=== PATIENT | male | born 1955 | race Caucasian/White ===

== ENCOUNTER → 2017-05-28 | Outpatient (CLI) | payer BC ==
--- NOTE | 2017-05-28 09:49 | US ---
EXAMINATION TYPE: US abdomen complete DATE OF EXAM: 05/28/2017 COMPARISON: NONE CLINICAL HISTORY: 62-year-old male Splenomegaly R16.1. TECHNIQUE: Multiple sonographic images of the abdomen are obtained. FINDINGS: [employer] NOTES: Large body habitus with extensive midline bowel gas. Liver Length: 14.2 cm Gallbladder Wall: 0.1 cm CBD: 0.3 cm Spleen: 14.8 cm Right Kidney: 10.7 x 4.8 x 4.8 cm Left Kidney: 11.7 x 6.0 x 5.4 cm Pancreas: Obscured by bowel gas Liver: Markedly echogenic and attenuating. This secondarily limits assessment for focal lesion. Gallbladder: wnl Evidence for sonographic Sandoval's sign: no CBD: wnl Spleen: Mildly enlarged Right Kidney: Inferior pole obscured by bowel gas . No hydronephrosis. Left Kidney: No hydronephrosis. Upper IVC: not well visualized Abd Aorta: proximal portion and bifurcation obscured by bowel gas IMPRESSION: 1. Mild splenomegaly (14.8 cm). 2. Marked hepatic steatosis. Correlate with LFTs, lipid profile, and patient risk factors. 3. Pancreas obscured and not assessed.
== END ==
LOC: RADUSWWP 07:33
PROVIDERS: ATTEND Family Medicine
DX: R16.1 Splenomegaly, not elsewhere classified (principal); K76.0 Fatty (change of) liver, not elsewhere classified
CPT/HCPCS: 76700

== ENCOUNTER 2018-07-29 09:26 | Observation (INO) | payer BC ==
[2018-07-29] MEDS ORDERED: NITROGLYCERIN SL TABS 0.4 MG TAB SUBLINGUAL STA (09:54)
[2018-07-29] MEDS ORDERED: ASPIRIN 81 MG PO STA (09:54)
--- NOTE | 2018-07-29 10:02 | ED ---
General Adult HPI - General Chief complaint: Chest Pain Stated complaint: Chest pain Time Seen by Provider: 07/29/18 09:48 Source: patient, RN notes reviewed Mode of arrival: ambulatory Limitations: no limitations - History of Present Illness Initial comments: Patient's a 63-year-old male significant past medical history for CAD, presented to the emergency room today with chief complaint of chest pain that started last night. Patient does admit that he's had a achy type pain that started in the abdomen and radiating up into the chest. Patient states does feel similar to symptoms that he's had in the past weeks had a heart attack. He states it's just a 3/10 pain. Did follow-up the family physician today and was advised come here by EMS which she did refuse but he did drive here to the hospital to be seen. Patient does admit to still experiencing some epigastric discomfort as well. He does admit that he's had some cough congestion over the last week. Does admit to sputum production as been yellow in color. Denies any other complaints or symptoms. Patient denies any recent fever, chills, shortness of breath, back pain, nausea or vomiting, numbness or tingling, headaches or visual changes, or any other complaints. - Related Data Home Medications Medication Instructions Recorded Confirmed Aspirin 81 mg PO DAILY 05/06/14 07/29/18 Clopidogrel Bisulfate [Plavix] 75 mg PO DAILY 05/06/14 07/29/18 Metoprolol Succinate [Toprol XL] 50 mg PO DAILY 05/06/14 07/29/18 Nitroglycerin Sl Tabs [Nitrostat] 0.4 mg SUBLINGUAL Q5M PRN 05/06/14 07/29/18 [place]-3 Acid Ethyl Esters [Lovaza] 2 gm PO BID 05/06/14 07/29/18 Rosuvastatin Calcium [Crestor] 20 mg PO DAILY 05/06/14 07/29/18 Dextromethorphan Polistirex 60 mg PO Q12H PRN 07/29/18 07/29/18 [Delsym] Dulaglutide [Trulicity] 1.5 mg SQ MO 07/29/18 07/29/18 Lisinopril [Zestril] 20 mg PO DAILY 07/29/18 07/29/18 Loratadine 10 mg PO DAILY 07/29/18 07/29/18 Omeprazole 20 mg PO BID 07/29/18 07/29/18 glipiZIDE [Glucotrol] 2.5 mg PO BID 07/29/18 07/29/18 metFORMIN HCL 1,000 mg PO BID 07/29/18 07/29/18 rOPINIRole HCL 0.5 mg PO HS 07/29/18 07/29/18 Allergies Allergy/AdvReac Type Severity Reaction Status Date / Time No Known Allergies Allergy Verified 07/29/18 10:38 Review of Systems ROS Statement: Those systems with pertinent positive or pertinent negative responses have been documented in the HPI. ROS Other: All systems not noted in ROS Statement are negative. Past Medical History Past Medical History: Coronary Artery Disease (CAD), Diabetes Mellitus, Hypertension, Myocardial Infarction (HI) Additional Past Medical History / Comment(s): Vasular disease Last Myocardial Infarction Date:: unknown History of Any Multi-Drug Resistant Organisms: None Reported Past Surgical History: Heart Catheterization With Stent Additional Past Surgical History / Comment(s): Femoral Bypass Date of Last Stent Placement:: unknown Past Psychological History: No Psychological Hx Reported Smoking Status: Former smoker Past Alcohol Use History: None Reported Past Drug Use History: None Reported General Exam - General Exam Comments Initial Comments: General: The patient is awake and alert, in no distress, and does not appear acutely ill. Eye: . There is normal conjunctiva bilaterally. No signs of icterus. Ears, nose, mouth and throat: There are moist mucous membranes and no oral lesions. Neck: The neck is supple, there is no tenderness or JVD. Cardiovascular: There is a regular rate and rhythm. No murmur, rub or gallop is appreciated. Respiratory: Lungs are clear to auscultation, respirations are non-labored, breath sounds are equal. No wheezes, stridor, rales, or rhonchi. Gastrointestinal: Mild tenderness epigastric. No rebound, guarding or CVA tenderness. Musculoskeletal: Normal ROM, no tenderness. Strength 5/5. Sensation intact. Radial pulses equal bilaterally 2+. Neurological: A&O x 3. CN II-XII intact, There are no obvious motor or sensory deficits. Coordination appears grossly intact. Speech is normal. Skin: Skin is warm and dry and no rashes or lesions are noted. Psychiatric: Cooperative, appropriate mood & affect, normal judgment. Limitations: no limitations Course Vital Signs 07/29/18 07/29/18 07/29/18 09:28 10:31 11:20 Temperature 98.8 F 98.5 F Pulse Rate 77 67 Respiratory 18 18 Rate Blood Pressure 197/81 155/82 155/79 O2 Sat by Pulse 97 96 Oximetry EKG Findings - EKG Comments: EKG Findings:: EKG performed at 0944: Shows normal sinus rhythm at 73 bpm. MD interval 148. QRS 92. QT/QTc 416/458. No acute ST changes. Medical Decision Making - Medical Decision Making Patient's reexamined at this time shows no signs of distress. He has had cough congestion last week. Says x-rays negative for any sign of pneumonia. Patient' s troponin negative. EKG showing no changes from previous. Patient's lipase is mildly elevated greater than 400. Patient does admit that he's had some similar symptoms in the past with HI. Patient will be admitted for serial cardiac enzymes patient currently resting comfortable at this time. - Lab Data Result diagrams: 07/29/18 10:04 07/29/18 10:04 Lab Results 07/29/18 07/29/18 07/29/18 Range/Units 10:04 10:04 10:04 WBC 6.1 (3.8-10.6) k/uL RBC 4.82 (4.30-5.90) m/uL Hgb 14.0 (13.0-17.5) gm/dL Hct 39.0 (39.0-53.0) % MCV 80.8 (80.0-100.0) fL MCH 29.1 (25.0-35.0) pg MCHC 36.0 (31.0-37.0) g/dL RDW 13.4 (11.5-15.5) % Plt Count 168 (150-450) k/uL Neutrophils % 69 % Lymphocytes % 19 % Monocytes % 5 % Eosinophils % 4 % Basophils % 1 % Neutrophils # 4.2 (1.3-7.7) k/uL Lymphocytes # 1.2 (1.0-4.8) k/uL Monocytes # 0.3 (0-1.0) k/uL Eosinophils # 0.3 (0-0.7) k/uL Basophils # 0.0 (0-0.2) k/uL PT (9.0-12.0) sec INR (<1.2) APTT (22.0-30.0) sec Sodium 141 (137-145) mmol/L Potassium 4.2 (3.5-5.1) mmol/L Chloride 107 (98-107) mmol/L Carbon Dioxide 26 (22-30) mmol/L Anion Gap 8 mmol/L BUN 13 (9-20) mg/dL Creatinine 0.64 L (0.66-1.25) mg/dL Est GFR (CKD-EPI)AfAm >90 (>60 ml/min/1.73 sqM) Est GFR (CKD-EPI)NonAf >90 (>60 ml/min/1.73 sqM) Glucose 220 H (74-99) mg/dL Calcium 9.4 (8.4-10.2) mg/dL Magnesium 1.5 L (1.6-2.3) mg/dL Total Bilirubin 0.6 (0.2-1.3) mg/dL AST 37 (17-59) U/L ALT 63 (21-72) U/L Alkaline Phosphatase 74 (38-126) U/L Total Creatine Kinase 87 (55-170) U/L CK-MB (CK-2) 1.1 (0.0-2.4) ng/mL CK-MB (CK-2) Rel Index 1.3 Troponin I <0.012 (0.000-0.034) ng/mL Total Protein 7.0 (6.3-8.2) g/dL Albumin 4.1 (3.5-5.0) g/dL Amylase 68 (30-110) U/L Lipase 479 H (23-300) U/L //18 Range/Units 10:04 WBC (3.8-10.6) k/uL RBC (4.30-5.90) m/uL Hgb (13.0-17.5) gm/dL Hct (39.0-53.0) % MCV (80.0-100.0) fL MCH (25.0-35.0) pg MCHC (31.0-37.0) g/dL RDW (11.5-15.5) % Plt Count (150-450) k/uL Neutrophils % % Lymphocytes % % Monocytes % % Eosinophils % % Basophils % % Neutrophils # (1.3-7.7) k/uL Lymphocytes # (1.0-4.8) k/uL Monocytes # (0-1.0) k/uL Eosinophils # (0-0.7) k/uL Basophils # (0-0.2) k/uL PT 9.8 (9.0-12.0) sec INR 0.9 (<1.2) APTT 26.0 (22.0-30.0) sec Sodium (137-145) mmol/L Potassium (3.5-5.1) mmol/L Chloride (98-107) mmol/L Carbon Dioxide (22-30) mmol/L Anion Gap mmol/L BUN (9-20) mg/dL Creatinine (0.66-1.25) mg/dL Est GFR (CKD-EPI)AfAm (>60 ml/min/1.73 sqM) Est GFR (CKD-EPI)NonAf (>60 ml/min/1.73 sqM) Glucose (74-99) mg/dL Calcium (8.4-10.2) mg/dL Magnesium (1.6-2.3) mg/dL Total Bilirubin (0.2-1.3) mg/dL AST (17-59) U/L ALT (21-72) U/L Alkaline Phosphatase (38-126) U/L Total Creatine Kinase (55-170) U/L CK-MB (CK-2) (0.0-2.4) ng/mL CK-MB (CK-2) Rel Index Troponin I (0.000-0.034) ng/mL Total Protein (6.3-8.2) g/dL Albumin (3.5-5.0) g/dL Amylase (30-110) U/L Lipase (23-300) U/L Disposition Clinical Impression: Chest pain, Abdominal pain, Elevated lipase Disposition: ADMITTED IP TO THIS [facility] Condition: Stable Is patient prescribed a controlled substance at d/c from ED?: No Referrals: Oliverio Clay DO [Primary Care Provider] - 1-2 days Time of Disposition: 12:03
--- NOTE | 2018-07-29 10:26 | XR ---
EXAMINATION TYPE: XR chest 2V DATE OF EXAM: 07/29/2018 COMPARISON: 05/06/2014 TECHNIQUE: PA and lateral views submitted. HISTORY: Chest pain FINDINGS: The lungs are clear and there is no pneumothorax, pleural effusion, or focal pneumonia. Hypertrophi c and degenerative change spine. Wedge deformity involving the thoracolumbar junction appears chronic . IMPRESSION: 1. No acute process.
[2018-07-29 10:52] LABS: Basophils % (A) 1 %; Eosinophils # (A) 0.3 k/uL (0-0.7); Eosinophils % (A) 4 %; Lymphocytes # (A) 1.2 k/uL (1.0-4.8); Lymphocytes % (A) 19 %; MCH 29.1 pg (25.0-35.0); MCV 80.8 fL (80.0-100.0); Mean Platelet Volume 8.1; Monocytes # (A) 0.3 k/uL (0-1.0); Monocytes % (A) 5 %; Neutrophils # (A) 4.2 k/uL (1.3-7.7); Neutrophils % (A) 69 %; Platelet Count 168 k/uL (150-450); RBC 4.82 m/uL (4.30-5.90); RDW 13.4 % (11.5-15.5); WBC 6.1 k/uL (3.8-10.6)
[2018-07-29 11:00] LABS: INR 0.9 (<1.2); Prothrombin Time 9.8 sec (9.0-12.0)
[2018-07-29 11:01] LABS: ALT 63 U/L (21-72); AST 37 U/L (17-59); Albumin 4.1 g/dL (3.5-5.0); Alkaline Phosphatase 74 U/L (38-126); Amylase 68 U/L (30-110); Anion Gap 8 mmol/L; Blood Urea Nitrogen 13 mg/dL (9-20); Calcium 9.4 mg/dL (8.4-10.2); Carbon Dioxide 26 mmol/L (22-30); Chloride 107 mmol/L (98-107); Glucose 220 mg/dL (74-99); Lipase 479 U/L (23-300); Magnesium 1.5 mg/dL (1.6-2.3); Potassium 4.2 mmol/L (3.5-5.1); Sodium 141 mmol/L (137-145); Total Bilirubin 0.6 mg/dL (0.2-1.3)
[2018-07-29 11:22] LABS: Creatine Kinase 87 U/L (55-170)
[2018-07-29 11:32] LABS: Creatine Kinase MB 1.1 ng/mL (0.0-2.4); Troponin I <0.012 ng/mL (0.000-0.034)
[2018-07-29] MEDS ORDERED: NITROGLYCERIN SL TABS 0.4 MG TAB SUBLINGUAL PRN ×2 (12:04→13:22)
[2018-07-29] MEDS ORDERED: SODIUM CHLORIDE 0.9% 1,000 ML IV ONE (12:04)
[2018-07-29] MEDS ORDERED: DEXTROMETHORPHAN POLISTIREX PO PRN (13:22)
[2018-07-29] MEDS ORDERED: NON-FORMULARY DRUG (Dulaglutide [Trulicity] 1.5 MG) SQ SCH (14:00)
[2018-07-29 14:32] VITALS: BMI 34.7
[2018-07-29] MEDS ORDERED: INFLUENZA VACCINE (6 MOS+) 60 MCG/0.5 ML SYRINGE IM ONE (14:39)
[2018-07-29] MEDS ORDERED: PNEUMOCOCCAL VACC-PNEUMOVAX 23 25 MCG/0.5 ML VIAL IM ONE (14:39)
[2018-07-29] MEDS: ATORVASTATIN 40 MG TAB PO SCH (14:59)
[2018-07-29] MEDS: CLOPIDOGREL 75 MG TAB PO SCH (14:59)
[2018-07-29] MEDS: PANTOPRAZOLE 40 MG TABLET PO SCH (14:59)
[2018-07-29] MEDS: LISINOPRIL 20 MG TAB PO SCH (14:59)
[2018-07-29] MEDS: METOPROLOL SUCCINATE (ER) 50 MG TAB.ER.24H PO SCH (14:59)
[2018-07-29 16:45] LABS: Glucose,Whole Blood 233 mg/dL (75-99)
[2018-07-29] MEDS ORDERED: NALOXONE 0.4 MG/ML 1 ML VIAL IV PRN (17:00)
[2018-07-29] MEDS ORDERED: CALCIUM CARBONATE 500 MG CHEWABLE PO PRN (17:00)
[2018-07-29] MEDS ORDERED: MELATONIN 3 MG TABLET PO PRN (17:00)
[2018-07-29] MEDS ORDERED: ACETAMINOPHEN TAB 325 MG TAB PO PRN (17:00)
[2018-07-29] MEDS ORDERED: ONDANSETRON 4 MG/2 ML VIAL IVP PRN (17:00)
[2018-07-29] MEDS ORDERED: MAGNESIUM HYDROXIDE 2,400 MG/10 ML CUP PO PRN (17:00)
[2018-07-29] MEDS ORDERED: LACTULOSE 20 GM/30 ML CUP PO PRN (17:00)
[2018-07-29] MEDS ORDERED: ALPRAZolam 0.25 MG TAB PO PRN (17:00)
[2018-07-29] MEDS: metFORMIN 500 MG TAB PO SCH (17:08)
[2018-07-29] MEDS: IPRATROPIUM-ALBUTEROL 3 ML NEB INHALATION SCH ×2 (17:25→19:51)
[2018-07-29] MEDS ORDERED: INSULIN ASPART 100 UNIT/ML 1 ML 10 ML VIAL SQ SCH ×2 (17:30)
[2018-07-29] MEDS: methylPREDNISolone SOD SUCCI 40 MG/ML 1 ML VIAL IV SCH ×2 (17:32→22:29)
[2018-07-29] MEDS: ENOXAPARIN 40 MG/0.4 ML SYRINGE SQ SCH (17:33)
[2018-07-29] MEDS: LORATADINE 10 MG TAB PO SCH (17:33)
[2018-07-29 17:39] LABS: Creatine Kinase 74 U/L (55-170)
[2018-07-29 17:46] LABS: Creatine Kinase MB 0.8 ng/mL (0.0-2.4); Troponin I <0.012 ng/mL (0.000-0.034)
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
[2018-07-29 20:42] LABS: Glucose,Whole Blood 221 mg/dL (75-99)
[2018-07-29] MEDS: INSULIN ASPART 100 UNIT/ML 1 ML 10 ML VIAL SQ SCH (21:29)
[2018-07-29 23:16] LABS: Creatine Kinase 69 U/L (55-170)
[2018-07-29 23:30] LABS: Creatine Kinase MB 0.7 ng/mL (0.0-2.4); Troponin I <0.012 ng/mL (0.000-0.034)
[2018-07-30 02:45] LABS: Cholesterol 83 mg/dL (<200); HDL Cholesterol 23 mg/dL (40-60); LDL Cholesterol,Calculated 23 mg/dL (0-99); Triglycerides 183 mg/dL (<150)
[2018-07-30 04:08] LABS: Hemoglobin A1C 7.3 % (4.0-6.0)
[2018-07-30 07:03] LABS: Glucose,Whole Blood 277 mg/dL (75-99)
[2018-07-30] MEDS: IPRATROPIUM-ALBUTEROL 3 ML NEB INHALATION SCH ×3 (07:07→15:11)
[2018-07-30] MEDS ORDERED: ASPIRIN 325 MG TAB PO SCH (09:00)
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
--- NOTE | 2018-07-30 10:38 | US ---
EXAMINATION TYPE: US abdomen complete DATE OF EXAM: 07/30/2018 COMPARISON: US CLINICAL HISTORY: elevated lipase. EXAM MEASUREMENTS: Liver Length: 16.9 cm Gallbladder Wall: 0.3 cm CBD: 0.4 cm Spleen: 15.3 cm Right Kidney: 10.6 x 6.6 x 6.4 cm Left Kidney: 14.2 x 6.1 x 6.8 cm Technically difficult study due to overlying bowel gas. Pancreas: not visualized due to midline bowel gas. Liver: difficult to penetrate, loss of vascular landmarks. Marked coarsened hyperechoic and heteroge nous echotexture of the hepatic parenchyma, which most commonly corresponds to hepatic steatosis and limits evaluation for underlying hepatic masses. Gallbladder: No stones seen Evidence for sonographic Sandoval's sign: No CBD: wnl Spleen: enlarged at 15 cm Right Kidney: No hydronephrosis or masses seen Left Kidney: No hydronephrosis or masses seen Upper IVC: not visualized due to midline bowel gas Abd Aorta: visualized portions wnl The intrahepatic portion of the IVC and proximal abdominal aorta are within normal limits. There is no evidence of cholelithiasis. Common bile duct is unremarkable. The spleen is enlarged. Kidneys are symmetric and free of hydronephrosis. No renal lesions are seen. IMPRESSION: 1. Redemonstration of hepatocellular disease with sonographic findings most commonly related to hepat ic steatosis and splenomegaly both seen on the prior exam of 05/28/2017. 2. No sonographic evidence of cholelithiasis or acute cholecystitis. 3. Limited visualization of the inferior vena cava, aorta, and obscuration of the pancreas due to ove rlying bowel gas.
[2018-07-30 11:02] LABS: Glucose,Whole Blood 332 mg/dL (75-99)
[2018-07-30] MEDS: ATORVASTATIN 40 MG TAB PO SCH (11:30)
[2018-07-30] MEDS: LORATADINE 10 MG TAB PO SCH (11:31)
[2018-07-30] MEDS: LISINOPRIL 20 MG TAB PO SCH (11:31)
[2018-07-30] MEDS: CLOPIDOGREL 75 MG TAB PO SCH (11:31)
[2018-07-30] MEDS: PANTOPRAZOLE 40 MG TABLET PO SCH (11:32)
[2018-07-30] MEDS: METOPROLOL SUCCINATE (ER) 50 MG TAB.ER.24H PO SCH (11:32)
[2018-07-30] MEDS: ENOXAPARIN 40 MG/0.4 ML SYRINGE SQ SCH (11:32)
[2018-07-30] MEDS: methylPREDNISolone SOD SUCCI 40 MG/ML 1 ML VIAL IV SCH ×2 (11:32→16:41)
--- NOTE | 2018-07-30 11:52 | ECHOF ---
Referral Reason: MEASUREMENTS -------- HEIGHT: 167.6 cm WEIGHT: 97.5 kg BP: 143/74 RVIDd: 3.0 cm (< 3.3) IVSd: 1.3 cm (0.6 - 1.1) LVIDd: 4.7 cm (3.9 - 5.3) LVPWd: 1.3 cm (0.6 - 1.1) IVSs: 2.0 cm LVIDs: 2.7 cm LVPWs: 1.7 cm LA Diam: 3.7 cm (2.7 - 3.8) LAESV Index (A-L): 31.77 ml/m Ao Diam: 3.4 cm (2.0 - 3.7) AV Cusp: 2.4 cm (1.5 - 2.6) MV EXCURSION: 14.577 mm (> 18.000) MV EF SLOPE: 123 mm/s (70 - 150) EPSS: 0.4 cm MV E Tevin: 0.95 m/s MV DecT: 163 ms MV A Tevin: 1.28 m/s MV E/A Ratio: 0.75 RAP: 5.00 mmHg RVSP: 28.81 mmHg FINDINGS -------- Resting tachycardia (HR>100bpm). This was a technically adequate study. The left ventricular size is normal. There is mild concentric left ventricular hypertrophy. Left ventricular systolic function is hyperdynamic with an estimated EF of >70%. Moderate asymmetric sep milton hypertrophy with septal thickness 1.6 - 1.9 cm. The right ventricle is normal in size. LA is midly dilated 29-33ml/m2. The right atrium is normal in size. The aortic valve is trileaflet and appears structurally normal. The mitral valve is normal. Mild tricuspid regurgitation present. Right ventricular systolic pressure is normal at < 35 mmHg. Trace/mild (physiologic) pulmonic regurgitation. The aortic root size is normal. IVC Not well visulized. There is no pericardial effusion. CONCLUSIONS -------- 1. Resting tachycardia (HR>100bpm). 2. This was a technically adequate study. 3. The left ventricular size is normal. 4. There is mild concentric left ventricular hypertrophy. 5. Left ventricular systolic function is hyperdynamic with an estimated EF of >70%. 6. Moderate asymmetric septal hypertrophy with septal thickness 1.6 - 1.9 cm. 7. The right ventricle is normal in size. 8. LA is midly dilated 29-33ml/m2. 9. The right atrium is normal in size. 10. The aortic valve is trileaflet and appears structurally normal. 11. The mitral valve is normal. 12. Mild tricuspid regurgitation present. 13. Right ventricular systolic pressure is normal at < 35 mmHg. 14. Trace/mild (physiologic) pulmonic regurgitation. 15. The aortic root size is normal. 16. IVC Not well visulized. 17. There is no pericardial effusion. ELEMENTARY EDUCATION TEACHER: Karma Joiner RDCS
[2018-07-30] MEDS: INSULIN ASPART 100 UNIT/ML 1 ML 10 ML VIAL SQ SCH ×3 (12:09→16:46)
[2018-07-30] MEDS: metFORMIN 500 MG TAB PO SCH ×2 (12:09→16:46)
[2018-07-30 16:09] VITALS: BP 182/77; PULSE 105; RESP 18; TEMP 97.3
[2018-07-30 16:44] LABS: Glucose,Whole Blood 318 mg/dL (75-99)
[2018-07-31] MEDS ORDERED: ASPIRIN 81 MG PO SCH (09:00)
--- NOTE | 2018-07-31 22:36 | DS ---
DISCHARGE SUMMARY DATE OF ADMISSION: July 29, 2018. DATE OF DISCHARGE: July 30, 2018. FINAL DIAGNOSES: 1. Acute chronic obstructive pulmonary disease exacerbation in an ex-smoker. 2. Acute tracheobronchitis. 3. Possible angina. 4. Coronary artery disease prior history of stents, last one being in 2013. 5. Diabetes mellitus type 2 on oral hypoglycemic. 6. Essential hypertension. 7. Peripheral artery disease. HOSPITAL COURSE: This is an ex-smoker presented with being congested, short of breath, some wheezing, did respond well to bronchodilators and steroids. I would like him to stay one more day with COPD exacerbation, but the patient is very keen to go home. Also had some chest pain. Seen by Cardiology. No further workup to be done. 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 2D echocardiogram 2D echocardiogram showed EF of more than 70% and moderate asymmetric septal hypertrophy. The patient otherwise was doing well, up and about. PHYSICAL EXAMINATION: Temperature 97.3, pulse 95, respiration 18, blood pressure 116/67. LUNGS improved air entry. CARDIOVASCULAR: First and second sounds normal. DISCHARGE MEDICATIONS: 1. Aspirin 81 mg a day. 2. Plavix 75 mg a day. 3. Toprol-XL 50 mg a day. 4. Nitrostat 0.4 sublingual q.5 p.r.n. 5. Lovaza 2 grams p.o. b.i.d. 6. Crestor 20 mg p.o. daily. 7. 60 mg p.o. q.12 p.r.n. 8. Trulicity 1.5 subcu on Mondays. 9. Zestril 20 mg p.o. daily. 10.Omeprazole 20 mg b.i.d. 11.Glucotrol 2.5 mg p.o. b.i.d. 12.Metformin 1000 mg p.o. b.i.d. 13.Ropinirole 0.5 mg p.o. q.h.s. 14.Ventolin HFA 1 or 2 puffs q.6h p.r.n. 15.Atrovent HFA 2 puffs q.i.d. 16.Claritin 5 mg p.o. b.i.d. 17.Prednisone taper. 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 Follow up with Dr. Clay in 3 days. The patient did get influenza and pneumococcal vaccination. Copy to Dr. Clay. [id number] / IJN: [id number] /
== END 2018-07-30 15:40 | disposition home or self-care (01) ==
LOC: EC 09:26 → 1SOBS 12:03
PROVIDERS: ADMIT Hospitalist; ATTEND Hospitalist
DX: J44.1 Chronic obstructive pulmonary disease with (acute) exacerbation (principal); Z87.891 Personal history of nicotine dependence; J20.9 Acute bronchitis, unspecified; J44.0 Chronic obstructive pulmonary disease with (acute) lower respiratory infection; I25.10 Atherosclerotic heart disease of native coronary artery without angina pectoris; Z95.5 Presence of coronary angioplasty implant and graft; I10 Essential (primary) hypertension; E11.51 Type 2 diabetes mellitus with diabetic peripheral angiopathy without gangrene; E78.5 Hyperlipidemia, unspecified; E83.42 Hypomagnesemia; G47.30 Sleep apnea, unspecified; K21.9 Gastro-esophageal reflux disease without esophagitis; R74.8 Abnormal levels of other serum enzymes; I25.2 Old myocardial infarction; Z95.828 Presence of other vascular implants and grafts; Z86.718 Personal history of other venous thrombosis and embolism; Z86.14 Personal history of Methicillin resistant Staphylococcus aureus infection; Z79.02 Long term (current) use of antithrombotics/antiplatelets; Z79.84 Long term (current) use of oral hypoglycemic drugs; Z79.82 Long term (current) use of aspirin; Z79.899 Other long term (current) drug therapy; Z81.1 Family history of alcohol abuse and dependence; Z80.0 Family history of malignant neoplasm of digestive organs; Z23 Encounter for immunization
CPT/HCPCS: 36415; 71046; 76700; 80053; 80061; 82150; 82550; 82553; 83036; 83690; 83735; 84484; 85025; 85610; 85730; 90686; 90732; 93005; 93306; 94640; 96372; 96374; 96375; 96376; 99285

== ENCOUNTER 2018-08-06 12:10 | Emergency (ER) | payer BC ==
[2018-08-06 12:23] LABS: Glucose,Whole Blood 387 mg/dL (75-99)
[2018-08-06 12:25] VITALS: RESP 18
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
--- NOTE | 2018-08-06 13:18 | XR ---
EXAMINATION TYPE: XR chest 2V DATE OF EXAM: 08/06/2018 COMPARISON: Chest x-ray July 29, 2018. HISTORY: History of hypertension with cough. TECHNIQUE: Frontal and lateral views of the chest are obtained. FINDINGS: There is no focal air space opacity, pleural effusion, or pneumothorax seen. The cardiac silhouette size remains within normal limits. The osseous structures are intact. IMPRESSION: No suspicious acute pulmonary process. No significant change from prior.
[2018-08-06 13:20] LABS: Appearance,Urine Clear (Clear); Bilirubin,Urine Negative (Negative); Blood,Urine Negative (Negative); Color,Urine Light Yellow; Glucose,Urine (UA) 4+ (Negative); Ketones,Urine Negative (Negative); Leukocyte Esterase,Urine Negative (Negative); Nitrite,Urine Negative (Negative); Protein,Urine Trace (Negative); Urobilinogen,Urine <2.0 mg/dL (<2.0)
[2018-08-06 13:23] LABS: Basophils % (A) 0 %; Eosinophils # (A) 0.1 k/uL (0-0.7); Eosinophils % (A) 1 %; HCT 40.8 % (39.0-53.0); Lymphocytes % (A) 13 %; MCH 28.1 pg (25.0-35.0); MCHC 34.5 g/dL (31.0-37.0); MCV 81.6 fL (80.0-100.0); Mean Platelet Volume 7.8; Monocytes # (A) 0.3 k/uL (0-1.0); Monocytes % (A) 4 %; Neutrophils # (A) 6.6 k/uL (1.3-7.7); Neutrophils % (A) 81 %; Platelet Count 184 k/uL (150-450); RDW 13.7 % (11.5-15.5); WBC 8.2 k/uL (3.8-10.6)
[2018-08-06 13:35] LABS: ALT 89 U/L (21-72); AST 32 U/L (17-59); Albumin 4.2 g/dL (3.5-5.0); Alkaline Phosphatase 77 U/L (38-126); Anion Gap 12 mmol/L; Blood Urea Nitrogen 20 mg/dL (9-20); Calcium 9.7 mg/dL (8.4-10.2); Carbon Dioxide 21 mmol/L (22-30); Chloride 104 mmol/L (98-107); Glucose 351 mg/dL (74-99); Magnesium 1.6 mg/dL (1.6-2.3); Potassium 4.6 mmol/L (3.5-5.1); Sodium 137 mmol/L (137-145); Total Bilirubin 0.4 mg/dL (0.2-1.3)
[2018-08-06] MEDS ORDERED: INSULIN REGULAR 100 UNIT/ML VIAL IV ONE (13:35)
[2018-08-06] MEDS ORDERED: SODIUM CHLORIDE 0.9% 500 ML 500 ML IV STA ×2 (13:35→14:09)
[2018-08-06] MEDS ORDERED: SODIUM CHLORIDE 0.9% 1,000 ML IV STA (13:35)
[2018-08-06 13:44] LABS: Creatine Kinase 52 U/L (55-170)
[2018-08-06 13:57] LABS: Creatine Kinase MB 1.2 ng/mL (0.0-2.4); Troponin I <0.012 ng/mL (0.000-0.034)
[2018-08-06 14:23] LABS: Glucose,Whole Blood 235 mg/dL (75-99)
[2018-08-06 14:57] LABS: Glucose,Whole Blood 185 mg/dL (75-99)
[2018-08-06 15:25] VITALS: BP 164/99; PULSE 66; TEMP 98.2
== END 2018-08-06 15:25 | disposition home or self-care (01) ==
LOC: EC 12:10
DX: I10 Essential (primary) hypertension (principal); E11.65 Type 2 diabetes mellitus with hyperglycemia; E86.0 Dehydration; I25.10 Atherosclerotic heart disease of native coronary artery without angina pectoris; E78.5 Hyperlipidemia, unspecified; I25.2 Old myocardial infarction; G47.30 Sleep apnea, unspecified; E11.51 Type 2 diabetes mellitus with diabetic peripheral angiopathy without gangrene; Z79.02 Long term (current) use of antithrombotics/antiplatelets; Z79.82 Long term (current) use of aspirin; Z79.84 Long term (current) use of oral hypoglycemic drugs; Z79.899 Other long term (current) drug therapy; Z95.5 Presence of coronary angioplasty implant and graft; Z95.1 Presence of aortocoronary bypass graft; Z87.891 Personal history of nicotine dependence; Z86.718 Personal history of other venous thrombosis and embolism
CPT/HCPCS: 36415; 71046; 80053; 81003; 82550; 82553; 83735; 84484; 85025; 93005; 96360; 99284

== ENCOUNTER → 2019-04-21 | Outpatient (CLI) | payer BC ==
--- NOTE | 2019-04-24 11:56 | P.ARTDOP ---
Arterial Doppler LOWER EXTREMITY ARTERIAL DOPPLER: DATE OF SERVICE: 04/21/2019 Reason for study: Previous revascularization. Foot tingling. Doppler waveforms: Multiphasic bilaterally throughout. Pulse volume recording: []. Pressure gradients: None. Ankle-brachial indices: Greater than 1 bilaterally. Toe pressures: 98 on the right, 97 on the left Impression: Normal study.
== END | disposition home or self-care (01) ==
LOC: RADUSWWP 11:53
PROVIDERS: ATTEND Family Medicine
DX: I73.9 Peripheral vascular disease, unspecified (principal)
CPT/HCPCS: 93922; 93923

== ENCOUNTER 2019-10-11 20:32 | Observation (INO) | payer BC ==
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
[2019-10-11] MEDS ORDERED: ASPIRIN 81 MG PO STA (20:54)
[2019-10-11] MEDS ORDERED: NITROGLYCERIN SL TABS 0.4 MG TAB SUBLINGUAL STA (20:55)
--- NOTE | 2019-10-11 21:06 | XR ---
EXAMINATION TYPE: XR chest 2V DATE OF EXAM: 10/11/2019 COMPARISON: 08/06/2018 INDICATION: Chest pain TECHNIQUE: Frontal and lateral views of the chest are obtained. FINDINGS: The heart size is normal. The pulmonary vasculature is normal. The lungs are clear. IMPRESSION: 1. No acute pulmonary process.
[2019-10-11 21:08] LABS: ALT 32 U/L (4-49); AST 33 U/L (17-59); African American GFR (CKD) >90 (>60 ml/min/1.73 sqM); Albumin 4.5 g/dL (3.5-5.0); Alkaline Phosphatase 70 U/L (38-126); Anion Gap 9 mmol/L; Blood Urea Nitrogen 15 mg/dL (9-20); Calcium 9.5 mg/dL (8.4-10.2); Carbon Dioxide 26 mmol/L (22-30); Chloride 104 mmol/L (98-107); Glucose 247 mg/dL (74-99); Magnesium 1.9 mg/dL (1.6-2.3); Non-African American GFR(CKD) >90 (>60 ml/min/1.73 sqM); Potassium 4.2 mmol/L (3.5-5.1); Sodium 139 mmol/L (137-145); Total Bilirubin 0.3 mg/dL (0.2-1.3); Total Protein 7.6 g/dL (6.3-8.2)
[2019-10-11 21:09] LABS: Basophils # (A) 0.1 k/uL (0-0.2); Basophils % (A) 1 %; Eosinophils # (A) 0.5 k/uL (0-0.7); Eosinophils % (A) 5 %; HCT 44.2 % (39.0-53.0); HGB 15.3 gm/dL (13.0-17.5); Lymphocytes # (A) 1.8 k/uL (1.0-4.8); Lymphocytes % (A) 18 %; MCH 27.6 pg (25.0-35.0); MCHC 34.6 g/dL (31.0-37.0); MCV 79.7 fL (80.0-100.0); Mean Platelet Volume 8.3; Monocytes # (A) 0.4 k/uL (0-1.0); Monocytes % (A) 4 %; Neutrophils # (A) 7.2 k/uL (1.3-7.7); Neutrophils % (A) 71 %; Platelet Count 216 k/uL (150-450); RBC 5.54 m/uL (4.30-5.90); RDW 14.1 % (11.5-15.5); WBC 10.1 k/uL (3.8-10.6)
[2019-10-11 21:13] LABS: INR 0.9 (<1.2); Partial Thromboplastin Time 26.3 sec (22.0-30.0); Prothrombin Time 9.6 sec (9.0-12.0)
[2019-10-11 21:21] LABS: D-Dimer 0.92 mg/L FEU (<0.60)
[2019-10-11] MEDS ORDERED: SODIUM CHLORIDE 0.9% 500 ML 500 ML IV ONE (21:23)
--- NOTE | 2019-10-11 21:59 | CT ---
CT CHEST FOR PULMONARY EMBOLISM. EXAMINATION TYPE: CT angio chest DATE OF EXAM: 10/11/2019 INDICATION: Right sided chest pain and elevated d-dimer. CT DLP: 580.3 mGycm, Automated exposure control for dose reduction was used. CONTRAST: Patient injected with 100 mL of Isovue 370. COMPARISON: 05/07/2014 TECHNIQUE: CT of the chest is performed on a spiral scan at 2 mm thick sections. Study is performed with intravenous contrast timed for evaluation for pulmonary embolism. This will limit additional po rtions of the evaluation. 3-D MIP images reconstructed by the technologist are reviewed on the compu ter in the coronal and sagittal planes. FINDINGS: No persistent filling defects are evident to suggest an acute pulmonary embolism. No mediastinal or hilar adenopathy enlarged by CT criteria is evident. The ascending aorta diameter at the level of the main pulmonary artery is 3.6 cm. The main pulmonary artery diameter at the bifur cation is 3.1 cm. Lung windows are clear. Limited CT section through the upper abdomen are unremarkable. Note is made of an old stable compress ion deformity of L1 IMPRESSIONS: 1. No acute pulmonary embolism
[2019-10-12 06:04] LABS: Glucose,Whole Blood 198 mg/dL (75-99)
[2019-10-12] MEDS: ATORVASTATIN 40 MG TAB PO SCH (08:35)
[2019-10-12] MEDS: CLOPIDOGREL 75 MG TAB PO SCH (08:35)
[2019-10-12] MEDS: METOPROLOL SUCCINATE (ER) 50 MG TAB.ER.24H PO SCH (08:35)
[2019-10-12] MEDS: LISINOPRIL 20 MG TAB PO SCH (08:35)
[2019-10-12 08:40] LABS: Basophils % (A) 1 %; Eosinophils # (A) 0.4 k/uL (0-0.7); Eosinophils % (A) 7 %; HCT 42.4 % (39.0-53.0); HGB 14.4 gm/dL (13.0-17.5); Lymphocytes # (A) 1.3 k/uL (1.0-4.8); Lymphocytes % (A) 20 %; MCH 27.5 pg (25.0-35.0); MCHC 34.1 g/dL (31.0-37.0); MCV 80.5 fL (80.0-100.0); Mean Platelet Volume 8.2; Monocytes # (A) 0.3 k/uL (0-1.0); Monocytes % (A) 5 %; Neutrophils # (A) 4.5 k/uL (1.3-7.7); Neutrophils % (A) 66 %; Platelet Count 182 k/uL (150-450); RBC 5.26 m/uL (4.30-5.90); RDW 14.1 % (11.5-15.5); WBC 6.7 k/uL (3.8-10.6)
[2019-10-12 08:49] LABS: ALT 29 U/L (4-49); AST 30 U/L (17-59); African American GFR (CKD) >90 (>60 ml/min/1.73 sqM); Albumin 3.9 g/dL (3.5-5.0); Alkaline Phosphatase 61 U/L (38-126); Anion Gap 7 mmol/L; Blood Urea Nitrogen 16 mg/dL (9-20); Carbon Dioxide 26 mmol/L (22-30); Chloride 105 mmol/L (98-107); Glucose 164 mg/dL (74-99); Non-African American GFR(CKD) >90 (>60 ml/min/1.73 sqM); Potassium 4.6 mmol/L (3.5-5.1); Sodium 138 mmol/L (137-145); Total Bilirubin 0.3 mg/dL (0.2-1.3); Total Protein 6.7 g/dL (6.3-8.2)
[2019-10-12 11:18] LABS: Glucose,Whole Blood 149 mg/dL (75-99)
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
[2019-10-12 12:15] LABS: Cholesterol 103 mg/dL (<200); HDL Cholesterol 27 mg/dL (40-60); LDL Cholesterol,Calculated 35 mg/dL (0-99); Triglycerides 205 mg/dL (<150)
[2019-10-12 17:13] LABS: Glucose,Whole Blood 225 mg/dL (75-99)
[2019-10-12 20:37] LABS: Glucose,Whole Blood 240 mg/dL (75-99)
[2019-10-13] MEDS ORDERED: CAFFEINE CITRATE 60 MG/3 ML VIAL IV PRN (06:00)
[2019-10-13] MEDS ORDERED: AMINOPHYLLINE 500 MG/20 ML VIAL IV PRN (06:00)
[2019-10-13 06:24] LABS: Glucose,Whole Blood 185 mg/dL (75-99)
[2019-10-13] MEDS ORDERED: REGADENOSON 0.4 MG/5 ML SYRINGE IV ONE (08:00)
[2019-10-13] MEDS ORDERED: ASPIRIN 325 MG TAB PO STA ×2 (09:18→14:11)
--- NOTE | 2019-10-13 10:51 | P.DS ---
Providers Date of admission: 10/11/19 22:22 Attending physician: Cornelius Olson MD Consults: 10/11/19 22:22 Consult Physician Urgent Consulting Provider: Julio Aguilar Consult Reason/Comments: Chest pain Do you want consulting provider notified?: Yes Primary care physician: [facility] Course: patient with history of coronary artery disease and peripheral vascular disease came in with complaints of chest pain is undergoing stress test if that's negative patient will be discharged. Constitutional: Denied any fatigue denied any fever. Cardio vascular: denied any chest pain, palpitations Gastrointestinal denied any nausea vomiting Pulmonary: Denied any shortness of breath cough Neurologic denied any new focal deficits All inpatient medications were reviewed and appropriate changes in these medications as dictated in the interval history and assessment and plan. PHYSICAL EXAMINATION: GENERAL: The patient is alert and oriented x3, not in any acute distress. Well developed, well nourished. HEENT: Pupils are round and equally reacting to light. EOMI. No scleral icterus. No conjunctival pallor. Normocephalic, atraumatic. No pharyngeal erythema. No thyromegaly. CARDIOVASCULAR: S1 and S2 present. No murmurs, rubs, or gallops. PULMONARY: Chest is clear to auscultation, no wheezing or crackles. ABDOMEN: Soft, nontender, nondistended, normoactive bowel sounds. No palpable organomegaly. MUSCULOSKELETAL: No joint swelling or deformity. EXTREMITIES: No cyanosis, clubbing, or pedal edema. NEUROLOGICAL: Gross neurological examination did not reveal any focal deficits. SKIN: No rashes. Assessment and Plan Plan: chest pain: Ruled out pulmonary embolism ruled out pneumonia ruled out acute coronary syndromes , patient is undergoing stress test today that's negative patient will be discharged -coronary artery disease -Peripheral vascular disease gastroesophageal reflux disease -Type 2 diabetes mellitus -Sleep apnea -Hypertension Patient Condition at Discharge: Stable Plan - Discharge Summary Discharge Rx Participant: No New Discharge Prescriptions: Continue Nitroglycerin Sl Tabs [Nitrostat] 0.4 mg SUBLINGUAL Q5M PRN PRN Reason: Chest Pain Metoprolol Succinate [Toprol XL] 50 mg PO DAILY Aspirin 81 mg PO DAILY Rosuvastatin Calcium [Crestor] 20 mg PO DAILY [place]-3 Acid Ethyl Esters [Lovaza] 2 gm PO BID Clopidogrel Bisulfate [Plavix] 75 mg PO DAILY metFORMIN HCL 1,000 mg PO BID Omeprazole 20 mg PO BID rOPINIRole HCL [Requip] 0.5 mg PO HS Lisinopril [Zestril] 20 mg PO DAILY Empagliflozin [Jardiance] 25 mg PO DAILY Insulin Glargine,Hum.rec.anlog [Lantus Solostar] 30 unit SQ HS Dulaglutide [Trulicity] 1.5 mg SQ MO Discontinued Famotidine 40 mg PO BID Discharge Medication List Aspirin 81 mg PO DAILY 05/06/14 [History] Clopidogrel Bisulfate [Plavix] 75 mg PO DAILY 05/06/14 [History] Metoprolol Succinate [Toprol XL] 50 mg PO DAILY 05/06/14 [History] Nitroglycerin Sl Tabs [Nitrostat] 0.4 mg SUBLINGUAL Q5M PRN 05/06/14 [History] [place]-3 Acid Ethyl Esters [Lovaza] 2 gm PO BID 05/06/14 [History] Rosuvastatin Calcium [Crestor] 20 mg PO DAILY 05/06/14 [History] Lisinopril [Zestril] 20 mg PO DAILY 07/29/18 [History] Omeprazole 20 mg PO BID 07/29/18 [History] metFORMIN HCL 1,000 mg PO BID 07/29/18 [History] rOPINIRole HCL [Requip] 0.5 mg PO HS 07/29/18 [History] Dulaglutide [Trulicity] 1.5 mg SQ MO 10/12/19 [History] Empagliflozin [Jardiance] 25 mg PO DAILY 10/12/19 [History] Insulin Glargine,Hum.rec.anlog [Lantus Solostar] 30 unit SQ HS 10/12/19 [History] Follow up Appointment(s)/Referral(s): Oliverio Clay DO [Primary Care Provider] - 3 Days Discharge Disposition: HOME SELF-CARE
[2019-10-13 11:46] LABS: Glucose,Whole Blood 160 mg/dL (75-99)
--- NOTE | 2019-10-13 11:52 | NM ---
EXAMINATION TYPE: NM stress lexiscan cardiolite DATE OF EXAM: 10/13/2019 COMPARISON: 02/28/2013 HISTORY: Chest pain TECHNIQUE: After the intravenous administration of 9.9 mCi Tc 99m Sestamibi - Cardiolite resting SPE CT images acquired 45 minutes post injection. The patient received 0.4mg Lexiscan, 25 mCi Tc 99m Sestamibi - Stress images obtained 30 minutes post injection FINDINGS: Review of stress and rest SPECT images demonstrates small apical lateral stress-induced area of rever sibility. Gated analysis shows normal wall motion with an estimated left ventricular ejection fracti on of 70 %. IMPRESSION: 1. Findings suspicious for a small area of stress-induced reversibility involving the apical lateral myocardium.
[2019-10-13] MEDS: ATORVASTATIN 40 MG TAB PO SCH (12:29)
[2019-10-13] MEDS: METOPROLOL SUCCINATE (ER) 50 MG TAB.ER.24H PO SCH (12:29)
[2019-10-13] MEDS: LISINOPRIL 20 MG TAB PO SCH (12:29)
[2019-10-13] MEDS: CLOPIDOGREL 75 MG TAB PO SCH (12:29)
--- NOTE | 2019-10-13 13:28 | EST ---
EXERCISE STRESS DATE OF SERVICE: 10/13/2019 AGE: 64 SEX: Male HT: 66" WT: 204 pounds PROTOCOL: Lexiscan Cardiolite STAGE: DURATION OF EXERCISE: HEART RATE REST: 60 BLOOD PRESSURE REST: 130/71 MAXIMUM HEART RATE ACHIEVED: 80 MAXIMUM BLOOD PRESSURE: 155/65 85% MPHR: 133 100% MPHR: 157 METS: INDICATIONS: Chest pain. CLINICAL INFORMATION: The Lexiscan nuclear study was performed. Peak heart rate of 80 was achieved. Maximum blood pressure 155/65 mmHg was noted. The resting EKG shows normal sinus rhythm with normal MN interval and QRS duration and normal ST-T waves. No ST-segment depression suggestive of ischemia is noted. The results of the nuclear study will follow. KEILA / IJN: [id number] /
[2019-10-13] MEDS ORDERED: ALPRAZolam 0.5 MG TAB PO PRN (14:11)
[2019-10-13] MEDS ORDERED: NITROGLYCERIN SL TABS 0.4 MG TAB SUBLINGUAL PRN (14:11)
[2019-10-13] MEDS ORDERED: SODIUM CHLORIDE 0.9% 1,000 ML in EMPTY BAG 1 BAG IV ONE (14:11)
[2019-10-13] MEDS ORDERED: ATORVASTATIN 40 MG TAB PO STA (14:11)
[2019-10-13] MEDS ORDERED: ALPRAZolam 0.25 MG TAB PO PRN (14:11)
--- NOTE | 2019-10-13 14:32 | P.PN ---
Subjective Progress Note Date: 10/13/19 This is a 64-year-old gentleman with past medical history of coronary artery disease and multiple stent placements in the past, diabetes, hypertension, hyperlipidemia, former smoker, who follows with theology professor in the [place] area. Presented to the hospital with symptoms of chest discomfort, underwent a Lexiscan stress test today which showed findings suspicious for small area of stress-induced reversibility along the apical lateral region, regarding the findings of this test, recommend patient undergo cardiac catheterization which she agrees 2. This will be performed tomorrow by Dr. Meneses. His blood pressure 142/60 with a heart rate in the 60s, 96% on room air. Objective - Vital Signs Vital signs: Vital Signs Temp 98.1 F 10/12/19 20:00 Pulse 68 10/13/19 12:00 Resp 18 10/13/19 12:00 BP 150/71 10/13/19 12:00 Pulse Ox 95 10/13/19 12:00 Intake & Output 10/12/19 10/13/19 10/13/19 18:59 06:59 18:59 Intake Total 540 180 120 Balance 540 180 120 Weight 92.5 kg 92.5 kg Intake: Oral 540 180 120 Other: Voiding Method Toilet Toilet # Voids 2 0 1 - Exam Patient is afebrile, pulse in the 60s, respirations 16, blood pressure 165/73, o xygen saturation 95% on room air Patient seen and examined resting in bed, does not appear to be in any acute distress Lungs are clear to auscultation bilaterally, no wheezing rhonchi or crackles appreciated Anterior chest is non-tender to palpation Heart is regular, no audible murmurs No elevated JVD No lower extremity edema - Labs CBC & Chem 7: 10/12/19 08:23 10/12/19 08:23 Labs: Abnormal Lab Results - Last 24 Hours (Table) 10/12/19 10/12/19 10/13/19 Range/Units 17:11 20:36 06:22 POC Glucose (mg/dL) 225 H 240 H 185 H (75-99) mg/dL 10/13/19 Range/Units 11:45 POC Glucose (mg/dL) 160 H (75-99) mg/dL Assessment and Plan Plan: IMPRESSION / ASSESSMENT: #1chest discomfort which reminds him of the discomfort he had prior to his previous MIs, Bri scan stress test positive for reversible ischemia #2 CAD status post multiple stents #3Diabetes #4Hypertension #5Former smoker #6 hyperlipidemia Plan Patient has been advised to undergo cardiac catheterization, the risks and benefits were explained to the patient in detail. He is willing to have this performed, this will be performed tomorrow by Dr. Meneses. Further recommendations will be based on the findings of the cardiac catheterization DNP note has been reviewed, I agree with a documented findings and plan of care. Patient was seen and examined.
[2019-10-13 16:29] LABS: Glucose,Whole Blood 227 mg/dL (75-99)
[2019-10-13 20:33] VITALS: TEMP 98.2
[2019-10-13 20:47] LABS: Glucose,Whole Blood 245 mg/dL (75-99)
[2019-10-14 06:03] LABS: Glucose,Whole Blood 187 mg/dL (75-99)
[2019-10-14] MEDS: LISINOPRIL 20 MG TAB PO SCH (06:14)
[2019-10-14] MEDS: CLOPIDOGREL 75 MG TAB PO SCH (06:14)
[2019-10-14] MEDS: METOPROLOL SUCCINATE (ER) 50 MG TAB.ER.24H PO SCH (06:15)
[2019-10-14 06:27] VITALS: RESP 18
[2019-10-14] MEDS: ATORVASTATIN 40 MG TAB PO SCH (06:27)
[2019-10-14] MEDS ORDERED: IV FLUID CONTINUATION 1,000 ML IV ONE (12:31)
[2019-10-14] MEDS ORDERED: fentaNYL (PF) 50 MCG/ML 2 ML AMP IV ONE (13:10)
[2019-10-14] MEDS ORDERED: LIDOCAINE 1% INJ 10MG/ML (20 ML MDV) SQ ONE (13:14)
[2019-10-14] MEDS ORDERED: VERAPAMIL SYRINGE (5 MG/10 ML) INTRAARTER ONE (13:15)
[2019-10-14] MEDS ORDERED: HEPARIN SODIUM 1,000 UN/ML (10ML VL) IV ONE (13:22)
[2019-10-14] MEDS ORDERED: NITROGLYCERIN 1000MCG/10ML SYRINGE INTRACORON ONE (13:32)
[2019-10-14] MEDS ORDERED: IOPAMIDOL-370 125ML BTL INJ ONE (13:38)
[2019-10-14] MEDS ORDERED: ADENOSINE 90 MG in SODIUM CHLORIDE 0.9% 60 ML IVP ONE (13:38)
[2019-10-14] MEDS ORDERED: RX INFO: IV CONTRAST WAS GIVEN 1 EACH MISC MISCELLANE PRN (13:58)
[2019-10-14] MEDS ORDERED: SODIUM CHLORIDE 0.9% 1,000 ML IV SCH (14:00)
[2019-10-14 17:00] LABS: Glucose,Whole Blood 300 mg/dL (75-99)
--- NOTE | 2019-10-14 18:12 | ECHOF ---
Referral Reason:chest pain MEASUREMENTS -------- HEIGHT: 167.6 cm WEIGHT: 92.1 kg BP: 143/68 RVIDd: 3.7 cm (< 3.3) IVSd: 1.7 cm (0.6 - 1.1) LVIDd: 3.4 cm (3.9 - 5.3) LVPWd: 1.6 cm (0.6 - 1.1) IVSs: 3.0 cm LVIDs: 1.2 cm LVPWs: 2.6 cm LAESV Index (A-L): 30.09 ml/m Ao Diam: 3.3 cm (2.0 - 3.7) AV Cusp: 2.2 cm (1.5 - 2.6) LA Diam: 4.0 cm (2.7 - 3.8) MV EXCURSION: 14.090 mm (> 18.000) MV EF SLOPE: 47 mm/s (70 - 150) EPSS: 0.3 cm MV E Tevin: 0.89 m/s MV DecT: 251 ms MV A Tevin: 0.66 m/s MV E/A Ratio: 1.34 RAP: 5.00 mmHg RVSP: 25.43 mmHg FINDINGS -------- Sinus rhythm. This was a technically adequate study. The left ventricular size is normal. There is moderate concentric left ventricular hypertrophy. O verall left ventricular systolic function is normal with, an EF between 55 - 60 %. The diastolic fi lling pattern is normal for the age of the patient 17.20. The right ventricle is mildly enlarged. LA is midly dilated 29-33ml/m2. The right atrial size is normal. Interatrial and interventricular septum intact. The aortic valve is trileaflet and appears structurally normal. There is no evidence of aortic regu rgitation. There is no evidence of aortic stenosis. Mild mitral annular calcification present. Mild mitral regurgitation is present. Mild tricuspid regurgitation present. There is no evidence of pulmonary hypertension. The right v entricular systolic pressure, as measured by Doppler, is 25.43mmHg. There is no pulmonic regurgitation present. The aortic root size is normal. Normal inferior vena cava with normal inspiratory collapse consistent with estimated right atrial pre ssure of 5 mmHg. There is no pericardial effusion. CONCLUSIONS -------- 1. Sinus rhythm. 2. This was a technically adequate study. 3. The left ventricular size is normal. 4. There is moderate concentric left ventricular hypertrophy. 5. Overall left ventricular systolic function is normal with, an EF between 55 - 60 %. 6. The diastolic filling pattern is normal for the age of the patient 17.20 7. The right ventricle is mildly enlarged. 8. LA is midly dilated 29-33ml/m2. 9. The right atrial size is normal. 10. Interatrial and interventricular septum intact. 11. The aortic valve is trileaflet and appears structurally normal. 12. There is no evidence of aortic regurgitation. 13. There is no evidence of aortic stenosis. 14. Mild mitral annular calcification present. 15. Mild mitral regurgitation is present. 16. Mild tricuspid regurgitation present. 17. There is no evidence of pulmonary hypertension. 18. The right ventricular systolic pressure, as measured by Doppler, is 25.43mmHg. 19. There is no pulmonic regurgitation present. 20. The aortic root size is normal. 21. Normal inferior vena cava with normal inspiratory collapse consistent with estimated right atrial pressure of 5 mmHg. 22. There is no pericardial effusion. GEOPHYSICAL PARTY CHIEF: Trang Roach RDCS
[2019-10-14 18:34] VITALS: BP 141/74; PULSE 74
[2019-10-14] MEDS ORDERED: LISINOPRIL 20 MG TAB PO SCH (21:00)
--- NOTE | 2019-10-14 22:33 | CC ---
CARDIAC CATHETERIZATION REPORT Mr. Witt is a 64-year-old male with a known history of coronary artery disease, status post multiple percutaneous revascularizations done in the past, most recently in 2009. He presented with symptoms of chest discomfort. His troponins were normal. He subsequently underwent myocardial perfusion imaging that showed evidence of a small area of inducible ischemia. In view of that, recommendation was made regarding cardiac catheterization. The procedure, its risks and complications were discussed with the patient, who was in full understanding and agreement. PROCEDURE DESCRIPTION: Patient was brought to phlebotomist lab assistant in a fasting, semi-sedated state after receiving fentanyl and Benadryl and achieving moderate conscious sedated state. Using Xylocaine anesthesia and Seldinger technique, a 6-Chinese sheath was introduced in the right radial artery. Selective right and left coronary angiography was performed using 5- Chinese 3-1/2 bend right and left Audelia catheters. Multiple views were taken of the arteries, including hemiaxial views. Following that, a 5-Chinese tight pigtail catheter was introduced into the left ventricle and pressures were calculated. Following that, catheters were removed. Following that, a 6-Chinese FR3.5 guiding catheter was introduced into the system. After cannulating the right coronary ostium, a Primo Round Doppler flow wire was introduced, positioned distally, and after that IFR was calculated. Subsequently FFR was calculated after infusion of adenosine per protocol. Following that, catheter and sheath were removed. Hemostasis was obtained with deployment of a TR band. There was no immediate complication. Patient was returned to his room in stable condition. Of note, the patient received 5000 units of intravenous heparin as well as intra-arterial verapamil. FINDINGS: LEFT MAIN: This is a short-sized vessel bifurcating into left circumflex and left anterior descending artery. Left main coronary artery has no evidence of high-grade stenosis. LEFT ANTERIOR DESCENDING ARTERY: This is a large-sized vessel reaching toward the apex with a wrap around the apex segment giving rise to a moderately sized diagonal branch in the proximal segment. The proximal mid LAD has a stent. There is 30% to 40% stenosis in the stent distal to the diagonal branch. There is a 50% to 60% ostial diagonal branch lesion. The rest of the vessel has no high-grade stenosis. LEFT CIRCUMFLEX: This is a nondominant vessel giving rise to two obtuse marginal branches. The second obtuse marginal branch is a stented branch. There is mild intimal disease throughout the vessel without any evidence of high-grade stenosis. RIGHT CORONARY ARTERY: This is a dominant vessel, moderate in caliber, bifurcating distally into PDA and posterolateral segment and branches. The right coronary artery has mild intimal disease in the mid segment of 20% to 30%. In the mid to distal segment there is a plaque with an area of stenosis up to 50%. The rest of the vessel has no high-grade stenosis. LEFT VENTRICULOGRAM: Left ventriculogram was not performed. Left ventricular end-diastolic pressure was 8 to 10 mmHg. There was no gradient across the aortic valve. The fraction flow reserve was measured after adenosine infusion per protocol and was 84%. IMPRESSION: 1. Mild to moderate disease in the LAD and left circumflex with no significant restenosis of the stent. 2. Moderate disease in the mid right coronary artery with some haziness. That lesion was non-hemodynamically significant with a fractional flow reserve measurement. RECOMMENDATIONS: In view of findings and anatomy, I will continue present medical regimen with the aggressive coronary risk modifications that have been initiated. Those findings and recommendations were discussed with the patient and his family, and they are in full understanding and agreement. The patient will follow with his primary union steward. Duration of procedure was 28 minutes. KEILA / HUANGN: [id number] /
--- NOTE | 2019-10-14 22:38 | LTR ---
October 14, 2019 To: Dr. Clay Re: Marshall Witt (57) Dear Dr. Clay, I had the pleasure of performing cardiac catheterization on Mr. Witt at [facility] on October 13, and a full copy of the procedure note will be forwarded to you. In brief, he was found to have mild to moderate disease involving the LAD and left circumflex with moderate plaque in the right coronary artery. He underwent fractional flow reserve measurement of that lesion that was non-hemodynamically significant. In view of that, I have recommended continued medical therapy with the aggressive coronary risk modifications you have initiated. Thank you again for allowing me to participate in this patient's care. Please feel free to call with any questions. Sincerely yours, Maggie Meneses M.D. KEILA / MEÑO: [id number] /
--- NOTE | 2019-10-15 08:45 | DS ---
DISCHARGE SUMMARY DATE OF ADMISSION: 10/11/2019 DATE OF DISCHARGE: 10/14/2019 FINAL DIAGNOSES: 1. Right-sided chest pain, probably musculoskeletal. 2. Coronary artery disease, prior history of stent. 3. Diabetes mellitus type 2. 4. GERD. 5. Hyperlipidemia. 6. Essential hypertension. 7. Peripheral arterial disease with femoral bypass. 8. ADHD. HOSPITAL COURSE: This patient with a known prior history of coronary artery disease presented with chest pain. Troponins were negative. The patient had undergone a nuclear stress test. There was a suspicious finding for a small area of stress-induced reversibility. A 2D echocardiogram showed an ejection fraction of 55-60%. Moderate concentric left ventricular hypertrophy. Chest CTA negative for PE. The patient underwent a cardiac catheterization today. Nurse called me that the stress test was unremarkable and patient could be discharged. PHYSICAL EXAMINATION: Afebrile. Pulse 74, respirations 18, blood pressure 141/74, pulse ox 94% on room air. LUNGS: Fair entry. CARDIOVASCULAR: First and second sounds normal. INVESTIGATIONS: White count 6.5, hemoglobin 14.4, creatinine 0.65, LDL 35, TSH normal. CONSULTATION: Dr. Meneses from Cardiology. DISCHARGE MEDICATIONS: 1. Aspirin 81 mg a day. 2. Plavix 75 mg a day. 3. Toprol XL 50 mg a day. 4. Nitrostat 0.4 sublingual q.5 p.r.n. 5. Lovaza 2 gm p.o. b.i.d. 6. Crestor 20 mg p.o. daily. 7. Zestril 20 mg p.o. daily. 8. Omeprazole 20 mg b.i.d. 9. Metformin 1,000 mg b.i.d. 10.Requip 0.5 mg p.o. at bedtime. 11.Trulicity 1.5 mg every Sunday. 12.Jardiance 25 mg p.o. daily. 13.Lantus 30 units subcu at bedtime. Follow up with Dr. Guillaume Glez on 10/23/2019. Follow up with Dr. Clay on 10/21/2019. The patient's metformin to be resumed on Sunday. MMODL / IJN: [id number] /
[2019-10-15] MEDS ORDERED: ASPIRIN 81 MG PO SCH (09:00)
== END 2019-10-14 19:09 | disposition home or self-care (01) ==
LOC: EC 20:32 → 3SCARD 22:22 → UNDOADMOB 22:22 → INTOOBSV 10-13 14:10 → OBSVTOIN 10-13 14:10 → UNDODISIN 10-14 19:09
PROVIDERS: ADMIT Hospitalist; ATTEND Hospitalist
DX: R07.89 Other chest pain (principal); I25.10 Atherosclerotic heart disease of native coronary artery without angina pectoris; E11.51 Type 2 diabetes mellitus with diabetic peripheral angiopathy without gangrene; K21.9 Gastro-esophageal reflux disease without esophagitis; E78.5 Hyperlipidemia, unspecified; I11.9 Hypertensive heart disease without heart failure; F90.9 Attention-deficit hyperactivity disorder, unspecified type; I25.2 Old myocardial infarction; G47.30 Sleep apnea, unspecified; R53.83 Other fatigue; M21.379 Foot drop, unspecified foot; I08.1 Rheumatic disorders of both mitral and tricuspid valves; Z95.5 Presence of coronary angioplasty implant and graft; Z87.891 Personal history of nicotine dependence; Z99.89 Dependence on other enabling machines and devices; Z79.82 Long term (current) use of aspirin; Z79.899 Other long term (current) drug therapy; Z79.891 Long term (current) use of opiate analgesic; Z79.4 Long term (current) use of insulin; Z86.14 Personal history of Methicillin resistant Staphylococcus aureus infection; Z98.52 Vasectomy status; Z86.010 Personal history of colon polyps; Z87.81 Personal history of (healed) traumatic fracture; Z81.1 Family history of alcohol abuse and dependence; Z80.0 Family history of malignant neoplasm of digestive organs
CPT/HCPCS: 93005 ×2; 96360; 99285; 36415; 93017; 93306; 93571; 93458; 85379; 83880; 80061; 80053 ×2; 83735; 84443; 84484 ×2; 85025 ×2; 85610; 85730; 71046; 71275; 78452; G0378 ×4; C1887; C1769; C1894; A9500; J2001; J3010; J1644; J0153; J2785; Q9967 ×2

== ENCOUNTER → 2020-06-21 | Outpatient (CLI) | payer BC ==
--- NOTE | 2020-06-21 12:57 | US ---
EXAMINATION TYPE: US thyroid st tissue head/neck DATE OF EXAM: 06/21/2020 COMPARISON: NONE CLINICAL HISTORY: R22.1 Localized swelling, mass and lump neck...... Pt states palpable lump left pos terior neck x 6 years Left posterior neck there appears to be a hypoechoic area= 3.6 x 1.1 x 3.5 cm, no blood flow visual ized within IMPRESSION: Nonspecific left mass. Contrast enhanced CT of the neck is recommended for further evaluation.
--- NOTE | 2020-06-21 13:03 | US ---
EXAMINATION TYPE: US extremity nonvasc mass RT DATE OF EXAM: 06/21/2020 COMPARISON: NONE CLINICAL HISTORY: R22.1 localized swelling. Pt states palpable lump right anterior thigh x 3-4 months In area of pt's palpable at right anterior thigh there appears to be an echogenic mass= 6.6 x 1.5 x 5.1 cm, no blood flow visualized within IMPRESSION: Echogenic mass which may reflect a lipoma. Correlate clinically and consider MRI correlation.
--- NOTE | 2020-06-23 13:11 | P.ARTDOP ---
Arterial Doppler LOWER EXTREMITY ARTERIAL DOPPLER: DATE OF SERVICE: 06/21/2020 Reason for study: Lower extremity pain. Doppler waveforms: Multiphasic bilaterally throughout. Pulse volume recording: []. Pressure gradients: None on the left. Mild below the knee on the right.. Ankle-brachial indices: 0.84 on the right and greater than 1 on the left. Toe brachial indices: 0.6 on the right, 0.74 on the left Impression: The left side is normal. The right side may have some mild residual disease. Both bypasses appear to be patent. Vascular follow-up recommended..
== END | disposition home or self-care (01) ==
LOC: RADUSWWP 12:24
PROVIDERS: ATTEND Family Medicine
DX: R22.1 Localized swelling, mass and lump, neck (principal); R22.41 Localized swelling, mass and lump, right lower limb; I73.9 Peripheral vascular disease, unspecified
CPT/HCPCS: 76536; 93922

== ENCOUNTER → 2020-07-06 | Outpatient (CLI) | payer BC ==
--- NOTE | 2020-07-06 15:33 | CONS ---
CONSULTATION CONSULTATION NOTE: Sleep apnea. This is a 65-year-old male patient with a diagnosis of obstructive sleep apnea and the diagnosis was established a few years back through a sleep center at [facility] under the care of Dr. Altman. The patient has been treated with CPAP and he is quite symptomatic, still tired, and fatigued and sleepy during the day and for that reason he initiated this consult. The patient currently has an Unalakleet score of 8. He failed to bring his CPAP machine with him today. He tells me that he has a CPAP machine at home and he has been using it faithfully and the pressure seems to be 10 cm of water. Over the past few years, the patient has lost a significant amount of weight in the order of 32 pounds. He feels the pressure is quite high at this point in time. He is going to bed between 7-9 p.m.,. waking up between 3 to 4 am in the morning. Averaging around 6 to 7 hours of sleep. He gets tired and sleepy during the day. His tells me occasional he snores while on CPAP. He has a full-face mask. He wakes up tired in the morning. He has no restlessness in the lower extremity. No anxiety or depression. He is diabetic and has extensive history of atherosclerotic heart disease and peripheral vascular disease. No head trauma. No meningitis. No substance abuse. PAST MEDICAL HISTORY: Diabetes mellitus type 2 with HbA1c of 6.5, acid reflux, coronary artery disease, hyperlipidemia, vascular disease, obstructive sleep apnea. PAST SURGICAL HISTORY: Includes vascular bypass surgery in lower extremities x2. 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 DRUG ALLERGIES: NOT KNOWN. OUTPATIENT MEDICATION LIST: Includes omeprazole 20 mg p.o. daily, Plavix 75 mg p.o. daily, lisinopril 30 mg p.o. daily, aspirin 81 mg p.o. daily, vitamin D3 four hundred units daily, metoprolol 50 mg twice a day, Jardiance 25 mg p.o. daily, lovastatin 20 mg p.o. daily. Metformin 5 mg twice a day. [place]-3, Nitroglycerin on a p.r.n. basis. FAMILY HISTORY: Quite extensive. The patient has mother who had coronary disease and angina. Mother had also history of coronary artery disease and cancer. Brothers and sisters have acid reflux and diabetes runs in both grandparents. SOCIAL HISTORY: Ex-smoker, no history of alcoholism. No history of IV drugs. REVIEW OF SYSTEMS: A 14-point review of system was done. Above significant findings are weight loss, probably following a strict diet over the past 5 years. The patient also drinks around 6 cups of coffee during the day. He naps during day around 1 or 2 naps as needed, usually around noon time. He wakes up and on several occasions in the middle of the night. He prefers to sleep on his back while on CPAP. He thinks that the CPAP is still helping him with his symptoms, although he is still somnolent and sleepy. He feels that he needs at least 8 hours of sleep. He feels refreshed. No grinding of the teeth. No sleepwalking. No restless lower extremities. No palpitation. No heartburn. No chest pain. No shortness of breath. He does have claudication while awake and while walking. PHYSICAL EXAMINATION: BP is 170/80, pulse 62, respirations 16, temperature 97.8, saturation 94% on room air. Height is 5, 7, weight is 202. BMI 31.6. Neck size 19 inches. Unalakleet score is 8. GENERAL APPEARANCE: Calm, comfortable. HEAD: Atraumatic, normocephalic. NECK: Supple, Mallampati class 4, no goiter or neck masses. LUNGS: Clear to auscultation. HEART: Sounds are regular rate and rhythm, normal S1, S2. No murmurs. ABDOMEN: Soft, nontender, no organomegaly. EXTREMITIES: No edema, no cyanosis or clubbing. IMPRESSION: 1. Obstructive sleep apnea. Despite being on CPAP therapy, the patient is still having somnolence and fatigue and sleepiness. His current Unalakleet score is at 8. He is looking for further advice. I do not have any official documentation on his original sleep study. I do not have his CPAP machine to check his compliancy. 2. Coronary artery disease. 3. Peripheral vascular disease. 4. Hyperlipidemia. 5. Acid reflux. 6. Diabetes mellitus type 2. PLAN: 1. Would like all to obtain copies of his polysomnogram and CPAP titration that was done at [facility] a few years back. 2. I asked the patient to go home and bring his CPAP machine for me to check and document his pressures and compliancy. 3. There are several possibilities that were looking into including the patient's compliance and efficacy of the treatment and the functionality of the machine. Other comorbidities also need to be considered while looking at the patient's symptoms in general. I am unable to make final decisions today based on lack of his lack of further information including his CPAP machine and compliancy data and lack of his original polysomnogram. All this information will be obtained and further recommendations are to follow. MMODL / IJN: [id number] /
--- NOTE | 2020-07-06 16:01 | CONS ---
CONSULTATION ADDENDUM TO CONSULTATION NOTE: The patient went home and he was able to bring me his CPAP machine. He has a ResMed Elite CPAP unit which is currently set at a pressure of 8 cm of water. I checked the one-year compliancy. The patient's compliancy data showed that he has used his machine 254/365 days. The patient has achieved more than 4 hours only 193/254 days. He has been averaging around 6.2 hours of CPAP use per night. His AHI has been at 8.1 while being at a pressure of 8 cm of water. He has an older-generation nose mask. He has regular tubing. I recommended increasing the pressure up to 10 cm of water. I would like to control his obstructive respiratory events more effectively and bring his apnea-hypopnea index to less than 5. I also offered him a ClimateLine. I offered him an AirFit N20 large- sized nose mask. Will add heated humidity in an automatic mode on his CPAP unit. The patient will see me back in 4 weeks' time for a compliancy check. Meanwhile, we will obtain his original polysomnogram that was done at [facility]. Will continue to follow. MMODL / IJN: [id number] /
== END | disposition home or self-care (01) ==
LOC: SLEEP 13:18
PROVIDERS: ATTEND Internal Medicine Critical Care Medicine
DX: G47.33 Obstructive sleep apnea (adult) (pediatric) (principal); I25.10 Atherosclerotic heart disease of native coronary artery without angina pectoris; I73.9 Peripheral vascular disease, unspecified; E78.5 Hyperlipidemia, unspecified; K21.9 Gastro-esophageal reflux disease without esophagitis; E11.9 Type 2 diabetes mellitus without complications; Z99.89 Dependence on other enabling machines and devices; Z79.82 Long term (current) use of aspirin; Z79.899 Other long term (current) drug therapy; Z79.84 Long term (current) use of oral hypoglycemic drugs
CPT/HCPCS: 99211

== ENCOUNTER → 2020-07-12 | Outpatient (CLI) | payer BC ==
--- NOTE | 2020-07-12 18:01 | CT ---
EXAMINATION TYPE: CT soft tissue neck w con DATE OF EXAM: 07/12/2020 COMPARISON: None HISTORY: swelling to left posterior aspect of neck CT DLP: 555.6 mGycm CONTRAST: Patient injected with 100 mL of Isovue 300. TECHNIQUE: Axial images at 3 mm thick sections. Reconstructed images in the coronal plane and sagitt al plane are reviewed. FINDINGS: Limited CT sections are obtained the lung apices. The lung apices appear clear. CT neck: The torus tubarius and fossa of Rosenmuller are normal. Seismic Survey Assistant spaces are normal. Para nasal sinuses and mastoid air cells are clear. Parotid glands appear normal and symmetrical. Submandibular glands, are normal. Parapharyngeal spac es are normal. No suspicious adenopathy is evident. The hypopharynx appears within normal limits. Vocal cord level appear symmetrical. Thyroid as visualized is normal. Osseous structures are normal. Some degenerative disc changes with loss of disc height through the ce rvical spine IMPRESSIONS: 1. No suspicious acute changes to account for soft tissue swelling posterior left neck
== END | disposition home or self-care (01) ==
LOC: RADCTMAIN 14:47
PROVIDERS: ATTEND Family Medicine
DX: R22.1 Localized swelling, mass and lump, neck (principal)
CPT/HCPCS: 82565; 84520; 70491; 36415; Q9967

== ENCOUNTER → 2020-08-03 | Outpatient (CLI) | payer BC ==
--- NOTE | 2020-08-03 17:31 | PN ---
PROGRESS NOTE Marshall is coming to see me for a followup. During his last evaluation I made some adjustments on his CPAP unit to increase the pressure up to 10 cm of water. I also offered him an AirFit N20 large-sized nose mask. Over the past month or so, the patient's compliance has been adequate. He has been averaging around 6.3 hours of CPAP use per night. His AHI is down to 7.5. At times he is still having leaks around the mask; the patient's leak is on the order of 46 L/minute. He is still feeling tired and sleepy and he is having excessive nasal congestion. His humidity level is at 4. No weight gain. No angina. No palpitations. He is known to have CAD and peripheral vascular disease. PHYSICAL EXAMINATION: HIS CURRENT VITALS: BP is 151/78, pulse 76, respirations 16, temperature 97.3, saturation 95% on room air. Menan score is 12. BMI 31.9. Weight is 195, height is 5 feet 6 inches. GENERAL APPEARANCE: Calm, comfortable. HEAD: Atraumatic, normocephalic. NECK: Supple. No JVD. No goiter or neck masses. LUNGS: Clear to auscultation. HEART: Heart sounds are regular rate and rhythm. Normal S1, S2. No S3, S4. No murmurs. ABDOMEN: Soft, nontender. No organomegaly. EXTREMITIES: No edema. No cyanosis or clubbing. IMPRESSION: 1. Symptomatic obstructive sleep apnea. The patient will still get me the copy of the original sleep study that was done at [facility]. Currently he is on CPAP pressure of 10 with a C-flex of 3. Starting pressure is 4 with a 10-minute RAMP time. Humidity level is 4. AHI is down to 7.5 while on treatment, averaging around 6.3 hours of CPAP use per night. 2. Hypersomnia, improving. 3. Excessive nasal congestion, a chronic problem. 4. Peripheral vascular disease. 5. Acid reflux. 6. Hyperlipidemia. PLAN: 1. Utilize Flonase for nasal congestion. 2. Drop the humidity level to 2. 3. Offer the patient a ClimateLine. 4. Offer the patient a DreamWear nose mask, medium size, to be alternated with the AirFit N20 large-sized nose mask. This switch was done to improve the amount of leaks. 5. See me back in 3 months' time in followup. MMODL / IJN: [id number] /
--- NOTE | 2020-08-03 18:01 | PN ---
PROGRESS NOTE ADDENDUM: I was able to receive the patient's sleep study that was done originally at [facility] back in 2008, and at that time the patient had severe sleep apnea with an AHI of 53.9; a combination also of obstructive and central, predominantly obstructive. Records will be scanned into the medical record/[facility]. The patient had a successful titration. KEILA / HUANGN: [id number] /
== END | disposition home or self-care (01) ==
LOC: SLEEP 15:34
PROVIDERS: ATTEND Internal Medicine Critical Care Medicine
DX: G47.33 Obstructive sleep apnea (adult) (pediatric) (principal); G47.10 Hypersomnia, unspecified; K21.9 Gastro-esophageal reflux disease without esophagitis; E78.5 Hyperlipidemia, unspecified; I73.9 Peripheral vascular disease, unspecified; R09.81 Nasal congestion; Z99.89 Dependence on other enabling machines and devices

== ENCOUNTER → 2020-08-09 | Outpatient (CLI) | payer BC ==
--- NOTE | 2020-08-09 12:24 | MR ---
MR femur and thigh with and without contrast HISTORY: Local edema change is suspected, T2 bright signal within the musculature swelling, mass righ t thigh Multiplanar multisequence and postcontrast images obtained along the right thigh, patient received 9 cc Gadavist IV No comparisons There is a marker overlying the rectus femoris muscle. At the distal extent there is discontinuity of the tendon, irregular appearance. There is some edema within the musculature peripherally, T2 bright signal, there may be some associated calcification, T1 bright signal on sagittal image 20, low signa l is present on T2-weighted images. Muscle signal is normal. Incidental note made of prosthesis within the penis. 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
== END | disposition home or self-care (01) ==
LOC: RADMRIMAIN 07:24
PROVIDERS: ATTEND Family Medicine
DX: S76.111A Strain of right quadriceps muscle, fascia and tendon, initial encounter (principal)
CPT/HCPCS: 73720; A9585

== ENCOUNTER → 2020-11-16 | Outpatient (CLI) | payer BC ==
--- NOTE | 2020-11-16 11:12 | PN ---
PROGRESS NOTE This 65-year-old male patient who is coming to see me in followup regarding obstructive sleep apnea. Note that this one of Dr. Altman's patients who switched his care to our sleep center. He has a baseline apnea-hypopnea index of 59 and this is according to a polysomnogram that was done in 2016. The patient was titrated to a CPAP pressure of 12 cm of water. During his last evaluation, he was having difficulty tolerating the treatment and made some adjustments. I put the patient on CPAP pressure of 10 cm of water and I also offered him AirFit N20 nose mask. His compliancy improved slightly, but he has not been able to achieve full compliancy. Based on the compliance data over the past 3 months, the patient has used his machine only 32 days and he has achieved more than 4 hours, 21 out of these 90 days. He has been averaging around 4.3 hours on the days that he has used a machine with a leak of 49 L/minutes and AHI of 9.6 while on treatment. He is still quite restless at nighttime. He is having excessive nasal congestion, drainage and stuffiness, probably related to the humidity which is set at a level of 4. No recent weight gain or weight loss. He has tired and fatigued and sleepy and his Quitman score is at 8. REVIEW OF SYSTEMS: Fourteen-point review of system was done. Positive findings are increased tiredness, increased sleepiness and fatigue and nasal congestion and stuffiness. No chest pain. No shortness of breath while being on treatment. PHYSICAL EXAMINATION: VITAL SIGNS: BP is 154/81, pulse 77, respirations 16, temperature 97.3, saturation 96% on room air. Quitman score is at 8. BMI 30.0. GENERAL APPEARANCE: Calm, comfortable. HEAD: Atraumatic, normocephalic. NECK: Supple. There is no JVD. There is no goiter or neck masses. LUNGS: Diminished otherwise clear. HEART: Heart sounds are regular rate and rhythm. Normal S1, S2. No S3, S4. No murmurs. ABDOMEN: Soft, nontender. No organomegaly. EXTREMITIES: No edema. No cyanosis or clubbing. NEUROLOGIC: The patient is awake, alert. There is no focal neurological deficit. IMPRESSION: 1. Severe obstructive sleep apnea, AHI of 59, currently on CPAP pressure of 10. Utilization of the CPAP is still suboptimal despite the underlying changes. 2. Hypersomnia secondary suboptimal treatment of obstructive sleep apnea. 3. Nasal congestion and difficulties in tolerating the nose mask. PLAN: On today's evaluation, I dropped the humidity level down to 2. I offered him a DreamWear under the nose mask which he liked and he was able to tolerate. I offered him again a ClimateLine which he has not used. He will be kept at a pressure of 10. He will see me back in short-term followup in 2 months' time. We have to achieve at least 5-6 hours of CPAP use every night with an AHI of less than 5. The patient is still quite symptomatic at this point in time. MMODL / IJN: [id number] /
== END ==
LOC: SLEEP 09:56
PROVIDERS: ATTEND Internal Medicine Critical Care Medicine
DX: G47.33 Obstructive sleep apnea (adult) (pediatric) (principal); Z99.89 Dependence on other enabling machines and devices; R09.81 Nasal congestion

== ENCOUNTER 2021-05-03 08:04 | Day surgery (SDC) | payer BC, MEDICARE ==
[2021-05-02 09:43] VITALS: BMI 28.1
[~2021-05-03 08:04] MED LIST: LACTATED RINGERS 1,000 ML IV SCH
[2021-05-03] MEDS ORDERED: LIDOCAINE 1% (10MG/ML) FOR IV START INTRADERMA ONE (09:00)
[2021-05-03 09:07] LABS: Glucose,Whole Blood 186 mg/dL (75-99)
[2021-05-03] MEDS ORDERED: ePHEDrine SULFATE/0.9% NACL/PF 50 MG/5 ML SYRINGE IV ONE (09:10)
[2021-05-03] MEDS ORDERED: PROPOFOL 10 MG/ML 20 ML VIAL IV ONE (09:10)
[2021-05-03 09:11] VITALS: RESP 16; TEMP 97
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
--- NOTE | 2021-05-03 09:38 | P.PCN ---
Date of Procedure: 05/03/21 Procedure(s) Performed: PREOPERATIVE DIAGNOSIS: GERD, nausea, rectal bleeding, history of polyps POSTOPERATIVE DIAGNOSIS: Gastritis, duodenitis, diverticulosis, sigmoid colon polyp PROCEDURE: 1. EGD with biopsy 2. Colonoscopy with snare polypectomy ANESTHESIA: [facility] SURGEON: eFi Pastor M.D. SPECIMENS: Duodenum, antrum, sigmoid polyp ENDOSCOPIC PROCEDURE: The patient was on the endoscopy table in the left decubitus position. The Olympus gastroscope was inserted into the oropharynx and passed under direct visualization to the region of the third portion of the duodenum. From that point the scope was slowly withdrawn inspecting all surfaces carefully. There was mild duodenitis present. No ulcers were seen. A biopsy of the duodenum took place. The pylorus was widely patent. The stomach was carefully inspected. There was mild gastritis present. A biopsy of the antrum took place to rule out H. pylori. Retroflexion revealed a normal hiatus. The esophagus was then carefully examined. There were no neoplastic inflammatory or polypoid lesions throughout the visualized esophagus. The patient was kept on the endoscopy table in the left decubitus position. The Olympus colonoscope was inserted into the anus and passed under direct visualization to the base of the cecum. The appendiceal orifice was visualized. From that point the scope was slowly withdrawn inspecting all surfaces carefully. There were no neoplastic inflammatory or polypoid lesions throughout the cecum, ascending, transverse, and descending colon. In the sigmoid a small polyp was seen and removed using the snare with cautery technique. The remainder of the sigmoid and rectum is normal. The patient had moderate left- sided diverticulosis present. Digital rectal examination was normal. The patient was taken to the recovery room in stable condition per anesthesia guidelines. RECOMMENDATIONS: Await biopsy results.
[2021-05-03 10:04] VITALS: BP 120/70; PULSE 62
== END 2021-05-03 10:23 | disposition home or self-care (01) ==
LOC: ORWHC2ENDO 08:04
PROVIDERS: ATTEND Surgery
DX: K21.9 Gastro-esophageal reflux disease without esophagitis (principal); Z86.010 Personal history of colon polyps; K57.90 Diverticulosis of intestine, part unspecified, without perforation or abscess without bleeding; D12.5 Benign neoplasm of sigmoid colon; K29.50 Unspecified chronic gastritis without bleeding; K29.80 Duodenitis without bleeding; I10 Essential (primary) hypertension; I25.10 Atherosclerotic heart disease of native coronary artery without angina pectoris; E78.5 Hyperlipidemia, unspecified; I73.9 Peripheral vascular disease, unspecified; I25.2 Old myocardial infarction; Z79.84 Long term (current) use of oral hypoglycemic drugs; Z79.02 Long term (current) use of antithrombotics/antiplatelets
CPT/HCPCS: 88305; 45385; 43239; J2704

== ENCOUNTER → 2021-10-03 | Outpatient (CLI) | payer MEDICARE ==
--- NOTE | 2021-10-03 15:54 | US ---
EXAMINATION TYPE: US groin RT DATE OF EXAM: 10/03/2021 COMPARISON: NONE CLINICAL HISTORY: T81.49XD Infection following a procedure. Patient had infection in May. No current problems. A few normal appearing lymph nodes. Vascular structures appear normal as visualized IMPRESSION: 1. Left inguinal region appears without abscess formation. There is a prominent lymph node measuring 1.5 x 0.5 x 1.3 cm in the region.
== END | disposition home or self-care (01) ==
LOC: RADUSWWP 08:27
PROVIDERS: ATTEND Family Medicine
DX: T81.49XD Infection following a procedure, other surgical site, subsequent encounter (principal); Y79.2 Prosthetic and other implants, materials and accessory orthopedic devices associated with adverse incidents

== ENCOUNTER → 2022-06-26 | Outpatient (CLI) | payer MEDICARE ==
[2022-06-26 10:21] LABS: HCT 44.5 % (39.6-50.0); HGB 14.7 g/dL (13.0-17.0); MCH 27.2 pg (27.0-32.0); MCV 82.4 fL (80.0-97.0); Mean Platelet Volume 11.6 fL (9.5-12.2); NRBC Per 100 WBC 0 /100 WBCS (0.0-0.0); Platelet Count 168 X 10*3/uL (140-440); RDW 14.1 % (11.5-14.5); WBC 8.24 X 10*3/uL (4.50-10.00)
[2022-06-26 10:54] LABS: ALT 31 U/L (10-49); AST 21 U/L (14-35); Albumin 4.3 g/dL (3.8-4.9); Albumin/Globulin Ratio 1.59 (1.60-3.17); Alkaline Phosphatase 77 U/L (41-126); BUN/Creat Ratio 27.86 Ratio (12.00-20.00); Blood Urea Nitrogen 19.5 mg/dL (9.0-27.0); Calcium 9.8 mg/dL (8.7-10.3); Carbon Dioxide 22.9 mmol/L (20.0-27.5); Chloride 107 mmol/L (96-109); Globulin 2.7 g/dL (1.6-3.3); Glucose 199 mg/dL (70-110); Non-African American GFR(CKD) 98.3 (60.0-200.0); Potassium 4.6 mmol/L (3.5-5.5); Sodium 141 mmol/L (135-145)
[2022-06-26 10:55] LABS: Chol/HDL Ratio 3.01 Ratio; LDL Cholesterol,Calculated 41.3 mg/dL (0.0-131.0)
[2022-06-26 10:59] LABS: Urine Creatinine 49.1 mg/dL (39.0-259.0)
== END | disposition home or self-care (01) ==
LOC: LABWHC1 07:26
PROVIDERS: ATTEND Family Medicine
DX: Z00.01 Encounter for general adult medical examination with abnormal findings (principal); Z78.9 Other specified health status; E11.9 Type 2 diabetes mellitus without complications
CPT/HCPCS: 80061; 80053; 85027; 86787; 82043; 82570; 83036; 36415; G0103

== ENCOUNTER 2023-03-07 13:31 | Day surgery (SDC) | payer MEDICARE ==
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
[~2023-03-07 13:31] MED LIST changes: +DEXAMETHASONE SOD PHOSPHATE 4 MG/ML 1 ML VIAL IV ONE; +HYDROmorphone 0.5 MG/0.5 ML SYRINGE IVP PRN; +LIDOCAINE 1% (10MG/ML) FOR IV START INTRADERMA PRN; +ONDANSETRON 4 MG/2 ML VIAL IVP ONE; +Pre Op ABX Message 1 EACH MISC MISCELLANE ONE; +droPERidol 5 MG/2 ML VIAL IVP ONE
[2023-03-07 14:01] VITALS: TEMP 97.3
[2023-03-07 14:14] LABS: Glucose,Whole Blood 167 mg/dL (70-110)
[2023-03-07] MEDS ORDERED: fentaNYL (PF) 50 MCG/ML 2 ML AMP ONE (15:17)
[2023-03-07] MEDS ORDERED: MIDAZOLAM 2 MG/2 ML VIAL ONE (15:17)
[2023-03-07] MEDS ORDERED: KETAMINE 10 MG/ML 20 ML VIAL ONE (15:17)
[2023-03-07] MEDS ORDERED: PROPOFOL 10 MG/ML 20 ML VIAL IV ONE (15:17)
[2023-03-07] MEDS ORDERED: BUPIVACAINE (PF) 0.5% 30 ML VIAL SQ ONE (15:40)
[2023-03-07] MEDS ORDERED: LIDOCAINE 2% INJ 20 MG/ML SQ ONE (15:41)
[2023-03-07 16:01] LABS: Glucose,Whole Blood 154 mg/dL (70-110)
--- NOTE | 2023-03-07 16:07 | P.OP ---
Date of Procedure: 03/07/23 Preoperative Diagnosis: 1.) Right carpal tunnel syndrome 2.) Right middle finger trigger finger Postoperative Diagnosis: 1.) Right carpal tunnel syndrome 2.) Right middle finger trigger finger Procedure(s) Performed: 1.) Right endoscopic carpal tunnel release 2.) Right middle finger A1 rolly release Anesthesia: MAC Surgeon: Pee Early Accountant #1: Pepe Lebron Estimated Blood Loss (ml): 0 Pathology: none sent Condition: stable Disposition: PACU Description of Procedure: This is a 67 year old male who presents today for a right endoscopic carpal tunnel release after having failed conservative treatment in the past. Risks and benefits of surgery were discussed with the patient including bleeding, damage to surrounding tissue, infection, need to convert to open procedure, need for further surgery as well as risks of anesthesia including pulmonary embolism and even and the patient wished to proceed with surgical intervention. The patients was seen in the pre-operative area by myself. Consent and H&P were completed and updated. The correct extremity was marked in the pre-operative area by myself and all other questions were answered. Operative Narrative: The patient was brought to the operating room by the department of anesthesia. They remained on the portable stretcher and a rolling hand table was brought to the side of the operative extremity. Pre-operative time out was performed indicating the correct patient, procedure and laterality. All in the room agreed. The patient was then drifted off to sleep by the department of anesthesia. MAC anesthesia was utilized and a 50:50 mixture of 1% Lidocaine and 0.5% bupivacaine was injected into the subcutaneous tissues of the palmar skin, 8ccs total. A nonsterile tourniquet was then applied to the operative extremity and the right upper extremity was then prepped and draped in normal sterile fashion. The operative extremity was the exsanguinated with an esmarch bandage and the tourniquet was inflated to 250mmHg. 15 blade scalpel was utilized to make a transverse incision on the palmar skin just ulnar to the palmaris longus tendon at the level of the distal wrist crease. Ragnell retractor was then placed radially and blunt dissection was performed to reveal the distal forearm fascia. This was lifted with fine [place] pick ups and Littler tenotomy scissors were then used to open the forearm fascia transversely and a double skin hook was then placed. Hamate finder was placed into the carpal tunnel and then sequential sized dilators were inserted followed by the synovial elevator to separate the flexor tenosynovium from the undersurface of the transverse carpal ligament and a washboard texture was felt. The MicroAire endoscopic carpal tunnel release system gun was the then inserted into the carpal tunnel hugging the deep portion of the transverse carpal ligament in line with the base of the ring finger. Transverse fibers of the ligament were directly visualized. Pressure was applied on the palm to reveal the distal extent of the transverse carpal ligament. The blade was then deployed and the distal half of the transverse carpal ligament was released. The scope was then brought distal again and remaining transverse fibers were incised with the blade. The proximal half of the transverse carpal ligament was then divided and again the scope was advanced distal and remaining transverse fibers were incised with the blade. The radial and ulnar leaflets were directly visualized and mobile consistent with complete release. Tenotomy scissors were then utilized to release the remaining distal forearm fascia under direct vis ualization taking care to preserve the palmar cutaneous branch of the median nerve. Attention was then drawn to the right middle finger. Oblique incision was made at the base of the finger. Blunt dissection was taken down to the level of the A1 rolly. Ragnell retractors were placed both radially and ulnarly to protect neurovascular bundles. Littler tenotomy scissors were then used to release the A1 rolly from proximal to distal under direct visualization. Proximal fascial attachments were released. The tendon was then taken through range of motion and no locking or catching was appreciated. The wound was then closed with interrupted 4-0 nylon sutures in a horizontal mattress fashion. Skin closure at the wrist incision was performed with interrupted 4-0 Monocryl suture followed by Mastisol and steri strips. Sterile dressing was applied consisting of adaptic, 4x4s, Webril, and an tracie bandage. Tourniquet was let down and the hand immediately was well perfused. The patient was then woken by the department of anesthesia and transferred to PACU in stable condition. Pepe FENG was present for the case in its entirety and assisted in major portions of the case and protection of vital neurovascular structures. Pee Early D.O. Orthopedic Hand/Upper Extremity Surgeon
[2023-03-07 16:14] VITALS: BP 157/84; PULSE 58; RESP 17
== END 2023-03-07 16:26 | disposition home or self-care (01) ==
LOC: OR 13:31
PROVIDERS: ATTEND Orthopaedic Surgery Hand Surgery
DX: G56.01 Carpal tunnel syndrome, right upper limb (principal); M65.331 Trigger finger, right middle finger; I25.10 Atherosclerotic heart disease of native coronary artery without angina pectoris; E11.9 Type 2 diabetes mellitus without complications; K21.9 Gastro-esophageal reflux disease without esophagitis; E78.5 Hyperlipidemia, unspecified; I10 Essential (primary) hypertension; I25.2 Old myocardial infarction; Z86.718 Personal history of other venous thrombosis and embolism; Z87.891 Personal history of nicotine dependence; Z79.82 Long term (current) use of aspirin; Z79.02 Long term (current) use of antithrombotics/antiplatelets
CPT/HCPCS: 29848; 26055; J2001; J2250; J1100; J2405; J3010; J2704

== ENCOUNTER 2023-03-28 07:11 | Day surgery (SDC) | payer MEDICARE ==
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
[~2023-03-28 07:11] MED LIST changes: -ONDANSETRON 4 MG/2 ML VIAL IVP ONE
[2023-03-28 07:46] VITALS: TEMP 98
[2023-03-28 07:56] LABS: Glucose,Whole Blood 231 mg/dL (70-110)
[2023-03-28] MEDS ORDERED: LACTATED RINGERS 1,000 ML IV ONE (07:58)
[2023-03-28] MEDS ORDERED: ONDANSETRON 4 MG/2 ML VIAL ONE (08:00)
[2023-03-28] MEDS ORDERED: ONDANSETRON 4 MG/2 ML VIAL IVP ONE (08:01)
[2023-03-28] MEDS ORDERED: LIDOCAINE 2% INJ 20 MG/ML SQ ONE ×2 (08:14→08:30)
[2023-03-28] MEDS ORDERED: BUPIVACAINE (PF) 0.5% 30 ML VIAL SQ ONE ×2 (08:14→08:30)
[2023-03-28] MEDS ORDERED: PROPOFOL 10 MG/ML 20 ML VIAL IV ONE (08:23)
[2023-03-28] MEDS ORDERED: MIDAZOLAM 2 MG/2 ML VIAL ONE (08:23)
[2023-03-28] MEDS ORDERED: fentaNYL (PF) 50 MCG/ML 2 ML AMP ONE (08:23)
--- NOTE | 2023-03-28 08:52 | P.OP ---
Date of Procedure: 03/28/23 Preoperative Diagnosis: 1.) Left carpal tunnel release 2.) Left middle finger trigger finger Postoperative Diagnosis: 1.) Left carpal tunnel release 2.) Left middle finger trigger finger Procedure(s) Performed: 1.) Left endoscopic carpal tunnel release 2.) Left middle finger A1 rolly release Anesthesia: MAC Surgeon: Pee Early Patternmaker Bench #1: Pepe Lebron Estimated Blood Loss (ml): 2 Pathology: none sent Condition: stable Disposition: PACU Description of Procedure: This is a 67 year old male who presents today for a left endoscopic carpal tunnel release and left middle finger A1 rolly release after having failed conservative treatment in the past. Risks and benefits of surgery were discussed with the patient including bleeding, damage to surrounding tissue, infection, need to convert to open procedure, need for further surgery as well as risks of anesthesia including pulmonary embolism and even and the patient wished to proceed with surgical intervention. The patients was seen in the pre-operative area by myself. Consent and H&P were completed and updated. The correct extremity was marked in the pre-operative area by myself and all other questions were answered. Operative Narrative: The patient was brought to the operating room by the department of anesthesia. They remained on the portable stretcher and a rolling hand table was brought to the side of the operative extremity. Pre-operative time out was performed indicating the correct patient, procedure and laterality. All in the room agreed. The patient was then drifted off to sleep by the department of anesthesia. MAC anesthesia was utilized and a 50:50 mixture of 1% Lidocaine and 0.5% bupivacaine was injected into the subcutaneous tissues of the palmar skin, 8ccs total. A nonsterile tourniquet was then applied to the operative extremity and the left upper extremity was then prepped and draped in normal sterile fashion. The operative extremity was the exsanguinated with an esmarch bandage and the tourniquet was inflated to 250mmHg. 15 blade scalpel was utilized to make a transverse incision on the palmar skin just ulnar to the palmaris longus tendon at the level of the distal wrist crease. Ragnell retractor was then placed radially and blunt dissection was performed to reveal the distal forearm fascia. This was lifted with fine Mich pick ups and Littler tenotomy scissors were then used to open the forearm fascia transversely and a double skin hook was then placed. Hamate finder was placed into the carpal tunnel and then sequential sized dilators were inserted followed by the synovial elevator to separate the flexor tenosynovium from the undersurface of the transverse carpal ligament and a washboard texture was felt. The MicroAire endoscopic carpal tunnel release system gun was the then inserted into the carpal tunnel hugging the deep portion of the transverse carpal ligament in line with the base of the ring finger. Transverse fibers of the ligament were directly visualized. Pressure was applied on the palm to reveal the distal extent of the transverse carpal ligament. The blade was then deployed and the distal half of the transverse carpal ligament was released. The scope was then brought distal again and remaining transverse fibers were incised with the blade. The proximal half of the transverse carpal ligament was then divided and again the scope was advanced distal and remaining transverse fibers were incised with the blade. The radial and ulnar leaflets were directly visualized and mobile consistent with complete release. Tenotomy scissors were then utilized to release the remaining distal forearm fascia under direct visualization taking care to preserve the palmar cutaneous branch of the median nerve. Skin closure was performed with interrupted 4-0 Monocryl suture followed by Mastisol and steri strips. Attention was then drawn to the middle finger. Oblique incision was made at the base of the left middle finger. Blunt dissection was taken down to the level of the A1 rolly. Ragnell retractors were placed both radially and ulnarly to protect neurovascular bundles. Littler tenotomy scissors were then used to release the A1 rolly from proximal to distal under direct visualization. Proximal fascial attachments were released. The tendon was then taken through range of motion and no locking or catching was appreciated. The wound was then closed with interrupted 4-0 nylon sutures in a horizontal mattress fashion. Sterile dressing was applied consisting of adaptic, 4x4s, Webril, and an tracie bandage. Tourniquet was let down and the hand immediately was well perfused. The patient was then woken by the department of anesthesia and transferred to PACU in stable condition. Pepe FENG was present for the case in its entirety and assisted in major portions of the case and protection of vital neurovascular structures. Pee Early D.O. Orthopedic Hand/Upper Extremity Surgeon
[2023-03-28 09:09] VITALS: BP 119/68; PULSE 66; RESP 18
== END 2023-03-28 09:37 | disposition home or self-care (01) ==
LOC: OR 07:11
PROVIDERS: ATTEND Orthopaedic Surgery Hand Surgery
DX: G56.02 Carpal tunnel syndrome, left upper limb (principal); M65.332 Trigger finger, left middle finger; I25.10 Atherosclerotic heart disease of native coronary artery without angina pectoris; I10 Essential (primary) hypertension; I25.2 Old myocardial infarction; K21.9 Gastro-esophageal reflux disease without esophagitis; E11.9 Type 2 diabetes mellitus without complications; E78.5 Hyperlipidemia, unspecified; M19.90 Unspecified osteoarthritis, unspecified site; G47.33 Obstructive sleep apnea (adult) (pediatric); H91.90 Unspecified hearing loss, unspecified ear; Z95.5 Presence of coronary angioplasty implant and graft; Z79.82 Long term (current) use of aspirin; Z79.84 Long term (current) use of oral hypoglycemic drugs; Z79.02 Long term (current) use of antithrombotics/antiplatelets; Z79.4 Long term (current) use of insulin; Z79.1 Long term (current) use of non-steroidal anti-inflammatories (NSAID); Z79.899 Other long term (current) drug therapy; Z86.718 Personal history of other venous thrombosis and embolism; Z86.14 Personal history of Methicillin resistant Staphylococcus aureus infection; Z87.891 Personal history of nicotine dependence
CPT/HCPCS: 29848; 26055; J2001; J2250; J2405; J3010; J2704; J0665

== ENCOUNTER 2023-08-23 16:32 | Observation (INO) | payer MEDICARE ==
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
[2023-08-23] MEDS ORDERED: NITROGLYCERIN OINT 1 INCH/GM PACKET TOPICAL STA (17:14)
[2023-08-23] MEDS ORDERED: ASPIRIN 81 MG PO STA (17:14)
[2023-08-23 17:47] LABS: Basophils # (A) 0.1 k/uL (0-0.2); Basophils % (A) 1 %; Eosinophils # (A) 0.2 k/uL (0-0.7); Eosinophils % (A) 3 %; HCT 40.6 % (39.0-53.0); HGB 14.1 gm/dL (13.0-17.5); Lymphocytes # (A) 1.5 k/uL (1.0-4.8); Lymphocytes % (A) 25 %; MCH 27.4 pg (25.0-35.0); MCHC 34.8 g/dL (31.0-37.0); MCV 78.8 fL (80.0-100.0); Monocytes # (A) 0.4 k/uL (0-1.0); Monocytes % (A) 6 %; Neutrophils # (A) 3.7 k/uL (1.3-7.7); Neutrophils % (A) 62 %; Platelet Count 159 k/uL (150-450); RBC 5.16 m/uL (4.30-5.90); RDW 14.2 % (11.5-15.5)
[2023-08-23 17:54] LABS: ALT 24 U/L (4-49); AST 26 U/L (17-59); African American GFR (CKD) >90 (>60 ml/min/1.73 sqM); Albumin 4.2 g/dL (3.5-5.0); Alkaline Phosphatase 65 U/L (38-126); Anion Gap 13 mmol/L; Blood Urea Nitrogen 21 mg/dL (9-20); Calcium 9.3 mg/dL (8.4-10.2); Carbon Dioxide 18 mmol/L (22-30); Chloride 109 mmol/L (98-107); Glucose 243 mg/dL (74-99); Magnesium 1.7 mg/dL (1.6-2.3); Non-African American GFR(CKD) >90 (>60 ml/min/1.73 sqM); Potassium 4.1 mmol/L (3.5-5.1); Sodium 140 mmol/L (137-145); Total Bilirubin 0.5 mg/dL (0.2-1.3); Total Protein 7.1 g/dL (6.3-8.2)
--- NOTE | 2023-08-23 17:54 | XR ---
EXAMINATION TYPE: XR chest 2V DATE OF EXAM: 08/23/2023 COMPARISON: 10/11/2019 HISTORY: 68-year-old male with chest pain TECHNIQUE: PA and lateral views FINDINGS: The cardiomediastinal silhouette, aorta, and pulmonary vasculature are within normal limits. Mild int erstitial prominence. Otherwise, lungs and pleural spaces are clear. IMPRESSION: Consider bronchitis or asthma. No focal infiltrate seen.
[2023-08-23 17:59] LABS: INR 0.9 (<1.2); Partial Thromboplastin Time 26.5 sec (22.0-30.0); Prothrombin Time 10.4 sec (10.0-12.5)
[2023-08-23] MEDS ORDERED: NITROGLYCERIN SL TABS 0.4 MG TAB SUBLINGUAL PRN (19:10)
[2023-08-23] MEDS ORDERED: DEXTROSE 50% SYRINGE 50 ML IVP PRN ×2 (20:21)
[2023-08-23] MEDS ORDERED: metFORMIN 500 MG TAB PO SCH (21:00)
[2023-08-23 21:16] LABS: Glucose,Whole Blood 202 mg/dL (70-110)
[2023-08-23] MEDS: Omega-3 Acid Ethyl Esters [Lovaza] 1 GM Capsule PO SCH (22:25)
[2023-08-23] MEDS: INSULIN ASPART (NovoLOG) 100 UNIT/ML VIAL SQ SCH (22:26)
[2023-08-23] MEDS: NITROGLYCERIN OINT 1 INCH/GM PACKET TOPICAL SCH (22:51)
[2023-08-24] MEDS: PANTOPRAZOLE 40 MG TABLET PO SCH (06:35)
[2023-08-24] MEDS: NITROGLYCERIN OINT 1 INCH/GM PACKET TOPICAL SCH ×2 (06:35→14:57)
[2023-08-24 06:38] LABS: Glucose,Whole Blood 182 mg/dL (70-110)
[2023-08-24] MEDS: INSULIN ASPART (NovoLOG) 100 UNIT/ML VIAL SQ SCH ×6 (06:51→20:58)
[2023-08-24] MEDS: ENOXAPARIN 40 MG/0.4 ML SYRINGE SQ SCH (08:24)
[2023-08-24] MEDS: TAMSULOSIN 0.4 MG CAP.ER.24H PO SCH (08:25)
[2023-08-24] MEDS: ATORVASTATIN 40 MG TAB PO SCH (08:25)
[2023-08-24] MEDS: CHOLECALCIFEROL 25 MCG (1000 IU) TABLET PO SCH (08:25)
[2023-08-24] MEDS: lisinopriL 20 MG TAB PO SCH (08:25)
[2023-08-24 08:45] LABS: Chol/HDL Ratio 2.93 Ratio; LDL Cholesterol,Calculated 21.6 mg/dL (0.0-131.0)
[2023-08-24] MEDS ORDERED: ASPIRIN 325 MG TAB PO SCH (09:00)
[2023-08-24] MEDS: Omega-3 Acid Ethyl Esters [Lovaza] 1 GM Capsule PO SCH ×2 (09:00→21:21)
[2023-08-24] MEDS ORDERED: CLOPIDOGREL 75 MG TAB PO SCH (09:00)
[2023-08-24] MEDS ORDERED: ASPIRIN 325 MG TAB PO STA (09:15)
[2023-08-24] MEDS ORDERED: ATORVASTATIN 80 MG TAB PO STA (09:15)
[2023-08-24] MEDS: INSULIN DETEMIR (LEVEMIR) 100 UNIT/ML SYR SQ SCH (09:15)
[2023-08-24] MEDS ORDERED: ALPRAZolam 0.5 MG TAB PO PRN (09:15)
[2023-08-24] MEDS ORDERED: ALPRAZolam 0.25 MG TAB PO PRN (09:15)
[2023-08-24] MEDS ORDERED: NITROGLYCERIN SL TABS 0.4 MG TAB SUBLINGUAL PRN (09:15)
[2023-08-24] MEDS: METOPROLOL SUCCINATE (ER) 50 MG TAB.ER.24H PO SCH (09:21)
[2023-08-24] MEDS ORDERED: SODIUM CHLORIDE 0.9% 1,000 ML IV ONE (09:47)
[2023-08-24] MEDS ORDERED: MIDAZOLAM 2 MG/2 ML VIAL IVP ONE (09:55)
[2023-08-24] MEDS ORDERED: LIDOCAINE 2% (PF) 20 MG/ML 5 ML VIAL SQ ONE (09:58)
[2023-08-24] MEDS ORDERED: VERAPAMIL SYRINGE (5 MG/10 ML) INTRAARTER ONE (10:00)
[2023-08-24] MEDS ORDERED: HEPARIN SODIUM 1,000 UN/ML (10ML VL) IVP ONE ×2 (10:03)
[2023-08-24] MEDS ORDERED: IOPAMIDOL-370 100ML BTL INJ ONE (10:17)
--- NOTE | 2023-08-24 11:23 | CC ---
CARDIAC CATHETERIZATION REPORT INDICATIONS: Unstable angina. PROCEDURE NOTE: After obtaining informed consent, left heart catheterization and coronary angiogram were performed via right radial artery using standard Audelia catheters. The patient tolerated the procedure well without any obvious immediate complications, received moderate conscious sedation. Total sedation time was 18 minutes. Right radial artery access was obtained using Seldinger technique. Catheters and wires were floated into the ascending aorta under fluoroscopic guidance. Verapamil and heparin were given per protocol. FINDINGS: 1. Hemodynamics: Left ventricular end-diastolic pressure is 15 mm. There is no significant gradient across the aortic valve. 2. Left Ventriculogram: Left ventriculogram is not performed. 3. Angiographic Data: a.Right Coronary Artery: Right coronary artery is a large dominant vessel that shows a 50% focal stenosis involving mid RCA and an ostial stenosis also. Left main coronary artery appears calcified but is free of significant disease, divides into left anterior descending coronary artery, ramus intermedius and circumflex coronary artery. LAD has 2 areas of concern, 1 more proximally, in the previously stented segment. There is a 70% to 80% in-stent restenoses. More distally closer to the apex there is a 70% stenosis noted. The ramus intermedius has 50% ostial stenosis. CONCLUSIONS: Three-vessel coronary artery disease as described above with restenosis involving the previously stented segment of the LAD. PLAN: I reviewed angiographic data with Dr. Aguilar, the on-call radiographic technologist, who suggested that we seek surgical opinion and if the surgeon feels that catheter based intervention is the optimal option, he is going to proceed with angioplasty of the LAD and maybe we will treat ramus intermedius and right coronary artery with medical therapy. MMODL / IJN: [id number] /
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
[2023-08-24 11:49] LABS: Glucose,Whole Blood 139 mg/dL (70-110)
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
[2023-08-24] MEDS: ISOSORBIDE MONONITRATE ER 30 MG TAB.ER.24H PO SCH (13:54)
--- NOTE | 2023-08-24 14:11 | US ---
EXAMINATION TYPE: US vein mapping BILAT DATE OF EXAM: 08/24/2023 12:25 PM COMPARISON: NONE CLINICAL INDICATION: Male, 68 years old with history of preop cardiac surgery; Pre-OP CABG SIDE PERFORMED: Bilateral TECHNIQUE: Lower extremity saphenous vein is examined and measured utilizing real time linear array sonography. DUPLEX FINDINGS: Greater Saphenous: Color flow seen Measurements in mm: Right Greater Saphenous: Groin: 5.1 x 5.4 mm High Thigh: 3.4 x 3.4 mm Mid Thigh: 3.4 x 4.1 mm Above Knee: 3.1 x 3.5 mm Knee: 3.2 x 3.5 mm Below Knee: 2.5 x 2.9 mm Mid Calf: 2.3 x 2.4 mm At Ankle: 3.0 x 3.7 mm Left Greater Saphenous: Groin: 4.3 x 4.8 mm High Thigh: 3.6 x 3.3 mm Mid Thigh: 3.4 x 3.8 mm Above Knee: 3.4 x 3.9 mm Knee: 2.0 x 2.4 mm Below Knee: 2.2 x 2.9 mm Mid Calf: 2.9 x 3.8 mm At Ankle: 3.4 x 4.2 mm IMPRESSION: 1. Bilateral GSV measurements listed above. 2. Performing surgeon to determine viability as conduit.
--- NOTE | 2023-08-24 14:12 | US ---
EXAMINATION TYPE: Pre-Operative Non-Invasive Evaluation of the hand for Potential Radial Artery Enrique cole, Measurements only DATE OF EXAM: 08/24/2023 12:25 PM CLINICAL INDICATION: Male, 68 years old with history of measurements only; Pre-OP CABG SIDE PERFORMED: Left TECHNIQUE: Radial artery is measured utilizing real time linear array sonography. Dominant hand: Right Duplex Findings: Radial Artery: Color flow seen Measurements in mm, transverse view: Left Radial: Proximal: 3.2 x 3.3 mm Mid: 2.9 x 3.7 mm Distal: 2.9 x 3.4 mm IMPRESSION: 1. Left radial measurements listed above. 2. Performing surgeon to determine viability as conduit.
--- NOTE | 2023-08-24 14:13 | US ---
EXAMINATION TYPE: US carotid duplex BILAT DATE OF EXAM: 08/24/2023 COMPARISON: NONE CLINICAL INDICATION: Male, 68 years old with history of preop cardiac surgery; Pre-OP CABG TECHNIQUE: Carotid duplex ultrasound examination. Indirect Doppler criteria was utilized. FINDINGS: EXAM MEASUREMENTS: RIGHT: Peak Systolic Velocity (PSV) cm/sec ----- Right CCA: 71.5 ----- Right ICA: 108 ----- Right ECA: 251 ICA/CCA ratio: 1.5 RIGHT: End Diastole cm/sec ----- Right CCA: 12.3 ----- Right ICA: 25.3 ----- Right ECA: 0.0 LEFT: Peak Systolic Velocity (PSV) cm/sec ----- Left CCA: 78.0 ----- Left ICA: 130 ----- Left ECA: 144 ICA/CCA ratio: 1.7 LEFT: End Diastole cm/sec ----- Left CCA: 16.1 ----- Left ICA: 33.5 ----- Left ECA: 0.0 VERTEBRALS (direction of flow): Right Vertebral: Unable to visualize Left Vertebral: Antegrade Rhythm: Normal PROFESSOR OF CHEMISTRY NOTES: Elevated velocities bilateral ECA's, slightly elevated velocities left ICA IMPRESSION: 1. Moderate stenosis between 50 and 69% left internal carotid artery. 2. Note is made of some elevated velocities within the external carotid artery bilaterally. Criteria for Assigning % of Stenosis / Diameter reduction (Estimation based on the indirect measurements of the internal carotid artery velocities (ICA PSV). 1. Normal (no stenosis)=ICA PSV < 125 cm/s: ratio < 2.0: ICA EDV<40 cm/s. 2. Less than 50% stenosis=ICA PSV < 125 cm/s: ratio < 2.0: ICA EDV<40 cm/s. 3. 50 to 69% stenosis=ICA PSV of 125 to 230 cm/s: ration 2.0 ? 4.0: ICA EDV 40-100 cm/s. 4. Greater than 70% stenosis to near occlusion= ICA PSV > 230 cm/s: ratio > 4.0: ICA EDV > 100 cm/s. 5. Near occlusion= ICA PSV velocities may be low or undetectable: variable ratio and ICA EDV. 6. Total occlusion=unable to detect flow.
--- NOTE | 2023-08-24 14:49 | US ---
EXAMINATION TYPE: US arterial LE single level DATE OF EXAM: 08/24/2023 2:38 PM CLINICAL INDICATION: Male, 68 years old with history of Ankle Brachial Index (ALEKS); PreOP, hx lower P AD with grafts/stents, right radial heart cath today History of: Hypertension: Yes Diabetic: Yes TIA/CVA: No Previous Vascular Surgery: Yes CAD: Yes Vascular Ulcers: No Claudication: No Gangrene: No Right Brachial Pressure: Deferred due to heart cath today Left Brachial Pressure: 122 Ankle-Brachial Indices: Right: 0.6 Left: 1.0 Monophasic wave forms are within the dorsalis pedis vessels. Biphasic waveforms are within the left p osterior tibial and monophasic waveform in the right posterior tibial arteries. Right lower extremity Ratios are diminished measuring in the range of 0.6 IMPRESSION: 1. Findings suggestive for right lower extremity stenosis
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
--- NOTE | 2023-08-24 15:54 | CT ---
EXAMINATION TYPE: CT chest wo con DATE OF EXAM: 08/24/2023 COMPARISON: CTA chest dated 10/11/2019 HISTORY: Evaluate aorta for calcification/clampability. CT DLP: 728 mGycm. Automated Exposure Control for Dose Reduction was Utilized. TECHNIQUE: CT scan of the thorax is performed without IV contrast. FINDINGS: LUNGS: The lungs are grossly clear, there is no concerning parenchymal mass or nodule identified. T here is no pleural effusion or pneumothorax seen. The tracheobronchial tree is patent. MEDIASTINUM: Lack of IV contrast is noted to limit evaluation for mediastinal and especially hilar ad enopathy. There are no definitive greater than 1 cm hilar or mediastinal lymph nodes. No cardiomega ly or pericardial effusion is seen. There is mild scattered atherosclerotic calcification of the thoracic aortic arch but there is no ane urysm. The ascending thoracic aorta measures 3.7 cm.. IMPRESSION: 1. No thoracic aortic aneurysm. 2. Mild scattered arteriosclerotic calcification of the thoracic aortic arch. 3. No suspicious lung mass or nodule. 4. No acute cardiopulmonary disease Follow-up recommendations for incidental pulmonary nodules are per [employer] or [employer].
[2023-08-24 17:38] LABS: Glucose,Whole Blood 255 mg/dL (70-110)
[2023-08-24 20:50] LABS: Glucose,Whole Blood 124 mg/dL (70-110)
[2023-08-25] MEDS: PANTOPRAZOLE 40 MG TABLET PO SCH (06:34)
[2023-08-25] MEDS ORDERED: HEPARIN SODIUM,PORCINE (1 ML) 2,500 UNIT in SODIUM CHLORIDE 0.9% 250 ML IRRIGATION PRN (07:00)
[2023-08-25] MEDS ORDERED: HEPARIN SODIUM,PORCINE 10,000 UNIT in SODIUM CHLORIDE 0.9% 1,000 ML IRRIGATION PRN (07:00)
[2023-08-25 07:47] LABS: Glucose,Whole Blood 156 mg/dL (70-110)
--- NOTE | 2023-08-25 08:16 | P.PN ---
Subjective Progress Note Date: 08/25/23 Principal diagnosis: Coronary artery disease The patient is a 68-year-old gentleman who was admitted to the hospital with a chest discomfort concerning for angina and underwent heart catheterization revealed severe triple-vessel coronary artery disease the patient was seen by [facility] cardiothoracic surgical service and deemed to be a good candidate to undergo coronary artery that is grafting 08/25/2022 The patient was seen and evaluated this morning. Currently he is asymptomatic. He is on aspirin and intermediate intensity statin and beta estiven. The plan is to pursue with open heart surgery this coming Sunday. The examination is remarkable for regular rhythm with clear breathing sounds bilaterally and no carotid bruit and no lower extremity edema. The echo is still pending at this point Assessment Severe triple-vessel coronary artery disease Hypertension Dyslipidemia Plan Continue the current medical regimen The patient is to undergo an open heart surgery in the next few days I would completely make sure that the patient is completely asymptomatic with e xertion before the patient will be discharged home Follow-up with the patient Objective - Vital Signs Vital signs: Vital Signs Temp 97.4 F L 08/25/23 02:00 Pulse 59 L 08/25/23 02:55 Resp 16 08/25/23 02:55 BP 134/50 08/25/23 02:00 Pulse Ox 96 08/25/23 02:00 FiO2 Intake & Output 08/24/23 08/25/23 08/25/23 18:59 06:59 18:59 Intake Total 560 Balance 560 Intake: IV 200 Oral 360 Other: Voiding Method Toilet Toilet # Voids 1 2 - Labs CBC & Chem 7: 08/23/23 17:13 08/23/23 17:13 Labs: Abnormal Lab Results - Last 24 Hours (Table) 08/24/23 08/24/23 08/24/23 Range/Units 05:39 05:39 11:47 POC Glucose (mg/dL) 139 H (70-110) mg/dL Hemoglobin A1c 8.5 H (<=6.0) % Triglycerides 159.00 H (0.00-149.00) mg/dL HDL Cholesterol 27.60 L (40.00-60.00) mg/dL 08/24/23 08/24/23 08/25/23 Range/Units 17:34 20:48 06:54 POC Glucose (mg/dL) 255 H 124 H 156 H (70-110) mg/dL Hemoglobin A1c (<=6.0) % Triglycerides (0.00-149.00) mg/dL HDL Cholesterol (40.00-60.00) mg/dL
[2023-08-25 08:25] VITALS: BP 164/90; PULSE 64; RESP 18; TEMP 98
--- NOTE | 2023-08-25 08:39 | P.PN ---
Subjective Progress Note Date: 08/25/23 68-year-old male who presented to the emergency department with chest pain, 08/23/2023. The patient was further evaluated, found to have triple-vessel coronary disease. The patient underwent a cardiac catheterization on August 24. Please see those reports. The patient apparently has a previous history of myocardial infarction. 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 The patient is seen today in room 636. He is resting comfortably. He is on room air. He is getting saline at 75 mL an hour. Apparently he is going to be sent home tomorrow, and brought back on August 30 for bypass grafting. His primary care physician is Dr. Oliverio Clay. In addition to coronary disease, the patient has a history of diabetes, DVT, GERD, hyperlipidemia, hypertension, myocardial infarction, DJD, and obstructive sleep apnea syndrome. White count 6, hemoglobin 14.1, hematocrit 41, and platelet count was normal. Sodium 140, potassium 4.1, chlorides 109, CO2 18, anion gap 13, BUN 21, creatinine 0.80. TSH was normal. Calcium was 8.5. Chest x-ray showed changes that might be consistent with bronchitis or asthma. The patient is seen today 08/25/2023 in follow-up on the regular medical floor. He is currently sitting up in bed. Awake and alert in no acute distress. He denies any worsening shortness of breath, cough or congestion. He denies any chest pain palpitations lightheadedness or dizziness. Maintaining good O2 saturations in the 90s on room air. He's afebrile. Hemodynamically stable. Computed tomography scan of the abdomen without thoracic aortic aneurysm. Mild scattered atherosclerotic calcification within the thoracic aortic arch. No suspicious lung mass or nodule. No acute pulmonary process. Glucose 156. He is continued on aspirin, statins, beta blockers, EZEQUIEL inhibitor. Lovenox for DVT prophylaxis. Objective - Vital Signs Vital signs: Vital Signs Temp 98 F 08/25/23 07:00 Pulse 64 08/25/23 07:00 Resp 18 08/25/23 07:00 BP 164/90 08/25/23 07:00 Pulse Ox 95 08/25/23 07:00 FiO2 Intake & Output 08/24/23 08/25/23 08/25/23 18:59 06:59 18:59 Intake Total 560 Balance 560 Intake: IV 200 Oral 360 Other: Voiding Method Toilet Toilet # Voids 1 2 - Exam GENERAL EXAM: Alert, very pleasant 68-year-old male, on room air, resting comfortably in bed, in no apparent distress. HEAD: Normocephalic. EYES: Normal reaction of pupils, equal size. NOSE: Clear with pink turbinates. THROAT: No erythema or exudates. NECK: No masses, no JVD. CHEST: No chest wall deformity. LUNGS: Equal air entry with no crackles, wheeze, rhonchi or dullness. CVS: S1 and S2 normal with no audible murmur, regular rhythm. ABDOMEN: No hepatosplenomegaly, normal bowel sounds, no guarding or rigidity. SPINE: No scoliosis or deformity SKIN: No rashes CENTRAL NERVOUS SYSTEM: No focal deficits, tone is normal in all 4 extremities. EXTREMITIES: There is no peripheral edema. No clubbing, no cyanosis. Peripheral pulses are intact. - Labs CBC & Chem 7: 08/23/23 17:13 08/23/23 17:13 Labs: Abnormal Lab Results - Last 24 Hours (Table) 08/24/23 08/24/23 08/24/23 Range/Units 05:39 05:39 11:47 POC Glucose (mg/dL) 139 H (70-110) mg/dL Hemoglobin A1c 8.5 H (<=6.0) % Triglycerides 159.00 H (0.00-149.00) mg/dL HDL Cholesterol 27.60 L (40.00-60.00) mg/dL 08/24/23 08/24/23 08/25/23 Range/Units 17:34 20:48 06:54 POC Glucose (mg/dL) 255 H 124 H 156 H (70-110) mg/dL Hemoglobin A1c (<=6.0) % Triglycerides (0.00-149.00) mg/dL HDL Cholesterol (40.00-60.00) mg/dL Assessment and Plan Assessment: Coronary artery disease with anticipated CABG, 08/30/2023. History of coronary disease, with multiple myocardial infarctions, and stent placements in the past. History of 45 years of tobacco use, at 2 packs a day. FEV1 value 2.81 L, 97% of predicted. Computed tomography scan of the chest ruled out any pulmonary nodules or masses. No acute pulmonary process. History of hypertension. History of hyperlipidemia. History of diabetes mellitus. History of DVT. History of gastroesophageal reflux disease. His osteoarthritis. History of obstructive sleep apnea syndrome. Plan: The patient was seen and evaluated Computed tomography scan of the chest, labs and medications were reviewed The plan is for coronary revascularization Scheduled per CT services Patient's lung function is excellent Reviewed by Dr. Madsen yesterday To continue to work with the incentive spirometer This patient was seen independently by the pulmonary nurse practitioner addressing pulmonary issues I have personally seen and examined the patient, performed the documentation and the assessment and plan as written. Number of minutes spent on the visit: 22.
--- NOTE | 2023-08-25 08:42 | P.PN ---
Subjective Progress Note Date: 08/25/23 Principal diagnosis: Coronary artery disease with previous myocardial infarction and stent placement, unstable angina. History of hypertension, hyperlipidemia, insulin dependent d iabetes mellitus, obstructive sleep apnea without home CPAP use, heavy tobacco dependence with recent cessation 6 months ago, peripheral arterial disease with lower extremity bypass as well as stenting and thrombectomy, BPH, DVT on no active anticoagulation The patient was seen and examined sitting up in bed on the observation unit in no acute distress. Denies any chest pain or shortness of breath currently. He has been ambulatory to and from the bathroom without any difficulty. He was seen yesterday by Dr. Greer with lengthy discussion regarding our recommendation for coronary artery bypass surgery. STS risk score was calculated and discussed with the patient as well as his , felt to be low risk. The patient and his are both very concerned about the patient's right lower extremity peripheral arterial disease, however they were reassured that we will take every precaution to make sure there is no disruption in flow to the right lower extremity. Echo is still pending, once completed patient may be discharged to home from our standpoint to return 08/29/2023 for open heart surgery. Objective - Vital Signs Vital signs: Vital Signs Temp 98 F 08/25/23 07:00 Pulse 64 08/25/23 07:00 Resp 18 08/25/23 07:00 BP 164/90 08/25/23 07:00 Pulse Ox 95 08/25/23 07:00 FiO2 Intake & Output 08/24/23 08/25/23 08/25/23 18:59 06:59 18:59 Intake Total 560 Balance 560 Intake: IV 200 Oral 360 Other: Voiding Method Toilet Toilet # Voids 1 2 - Exam CONSTITUTIONAL: Appears comfortable, cooperative, no acute distress RESPIRATORY: Lungs sounds diminished bilaterally. Respirations even, nonlabored. Currently on room air with oxygen saturation 95%. Able to achieve 1500 mL on incentive spirometry. Strong cough. CARDIOVASCULAR: S1, S2 present. Regular rate and rhythm. Palpable peripheral pulses bilaterally. No edema present. No calf pain or tenderness noted GASTROINTESTINAL: Abdomen soft, nontender, nondistended. Active bowel sounds present 4 quadrants. Tolerating diet. GENITOURINARY: Continues to void INTEGUMENTARY: Skin is warm and dry NEUROLOGIC: Cranial nerves II through XII intact MUSKULOSKELETAL: Able to move all extremities, strength equal bilaterally, gait normal PSYCHIATRIC: Alert and oriented to person place and time, appropriate affect, intact judgment and insight - Labs CBC & Chem 7: 08/23/23 17:13 08/23/23 17:13 Labs: Abnormal Lab Results - Last 24 Hours (Table) 08/24/23 08/24/23 08/24/23 Range/Units 05:39 05:39 11:47 POC Glucose (mg/dL) 139 H (70-110) mg/dL Hemoglobin A1c 8.5 H (<=6.0) % Triglycerides 159.00 H (0.00-149.00) mg/dL HDL Cholesterol 27.60 L (40.00-60.00) mg/dL 08/24/23 08/24/23 08/25/23 Range/Units 17:34 20:48 06:54 POC Glucose (mg/dL) 255 H 124 H 156 H (70-110) mg/dL Hemoglobin A1c (<=6.0) % Triglycerides (0.00-149.00) mg/dL HDL Cholesterol (40.00-60.00) mg/dL Assessment and Plan Assessment: Coronary artery disease with previous myocardial infarction and stent placement, unstable angina Hypertension Hyperlipidemia, treated, cholesterol 81, LDL 21, triglycerides 159 Insulin dependent diabetes mellitus, hemoglobin A1c 8.5% Obstructive sleep apnea without home CPAP use Heavy tobacco dependence with recent cessation 6 months ago, preoperative FEV1 97% of predicted Peripheral arterial disease with lower extremity bypass as well as stenting and thrombectomy, right ALEKS 0.6 BPH, currently on Flomax DVT on no active anticoagulation Left internal carotid artery stenosis 50-69% Plan: Continue to maximize medical therapy with aspirin, statin, beta estiven 5 m walk test was completed, #1 3.05 sec, #2 3.0 sec, #3 3.4 sec. patient tolerated well without chest pain or shortness of breath STS risk score was calculated and discussed with the patient and his , considered low risk Incentive spirometry encouraged Plan is for off-pump myocardial revascularization with left internal mammary artery harvest, endoscopic left radial artery harvest, possible endoscopic saphenous vein harvest, ligation of the left atrial appendage next 08/29/[address] Greer Once echocardiogram completed patient may be discharged to home to return for surgery electively Diabetes does need better control and this was discussed with the patient and his , patient does follow with Dr Zacarias for endocrinology outpatient Medical management of other comorbidities per internal medicine, cardiology.
[2023-08-25] MEDS ORDERED: ASPIRIN 81 MG PO SCH (09:00)
[2023-08-25] MEDS: INSULIN ASPART (NovoLOG) 100 UNIT/ML VIAL SQ SCH ×4 (09:11→12:49)
[2023-08-25] MEDS: INSULIN DETEMIR (LEVEMIR) 100 UNIT/ML SYR SQ SCH (09:11)
[2023-08-25] MEDS: ISOSORBIDE MONONITRATE ER 30 MG TAB.ER.24H PO SCH (09:12)
[2023-08-25] MEDS: lisinopriL 20 MG TAB PO SCH (09:12)
[2023-08-25] MEDS: METOPROLOL SUCCINATE (ER) 50 MG TAB.ER.24H PO SCH (09:12)
[2023-08-25] MEDS: TAMSULOSIN 0.4 MG CAP.ER.24H PO SCH (09:13)
[2023-08-25] MEDS: ATORVASTATIN 40 MG TAB PO SCH (09:13)
[2023-08-25] MEDS: CHOLECALCIFEROL 25 MCG (1000 IU) TABLET PO SCH (09:14)
[2023-08-25] MEDS: Omega-3 Acid Ethyl Esters [Lovaza] 1 GM Capsule PO SCH (09:14)
[2023-08-25] MEDS: ENOXAPARIN 40 MG/0.4 ML SYRINGE SQ SCH (11:54)
[2023-08-25 12:15] LABS: Glucose,Whole Blood 197 mg/dL (70-110)
--- NOTE | 2023-08-25 12:16 | CA ---
Transthoracic Echo Report Name: Marshall Witt Age: 68 Gender: M : 1955 Exam Date: 08/25/2023 08:20 Exam Location: [facility] Ht (in): 66 Wt (lb): 195 Ordering Physician: Marshall Lagos DO Attending/Referring Phys: [id number] Researcher Trang Roach RDCS Procedure CPT: Indications: CP Cardiac Hx: Technical Quality: Fair Contrast 1: Total Dose (mL): Contrast 2: Total Dose (mL): MEASUREMENTS (Male / Female) Normal Values 2D ECHO LV Diastolic Diameter PLAX 3.8 cm 4.2 - 5.9 / 3.9 - 5.3 cm LV Systolic Diameter PLAX 1.7 cm IVS Diastolic Thickness 1.6 cm 0.6 - 1.0 / 0.6 - 0.9 cm LVPW Diastolic Thickness 1.5 cm 0.6 - 1.0 / 0.6 - 0.9 cm LV Relative Wall Thickness 0.8 RV Internal Dim ED PLAX 3.5 cm LVOT Diameter 2.2 cm LA Volume 71.5 cm??? 18 - 58 / 22 - 52 cm??? LA Volume Index 34.7 cm???/m??? 16 - 28 cm???/m??? M-MODE Aortic Root Diameter MM 3.3 cm LA Systolic Diameter MM 4.3 cm LA Ao Ratio MM 1.3 AV Cusp Separation MM 1.9 cm DOPPLER AV Peak Velocity 140.7 cm/s AV Peak Gradient 7.9 mmHg AV Mean Velocity 98.6 cm/s AV Mean Gradient 4.2 mmHg AV Velocity Time Integral 32.3 cm LVOT Peak Velocity 127.3 cm/s LVOT Peak Gradient 6.5 mmHg LVOT Velocity Time Integral 30.7 cm LVOT Stroke Volume 122.1 cm??? LVOT Stroke Volume Index 61.7 ml/m??? LVOT Cardiac Index 3676.8 cm???/min???m??? AV Area Cont Eq vti 3.8 cm??? AV Area Cont Eq pk 3.6 cm??? MV Area PHT 3.2 cm??? Mitral E Point Velocity 100.4 cm/s Mitral A Point Velocity 89.5 cm/s Mitral E to A Ratio 1.1 MV Deceleration Time 238.7 ms MV E' Velocity 6.6 cm/s Mitral E to MV E' Ratio 15.3 TR Peak Velocity 228.5 cm/s TR Peak Gradient 20.9 mmHg Right Ventricular Systolic Press 24.3 mmHg FINDINGS Left Ventricle Moderately increased left ventricular wall thickness. Left ventricular cavity size normal. Normal left ventricular systolic function with no obvious regional wall motion abnormalities. Left ventricular ejection fraction is estimated at 55-60 %. Right Ventricle Normal right ventricular size and function. Right ventricular systolic pressure within normal limits. Right Atrium Normal right atrial size. Left Atrium Moderately increased left atrial volume. Mildly increased left atrial area. Mitral Valve Structurally normal mitral valve. Mild mitral annular calcification. Mild mitral regurgitation. Aortic Valve Trileaflet aortic valve. No aortic valve stenosis or regurgitation. Tricuspid Valve Structurally normal tricuspid valve. Mild tricuspid regurgitation. Pulmonic Valve Structurally normal pulmonic valve. Trace pulmonic regurgitation. Pericardium No pericardial effusion. Aorta Normal size aortic root and proximal ascending aorta. CONCLUSIONS Normal LV systolic function Previewed by: Dr. Julio Aguilar MD (Electronically Signed) Final Date: 25 August 2023 12:15
--- NOTE | 2023-08-25 14:02 | P.DS ---
Providers Date of admission: 08/23/23 19:14 Expected date of discharge: 08/25/23 Attending physician: Ollie Tracy Consults: 08/23/23 19:11 Consult Physician Urgent Consulting Provider: Julio Aguilar Consult Reason/Comments: cp Do you want consulting provider notified?: Yes 08/24/23 11:34 Consult Physician Urgent Consulting Provider: Gera Greer Consult Reason/Comments: CAD Do you want consulting provider notified?: Yes 08/24/23 12:40 Consult Physician Routine Consulting Provider: Marshall Madsen Consult Reason/Comments: pulm clearence for open heart Do you want consulting provider notified?: Already Contacted Primary care physician: [facility] Course: 68-year-old patient, follows with Dr. Clay. Chronic stable medical conditions include diabetes, GERD, hyperlipidemia, hypertension, prostatitis, obstructive sleep apnea does not use CPAP, PAD with fever right leg thrombectomy and stent and a right femoral bypass and left femoral bypass, right leg stents,. Previous stents. Patient had some off PAD care done at [facility]. Patient for last 6 months has been having's episodes of chest pain on and off for some mixed activity. He had an episode yesterday. Did not relieve with nitroglycerin. Tired. Short of breath. Otherwise at baseline patient rather active. Admitted with unstable angina. Patient underwent cardiac catheterization by Dr. Damian Lagunas this morning. Patient the findings cardiothoracic surgery was consulted. He has been ambulatory to and from the bathroom without any difficulty. He was seen by Dr. Greer with lengthy discussion regarding our recommendation for coronary artery bypass surgery. STS risk score was calculated and discussed with the patient as well as his , felt to be low risk. The patient and his are both very concerned about the patient's right lower extremity peripheral arterial disease, however they were reassured that we will take every precaution to make sure there is no disruption in flow to the right lower extremity. Echo completed patient discharged to home from our standpoint to return 08/29/2023 for open heart surgery. Instructions provided to come back to the emergency case of recurrent chest pain, dizziness, shortness of breath excessive diaphoresis PHYSICAL EXAMINATION: GENERAL: The patient is alert and oriented x3, not in any acute distress. Well developed, well nourished. HEENT: Pupils are round and equally reacting to light. EOMI. No scleral icterus. No conjunctival pallor. Normocephalic, atraumatic. No pharyngeal erythema. No thyromegaly. CARDIOVASCULAR: S1 and S2 present. No murmurs, rubs, or gallops. PULMONARY: Chest is clear to auscultation, no wheezing or crackles. ABDOMEN: Soft, nontender, nondistended, normoactive bowel sounds. No palpable organomegaly. MUSCULOSKELETAL: No joint swelling or deformity. EXTREMITIES: No cyanosis, clubbing, or pedal edema. NEUROLOGICAL: Gross neurological examination did not reveal any focal deficits. SKIN: No rashes. Assessment: Coronary artery disease with previous myocardial infarction and stent placement, unstable angina Hypertension Hyperlipidemia, treated, cholesterol 81, LDL 21, triglycerides 159 Insulin dependent diabetes mellitus, hemoglobin A1c 8.5% Obstructive sleep apnea without home CPAP use Heavy tobacco dependence with recent cessation 6 months ago, preoperative FEV1 97% of predicted Peripheral arterial disease with lower extremity bypass as well as stenting and thrombectomy, right ALEKS 0.6 BPH, currently on Flomax DVT on no active anticoagulation Left internal carotid artery stenosis 50-69% Patient was ambulated in the hallway, patient tolerated 5 minute walk test without chest pain shortness of breath. Plate for discharge by cardiac surgery and cardiology with plan for CABG later in the week Take completed to be discharged home. Instructions provided to patient and Patient Condition at Discharge: Fair Plan - Discharge Summary New Discharge Prescriptions: New Isosorbide Mononitrate ER [Imdur] 30 mg PO DAILY #30 tab Nitroglycerin Sl Tabs [Nitrostat] 0.4 mg SUBLINGUAL Q5M PRN #25 tab PRN Reason: Chest Pain Aspirin 81 mg PO DAILY tab Continue Metoprolol Succinate [Toprol XL] 50 mg PO DAILY Rosuvastatin Calcium [Crestor] 20 mg PO DAILY lisinopriL 40 mg PO DAILY Discontinued Clopidogrel Bisulfate [Plavix] 75 mg PO DAILY No Action Bristow-3 Acid Ethyl Esters [Lovaza] 2 gm PO BID Omeprazole 20 mg PO BID rOPINIRole HCL [Requip] 0.5 mg PO HS Insulin Glargine,Hum.rec.anlog [Lantus Solostar Pen] 30 unit SQ DAILY Insulin Aspart [NovoLOG Flexpen] 5 units SQ AC-TID metFORMIN HCL ER [Glucophage XR] 500 mg PO BID Tamsulosin [Flomax] 0.4 mg PO DAILY Cholecalciferol [Vitamin D3 (25 Mcg = 1000 Iu)] 100 mcg PO DAILY Discharge Medication List Metoprolol Succinate [Toprol XL] 50 mg PO DAILY 05/06/14 [History] Bristow-3 Acid Ethyl Esters [Lovaza] 2 gm PO BID 05/06/14 [History] Rosuvastatin Calcium [Crestor] 20 mg PO DAILY 05/06/14 [History] Omeprazole 20 mg PO BID 07/29/18 [History] rOPINIRole HCL [Requip] 0.5 mg PO HS 07/29/18 [History] Insulin Glargine,Hum.rec.anlog [Lantus Solostar Pen] 30 unit SQ DAILY 10/12/19 [History] Cholecalciferol [Vitamin D3 (25 Mcg = 1000 Iu)] 100 mcg PO DAILY 08/23/23 [History] Insulin Aspart [NovoLOG Flexpen] 5 units SQ AC-TID 08/23/23 [History] Tamsulosin [Flomax] 0.4 mg PO DAILY 08/23/23 [History] lisinopriL 40 mg PO DAILY 08/23/23 [History] metFORMIN HCL ER [Glucophage XR] 500 mg PO BID 08/23/23 [History] Aspirin 81 mg PO DAILY tab 08/24/23 [Rx] Isosorbide Mononitrate ER [Imdur] 30 mg PO DAILY #30 tab 08/24/23 [Rx] Nitroglycerin Sl Tabs [Nitrostat] 0.4 mg SUBLINGUAL Q5M PRN #25 tab 08/24/23 [Rx] Follow up Appointment(s)/Referral(s): Gera Greer MD [STAFF PHYSICIAN] - 08/29/23 8:00 am (Surgery is scheduled for 08/29/23 @ 8 am. You will need to be at the hospital by 5:45 am. The OR staff will call you in the afternoon on the day before (08/28/23). Nothing to eat or drink after midnight on the day of surgery) Landry Lagunas MD [STAFF PHYSICIAN] - 1 Week Discharge Disposition: HOME SELF-CARE
[2023-08-27 12:11] LABS: Hepatitis A Antibody IgM Nonreactive; Hepatitis B Core IgM Nonreactive; Hepatitis B Surface Antigen Nonreactive; Hepatitis C IgG Antibody Nonreactive
== END 2023-08-25 15:20 | disposition home or self-care (01) ==
LOC: EC 16:32 → 6NMEDSUR 19:14
PROVIDERS: ADMIT Hospitalist; ATTEND Hospitalist
DX: T82.855A Stenosis of coronary artery stent, initial encounter (principal); Y82.8 Other medical devices associated with adverse incidents; Y84.8 Other medical procedures as the cause of abnormal reaction of the patient, or of later complication, without mention of misadventure at the time of the procedure; I25.110 Atherosclerotic heart disease of native coronary artery with unstable angina pectoris; K21.9 Gastro-esophageal reflux disease without esophagitis; E78.5 Hyperlipidemia, unspecified; I10 Essential (primary) hypertension; E11.51 Type 2 diabetes mellitus with diabetic peripheral angiopathy without gangrene; G47.33 Obstructive sleep apnea (adult) (pediatric); N40.0 Benign prostatic hyperplasia without lower urinary tract symptoms; I25.2 Old myocardial infarction; F90.9 Attention-deficit hyperactivity disorder, unspecified type; M19.90 Unspecified osteoarthritis, unspecified site; G25.81 Restless legs syndrome; I65.22 Occlusion and stenosis of left carotid artery; Z86.718 Personal history of other venous thrombosis and embolism; Z87.891 Personal history of nicotine dependence; Z95.5 Presence of coronary angioplasty implant and graft; Z95.820 Peripheral vascular angioplasty status with implants and grafts; Z79.4 Long term (current) use of insulin; Z79.02 Long term (current) use of antithrombotics/antiplatelets; Z79.82 Long term (current) use of aspirin; Z79.84 Long term (current) use of oral hypoglycemic drugs; Z79.899 Other long term (current) drug therapy
CPT/HCPCS: 96372 ×3; 99285; 36415; 94150; 93005; 93306; 93458; 86900; 86901; 80061; 80053; 80074; 84443; 83735; 84484; 85025; 85610; 85730; 86850; 87070; 83036; 71046; 93931; 93970; 93922; 93880; 71250; G0378 ×3; C1769; C1894; J2250; J1650; J1644; Q9967; J2001

== ENCOUNTER 2023-08-28 15:57 | Emergency (ER) | payer MEDICARE, OTHER ==
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
[2023-08-28 18:59] VITALS: BP 155/77; PULSE 81; RESP 20; TEMP 98
== END 2023-08-28 18:53 | disposition home or self-care (01) ==
LOC: EC 15:57
DX: S09.90XA Unspecified injury of head, initial encounter (principal); E11.51 Type 2 diabetes mellitus with diabetic peripheral angiopathy without gangrene; E78.5 Hyperlipidemia, unspecified; I25.10 Atherosclerotic heart disease of native coronary artery without angina pectoris; K21.9 Gastro-esophageal reflux disease without esophagitis; I10 Essential (primary) hypertension; I25.2 Old myocardial infarction; G47.30 Sleep apnea, unspecified; Z87.891 Personal history of nicotine dependence; Z79.84 Long term (current) use of oral hypoglycemic drugs; Z79.4 Long term (current) use of insulin; Z79.899 Other long term (current) drug therapy; Z95.5 Presence of coronary angioplasty implant and graft; Z79.02 Long term (current) use of antithrombotics/antiplatelets; V89.2XXA Person injured in unspecified motor-vehicle accident, traffic, initial encounter; Y92.410 Unspecified street and highway as the place of occurrence of the external cause
CPT/HCPCS: 70450; 71046; 72125; 99284

== ENCOUNTER 2023-08-29 05:49 | Inpatient (IN) | payer MEDICARE ==
[~2023-08-29 05:49] MED LIST changes: +ALBUMIN HUMAN 25% 50 ML IV ONE; +ALBUMIN HUMAN 5% 500 ML IVPB ONE; +ASPIRIN 325 MG TAB PO ONE; +ATORVASTATIN 10 MG TAB PO ONE; +CALCIUM CHLORIDE 100 MG/ML 10 ML SYRINGE IV ONE; +CHLORHEXIDINE GLUCONATE 15 ML CUP MUCOUS MEM ONE; +CLEVIDIPINE BUTYRATE 25 MG in EMPTY BAG 1 BAG IV ONE; -DEXAMETHASONE SOD PHOSPHATE 4 MG/ML 1 ML VIAL IV ONE; +DILTIAZEM 125 MG in SODIUM CHLORIDE 0.9% 100 ML IV ONE; +ELECTROLYTE-A SOLUTION 1,000 ML with POTASSIUM CHLORIDE 100 MEQ, MAGNESIUM SULFATE 16 M... IV ONE; +ELECTROLYTE-A SOLUTION 1,000 ML with POTASSIUM CHLORIDE 40 MEQ, MAGNESIUM SULFATE 16 ME... IV ONE; +HEPARIN SODIUM 1,000 UN/ML (10ML VL) IV ONE; +HEPARIN SODIUM,PORCINE (1 ML) 5,000 UNIT in SODIUM CHLORIDE 0.9% 500 ML 500 ML IV ONE; -HYDROmorphone 0.5 MG/0.5 ML SYRINGE IVP PRN; +INSULIN REGULAR 100 UNIT in SODIUM CHLORIDE 0.9% 100 ML IV ONE; +LACTATED RINGERS 1,000 ML IV ONE; -LACTATED RINGERS 1,000 ML IV SCH; -LIDOCAINE 1% (10MG/ML) FOR IV START INTRADERMA PRN; +MAGNESIUM SULFATE 16.24 MEQ in EMPTY SYRINGE 1 SYR IV ONE; +MANNITOL 25% 12.5 GM/50 ML VIAL IV ONE; +METOPROLOL TARTRATE 12.5 MG TAB PO ONE; +NITROGLYCERIN SL TABS 0.4 MG TAB SUBLINGUAL ONE; +NITROGLYCERIN-D5W PMX 25 MG/250 ML BTL IV ONE; +NITROGLYCERIN-D5W PMX 50 MG in DEXTROSE/WATER 1 250ML.BAG IV ONE; +NOREPINEPHRINE 4 MG in SODIUM CHLORIDE 0.9% 250 ML IV ONE; +PAPAVERINE 360 MG in SODIUM CHLORIDE 0.9% 90 ML IV ONE; +PHENYLEPHRINE 10 MG/ML VIAL IV ONE; +PHENYLEPHRINE 40 MG in SODIUM CHLORIDE 0.9% 250 ML IV ONE; +PROTAMINE SULFATE 10 MG/ML 25 ML VIAL IV ONE; +PROTAMINE SULFATE 250 MG in EMPTY BAG 1 BAG IV ONE; -Pre Op ABX Message 1 EACH MISC MISCELLANE ONE; +SODIUM BICARB 8.4% 50 ML SYR (1 MEQ/ML) IV ONE; +SODIUM CHLORIDE 0.9% 1,000 ML IV ONE; +TRANEXAMIC ACID 2,000 MG in SODIUM CHLORIDE 0.9% 80 ML IV ONE; +ceFAZolin 1,000 MG in SODIUM CHLORIDE 0.9% IRRIGATIO 1,000 ML IRRIGATION ONE; -droPERidol 5 MG/2 ML VIAL IVP ONE; +propofoL 1,000 MG/100 ML VIAL IV ONE
[2023-08-29] MEDS ORDERED: MUPIROCIN 2% OINT 22 GM TUBE NASAL ONE (06:00)
[2023-08-29 07:02] LABS: Glucose,Whole Blood 75 mg/dL (70-110)
[2023-08-29] MEDS ORDERED: LACTATED RINGERS 1,000 ML IV ONE (07:16)
[2023-08-29] MEDS ORDERED: SUCCINYLCHOLINE CHLORIDE 200 MG/10 ML VIAL IV ONE (08:29)
[2023-08-29] MEDS ORDERED: PROTAMINE SULFATE 10 MG/ML 25 ML VIAL IV ONE (08:29)
[2023-08-29] MEDS ORDERED: VECURONIUM 10 MG VIAL IV ONE (08:29)
[2023-08-29] MEDS ORDERED: fentaNYL (PF) 50 MCG/ML 50 ML VIAL ONE (08:29)
[2023-08-29] MEDS ORDERED: HEPARIN SODIUM,PORCINE 10,000 UNIT/ML 1 ML VIAL ONE (08:29)
[2023-08-29] MEDS ORDERED: PROPOFOL 10 MG/ML 20 ML VIAL IV ONE (08:29)
[2023-08-29] MEDS ORDERED: MIDAZOLAM HCL 10 MG/10 ML VIAL ONE (08:29)
[2023-08-29] MEDS ORDERED: ePHEDrine 50 MG/ML 1 ML VIAL ONE (08:29)
[2023-08-29] MEDS ORDERED: HEPARIN SODIUM,PORCINE 5,000 UNIT/ML 1 ML VIAL ONE (08:29)
[2023-08-29] MEDS ORDERED: ALBUMIN HUMAN 5% (25gm) 500 ML VIAL IVPB ONE (08:29)
[2023-08-29 08:38] LABS: ABG Base Excess -0.7 mmol/L; ABG HCO3 25 mmol/L (21-25); ABG Oxygen Saturation 96.8 % (94-97); ABG PCO2 45 mmHg (35-45); ABG PH 7.35 (7.35-7.45); ABG PO2 117 mmHg (83-108); ABG TCO2 26 mmol/L (19-24)
--- NOTE | 2023-08-29 09:27 | P.ANPRN ---
Procedure Note - Anesthesia - JON Intraop Pre Bypass JON Intraop - Anesthesia Date of Procedure: 08/29/23 Pre-operative Diagnosis: CAD Post-operative Diagnosis: CAD Surgeon: Gera Greer Ejection Fraction: Normal Regional Wall Motion Abnormalities: None Left Ventricle Hypertrophy: Yes R. Ventricle Function: Normal Anatomy: Trileaflet Aortic Stenosis: Mild Aortic Regurgitation: None Other Findings: Peak velocity 1.8 m/s, peak gradient 13 mmHg, mean is 5 mmHg Mitral Stenosis: None Mitral Regurgitation: Trace Tricuspid Stenosis: None Tricuspid Regurgitation: Mild Pulmonic Stenosis: None Pulmonic Regurgitation: None R. Atrial Dilation: No R. Atrial PFO: No L. Atrial Dilation: No Aortic Dissection: No Aortic Calcification: Moderate Plural Effusion: None
[2023-08-29 10:00] LABS: ABG Base Excess -1.7 mmol/L; ABG HCO3 24 mmol/L (21-25); ABG PCO2 44 mmHg (35-45); ABG PH 7.35 (7.35-7.45); ABG PO2 182 mmHg (83-108); ABG TCO2 25 mmol/L (19-24)
[2023-08-29] MEDS ORDERED: PAPAVERINE 360 MG in SODIUM CHLORIDE 0.9% 90 ML IV ONE (10:09)
[2023-08-29] MEDS ORDERED: SODIUM CHLORIDE 0.9% 500 ML 500 ML with HEPARIN SODIUM,PORCINE (1 ML) 5,000 UNIT IV ONE ×2 (10:09)
[2023-08-29] MEDS ORDERED: ceFAZolin 1,000 MG in SODIUM CHLORIDE 0.9% 1,000 ML IRRIGATION ONE (10:10)
[2023-08-29 10:17] LABS: ABG Base Excess -2.2 mmol/L; ABG HCO3 24 mmol/L (21-25); ABG Oxygen Saturation 98.1 % (94-97); ABG PCO2 44 mmHg (35-45); ABG PH 7.34 (7.35-7.45); ABG PO2 181 mmHg (83-108); ABG TCO2 25 mmol/L (19-24)
[2023-08-29 10:46] LABS: ABG Hematocrit 39 % (34.0-46.0)
[2023-08-29 10:48] LABS: ABG Hematocrit 35 % (34.0-46.0)
[2023-08-29 10:48] LABS: ABG Hematocrit 34 % (34.0-46.0)
[2023-08-29 11:05] LABS: ABG Base Excess -2.1 mmol/L; ABG HCO3 23 mmol/L (21-25); ABG Oxygen Saturation 98.5 % (94-97); ABG PCO2 41 mmHg (35-45); ABG PH 7.36 (7.35-7.45); ABG PO2 234 mmHg (83-108); ABG TCO2 25 mmol/L (19-24)
[2023-08-29 11:12] LABS: ABG Hematocrit 34 % (34.0-46.0)
[2023-08-29 12:06] LABS: ABG Base Excess -2.5 mmol/L; ABG HCO3 23 mmol/L (21-25); ABG Oxygen Saturation 98.4 % (94-97); ABG PCO2 40 mmHg (35-45); ABG PH 7.37 (7.35-7.45); ABG PO2 206 mmHg (83-108); ABG TCO2 24 mmol/L (19-24)
[2023-08-29 12:49] LABS: ABG HCO3 23 mmol/L (21-25); ABG Oxygen Saturation 97.2 % (94-97); ABG PCO2 40 mmHg (35-45); ABG PH 7.36 (7.35-7.45); ABG PO2 114 mmHg (83-108); ABG TCO2 24 mmol/L (19-24)
[2023-08-29 12:54] LABS: ABG Hematocrit 33 % (34.0-46.0)
[2023-08-29 12:54] LABS: ABG Hematocrit 34 % (34.0-46.0)
--- NOTE | 2023-08-29 12:56 | P.ANPRN ---
Procedure Note - Anesthesia - JON Intraop Post Bypass JON Intraop Post Bypass Ejection Fraction: Normal Regional Wall Motion Abnormalities: None R. Ventricle Function: Normal Aortic Valve: Unchanged Mitral Valve: Unchanged Tricuspid: Unchanged Pulmonic: Unchanged Aortic Dissection: No
--- NOTE | 2023-08-29 13:21 | P.OP ---
Date of Procedure: 08/29/23 Preoperative Diagnosis: 3V CAD with stable angina s/p previous PCI HTN HLD DM PVD DVT Postoperative Diagnosis: Same Procedure(s) Performed: 1. Off pump coronary artery bypass grafting x 3. Left internal thoracic artery (in-situ) to left anterior descending coronary artery. Radial artery from aorta to ramus intermedius and saphenous vein from aorta to posterior descending coronary artery. 2. Endoscopic left radial and right greater saphenous vein harvest 3. Left atrial appendage ligation with #35mm AtriClip 4. Graft flow measurements using the Medi-Stim flow meter system 5. Transesophageal echo Implants: #35 AtriClip Anesthesia: GETA Surgeon: Gera Greer Dough Panner #1: Jarrod Landers Dough Panner #2: Pawel Garcia Estimated Blood Loss (ml): 250 Pathology: none sent Condition: critical Disposition: ICU Indications for Procedure: This patient is a 68 year-old male with a hx of CAD s/p PCI to the LAD many years ago who presented with worsening anginal symptoms. Coronary cath revealed in stent stenosis of his LAD with a separate new severe lesion in the mid to distal LAD with severe calcified lesion in the mid RCA and ostial Ramus. The patients STS risk of morbidity and mortality was discussed with him and CABG was recommended. He was in agreement to proceed. Operative Findings: CHARLES 1.8mm great conduit. LAD 1.7mm good target distally. CHARLES-LAD Flow 24ml/min, P.I. 4.1 SVG 2.2mm good conduit. PDA 1.5mm decent target. SVG-PDA flow 28ml/min, P.I. 5.0 Radial artery 2.2mm good conduit. Ramus heavily disease not a great target. RA- RAMUS flow 21ml/min, P.I. 4.5 Description of Procedure: The patient underwent central line, arterial line, and [place] Ponce catheter placement in the pre-operative suite by the anesthesia team. The patient was th en brought to the operating room and placed in the supine position. General anesthesia was induced and the patient was prepped from the chin to the ankles in the usual sterile fashion. A time-out was performed and antibiotics were given. A midline incision was made on the chest and carried down to bone. A median sternotomy was performed. Hemostasis on the bone was achieved using electrocautery. The left pleura was entered and the left internal thoracic artery was harvested in a skeletonized fashion. Simultaneously a physician assistant professor of radiology harvested the right greater saphenous vein and left radial artery in an endoscopic fashion. The patient was systemically heparinized and the CHARLES was transected and placed in a papaverine jacuzzi. A left sided chest tube was placed. The pericardium was incised in a reverse T-fashion and a pericardial cradle was created. The right pleura was opened. Stay sutures were placed. #35mm AtriClip was placed on the left atrial appendage. With ACT > 250, the octopus sabilizer was placed on the distal LAD which was a good target. An ateriorotomy was made and 1.5mm shunt inserted. An end to side anastomosis between the CHARLES and LAD was performed using a running 7-0 prolene. The shunt was removed prior to tieing down the suture. Next stay sutures were placed on the diaphragm near the IVC and oblique sinus. The inferior wall was exposed and the posterior descending artery was stabilized. The artery was opened it was a decent target and 1.5mm flow through inserted. An end to side anastomosis between the saphenous vein and PDA was performed using a running 7-0 prolene again removing the shunt prior to tieing down the suture. Next the lateral wall was exposed and the ramus was identified prior to its bifurcation. The stabilizer was placed on the vessel and arteriorotomy was made. This vessel was heavily diseased. 1.5mm flow through was inserted. An end to side anastomosis was created with the radial artery and ramus using a running 7-0 prolene. The flow through was removed prior to tieing down the suture. Next, the heartstring device was used to create aortotomy x 2. The saphenous vein and radial artery were fastened to the ascending aorta using a running 5-0 prolene suture in an end to side fashion. The heartstring device was removed in its entirety x 2. At this point, graft flows were measured which were excellent. At this point, protamine was given and hemostasis was secured. A 32F chest tube and 19F ayla were placed in the mediastinum and right pleura respectively. The pericardium was reapproximated partially and the sternum was closed with pioneer cables and layers of suture. The leg was closed in layers as well. The patient tolerated the procedure without any significant hypotension and was transferred to CVICU in critical condition on only nitro gtt.
[2023-08-29] MEDS ORDERED: AMIODARONE 360 MG in DEXTROSE 5% IN WATER 200 ML IV ONE ×2 (13:22)
[2023-08-29] MEDS ORDERED: DEXMEDETOMIDINE/0.9% NACL(PMX) 400 MCG in EMPTY BAG 1 BAG IV SCH (13:22)
[2023-08-29] MEDS ORDERED: ONDANSETRON 4 MG/2 ML VIAL IVP PRN (13:22)
[2023-08-29] MEDS ORDERED: IPRATROPIUM-ALBUTEROL 3 ML NEB INHALATION PRN (13:22)
[2023-08-29] MEDS ORDERED: DEXTROSE 50% SYRINGE 50 ML IVP PRN ×2 (13:22)
[2023-08-29] MEDS ORDERED: METOCLOPRAMIDE 5 MG/ML 2 ML VIAL IVP PRN (13:22)
[2023-08-29] MEDS ORDERED: DEXTROSE 5% IN WATER 100 ML with AMIODARONE 150 MG IV PRN (13:22)
[2023-08-29] MEDS ORDERED: NITROGLYCERIN-D5W PMX 50 MG in DEXTROSE/WATER 1 250ML.BAG IV SCH (13:22)
[2023-08-29] MEDS ORDERED: BENZOCAINE/MENTHOL LOZENG 1 EACH LOZENGE MUCOUS MEM PRN (13:22)
[2023-08-29] MEDS ORDERED: Magnesium Replacement Protocol 1 EACH MISC MISCELLANE PRN (13:22)
[2023-08-29] MEDS ORDERED: Potassium Replacement Protocol 1 EACH MISC MISCELLANE PRN (13:22)
[2023-08-29] MEDS ORDERED: hydrALAZINE HCL 20 MG/ML 1 ML VIAL IVP PRN (13:22)
[2023-08-29 13:51] LABS: Glucose,Whole Blood 100 mg/dL (70-110)
[2023-08-29] MEDS: ALBUMIN HUMAN 5% 250 ML in EMPTY BAG 1 BAG IVPB PRN ×2 (13:53→13:59)
[2023-08-29] MEDS: LACTATED RINGERS 1,000 ML IV SCH (13:55)
[2023-08-29] MEDS ORDERED: NOREPINEPHRINE 4 MG in SODIUM CHLORIDE 0.9% 250 ML IV SCH (14:00)
[2023-08-29 14:05] LABS: Basophils % (A) 0 %; Eosinophils # (A) 0.1 k/uL (0-0.7); Eosinophils % (A) 2 %; HCT 30.4 % (39.0-53.0); Lymphocytes # (A) 1.2 k/uL (1.0-4.8); Lymphocytes % (A) 20 %; MCV 80.1 fL (80.0-100.0); Mean Platelet Volume 8.9; Monocytes # (A) 0.3 k/uL (0-1.0); Monocytes % (A) 5 %; Neutrophils # (A) 4.6 k/uL (1.3-7.7); Neutrophils % (A) 73 %; Platelet Count 111 k/uL (150-450); RDW 14.3 % (11.5-15.5); WBC 6.3 k/uL (3.8-10.6)
[2023-08-29] MEDS: CLEVIDIPINE BUTYRATE 25 MG in EMPTY BAG 1 BAG IV SCH (14:08)
[2023-08-29 14:11] LABS: INR 1.2 (<1.2); Partial Thromboplastin Time 27.9 sec (22.0-30.0); Prothrombin Time 12.7 sec (10.0-12.5)
[2023-08-29 14:15] LABS: HGB 10.7 gm/dL (13.0-17.5)
[2023-08-29 14:24] LABS: ABG Base Excess -3.9 mmol/L; ABG HCO3 21 mmol/L (21-25); ABG Oxygen Saturation 98.6 % (94-97); ABG PCO2 35 mmHg (35-45); ABG PH 7.39 (7.35-7.45); ABG PO2 252 mmHg (83-108); ABG TCO2 22 mmol/L (19-24)
[2023-08-29 14:26] LABS: Allen Test Performed? no
[2023-08-29 14:33] LABS: Ionized Calcium 4.6 mg/dL (4.5-5.3)
[2023-08-29 14:42] LABS: ALT 15 U/L (4-49); AST 21 U/L (17-59); African American GFR (CKD) >90 (>60 ml/min/1.73 sqM); Albumin 3.3 g/dL (3.5-5.0); Alkaline Phosphatase 39 U/L (38-126); Anion Gap 7 mmol/L; Blood Urea Nitrogen 13 mg/dL (9-20); Calcium 7.6 mg/dL (8.4-10.2); Carbon Dioxide 21 mmol/L (22-30); Chloride 115 mmol/L (98-107); Glucose 97 mg/dL (74-99); Magnesium 1.4 mg/dL (1.6-2.3); Non-African American GFR(CKD) >90 (>60 ml/min/1.73 sqM); Potassium 3.9 mmol/L (3.5-5.1); Sodium 143 mmol/L (137-145); Total Bilirubin 0.3 mg/dL (0.2-1.3); Total Protein 5.2 g/dL (6.3-8.2)
[2023-08-29 14:55] LABS: Glucose,Whole Blood 114 mg/dL (70-110)
--- NOTE | 2023-08-29 14:55 | XR ---
EXAMINATION TYPE: XR chest 1V portable DATE OF EXAM: 08/29/2023 Comparison: 08/28/2023 Clinical History: 68-year-old male Post Operative Cardiac Surgery Findings: Right IJ [place]-Ponce catheter tip in the proximal right main pulmonary artery region. ET tube is fractu red. Mediastinal drain. Bilateral chest tubes. No appreciable pneumothorax. Mild interstitial density . Heart borderline in size. Median sternotomy wires and post-CABG clips. Patchy left basilar opacity. Impression: Post-CABG changes. There may be mild pulmonary vascular congestion. Patchy postoperative atelectasis at the left base.
[2023-08-29 16:00] LABS: Glucose,Whole Blood 129 mg/dL (70-110)
[2023-08-29] MEDS ORDERED: IPRATROPIUM-ALBUTEROL 3 ML NEB INHALATION SCH (16:00)
[2023-08-29] MEDS: INSULIN REGULAR 100 UNIT in SODIUM CHLORIDE 0.9% 100 ML IV SCH (16:00)
[2023-08-29] MEDS: HEPARIN SODIUM,PORCINE 5,000 UNIT/ML 1 ML VIAL SQ SCH (16:16)
[2023-08-29] MEDS: MAGNESIUM SULFATE-D5W PMX 1 GM in DEXTROSE/WATER 1 100ML.BAG IVPB SCH ×2 (16:16→17:15)
[2023-08-29 16:18] LABS: Basophils % (A) 0 %; Eosinophils # (A) 0.1 k/uL (0-0.7); Eosinophils % (A) 1 %; HCT 31.3 % (39.0-53.0); Lymphocytes # (A) 0.7 k/uL (1.0-4.8); Lymphocytes % (A) 12 %; MCHC 35.1 g/dL (31.0-37.0); MCV 79.8 fL (80.0-100.0); Mean Platelet Volume 8.8; Monocytes # (A) 0.3 k/uL (0-1.0); Monocytes % (A) 5 %; Neutrophils # (A) 4.4 k/uL (1.3-7.7); Neutrophils % (A) 81 %; Platelet Count 109 k/uL (150-450); RBC 3.92 m/uL (4.30-5.90); RDW 14.4 % (11.5-15.5); WBC 5.5 k/uL (3.8-10.6)
[2023-08-29 17:02] LABS: ABG Base Excess -4.6 mmol/L; ABG HCO3 22 mmol/L (21-25); ABG Oxygen Saturation 92.2 % (94-97); ABG PCO2 46 mmHg (35-45); ABG PH 7.29 (7.35-7.45); ABG PO2 70 mmHg (83-108); ABG TCO2 23 mmol/L (19-24)
[2023-08-29 17:03] LABS: Allen Test Performed? no
[2023-08-29 17:03] LABS: Glucose,Whole Blood 154 mg/dL (70-110)
[2023-08-29] MEDS: ACETAMINOPHEN IV (For NPO) 1,000 MG in EMPTY BAG 1 BAG IVPB SCH (17:12)
[2023-08-29] MEDS: KETOROLAC 15 MG/ML 1 ML VIAL IVP SCH (17:13)
[2023-08-29 18:02] LABS: Glucose,Whole Blood 159 mg/dL (70-110)
[2023-08-29 19:06] LABS: Glucose,Whole Blood 142 mg/dL (70-110)
[2023-08-29 19:28] LABS: Basophils % (A) 0 %; Eosinophils % (A) 0 %; HCT 31.5 % (39.0-53.0); HGB 10.9 gm/dL (13.0-17.5); Lymphocytes # (A) 0.4 k/uL (1.0-4.8); Lymphocytes % (A) 7 %; MCH 27.3 pg (25.0-35.0); MCHC 34.5 g/dL (31.0-37.0); MCV 79.1 fL (80.0-100.0); Mean Platelet Volume 8.9; Monocytes # (A) 0.3 k/uL (0-1.0); Monocytes % (A) 6 %; Neutrophils % (A) 86 %; Platelet Count 125 k/uL (150-450); RBC 3.98 m/uL (4.30-5.90); RDW 14.2 % (11.5-15.5); WBC 5.8 k/uL (3.8-10.6)
[2023-08-29 19:55] LABS: Glucose,Whole Blood 121 mg/dL (70-110)
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
[2023-08-29] MEDS: SENNOSIDES-DOCUSATE SODIUM 1 EACH TAB PO SCH (20:32)
[2023-08-29 20:50] LABS: Glucose,Whole Blood 120 mg/dL (70-110)
[2023-08-29] MEDS: IPRATROPIUM-ALBUTEROL 3 ML NEB INHALATION SCH (21:04)
[2023-08-29] MEDS: AMIODARONE 450 MG in DEXTROSE 5% IN WATER 250 ML IV SCH ×2 (21:13)
[2023-08-29 21:57] LABS: Glucose,Whole Blood 120 mg/dL (70-110)
[2023-08-29 22:53] LABS: Glucose,Whole Blood 121 mg/dL (70-110)
[2023-08-30] LABS: Glucose,Whole Blood 117 mg/dL (70-110)
[2023-08-30] MEDS: ACETAMINOPHEN IV (For NPO) 1,000 MG in EMPTY BAG 1 BAG IVPB SCH (00:10)
[2023-08-30] MEDS: HEPARIN SODIUM,PORCINE 5,000 UNIT/ML 1 ML VIAL SQ SCH ×3 (00:11→17:08)
[2023-08-30] MEDS: KETOROLAC 15 MG/ML 1 ML VIAL IVP SCH ×4 (00:11→17:06)
[2023-08-30 01:04] LABS: Glucose,Whole Blood 131 mg/dL (70-110)
[2023-08-30 02:05] LABS: Glucose,Whole Blood 127 mg/dL (70-110)
[2023-08-30 03:02] LABS: Glucose,Whole Blood 130 mg/dL (70-110)
[2023-08-30 04:07] LABS: Glucose,Whole Blood 111 mg/dL (70-110)
[2023-08-30] MEDS: CLEVIDIPINE BUTYRATE 25 MG in EMPTY BAG 1 BAG IV SCH ×2 (04:21→05:26)
[2023-08-30] MEDS ORDERED: HYDROmorphone 1 MG/ML 1 ML SYRINGE IVP STA (04:46)
[2023-08-30 05:12] LABS: Glucose,Whole Blood 145 mg/dL (70-110)
[2023-08-30 06:02] LABS: HCT 34.7 % (39.0-53.0); HGB 12.2 gm/dL (13.0-17.5); MCH 28.1 pg (25.0-35.0); MCHC 35.3 g/dL (31.0-37.0); MCV 79.6 fL (80.0-100.0); Mean Platelet Volume 8.2; Platelet Count 158 k/uL (150-450); RBC 4.35 m/uL (4.30-5.90); RDW 14.4 % (11.5-15.5); WBC 9.2 k/uL (3.8-10.6)
[2023-08-30 06:17] LABS: Band Neutrophils % 21 %; Lymphocytes # (M) 0.83 k/uL (1.0-4.8); Monocytes # (M) 0.74 k/uL (0-1.0); Neutrophils % (M) 62 %; Nucleated Red Blood Cells 0 /100 WBC (0-0); Total Cells Counted 200
[2023-08-30 06:19] LABS: Glucose,Whole Blood 170 mg/dL (70-110)
[2023-08-30 06:19] LABS: Toxic Granulation Present
[2023-08-30 06:29] LABS: Ionized Calcium 4.6 mg/dL (4.5-5.3)
[2023-08-30 06:43] LABS: ALT 16 U/L (4-49); AST 31 U/L (17-59); African American GFR (CKD) >90 (>60 ml/min/1.73 sqM); Albumin 3.8 g/dL (3.5-5.0); Alkaline Phosphatase 46 U/L (38-126); Anion Gap 7 mmol/L; Blood Urea Nitrogen 16 mg/dL (9-20); Calcium 8.2 mg/dL (8.4-10.2); Carbon Dioxide 20 mmol/L (22-30); Chloride 110 mmol/L (98-107); Glucose 150 mg/dL (74-99); Magnesium 1.7 mg/dL (1.6-2.3); Non-African American GFR(CKD) >90 (>60 ml/min/1.73 sqM); Potassium 4.1 mmol/L (3.5-5.1); Sodium 137 mmol/L (137-145); Total Bilirubin 0.9 mg/dL (0.2-1.3); Total Protein 5.9 g/dL (6.3-8.2)
[2023-08-30 08:22] LABS: Glucose,Whole Blood 247 mg/dL (70-110)
--- NOTE | 2023-08-30 08:45 | XR ---
EXAMINATION TYPE: XR chest 1V portable DATE OF EXAM: 08/30/2023 COMPARISON: 08/29/2019 HISTORY: Postop TECHNIQUE: Single frontal view of the chest is obtained. FINDINGS: Right IJ [place] catheter tip in the proximal right main pulmonary artery region. ET tub e is removed. Mediastinal drain. Bilateral chest tubes. No appreciable pneumothorax. Mild interstitia l density. Heart borderline in size. Median sternotomy wires and post-CABG clips. Patchy left basilar opacity. IMPRESSION: Postoperative changes with left basilar infiltrate.
[2023-08-30] MEDS ORDERED: MAGNESIUM HYDROXIDE 2,400 MG/30 ML CUP PO PRN (09:00)
[2023-08-30] MEDS ORDERED: PANTOPRAZOLE 40 MG/10 ML VIAL IVP SCH (09:00)
[2023-08-30] MEDS ORDERED: METOPROLOL TARTRATE 12.5 MG TAB PO SCH (09:00)
[2023-08-30] MEDS: ATORVASTATIN 40 MG TAB PO SCH (09:00)
[2023-08-30] MEDS: AMIODARONE 200 MG TAB PO SCH ×2 (09:00→20:14)
[2023-08-30] MEDS ORDERED: bisacodyL 10 MG SUPP RECTAL PRN (09:00)
[2023-08-30] MEDS: CLOPIDOGREL 75 MG TAB PO SCH (09:01)
[2023-08-30] MEDS: METOPROLOL TARTRATE 25 MG TAB PO SCH ×2 (09:01→20:13)
[2023-08-30] MEDS: IPRATROPIUM-ALBUTEROL 3 ML NEB INHALATION SCH ×5 (09:01→20:42)
[2023-08-30] MEDS: ASPIRIN 325 MG TAB PO SCH (09:01)
--- NOTE | 2023-08-30 09:09 | P.PN ---
Subjective Progress Note Date: 08/30/23 Principal diagnosis: Coronary artery disease with previous myocardial infarction and stent placement, unstable angina. Past medical history significant for hypertension, hyperlipi demia, insulin dependent diabetes mellitus, obstructive sleep apnea without home CPAP use, heavy tobacco dependence with recent cessation 6 months ago, peripheral arterial disease with lower extremity bypass as well as stenting and thrombectomy, BPH, DVT on no active anticoagulation. POD #1 Off pump coronary artery bypass grafting x 3. Left internal thoracic artery (in-situ) to left anterior descending coronary artery. Radial artery from aorta to ramus intermedius and saphenous vein from aorta to posterior descending coronary artery, Endoscopic left radial and right greater saphenous vein maykel vest, Left atrial appendage ligation with #35mm AtriClip, Graft flow measurements using the [employer] Guarani flow meter system, and intraoperative transesophageal echocardiogram performed by anesthesia. Postoperative acute blood loss anemia, expected likely secondary to hemodilution. The patient was seen and examined in follow-up today 08/30/2023 at his bedside in the intensive care unit. He was successfully extubated at 5:10 PM last evening, is currently sitting up to the bedside chair, is awake, alert, oriented 3 and is in no acute distress. The patient was complaining of pain rating his pain 10 out of 10 on the pain scale this morning to his chest tube insertion sites, denies any complaints of shortness of breath, his pain was treated and is currently rating his pain 5 out of 10 on the pain scale. Oxygen saturations are 93% on 2 L nasal cannula and he is achieving 1000 mL on his incentive spirometry with encouragement. Right IJ Napoleon-Ponce catheter remains in place with current hemodynamics showing a cardiac output 7.9, cardiac index 4.0, PA pressures 33/13 and CVP 5 mmHg. Bedside telemetry showing normal sinus rhythm heart rate 97 BPM. He is currently on amiodarone drip at 0.5 mg/m for atrial fibrillation prophylaxis. Mediastinal, left and right pleural chest tubes remain in place to low continuous wall suction -20 cm H2O. No air leak is present. Draining thin serosanguineous drainage. Mediastinal chest tube drained with 230 mL output in the last 8 hours and 600 mL since surgery. Right and left pleural chest tubes drained 420 mL output in the last 8 hours in 850 mL output since surgery. Laboratory and chest x-ray results reviewed. Objective - Vital Signs Vital signs: Vital Signs Temp 97.2 F L 08/29/23 16:00 Pulse 99 08/30/23 07:00 Resp 31 H 08/30/23 07:00 BP 169/79 08/29/23 07:07 Pulse Ox 93 L 08/30/23 07:00 FiO2 80 08/30/23 05:30 Intake & Output 08/29/23 08/30/23 08/30/23 18:59 06:59 18:59 Intake Total 8519.527 3590.332 6.363 Output Total 2940 1645 Balance -1614.651 -289.668 6.363 Weight 90.1 kg Intake: IV 1289 958 ACETAMINOPHEN IV (For NPO 100 ) 1,000 mg In Empty Bag 1 bag @ 400 mls/hr IVPB Q6HR [facility] Rx#:[id number] Albumin Human 5% 250 ml 750 In Empty Bag 1 bag @ 250 mls/hr IVPB Q1HR PRN Rx#: [id number] CO/CI 140 100 Lactated Ringers 1,000 ml 250 600 @ 50 mls/hr IV .Q20H [facility] Rx#:[id number] Pressure 45 108 ceFAZolin 2 gm In Sodium 50 Chloride 0.9% 50 ml @ 100 mls/hr IVPB Q8HR [facility] Rx# :[id number] Intake, IV Titration 36.349 157.332 6.363 Amount Clevidipine Butyrate 25 54.565 mg In Empty Bag 1 bag @ 1 MG/HR 2 mls/hr IV .Q24H [facility] Rx#:[id number] Dexmedetomidine/0.9% NaCl 37.083 (Pmx) 400 mcg In Empty Bag 1 bag @ Titrate IV . Q0M [facility] Rx#:[id number] Insulin Regular 100 unit 2.526 20.284 6.363 In Sodium Chloride 0.9% 100 ml @ Per Protocol IV .Q0M [facility] Rx#:[id number] Nitroglycerin-D5w Pmx 50 2.2 45.4 mg In Dextrose/Water 1 250ml.bag @ 5 MCG/MIN 1.5 mls/hr IV .Q24H [facility] Rx#: [id number] propofoL 1,000 mg In 31.623 Empty Bag 1 bag @ Titrate IV .Q0M [facility] Rx#: [id number] Oral 240 Output: Chest Tube Drainage 590 810 Mediastinal 270 330 Right/Left Pleural 320 480 Urine 1350 835 Estimated Blood Loss 1000 Other: Voiding Method Indwelling Catheter Indwelling Catheter ABP, PAP, CO, CI - Last Documented Arterial Blood Pressure 124/54 Pulmonary Artery Pressure 37/14 Cardiac Output 7.9 Cardiac Index 4.0 - Exam CONSTITUTIONAL: Sitting up to the bedside chair in the intensive care unit, appears comfortable, cooperative, no apparent acute distress. HEENT: Neck is supple, no JVD, no lymphadenopathy. Right IJ Cordis and Napoleon- Ponce catheter in place and functioning. RESPIRATORY: Lungs sounds essentially clear throughout, diminished to his bilateral bases, left greater than right. Respirations are symmetrical and nonlabored. Currently on 2 L nasal cannula with oxygen saturations 93%. Able to achieve 1000 mL on his incentive spirometry. Strong cough. CARDIOVASCULAR: Regular rhythm and rate. S1 and S2 present, negative for S3, gallop or murmur. Sternum is stable. Palpable peripheral pulses bilaterally, +1 edema to his bilateral lower extremities. No calf pain or tenderness noted. Heart hugger in place with patient demonstrating appropriate use. Knee-high GUDELIA hose and sequential compression devices in place to his bilateral lower extremities. GASTROINTESTINAL: Abdomen soft, nontender, nondistended. Hypoactive bowel sounds present 4 quadrants. Tolerating diet. Passing flatus. No guarding or rigidity. GENITOURINARY: Castillo present draining clear, yellow urine. Urine output 425 mL in the last 8 hours. INTEGUMENTARY: Skin is warm and dry with no evidence of clubbing or cyanosis. Midline sternal incision clean dry and well approximated, covered with dry intact dressing. Right lower extremity EVH sites well approximated without redness or drainage. Left arm radial artery harvest sites clean, dry and approximated. No drainage or redness is present. NEUROLOGIC: Cranial nerves II through XII intact. No focal deficits. MUSKULOSKELETAL: Able to move all extremities, strength equal bilaterally, generalized weakness. PSYCHIATRIC: Alert and oriented to person place and time, appropriate affect, intact judgment and insight. INVASIVE LINES AND TUBES: Mediastinal/left/right pleural chest tubes present and connected to low continuous wall suction, no air leaks present. Mediastinal tube with 230 mL of thin serosanguineous drainage overnight, 600 mL output in the last 24 hours. Left/right pleural chest tubes with 420 mL of thin serosanguineous drainage overnight, 850 mL output in the last 24 hours. Ventricular epicardial pacemaker wires present, connected to generator, VVI backup rate 50 bpm. Right internal jugular Napoleon/Cordis, right radial arterial line present. Last CO 7.9, CI 4.0, PA 33/13 and CVP 5 mmHg. - Allied health notes Allied health notes reviewed: nursing - Labs CBC & Chem 7: 08/30/23 05:44 08/30/23 05:44 Labs: Abnormal Lab Results - Last 24 Hours (Table) 08/25/23 08/29/23 08/29/23 Range/Units 12:37 08:38 10:00 RBC (4.30-5.90) m/uL Hgb (13.0-17.5) gm/dL Hct (39.0-53.0) % MCV (80.0-100.0) fL Plt Count (150-450) k/uL Lymphocytes # (1.0-4.8) k/uL Lymphocytes # (Manual) (1.0-4.8) k/uL PT (10.0-12.5) sec INR (<1.2) ABG pH (7.35-7.45) ABG pCO2 (35-45) mmHg ABG pO2 117 H 182 H (83-108) mmHg ABG Total CO2 26 H 25 H (19-24) mmol/L ABG O2 Saturation 98.0 H (94-97) % ABG Hematocrit (34.0-46.0) % Hemoglobin 12.8 L 11.5 L (13.0-17.5) gm/dL Chloride (98-107) mmol/L Carbon Dioxide (22-30) mmol/L Creatinine (0.66-1.25) mg/dL Glucose (74-99) mg/dL POC Glucose (mg/dL) (70-110) mg/dL Calcium (8.4-10.2) mg/dL Magnesium (1.6-2.3) mg/dL Total Protein (6.3-8.2) g/dL Albumin (3.5-5.0) g/dL Crossmatch See Detail 08/29/23 08/29/23 08/29/23 Range/Units 10:17 11:04 12:05 RBC (4.30-5.90) m/uL Hgb (13.0-17.5) gm/dL Hct (39.0-53.0) % MCV (80.0-100.0) fL Plt Count (150-450) k/uL Lymphocytes # (1.0-4.8) k/uL Lymphocytes # (Manual) (1.0-4.8) k/uL PT (10.0-12.5) sec INR (<1.2) ABG pH 7.34 L (7.35-7.45) ABG pCO2 (35-45) mmHg ABG pO2 181 H 234 H 206 H (83-108) mmHg ABG Total CO2 25 H 25 H (19-24) mmol/L ABG O2 Saturation 98.1 H 98.5 H 98.4 H (94-97) % ABG Hematocrit 33 L (34.0-46.0) % Hemoglobin 11.2 L 10.9 L 10.9 L (13.0-17.5) gm/dL Chloride (98-107) mmol/L Carbon Dioxide (22-30) mmol/L Creatinine (0.66-1.25) mg/dL Glucose (74-99) mg/dL POC Glucose (mg/dL) (70-110) mg/dL Calcium (8.4-10.2) mg/dL Magnesium (1.6-2.3) mg/dL Total Protein (6.3-8.2) g/dL Albumin (3.5-5.0) g/dL Crossmatch 08/29/23 08/29/23 08/29/23 Range/Units 12:49 13:53 13:53 RBC 3.80 L (4.30-5.90) m/uL Hgb 10.7 L D (13.0-17.5) gm/dL Hct 30.4 L (39.0-53.0) % MCV (80.0-100.0) fL Plt Count 111 L (150-450) k/uL Lymphocytes # (1.0-4.8) k/uL Lymphocytes # (Manual) (1.0-4.8) k/uL PT 12.7 H (10.0-12.5) sec INR 1.2 H (<1.2) ABG pH (7.35-7.45) ABG pCO2 (35-45) mmHg ABG pO2 114 H (83-108) mmHg ABG Total CO2 (19-24) mmol/L ABG O2 Saturation 97.2 H (94-97) % ABG Hematocrit (34.0-46.0) % Hemoglobin 11.0 L (13.0-17.5) gm/dL Chloride (98-107) mmol/L Carbon Dioxide (22-30) mmol/L Creatinine (0.66-1.25) mg/dL Glucose (74-99) mg/dL POC Glucose (mg/dL) (70-110) mg/dL Calcium (8.4-10.2) mg/dL Magnesium (1.6-2.3) mg/dL Total Protein (6.3-8.2) g/dL Albumin (3.5-5.0) g/dL Crossmatch 08/29/23 08/29/23 08/29/23 Range/Units 13:53 14:21 14:53 RBC (4.30-5.90) m/uL Hgb (13.0-17.5) gm/dL Hct (39.0-53.0) % MCV (80.0-100.0) fL Plt Count (150-450) k/uL Lymphocytes # (1.0-4.8) k/uL Lymphocytes # (Manual) (1.0-4.8) k/uL PT (10.0-12.5) sec INR (<1.2) ABG pH (7.35-7.45) ABG pCO2 (35-45) mmHg ABG pO2 252 H (83-108) mmHg ABG Total CO2 (19-24) mmol/L ABG O2 Saturation 98.6 H (94-97) % ABG Hematocrit (34.0-46.0) % Hemoglobin (13.0-17.5) gm/dL Chloride 115 H (98-107) mmol/L Carbon Dioxide 21 L (22-30) mmol/L Creatinine 0.52 L (0.66-1.25) mg/dL Glucose (74-99) mg/dL POC Glucose (mg/dL) 114 H (70-110) mg/dL Calcium 7.6 L (8.4-10.2) mg/dL Magnesium 1.4 L (1.6-2.3) mg/dL Total Protein 5.2 L (6.3-8.2) g/dL Albumin 3.3 L (3.5-5.0) g/dL Crossmatch 08/29/23 08/29/23 08/29/23 Range/Units 15:58 16:09 17:00 RBC 3.92 L (4.30-5.90) m/uL Hgb 11.0 L (13.0-17.5) gm/dL Hct 31.3 L (39.0-53.0) % MCV 79.8 L (80.0-100.0) fL Plt Count 109 L (150-450) k/uL Lymphocytes # 0.7 L (1.0-4.8) k/uL Lymphocytes # (Manual) (1.0-4.8) k/uL PT (10.0-12.5) sec INR (<1.2) ABG pH 7.29 L (7.35-7.45) ABG pCO2 46 H (35-45) mmHg ABG pO2 70 L (83-108) mmHg ABG Total CO2 (19-24) mmol/L ABG O2 Saturation 92.2 L (94-97) % ABG Hematocrit (34.0-46.0) % Hemoglobin (13.0-17.5) gm/dL Chloride (98-107) mmol/L Carbon Dioxide (22-30) mmol/L Creatinine (0.66-1.25) mg/dL Glucose (74-99) mg/dL POC Glucose (mg/dL) 129 H (70-110) mg/dL Calcium (8.4-10.2) mg/dL Magnesium (1.6-2.3) mg/dL Total Protein (6.3-8.2) g/dL Albumin (3.5-5.0) g/dL Crossmatch 08/29/23 08/29/23 08/29/23 Range/Units 17:02 18:00 19:00 RBC 3.98 L (4.30-5.90) m/uL Hgb 10.9 L (13.0-17.5) gm/dL Hct 31.5 L (39.0-53.0) % MCV 79.1 L (80.0-100.0) fL Plt Count 125 L (150-450) k/uL Lymphocytes # 0.4 L (1.0-4.8) k/uL Lymphocytes # (Manual) (1.0-4.8) k/uL PT (10.0-12.5) sec INR (<1.2) ABG pH (7.35-7.45) ABG pCO2 (35-45) mmHg ABG pO2 (83-108) mmHg ABG Total CO2 (19-24) mmol/L ABG O2 Saturation (94-97) % ABG Hematocrit (34.0-46.0) % Hemoglobin (13.0-17.5) gm/dL Chloride (98-107) mmol/L Carbon Dioxide (22-30) mmol/L Creatinine (0.66-1.25) mg/dL Glucose (74-99) mg/dL POC Glucose (mg/dL) 154 H 159 H (70-110) mg/dL Calcium (8.4-10.2) mg/dL Magnesium (1.6-2.3) mg/dL Total Protein (6.3-8.2) g/dL Albumin (3.5-5.0) g/dL Crossmatch 08/29/23 08/29/23 08/29/23 Range/Units 19:04 19:52 20:48 RBC (4.30-5.90) m/uL Hgb (13.0-17.5) gm/dL Hct (39.0-53.0) % MCV (80.0-100.0) fL Plt Count (150-450) k/uL Lymphocytes # (1.0-4.8) k/uL Lymphocytes # (Manual) (1.0-4.8) k/uL PT (10.0-12.5) sec INR (<1.2) ABG pH (7.35-7.45) ABG pCO2 (35-45) mmHg ABG pO2 (83-108) mmHg ABG Total CO2 (19-24) mmol/L ABG O2 Saturation (94-97) % ABG Hematocrit (34.0-46.0) % Hemoglobin (13.0-17.5) gm/dL Chloride (98-107) mmol/L Carbon Dioxide (22-30) mmol/L Creatinine (0.66-1.25) mg/dL Glucose (74-99) mg/dL POC Glucose (mg/dL) 142 H 121 H 120 H (70-110) mg/dL Calcium (8.4-10.2) mg/dL Magnesium (1.6-2.3) mg/dL Total Protein (6.3-8.2) g/dL Albumin (3.5-5.0) g/dL Crossmatch 08/29/23 08/29/23 08/29/23 Range/Units 21:54 22:51 23:59 RBC (4.30-5.90) m/uL Hgb (13.0-17.5) gm/dL Hct (39.0-53.0) % MCV (80.0-100.0) fL Plt Count (150-450) k/uL Lymphocytes # (1.0-4.8) k/uL Lymphocytes # (Manual) (1.0-4.8) k/uL PT (10.0-12.5) sec INR (<1.2) ABG pH (7.35-7.45) ABG pCO2 (35-45) mmHg ABG pO2 (83-108) mmHg ABG Total CO2 (19-24) mmol/L ABG O2 Saturation (94-97) % ABG Hematocrit (34.0-46.0) % Hemoglobin (13.0-17.5) gm/dL Chloride (98-107) mmol/L Carbon Dioxide (22-30) mmol/L Creatinine (0.66-1.25) mg/dL Glucose (74-99) mg/dL POC Glucose (mg/dL) 120 H 121 H 117 H (70-110) mg/dL Calcium (8.4-10.2) mg/dL Magnesium (1.6-2.3) mg/dL Total Protein (6.3-8.2) g/dL Albumin (3.5-5.0) g/dL Crossmatch 08/30/23 08/30/23 08/30/23 Range/Units 01:02 02:04 03:01 RBC (4.30-5.90) m/uL Hgb (13.0-17.5) gm/dL Hct (39.0-53.0) % MCV (80.0-100.0) fL Plt Count (150-450) k/uL Lymphocytes # (1.0-4.8) k/uL Lymphocytes # (Manual) (1.0-4.8) k/uL PT (10.0-12.5) sec INR (<1.2) ABG pH (7.35-7.45) ABG pCO2 (35-45) mmHg ABG pO2 (83-108) mmHg ABG Total CO2 (19-24) mmol/L ABG O2 Saturation (94-97) % ABG Hematocrit (34.0-46.0) % Hemoglobin (13.0-17.5) gm/dL Chloride (98-107) mmol/L Carbon Dioxide (22-30) mmol/L Creatinine (0.66-1.25) mg/dL Glucose (74-99) mg/dL POC Glucose (mg/dL) 131 H 127 H 130 H (70-110) mg/dL Calcium (8.4-10.2) mg/dL Magnesium (1.6-2.3) mg/dL Total Protein (6.3-8.2) g/dL Albumin (3.5-5.0) g/dL Crossmatch 08/30/23 08/30/23 08/30/23 Range/Units 04:06 05:10 05:44 RBC (4.30-5.90) m/uL Hgb 12.2 L (13.0-17.5) gm/dL Hct 34.7 L (39.0-53.0) % MCV 79.6 L (80.0-100.0) fL Plt Count (150-450) k/uL Lymphocytes # (1.0-4.8) k/uL Lymphocytes # (Manual) 0.83 L (1.0-4.8) k/uL PT (10.0-12.5) sec INR (<1.2) ABG pH (7.35-7.45) ABG pCO2 (35-45) mmHg ABG pO2 (83-108) mmHg ABG Total CO2 (19-24) mmol/L ABG O2 Saturation (94-97) % ABG Hematocrit (34.0-46.0) % Hemoglobin (13.0-17.5) gm/dL Chloride (98-107) mmol/L Carbon Dioxide (22-30) mmol/L Creatinine (0.66-1.25) mg/dL Glucose (74-99) mg/dL POC Glucose (mg/dL) 111 H 145 H (70-110) mg/dL Calcium (8.4-10.2) mg/dL Magnesium (1.6-2.3) mg/dL Total Protein (6.3-8.2) g/dL Albumin (3.5-5.0) g/dL Crossmatch 08/30/23 08/30/23 08/30/23 Range/Units 05:44 06:18 08:19 RBC (4.30-5.90) m/uL Hgb (13.0-17.5) gm/dL Hct (39.0-53.0) % MCV (80.0-100.0) fL Plt Count (150-450) k/uL Lymphocytes # (1.0-4.8) k/uL Lymphocytes # (Manual) (1.0-4.8) k/uL PT (10.0-12.5) sec INR (<1.2) ABG pH (7.35-7.45) ABG pCO2 (35-45) mmHg ABG pO2 (83-108) mmHg ABG Total CO2 (19-24) mmol/L ABG O2 Saturation (94-97) % ABG Hematocrit (34.0-46.0) % Hemoglobin (13.0-17.5) gm/dL Chloride 110 H (98-107) mmol/L Carbon Dioxide 20 L (22-30) mmol/L Creatinine (0.66-1.25) mg/dL Glucose 150 H (74-99) mg/dL POC Glucose (mg/dL) 170 H 247 H (70-110) mg/dL Calcium 8.2 L (8.4-10.2) mg/dL Magnesium (1.6-2.3) mg/dL Total Protein 5.9 L (6.3-8.2) g/dL Albumin (3.5-5.0) g/dL Crossmatch - Imaging and Cardiology Chest x-ray: report reviewed, image reviewed Assessment and Plan Assessment: Multivessel coronary artery disease, status post off-pump coronary artery bypass grafting 3 Hypertension Hyperlipidemia Peripheral arterial disease with lower extremity bypass as well as stenting and thrombectomy Insulin-dependent diabetes mellitus with a preoperative hemoglobin A1c of 8.5% Obstructive sleep apnea without home CPAP use Tobacco dependence with recent cessation, preoperative FEV1 97% of predicted value Benign prostatic hypertrophy History of DVT on no active anticoagulation as an outpatient Plan: Continue to maximize medical therapy with aspirin, statin, Plavix, and beta estiven. Will increase metoprolol tartrate 25 mg by mouth twice a day. Discontinue IV NTG. Will start amlodipine 2.5 mg by mouth daily with holding parameters for radial artery spasm prophylaxis. Continue amiodarone drip per protocol, start amiodarone 400 mg by mouth twice a day for atrial fibrillation prophylaxis. The patient has not had any atrial fibrillation at this point and remains in normal sinus rhythm. Wean O2 as tolerated. Encourage incentive spirometry use 10 times every hour while awake. Bronchodilators per pulmonology. Will monitor daily labs and chest x-rays. Electrolyte replacement per protocol. Increase activity as tolerated, PT/OT/cardiac rehab consulted. GI/DVT prophylaxis. Pain control with current medication regimen, Toradol added for better pain cont rol. Insulin management per internal medicine. Patient should remain on insulin drip for 48 hours, then may transition to subcutaneous per protocol. Preoperative hemoglobin A1c 8.5% DC Jose, valerio Cordis to continuous CVP monitoring. Continue chest tubes for another 24 hours, monitor output. Continue Castillo catheter for another 24 hours, continue to record strict accurate intake and output. Continue right brachial arterial line for another 24 hours. Daily weights. More recommendations to follow based on patient's clinical course. Time with Patient: Greater than 30
[2023-08-30 09:16] LABS: Glucose,Whole Blood 196 mg/dL (70-110)
[2023-08-30] MEDS: amLODIPine 2.5 MG TAB PO SCH (09:22)
--- NOTE | 2023-08-30 09:34 | P.PN ---
Subjective Progress Note Date: 08/30/23 This is a 68-year-old male patient with multivessel coronary artery disease and the patient underwent a cardiac catheterization on 08/24/2013 and was found to have triple-vessel disease. The patient was discharged home and he came in today for an elective bypass surgery. Surgery was done off pump and the patient had three-vessel bypass surgery involving MOJICA to LAD, radial artery to ramus intermedius and saphenous vein graft to posterior descending artery. The patient following that was brought into the intensive care unit. Initial chest x-ray showed no acute abnormalities. There was some increased pulmonary vessel markings and orotracheal tube was in good location. Chest is also good locat ion. The patient is a right pleural, left pleural and mediastinal chest tube and output is minimal. No evidence of any air leak. No evidence of any pneumothorax. The patient was seen and evaluated. He was on propofol. He was gradually wean off the propofol and FiO2 was gradually wean down. Following that, the patient was awake and alert and following commands. He has good weaning parameters with rapid shallow breathing index of 42. Tidal volume was 950. Minute ventilation was 13.5 L and then Nif was -47. The patient was given a blood gas that showed a pH of 7.32 with a pCO2 of 45 and a pO2 of 69. Following that, the patient was extubated the patient is currently on 60. Oxymizer nasal cannula. Currently, the patient is hemodynamically stable. He was given IV albumin and his blood pressure is holding well for now. Cardiac output is 6.8 with an index of 3.4. Pulmonary artery pressures of 42/20. Patient is on nitroglycerin drip at 10 mcg/m. The patient is also on insulin drip at 2.5 units an hour. He remains on low-dose Precedex at 0.3 mcg/kg/m. Awake and alert and arousable. No signs of any respiratory distress at this point in time. Cardiac rhythm is sinus. The patient is communicating. The patient is 104 extremities without any limitation. Lab work shows a WBC count of 5.8, hemoglobin is at 10.9, and a platelet count is 125. Producing adequate amount of urine output. On 08/30/2023, I'm seeing Marshall for a follow-up. Is doing extremely well. Shortly extubated and is currently on room air oxygen. Clinically stable. Hemodynamically stable. Postextubation, the patient required to go on Precedex and briefly on a BiPAP. Currently is off the BiPAP. His cardiac output is at 6 with an index of 3. His pulmonary artery pressure 36/17. Is producing adequate amount of urine output. He has pleural chest tubes on the right and the left and the total amount of output has been around 1 L since surgery. He also had a mediastinal chest tube the total amount of output has been in the order of 800 mL since surgery. No evidence of any air leak. The chest x-ray from today shows some cardiomegaly and mild pulmonary vessel congestion. Otherwise there is no evidence of any pneumothorax. Cardiac rhythm is sinus. He is on amiodarone for A. fib prophylaxis. Nitroglycerin drip has been discontinued. He remains on insulin drip at 4.5 units an hour. He is awake and alert and communicating. No issues with pain. The [place] catheter still in place. Blood work from today shows a hemoglobin of 12.2. The white cell cause of 9.2. Electrolytes are all within normal limits. BUN is at 60 with a creatinine of 0.7. Awake and alert and moving all 4 extremities without any limitation. Objective - Vital Signs Vital signs: Vital Signs Temp 99.7 F H 08/30/23 08:00 Pulse 93 08/30/23 08:30 Resp 30 H 08/30/23 08:30 BP 190/94 08/30/23 08:00 Pulse Ox 96 08/30/23 08:30 FiO2 80 08/30/23 05:30 Intake & Output 08/29/23 08/30/23 08/30/23 18:59 06:59 18:59 Intake Total 5323.885 3876.332 100.724 Output Total 2940 1645 165 Balance -1614.651 -289.668 -64.276 Weight 90.1 kg Intake: IV 1289 958 89 ACETAMINOPHEN IV (For NPO 100 ) 1,000 mg In Empty Bag 1 bag @ 400 mls/hr IVPB Q6HR [facility] Rx#:[id number] Albumin Human 5% 250 ml 750 In Empty Bag 1 bag @ 250 mls/hr IVPB Q1HR PRN Rx#: [id number] CO/CI 140 100 30 Lactated Ringers 1,000 ml 250 600 50 @ 20 mls/hr IV .Q24H [facility] Rx#:[id number] Pressure 45 108 9 ceFAZolin 2 gm In Sodium 50 Chloride 0.9% 50 ml @ 100 mls/hr IVPB Q8HR [facility] Rx# :[id number] Intake, IV Titration 36.349 157.332 11.724 Amount Clevidipine Butyrate 25 54.565 mg In Empty Bag 1 bag @ 1 MG/HR 2 mls/hr IV .Q24H [facility] Rx#:[id number] Dexmedetomidine/0.9% NaCl 37.083 (Pmx) 400 mcg In Empty Bag 1 bag @ Titrate IV . Q0M [facility] Rx#:[id number] Insulin Regular 100 unit 2.526 20.284 11.724 In Sodium Chloride 0.9% 100 ml @ Per Protocol IV .Q0M [facility] Rx#:[id number] Nitroglycerin-D5w Pmx 50 2.2 45.4 mg In Dextrose/Water 1 250ml.bag @ 5 MCG/MIN 1.5 mls/hr IV .Q24H [facility] Rx#: [id number] propofoL 1,000 mg In 31.623 Empty Bag 1 bag @ Titrate IV .Q0M [facility] Rx#: [id number] Oral 240 Output: Chest Tube Drainage 590 810 40 Mediastinal 270 330 10 Right/Left Pleural 320 480 30 Urine 1350 835 125 Estimated Blood Loss 1000 Other: Voiding Method Indwelling Catheter Indwelling Catheter ABP, PAP, CO, CI - Last Documented Arterial Blood Pressure 114/55 Pulmonary Artery Pressure 43/22 Cardiac Output 6 Cardiac Index 3 - Exam GENERAL EXAM: Alert, very pleasant 68-year-old male, on room air, resting comfortably in bed, in no apparent distress. The patient is currently on room air oxygen. The patient was extubated and is following commands and communicating. HEAD: Normocephalic. EYES: Normal reaction of pupils, equal size. NOSE: Clear with pink turbinates. THROAT: No erythema or exudates. NECK: No masses, no JVD. The patient has a right IJ [place] catheter in place and a Cordis in a good location CHEST: No chest wall deformity. The patient is a right pleural, left total of the mediastinal chest tube. Output is minimal at this point in time. No evidence of any air leak LUNGS: Equal air entry with no crackles, wheeze, rhonchi or dullness. CVS: S1 and S2 normal with no audible murmur, regular rhythm. Thoracotomy scar is dry clean and intact ABDOMEN: No hepatosplenomegaly, normal bowel sounds, no guarding or rigidity. SPINE: No scoliosis or deformity SKIN: No rashes CENTRAL NERVOUS SYSTEM: No focal deficits, tone is normal in all 4 extremities. Patient is awake and alert 3 and is communicating. EXTREMITIES: There is no peripheral edema. No clubbing, no cyanosis. Peripheral pulses are intact. - Labs CBC & Chem 7: 08/30/23 05:44 08/30/23 05:44 Labs: Abnormal Lab Results - Last 24 Hours (Table) 08/25/23 08/29/23 08/29/23 Range/Units 12:37 08:38 10:00 RBC (4.30-5.90) m/uL Hgb (13.0-17.5) gm/dL Hct (39.0-53.0) % MCV (80.0-100.0) fL Plt Count (150-450) k/uL Lymphocytes # (1.0-4.8) k/uL Lymphocytes # (Manual) (1.0-4.8) k/uL PT (10.0-12.5) sec INR (<1.2) ABG pH (7.35-7.45) ABG pCO2 (35-45) mmHg ABG pO2 117 H 182 H (83-108) mmHg ABG Total CO2 26 H 25 H (19-24) mmol/L ABG O2 Saturation 98.0 H (94-97) % ABG Hematocrit (34.0-46.0) % Hemoglobin 12.8 L 11.5 L (13.0-17.5) gm/dL Chloride (98-107) mmol/L Carbon Dioxide (22-30) mmol/L Creatinine (0.66-1.25) mg/dL Glucose (74-99) mg/dL POC Glucose (mg/dL) (70-110) mg/dL Calcium (8.4-10.2) mg/dL Magnesium (1.6-2.3) mg/dL Total Protein (6.3-8.2) g/dL Albumin (3.5-5.0) g/dL Crossmatch See Detail 08/29/23 08/29/2308/29/24 Range/Units 10:17 11:04 12:05 RBC (4.30-5.90) m/uL Hgb (13.0-17.5) gm/dL Hct (39.0-53.0) % MCV (80.0-100.0) fL Plt Count (150-450) k/uL Lymphocytes # (1.0-4.8) k/uL Lymphocytes # (Manual) (1.0-4.8) k/uL PT (10.0-12.5) sec INR (<1.2) ABG pH 7.34 L (7.35-7.45) ABG pCO2 (35-45) mmHg ABG pO2 181 H 234 H 206 H (83-108) mmHg ABG Total CO2 25 H 25 H (19-24) mmol/L ABG O2 Saturation 98.1 H 98.5 H 98.4 H (94-97) % ABG Hematocrit 33 L (34.0-46.0) % Hemoglobin 11.2 L 10.9 L 10.9 L (13.0-17.5) gm/dL Chloride (98-107) mmol/L Carbon Dioxide (22-30) mmol/L Creatinine (0.66-1.25) mg/dL Glucose (74-99) mg/dL POC Glucose (mg/dL) (70-110) mg/dL Calcium (8.4-10.2) mg/dL Magnesium (1.6-2.3) mg/dL Total Protein (6.3-8.2) g/dL Albumin (3.5-5.0) g/dL Crossmatch 08/29/23 08/29/23 08/29/23 Range/Units 12:49 13:53 13:53 RBC 3.80 L (4.30-5.90) m/uL Hgb 10.7 L D (13.0-17.5) gm/dL Hct 30.4 L (39.0-53.0) % MCV (80.0-100.0) fL Plt Count 111 L (150-450) k/uL Lymphocytes # (1.0-4.8) k/uL Lymphocytes # (Manual) (1.0-4.8) k/uL PT 12.7 H (10.0-12.5) sec INR 1.2 H (<1.2) ABG pH (7.35-7.45) ABG pCO2 (35-45) mmHg ABG pO2 114 H (83-108) mmHg ABG Total CO2 (19-24) mmol/L ABG O2 Saturation 97.2 H (94-97) % ABG Hematocrit (34.0-46.0) % Hemoglobin 11.0 L (13.0-17.5) gm/dL Chloride (98-107) mmol/L Carbon Dioxide (22-30) mmol/L Creatinine (0.66-1.25) mg/dL Glucose (74-99) mg/dL POC Glucose (mg/dL) (70-110) mg/dL Calcium (8.4-10.2) mg/dL Magnesium (1.6-2.3) mg/dL Total Protein (6.3-8.2) g/dL Albumin (3.5-5.0) g/dL Crossmatch 08/29/23 08/29/23 08/29/23 Range/Units 13:53 14:21 14:53 RBC (4.30-5.90) m/uL Hgb (13.0-17.5) gm/dL Hct (39.0-53.0) % MCV (80.0-100.0) fL Plt Count (150-450) k/uL Lymphocytes # (1.0-4.8) k/uL Lymphocytes # (Manual) (1.0-4.8) k/uL PT (10.0-12.5) sec INR (<1.2) ABG pH (7.35-7.45) ABG pCO2 (35-45) mmHg ABG pO2 252 H (83-108) mmHg ABG Total CO2 (19-24) mmol/L ABG O2 Saturation 98.6 H (94-97) % ABG Hematocrit (34.0-46.0) % Hemoglobin (13.0-17.5) gm/dL Chloride 115 H (98-107) mmol/L Carbon Dioxide 21 L (22-30) mmol/L Creatinine 0.52 L (0.66-1.25) mg/dL Glucose (74-99) mg/dL POC Glucose (mg/dL) 114 H (70-110) mg/dL Calcium 7.6 L (8.4-10.2) mg/dL Magnesium 1.4 L (1.6-2.3) mg/dL Total Protein 5.2 L (6.3-8.2) g/dL Albumin 3.3 L (3.5-5.0) g/dL Crossmatch 08/29/23 08/29/23 08/29/23 Range/Units 15:58 16:09 17:00 RBC 3.92 L (4.30-5.90) m/uL Hgb 11.0 L (13.0-17.5) gm/dL Hct 31.3 L (39.0-53.0) % MCV 79.8 L (80.0-100.0) fL Plt Count 109 L (150-450) k/uL Lymphocytes # 0.7 L (1.0-4.8) k/uL Lymphocytes # (Manual) (1.0-4.8) k/uL PT (10.0-12.5) sec INR (<1.2) ABG pH 7.29 L (7.35-7.45) ABG pCO2 46 H (35-45) mmHg ABG pO2 70 L (83-108) mmHg ABG Total CO2 (19-24) mmol/L ABG O2 Saturation 92.2 L (94-97) % ABG Hematocrit (34.0-46.0) % Hemoglobin (13.0-17.5) gm/dL Chloride (98-107) mmol/L Carbon Dioxide (22-30) mmol/L Creatinine (0.66-1.25) mg/dL Glucose (74-99) mg/dL POC Glucose (mg/dL) 129 H (70-110) mg/dL Calcium (8.4-10.2) mg/dL Magnesium (1.6-2.3) mg/dL Total Protein (6.3-8.2) g/dL Albumin (3.5-5.0) g/dL Crossmatch 08/29/23 08/29/23 08/29/23 Range/Units 17:02 18:00 19:00 RBC 3.98 L (4.30-5.90) m/uL Hgb 10.9 L (13.0-17.5) gm/dL Hct 31.5 L (39.0-53.0) % MCV 79.1 L (80.0-100.0) fL Plt Count 125 L (150-450) k/uL Lymphocytes # 0.4 L (1.0-4.8) k/uL Lymphocytes # (Manual) (1.0-4.8) k/uL PT (10.0-12.5) sec INR (<1.2) ABG pH (7.35-7.45) ABG pCO2 (35-45) mmHg ABG pO2 (83-108) mmHg ABG Total CO2 (19-24) mmol/L ABG O2 Saturation (94-97) % ABG Hematocrit (34.0-46.0) % Hemoglobin (13.0-17.5) gm/dL Chloride (98-107) mmol/L Carbon Dioxide (22-30) mmol/L Creatinine (0.66-1.25) mg/dL Glucose (74-99) mg/dL POC Glucose (mg/dL) 154 H 159 H (70-110) mg/dL Calcium (8.4-10.2) mg/dL Magnesium (1.6-2.3) mg/dL Total Protein (6.3-8.2) g/dL Albumin (3.5-5.0) g/dL Crossmatch 08/29/23 08/29/23 08/29/23 Range/Units 19:04 19:52 20:48 RBC (4.30-5.90) m/uL Hgb (13.0-17.5) gm/dL Hct (39.0-53.0) % MCV (80.0-100.0) fL Plt Count (150-450) k/uL Lymphocytes # (1.0-4.8) k/uL Lymphocytes # (Manual) (1.0-4.8) k/uL PT (10.0-12.5) sec INR (<1.2) ABG pH (7.35-7.45) ABG pCO2 (35-45) mmHg ABG pO2 (83-108) mmHg ABG Total CO2 (19-24) mmol/L ABG O2 Saturation (94-97) % ABG Hematocrit (34.0-46.0) % Hemoglobin (13.0-17.5) gm/dL Chloride (98-107) mmol/L Carbon Dioxide (22-30) mmol/L Creatinine (0.66-1.25) mg/dL Glucose (74-99) mg/dL POC Glucose (mg/dL) 142 H 121 H 120 H (70-110) mg/dL Calcium (8.4-10.2) mg/dL Magnesium (1.6-2.3) mg/dL Total Protein (6.3-8.2) g/dL Albumin (3.5-5.0) g/dL Crossmatch 08/29/23 08/29/23 08/29/23 Range/Units 21:54 22:51 23:59 RBC (4.30-5.90) m/uL Hgb (13.0-17.5) gm/dL Hct (39.0-53.0) % MCV (80.0-100.0) fL Plt Count (150-450) k/uL Lymphocytes # (1.0-4.8) k/uL Lymphocytes # (Manual) (1.0-4.8) k/uL PT (10.0-12.5) sec INR (<1.2) ABG pH (7.35-7.45) ABG pCO2 (35-45) mmHg ABG pO2 (83-108) mmHg ABG Total CO2 (19-24) mmol/L ABG O2 Saturation (94-97) % ABG Hematocrit (34.0-46.0) % Hemoglobin (13.0-17.5) gm/dL Chloride (98-107) mmol/L Carbon Dioxide (22-30) mmol/L Creatinine (0.66-1.25) mg/dL Glucose (74-99) mg/dL POC Glucose (mg/dL) 120 H 121 H 117 H (70-110) mg/dL Calcium (8.4-10.2) mg/dL Magnesium (1.6-2.3) mg/dL Total Protein (6.3-8.2) g/dL Albumin (3.5-5.0) g/dL Crossmatch 08/30/23 08/30/23 08/30/23 Range/Units 01:02 02:04 03:01 RBC (4.30-5.90) m/uL Hgb (13.0-17.5) gm/dL Hct (39.0-53.0) % MCV (80.0-100.0) fL Plt Count (150-450) k/uL Lymphocytes # (1.0-4.8) k/uL Lymphocytes # (Manual) (1.0-4.8) k/uL PT (10.0-12.5) sec INR (<1.2) ABG pH (7.35-7.45) ABG pCO2 (35-45) mmHg ABG pO2 (83-108) mmHg ABG Total CO2 (19-24) mmol/L ABG O2 Saturation (94-97) % ABG Hematocrit (34.0-46.0) % Hemoglobin (13.0-17.5) gm/dL Chloride (98-107) mmol/L Carbon Dioxide (22-30) mmol/L Creatinine (0.66-1.25) mg/dL Glucose (74-99) mg/dL POC Glucose (mg/dL) 131 H 127 H 130 H (70-110) mg/dL Calcium (8.4-10.2) mg/dL Magnesium (1.6-2.3) mg/dL Total Protein (6.3-8.2) g/dL Albumin (3.5-5.0) g/dL Crossmatch 08/30/23 08/30/23 08/30/23 Range/Units 04:06 05:10 05:44 RBC (4.30-5.90) m/uL Hgb 12.2 L (13.0-17.5) gm/dL Hct 34.7 L (39.0-53.0) % MCV 79.6 L (80.0-100.0) fL Plt Count (150-450) k/uL Lymphocytes # (1.0-4.8) k/uL Lymphocytes # (Manual) 0.83 L (1.0-4.8) k/uL PT (10.0-12.5) sec INR (<1.2) ABG pH (7.35-7.45) ABG pCO2 (35-45) mmHg ABG pO2 (83-108) mmHg ABG Total CO2 (19-24) mmol/L ABG O2 Saturation (94-97) % ABG Hematocrit (34.0-46.0) % Hemoglobin (13.0-17.5) gm/dL Chloride (98-107) mmol/L Carbon Dioxide (22-30) mmol/L Creatinine (0.66-1.25) mg/dL Glucose (74-99) mg/dL POC Glucose (mg/dL) 111 H 145 H (70-110) mg/dL Calcium (8.4-10.2) mg/dL Magnesium (1.6-2.3) mg/dL Total Protein (6.3-8.2) g/dL Albumin (3.5-5.0) g/dL Crossmatch 08/30/23 08/30/23 08/30/23 Range/Units 05:44 06:18 08:19 RBC (4.30-5.90) m/uL Hgb (13.0-17.5) gm/dL Hct (39.0-53.0) % MCV (80.0-100.0) fL Plt Count (150-450) k/uL Lymphocytes # (1.0-4.8) k/uL Lymphocytes # (Manual) (1.0-4.8) k/uL PT (10.0-12.5) sec INR (<1.2) ABG pH (7.35-7.45) ABG pCO2 (35-45) mmHg ABG pO2 (83-108) mmHg ABG Total CO2 (19-24) mmol/L ABG O2 Saturation (94-97) % ABG Hematocrit (34.0-46.0) % Hemoglobin (13.0-17.5) gm/dL Chloride 110 H (98-107) mmol/L Carbon Dioxide 20 L (22-30) mmol/L Creatinine (0.66-1.25) mg/dL Glucose 150 H (74-99) mg/dL POC Glucose (mg/dL) 170 H 247 H (70-110) mg/dL Calcium 8.2 L (8.4-10.2) mg/dL Magnesium (1.6-2.3) mg/dL Total Protein 5.9 L (6.3-8.2) g/dL Albumin (3.5-5.0) g/dL Crossmatch 08/30/23 Range/Units 09:14 RBC (4.30-5.90) m/uL Hgb (13.0-17.5) gm/dL Hct (39.0-53.0) % MCV (80.0-100.0) fL Plt Count (150-450) k/uL Lymphocytes # (1.0-4.8) k/uL Lymphocytes # (Manual) (1.0-4.8) k/uL PT (10.0-12.5) sec INR (<1.2) ABG pH (7.35-7.45) ABG pCO2 (35-45) mmHg ABG pO2 (83-108) mmHg ABG Total CO2 (19-24) mmol/L ABG O2 Saturation (94-97) % ABG Hematocrit (34.0-46.0) % Hemoglobin (13.0-17.5) gm/dL Chloride (98-107) mmol/L Carbon Dioxide (22-30) mmol/L Creatinine (0.66-1.25) mg/dL Glucose (74-99) mg/dL POC Glucose (mg/dL) 196 H (70-110) mg/dL Calcium (8.4-10.2) mg/dL Magnesium (1.6-2.3) mg/dL Total Protein (6.3-8.2) g/dL Albumin (3.5-5.0) g/dL Crossmatch Assessment and Plan Plan: Triple-vessel coronary artery disease, the patient underwent an off-pump 3 vessel bypass and the patient underwent [place] to LAD and radial 2 ramus intermedius and saphenous vein graft to PDA. Patient is currently postop day #1. Hemodynamically stable. Adequate cardiac output and index. Patient is on no pressors. Patient on amiodarone drip at 0.5 mg/m. Nitroglycerin drip has been discontinued Postthoracotomy, extubated without any major difficulties currently on room air oxygen oxygen by nasal cannula. All of the chest tubes are in place. Diabetes mellitus type 2, currently on insulin drip for blood sugar control at 4.5 units an hour Hypertension, hyperlipidemia Previous history of DVT, right sided Obstructive sleep apnea. Lost weight and the patient is currently off CPAP therapy. Osteoarthritis History of smoking. The patient FEV1 of 2.8 L which is 97% of predicted. Plan Precedex has been weaned off and discontinued Titrate oxygen flow and patient currently is on room air oxygen Provide incentive spirometer Monitor output from the chest tubes Nitroglycerin drip as a discontinued Continue insulin drip for now Cardiac rhythm is sinus. Amiodarone for A. fib prophylaxis Incentive for blood sugar control Daily chest x-rays Increase mobility and the patient is sitting up on a chair. Blood work is stable. We'll continue to follow.
[2023-08-30 10:06] LABS: Glucose,Whole Blood 152 mg/dL (70-110)
[2023-08-30 11:05] LABS: Glucose,Whole Blood 138 mg/dL (70-110)
[2023-08-30 11:25] VITALS: BMI 32.1
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
[2023-08-30] MEDS: LACTATED RINGERS 1,000 ML IV SCH (12:19)
[2023-08-30 12:31] LABS: Glucose,Whole Blood 195 mg/dL (70-110)
[2023-08-30] MEDS: AMIODARONE 450 MG in DEXTROSE 5% IN WATER 250 ML IV SCH ×2 (12:32)
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
[2023-08-30 13:19] LABS: Glucose,Whole Blood 222 mg/dL (70-110)
[2023-08-30 14:13] LABS: Glucose,Whole Blood 175 mg/dL (70-110)
[2023-08-30 15:26] LABS: Glucose,Whole Blood 127 mg/dL (70-110)
[2023-08-30 16:23] LABS: Glucose,Whole Blood 106 mg/dL (70-110)
[2023-08-30 17:17] LABS: Glucose,Whole Blood 220 mg/dL (70-110)
[2023-08-30 18:18] LABS: Glucose,Whole Blood 183 mg/dL (70-110)
[2023-08-30 19:04] LABS: Glucose,Whole Blood 153 mg/dL (70-110)
[2023-08-30 20:09] LABS: Glucose,Whole Blood 118 mg/dL (70-110)
[2023-08-30] MEDS: TAMSULOSIN 0.4 MG CAP.ER.24H PO SCH (20:12)
[2023-08-30] MEDS: SENNOSIDES-DOCUSATE SODIUM 1 EACH TAB PO SCH (20:13)
[2023-08-30] MEDS: INSULIN REGULAR 100 UNIT in SODIUM CHLORIDE 0.9% 100 ML IV SCH (21:01)
[2023-08-30 21:02] LABS: Glucose,Whole Blood 132 mg/dL (70-110)
[2023-08-30 22:08] LABS: Glucose,Whole Blood 153 mg/dL (70-110)
[2023-08-30 23:03] LABS: Glucose,Whole Blood 120 mg/dL (70-110)
[2023-08-31 00:06] LABS: Glucose,Whole Blood 137 mg/dL (70-110)
[2023-08-31] MEDS: KETOROLAC 15 MG/ML 1 ML VIAL IVP SCH ×5 (00:07→23:55)
[2023-08-31] MEDS: HEPARIN SODIUM,PORCINE 5,000 UNIT/ML 1 ML VIAL SQ SCH ×4 (00:12→23:55)
[2023-08-31 01:19] LABS: Glucose,Whole Blood 105 mg/dL (70-110)
[2023-08-31 02:08] LABS: Glucose,Whole Blood 106 mg/dL (70-110)
[2023-08-31 03:07] LABS: Glucose,Whole Blood 126 mg/dL (70-110)
[2023-08-31 04:07] LABS: Glucose,Whole Blood 130 mg/dL (70-110)
[2023-08-31 04:46] LABS: Basophils % (A) 0 %; Eosinophils # (A) 0.1 k/uL (0-0.7); Eosinophils % (A) 2 %; HCT 30.5 % (39.0-53.0); HGB 10.3 gm/dL (13.0-17.5); Lymphocytes # (A) 0.9 k/uL (1.0-4.8); Lymphocytes % (A) 13 %; MCH 27.3 pg (25.0-35.0); MCHC 33.9 g/dL (31.0-37.0); MCV 80.6 fL (80.0-100.0); Mean Platelet Volume 9.1; Monocytes # (A) 0.3 k/uL (0-1.0); Monocytes % (A) 4 %; Neutrophils # (A) 5.4 k/uL (1.3-7.7); Neutrophils % (A) 79 %; Platelet Count 131 k/uL (150-450); RBC 3.78 m/uL (4.30-5.90); RDW 14.3 % (11.5-15.5); WBC 6.8 k/uL (3.8-10.6)
[2023-08-31 05:08] LABS: Ionized Calcium 4.6 mg/dL (4.5-5.3)
[2023-08-31 05:08] LABS: Glucose,Whole Blood 131 mg/dL (70-110)
[2023-08-31 05:18] LABS: ALT 13 U/L (4-49); AST 31 U/L (17-59); African American GFR (CKD) >90 (>60 ml/min/1.73 sqM); Albumin 2.9 g/dL (3.5-5.0); Alkaline Phosphatase 53 U/L (38-126); Anion Gap 5 mmol/L; Blood Urea Nitrogen 22 mg/dL (9-20); Calcium 7.9 mg/dL (8.4-10.2); Carbon Dioxide 23 mmol/L (22-30); Chloride 110 mmol/L (98-107); Glucose 129 mg/dL (74-99); Non-African American GFR(CKD) >90 (>60 ml/min/1.73 sqM); Potassium 4.2 mmol/L (3.5-5.1); Sodium 138 mmol/L (137-145); Total Bilirubin 0.9 mg/dL (0.2-1.3); Total Protein 5.2 g/dL (6.3-8.2)
[2023-08-31 06:03] LABS: Glucose,Whole Blood 144 mg/dL (70-110)
[2023-08-31] MEDS: METOPROLOL TARTRATE 50 MG TAB PO SCH ×2 (07:00→20:29)
[2023-08-31 07:01] LABS: Glucose,Whole Blood 134 mg/dL (70-110)
[2023-08-31] MEDS: PANTOPRAZOLE 40 MG TABLET PO SCH (07:06)
[2023-08-31] MEDS: CLOPIDOGREL 75 MG TAB PO SCH (07:24)
[2023-08-31 08:10] LABS: Glucose,Whole Blood 205 mg/dL (70-110)
--- NOTE | 2023-08-31 08:20 | P.PN ---
Subjective Progress Note Date: 08/31/23 Principal diagnosis: Coronary artery disease with previous myocardial infarction and stent placement, unstable angina. Past medical history significant for hypertension, hyperlipi demia, insulin dependent diabetes mellitus, obstructive sleep apnea without home CPAP use, heavy tobacco dependence with recent cessation 6 months ago, peripheral arterial disease with lower extremity bypass as well as stenting and thrombectomy, BPH, DVT on no active anticoagulation. POD #2 Off pump coronary artery bypass grafting x 3. Left internal thoracic artery (in-situ) to left anterior descending coronary artery. Radial artery from aorta to ramus intermedius and saphenous vein from aorta to posterior descending coronary artery, Endoscopic left radial and right greater saphenous vein maykel vest, Left atrial appendage ligation with #35mm AtriClip, Graft flow measurements using the [email or web address]-Stim flow meter system, and intraoperative transesophageal echocardiogram performed by anesthesia. Postoperative acute blood loss anemia, expected likely secondary to hemodilution. The patient was seen and examined in follow-up today 08/31/2023 at his bedside in the intensive care unit. He is currently sitting up to bedside chair, is awake, alert, oriented 3 and is in no acute apparent distress. He denies any complaints of pain or shortness of breath at this time, and reports he feels improved today than he did yesterday. Oxygen saturations are 97% on 2 L nasal cannula and he is achieving 1000 mL on his incentive spirometry with encouragement. He remains hemodynamically stable and is currently on no inotropic pressor support. Right IJ cordis remains in place with continuous CVP monitoring, current CVP pressure 5 mmHg. Bedside telemetry showing sinus tachycardia heart rate 102 BPM. His T-max temperature in the last 24 hours was 99.7F. He has been up ambulating in the intensive care unit in all [facility] with [facility] surgery nursing and therapy staff and tolerating well. Me diastinal, left and right pleural chest tubes remain in place to low continuous wall suction -20 cm H2O. No air leak is present. Draining thin serosanguineous drainage. Mediastinal chest tubes drained 20 mL output in the last 8 hours and 100 mL output in the last 24 hours. Left pleural chest tube drained 120 mL output in the last 24 hours, and his right pleural chest tube drainage 40 mL output in the last 24 hours. Laboratory and chest x-ray results reviewed. Objective - Vital Signs Vital signs: Vital Signs Temp 99.1 F 08/31/23 04:00 Pulse 100 08/31/23 07:00 Resp 23 08/31/23 07:00 BP 120/61 08/31/23 05:00 Pulse Ox 99 08/31/23 07:00 FiO2 80 08/30/23 05:30 Intake & Output 08/30/23 08/31/23 08/31/23 18:59 06:59 18:59 Intake Total 1435.884 546.090 38.727 Output Total 902 673 40 Balance 533.884 -126.910 -1.273 Weight 90.1 kg 94 kg Intake: IV 447 416 36 CO/CI 30 Lactated Ringers 1,000 ml 340 350 30 @ 20 mls/hr IV .Q24H KOLBY Rx#:[id number] Pressure 27 66 6 ceFAZolin 2 gm In Sodium 50 Chloride 0.9% 50 ml @ 100 mls/hr IVPB Q8HR KOLBY Rx# :[id number] Intake, IV Titration 48.884 30.090 2.727 Amount Insulin Regular 100 unit 48.884 30.090 2.727 In Sodium Chloride 0.9% 100 ml @ Per Protocol IV .Q0M KOLBY Rx#:[id number] Oral 940 100 Output: Chest Tube Drainage 297 143 0 Mediastinal 50 30 0 Pleural Catheter Left 20 10 0 Pleural Catheter Right 27 103 0 Right/Left Pleural 200 Urine 605 530 40 Other: Voiding Method Indwelling Catheter Indwelling Catheter ABP, PAP, CO, CI - Last Documented Arterial Blood Pressure 112/52 Pulmonary Artery Pressure 35/14 Cardiac Output 7.9 Cardiac Index 4 - Exam CONSTITUTIONAL: Sitting up to the bedside chair in the intensive care unit, appears comfortable, cooperative, no apparent acute distress. HEENT: Neck is supple, no JVD, no lymphadenopathy. Right IJ Cordis in place and functioning. RESPIRATORY: Lungs sounds essentially clear throughout, diminished to his bilateral bases, left greater than right. Respirations are symmetrical and nonlabored. Currently on 2 L nasal cannula with oxygen saturations 97%. Able to achieve 1000 mL on his incentive spirometry. Strong cough. CARDIOVASCULAR: Regular rhythm and rate. S1 and S2 present, negative for S3, gallop or murmur. Sternum is stable. Palpable peripheral pulses bilaterally, +1 edema to his bilateral lower extremities. No calf pain or tenderness noted. Heart hugger in place with patient demonstrating appropriate use. Knee-high GUDELIA hose and sequential compression devices in place to his bilateral lower extremities. GASTROINTESTINAL: Abdomen soft, nontender, nondistended. Active bowel sounds present 4 quadrants. Tolerating diet. Passing flatus. No guarding or rigidity. GENITOURINARY: Castillo present draining clear, yellow urine. Urine output 370 mL in the last 8 hours. INTEGUMENTARY: Skin is warm and dry with no evidence of clubbing or cyanosis. Midline sternal incision clean dry and well approximated, covered with dry intact dressing. Right lower extremity EVH site well approximated without redness or drainage. Left arm radial artery harvest sites clean, dry and approximated. No drainage or redness is present. NEUROLOGIC: Cranial nerves II through XII intact. No focal deficits. MUSKULOSKELETAL: Able to move all extremities, strength equal bilaterally. PSYCHIATRIC: Alert and oriented to person place and time, appropriate affect, intact judgment and insight. INVASIVE LINES AND TUBES: Mediastinal/left/right pleural chest tubes present and connected to low continuous wall suction, no air leaks present. Mediastinal tube with 20 mL of thin serosanguineous drainage overnight, 100 mL output in the last 24 hours. Left pleural chest tube with 120 mL of thin serosanguineous drainage in the last 24 hours. Right pleural chest tube with 40 mL of thin serosanguineous drainage in the last 24 hours. Ventricular epicardial pacemaker wires present, connected to generator, VVI backup rate 50 bpm. Right internal jugular Cordis, right brachial arterial line present. Current CVP 5 mmHg. - Allied health notes Allied health notes reviewed: nursing - Labs CBC & Chem 7: 08/31/23 04:36 08/31/23 04:36 Labs: Abnormal Lab Results - Last 24 Hours (Table) 08/30/23 08/30/23 08/30/23 Range/Units 08:19 09:14 10:04 RBC (4.30-5.90) m/uL Hgb (13.0-17.5) gm/dL Hct (39.0-53.0) % Plt Count (150-450) k/uL Lymphocytes # (1.0-4.8) k/uL Chloride (98-107) mmol/L BUN (9-20) mg/dL Glucose (74-99) mg/dL POC Glucose (mg/dL) 247 H 196 H 152 H (70-110) mg/dL Calcium (8.4-10.2) mg/dL Total Protein (6.3-8.2) g/dL Albumin (3.5-5.0) g/dL 08/30/23 08/30/23 08/30/23 Range/Units 11:03 12:29 13:17 RBC (4.30-5.90) m/uL Hgb (13.0-17.5) gm/dL Hct (39.0-53.0) % Plt Count (150-450) k/uL Lymphocytes # (1.0-4.8) k/uL Chloride (98-107) mmol/L BUN (9-20) mg/dL Glucose (74-99) mg/dL POC Glucose (mg/dL) 138 H 195 H 222 H (70-110) mg/dL Calcium (8.4-10.2) mg/dL Total Protein (6.3-8.2) g/dL Albumin (3.5-5.0) g/dL 08/30/23 08/30/23 08/30/23 Range/Units 14:11 15:24 17:15 RBC (4.30-5.90) m/uL Hgb (13.0-17.5) gm/dL Hct (39.0-53.0) % Plt Count (150-450) k/uL Lymphocytes # (1.0-4.8) k/uL Chloride (98-107) mmol/L BUN (9-20) mg/dL Glucose (74-99) mg/dL POC Glucose (mg/dL) 175 H 127 H 220 H (70-110) mg/dL Calcium (8.4-10.2) mg/dL Total Protein (6.3-8.2) g/dL Albumin (3.5-5.0) g/dL 08/30/23 08/30/23 08/30/23 Range/Units 18:16 19:02 20:07 RBC (4.30-5.90) m/uL Hgb (13.0-17.5) gm/dL Hct (39.0-53.0) % Plt Count (150-450) k/uL Lymphocytes # (1.0-4.8) k/uL Chloride (98-107) mmol/L BUN (9-20) mg/dL Glucose (74-99) mg/dL POC Glucose (mg/dL) 183 H 153 H 118 H (70-110) mg/dL Calcium (8.4-10.2) mg/dL Total Protein (6.3-8.2) g/dL Albumin (3.5-5.0) g/dL 08/30/23 08/30/23 08/30/23 Range/Units 21:01 22:06 23:01 RBC (4.30-5.90) m/uL Hgb (13.0-17.5) gm/dL Hct (39.0-53.0) % Plt Count (150-450) k/uL Lymphocytes # (1.0-4.8) k/uL Chloride (98-107) mmol/L BUN (9-20) mg/dL Glucose (74-99) mg/dL POC Glucose (mg/dL) 132 H 153 H 120 H (70-110) mg/dL Calcium (8.4-10.2) mg/dL Total Protein (6.3-8.2) g/dL Albumin (3.5-5.0) g/dL 08/31/23 08/31/23 08/31/23 Range/Units 00:04 03:06 04:04 RBC (4.30-5.90) m/uL Hgb (13.0-17.5) gm/dL Hct (39.0-53.0) % Plt Count (150-450) k/uL Lymphocytes # (1.0-4.8) k/uL Chloride (98-107) mmol/L BUN (9-20) mg/dL Glucose (74-99) mg/dL POC Glucose (mg/dL) 137 H 126 H 130 H (70-110) mg/dL Calcium (8.4-10.2) mg/dL Total Protein (6.3-8.2) g/dL Albumin (3.5-5.0) g/dL 08/31/23 08/31/23 08/31/23 Range/Units 04:36 04:36 05:07 RBC 3.78 L (4.30-5.90) m/uL Hgb 10.3 L (13.0-17.5) gm/dL Hct 30.5 L (39.0-53.0) % Plt Count 131 L (150-450) k/uL Lymphocytes # 0.9 L (1.0-4.8) k/uL Chloride 110 H (98-107) mmol/L BUN 22 H (9-20) mg/dL Glucose 129 H (74-99) mg/dL POC Glucose (mg/dL) 131 H (70-110) mg/dL Calcium 7.9 L (8.4-10.2) mg/dL Total Protein 5.2 L (6.3-8.2) g/dL Albumin 2.9 L (3.5-5.0) g/dL 08/31/23 08/31/23 Range/Units 06:02 06:59 RBC (4.30-5.90) m/uL Hgb (13.0-17.5) gm/dL Hct (39.0-53.0) % Plt Count (150-450) k/uL Lymphocytes # (1.0-4.8) k/uL Chloride (98-107) mmol/L BUN (9-20) mg/dL Glucose (74-99) mg/dL POC Glucose (mg/dL) 144 H 134 H (70-110) mg/dL Calcium (8.4-10.2) mg/dL Total Protein (6.3-8.2) g/dL Albumin (3.5-5.0) g/dL - Imaging and Cardiology Chest x-ray: report reviewed, image reviewed Assessment and Plan Assessment: Multivessel coronary artery disease, status post off-pump coronary artery bypass grafting 3 Hypertension Hyperlipidemia Peripheral arterial disease with lower extremity bypass as well as stenting and thrombectomy Insulin-dependent diabetes mellitus with a preoperative hemoglobin A1c of 8.5% Obstructive sleep apnea without home CPAP use Tobacco dependence with recent cessation, preoperative FEV1 97% of predicted value Benign prostatic hypertrophy History of DVT on no active anticoagulation as an outpatient Postoperative acute blood loss anemia, expected Plan: Continue to maximize medical therapy with aspirin, statin, Plavix, and beta estiven. Will increase metoprolol tartrate 50 mg by mouth twice a day. Continue amlodipine 2.5 mg by mouth daily with holding parameters for radial artery spasm prophylaxis. Continue amiodarone 400 mg by mouth twice a day for atrial fibrillation prophylaxis. The patient has not had any atrial fibrillation at this point and remains in normal sinus rhythm. Wean O2 as tolerated. Encourage incentive spirometry use 10 times every hour while awake. Bronchodilators per pulmonology. Will monitor daily labs and chest x-rays. Electrolyte replacement per protocol. Increase activity as tolerated, PT/OT/cardiac rehab following. GI/DVT prophylaxis. Pain control with current medication regimen. Insulin management per internal medicine. Patient should remain on insulin drip for 48 hours, then may transition to subcutaneous per protocol. Preoperative hemoglobin A1c 8.5% We will discontinue his right IJ Cordis, and right brachial arterial line. We will move his mediastinal, right and left pleural chest tubes today. Remove Castillo catheter. Continue to record strict inaccurate I's and O's. Bladder scan every 6 hours and when necessary postvoid residuals. If greater than 300 mL of postvoid residual May straight cath. We will remove his ventricular epicardial pacemaker wires today, bed rest for 1 hour post pacemaker wire removal. Daily weights. More recommendations to follow based on patient's clinical course. Time with Patient: Greater than 30
--- NOTE | 2023-08-31 08:23 | XR ---
EXAMINATION TYPE: XR chest 1V portable DATE OF EXAM: 08/31/2023 COMPARISON: 08/30/2023 HISTORY: Postop TECHNIQUE: Single frontal view of the chest is obtained. FINDINGS: [place]-Ponce catheter is been removed. Mediastinal drain and chest tubes remain. No sizable p neumothorax. Postmedian sternotomy clips are seen and there is atrial appendage clip. Heart size is e nlarged. Left-sided consolidation, tiny effusion and underlying interstitial process stable. IMPRESSION: 1. Postoperative change correlate for mild venous congestion. 2. Bilateral lower lobe infiltrate and small effusion greater on the left.
[2023-08-31] MEDS: IPRATROPIUM-ALBUTEROL 3 ML NEB INHALATION SCH ×4 (09:16→20:56)
[2023-08-31 09:20] LABS: Glucose,Whole Blood 192 mg/dL (70-110)
[2023-08-31] MEDS: ASPIRIN 325 MG TAB PO SCH (09:36)
[2023-08-31] MEDS: AMIODARONE 200 MG TAB PO SCH ×2 (09:36→20:29)
[2023-08-31] MEDS: ATORVASTATIN 40 MG TAB PO SCH (09:36)
[2023-08-31] MEDS: ACETAMINOPHEN TAB 500 MG TAB PO PRN ×2 (09:38→17:10)
[2023-08-31] MEDS ORDERED: DEXTROSE 50% SYRINGE 50 ML IVP PRN ×2 (09:48)
[2023-08-31 10:31] LABS: Glucose,Whole Blood 181 mg/dL (70-110)
[2023-08-31] MEDS: INSULIN DETEMIR (LEVEMIR) 100 UNIT/ML SYR SQ SCH (10:31)
[2023-08-31] MEDS: amLODIPine 2.5 MG TAB PO SCH (10:55)
--- NOTE | 2023-08-31 12:01 | P.PN ---
Subjective Progress Note Date: 08/31/23 * 68-year-old patient with past medical history significant for diabetes mellitus, hyperlipidemia, hypertension, gastroesophageal reflux disease, obstructive sleep apnea, history of tobacco use, BPH, who had cardiac catheterization done on 08/24/23 and was noted to have triple-vessel disease. Patient was discharged home with planned for elective CABG which is scheduled for 08/29/23. Postprocedure patient has been transferred to medical ICU for comanagement by turn out worker, and cardiac surgery team. Patient was intubated status post extubation and was transitioned to 6 L of oxygen. Patient was weaned off Precedex drip. He was on nitroglycerin drip which was continued postprocedure patient was also placed on amiodarone drip managed by cardiac surgery * Blood work obtained showed WBC 9.2 hemoglobin 12.2 platelet count of 158. Serum chemistry sodium 137 potassium 4.1 and carbon dioxide 20 B UN 16 creatinine 0.74 * Serial blood glucose obtained 145, 170, 247, 196 * Patient was gradually weaned down to 2 L of oxygen, followed by cardiac surgery and pulmonary medicine * 08/31/2023: Patient seen and evaluated bedside during my evaluation patient is alert and oriented 4, chest tubes have been removed, patient states he had a better night, transition from insulin drip to subcu insulin. Antral tra nsferred out of ICU REVIEW OF SYSTEMS: Discomfort at the site of surgery improved, shortness of breath improved CONSTITUTIONAL: No fever, no malaise, no fatigue. HEENT: No recent visual problems or hearing problems. Denied any sore throat. CARDIOVASCULAR: No chest pain, orthopnea, PND, no palpitations, no syncope. PULMONARY: No shortness of breath, no cough, no hemoptysis. GASTROINTESTINAL: No diarrhea, no nausea, no vomiting, no abdominal pain. NEUROLOGICAL: No headaches, no weakness, no numbness. HEMATOLOGICAL: Denies any bleeding or petechiae. GENITOURINARY: Denies any burning micturition, frequency, or urgency. MUSCULOSKELETAL/RHEUMATOLOGICAL: Denies any joint pain, swelling, or any muscle pain. ENDOCRINE: Denies any polyuria or polydipsia. PHYSICAL EXAMINATION: GENERAL: The patient is alert and oriented x3, nasal cannula in place, chest brace in place, HEENT: Pupils are round and equally reacting to light. EOMI Normocephalic, atraumatic. No pharyngeal erythema. No thyromegaly. CARDIOVASCULAR: S1 and S2 present. No murmurs, rubs, or gallops. Thoracotomy scar intact PULMONARY: Breath sounds equal and symmetrical bilaterally, chest tube was removed ABDOMEN: Soft, nontender, nondistended, normoactive bowel sounds. No palpable organomegaly. MUSCULOSKELETAL: No joint swelling or deformity. EXTREMITIES: No cyanosis, clubbing, or pedal edema. NEUROLOGICAL: Gross neurological examination did not reveal any focal deficits. SKIN: No rashes. Objective - Vital Signs Vital signs: Vital Signs Temp 98.8 F 08/31/23 08:00 Pulse 91 08/31/23 11:00 Resp 26 H 08/31/23 11:00 BP 149/68 08/31/23 11:00 Pulse Ox 93 L 08/31/23 11:00 FiO2 80 08/30/23 05:30 Intake & Output 08/30/23 08/31/23 08/31/23 18:59 06:59 18:59 Intake Total 1435.884 546.090 149.977 Output Total 902 673 210 Balance 533.884 -126.910 -60.023 Weight 90.1 kg 94 kg Intake: IV 447 416 138 CO/CI 30 Lactated Ringers 1,000 ml 340 350 120 @ 20 mls/hr IV .Q24H [facility] Rx#:[id number] Pressure 27 66 18 ceFAZolin 2 gm In Sodium 50 Chloride 0.9% 50 ml @ 100 mls/hr IVPB Q8HR [facility]BY Rx# :[id number] Intake, IV Titration 48.884 30.090 11.977 Amount Insulin Regular 100 unit 48.884 30.090 11.977 In Sodium Chloride 0.9% 100 ml @ Per Protocol IV .Q0M [facility]OLBY Rx#:[id number] Oral 940 100 Output: Chest Tube Drainage 297 143 0 Mediastinal 50 30 0 Pleural Catheter Left 20 10 0 Pleural Catheter Right 27 103 0 Right/Left Pleural 200 Urine 605 530 210 Other: Voiding Method Indwelling Catheter Indwelling Catheter ABP, PAP, CO, CI - Last Documented Arterial Blood Pressure 127/51 Pulmonary Artery Pressure 35/14 Cardiac Output 7.9 Cardiac Index 4 - Labs CBC & Chem 7: 08/31/23 04:36 08/31/23 04:36 Labs: Abnormal Lab Results - Last 24 Hours (Table) 08/30/23 08/30/23 08/30/23 Range/Units 12:29 13:17 14:11 RBC (4.30-5.90) m/uL Hgb (13.0-17.5) gm/dL Hct (39.0-53.0) % Plt Count (150-450) k/uL Lymphocytes # (1.0-4.8) k/uL Chloride (98-107) mmol/L BUN (9-20) mg/dL Glucose (74-99) mg/dL POC Glucose (mg/dL) 195 H 222 H 175 H (70-110) mg/dL Calcium (8.4-10.2) mg/dL Total Protein (6.3-8.2) g/dL Albumin (3.5-5.0) g/dL 08/30/23 08/30/23 08/30/23 Range/Units 15:24 17:15 18:16 RBC (4.30-5.90) m/uL Hgb (13.0-17.5) gm/dL Hct (39.0-53.0) % Plt Count (150-450) k/uL Lymphocytes # (1.0-4.8) k/uL Chloride (98-107) mmol/L BUN (9-20) mg/dL Glucose (74-99) mg/dL POC Glucose (mg/dL) 127 H 220 H 183 H (70-110) mg/dL Calcium (8.4-10.2) mg/dL Total Protein (6.3-8.2) g/dL Albumin (3.5-5.0) g/dL 08/30/23 08/30/23 08/30/23 Range/Units 19:02 20:07 21:01 RBC (4.30-5.90) m/uL Hgb (13.0-17.5) gm/dL Hct (39.0-53.0) % Plt Count (150-450) k/uL Lymphocytes # (1.0-4.8) k/uL Chloride (98-107) mmol/L BUN (9-20) mg/dL Glucose (74-99) mg/dL POC Glucose (mg/dL) 153 H 118 H 132 H (70-110) mg/dL Calcium (8.4-10.2) mg/dL Total Protein (6.3-8.2) g/dL Albumin (3.5-5.0) g/dL 08/30/23 08/30/23 08/31/23 Range/Units 22:06 23:01 00:04 RBC (4.30-5.90) m/uL Hgb (13.0-17.5) gm/dL Hct (39.0-53.0) % Plt Count (150-450) k/uL Lymphocytes # (1.0-4.8) k/uL Chloride (98-107) mmol/L BUN (9-20) mg/dL Glucose (74-99) mg/dL POC Glucose (mg/dL) 153 H 120 H 137 H (70-110) mg/dL Calcium (8.4-10.2) mg/dL Total Protein (6.3-8.2) g/dL Albumin (3.5-5.0) g/dL 08/31/23 08/31/23 08/31/23 Range/Units 03:06 04:04 04:36 RBC 3.78 L (4.30-5.90) m/uL Hgb 10.3 L (13.0-17.5) gm/dL Hct 30.5 L (39.0-53.0) % Plt Count 131 L (150-450) k/uL Lymphocytes # 0.9 L (1.0-4.8) k/uL Chloride (98-107) mmol/L BUN (9-20) mg/dL Glucose (74-99) mg/dL POC Glucose (mg/dL) 126 H 130 H (70-110) mg/dL Calcium (8.4-10.2) mg/dL Total Protein (6.3-8.2) g/dL Albumin (3.5-5.0) g/dL 08/31/23 08/31/23 08/31/23 Range/Units 04:36 05:07 06:02 RBC (4.30-5.90) m/uL Hgb (13.0-17.5) gm/dL Hct (39.0-53.0) % Plt Count (150-450) k/uL Lymphocytes # (1.0-4.8) k/uL Chloride 110 H (98-107) mmol/L BUN 22 H (9-20) mg/dL Glucose 129 H (74-99) mg/dL POC Glucose (mg/dL) 131 H 144 H (70-110) mg/dL Calcium 7.9 L (8.4-10.2) mg/dL Total Protein 5.2 L (6.3-8.2) g/dL Albumin 2.9 L (3.5-5.0) g/dL 08/31/23 08/31/23 08/31/23 Range/Units 06:59 08:09 09:19 RBC (4.30-5.90) m/uL Hgb (13.0-17.5) gm/dL Hct (39.0-53.0) % Plt Count (150-450) k/uL Lymphocytes # (1.0-4.8) k/uL Chloride (98-107) mmol/L BUN (9-20) mg/dL Glucose (74-99) mg/dL POC Glucose (mg/dL) 134 H 205 H 192 H (70-110) mg/dL Calcium (8.4-10.2) mg/dL Total Protein (6.3-8.2) g/dL Albumin (3.5-5.0) g/dL 08/31/23 Range/Units 10:29 RBC (4.30-5.90) m/uL Hgb (13.0-17.5) gm/dL Hct (39.0-53.0) % Plt Count (150-450) k/uL Lymphocytes # (1.0-4.8) k/uL Chloride (98-107) mmol/L BUN (9-20) mg/dL Glucose (74-99) mg/dL POC Glucose (mg/dL) 181 H (70-110) mg/dL Calcium (8.4-10.2) mg/dL Total Protein (6.3-8.2) g/dL Albumin (3.5-5.0) g/dL Assessment and Plan Assessment: Assessment and plan * Triple-vessel coronary artery disease status post bypass POD 2 >> [place] to LAD and radial 2 ramus intermedius and saphenous vein graft to PDA. * Diabetes mellitus type 2 * Hypertension * Hyperlipidemia * Remote history of DVT * History of tobacco use * Obstructive sleep apnea not on CPAP * In regards to post-CABG continue management per cardiac surgery/medical ICU, continue aspirin, amiodarone, Lipitor, Plavix, metoprolol * In regards to diabetes mellitus postprocedure patient was on insulin drip will be transitioned to subcu insulin * In regards to hyperlipidemia continue Lipitor * Patient comanagement by medical ICU, cardiac surgery team * CODE STATUS is full code
[2023-08-31 12:03] LABS: Glucose,Whole Blood 168 mg/dL (70-110)
[2023-08-31] MEDS: INSULIN ASPART (NovoLOG) 100 UNIT/ML VIAL SQ SCH ×4 (12:11→17:44)
--- NOTE | 2023-08-31 13:49 | P.PN ---
Subjective Progress Note Date: 08/31/23 This is a 68-year-old male patient with multivessel coronary artery disease and the patient underwent a cardiac catheterization on 08/24/2013 and was found to have triple-vessel disease. The patient was discharged home and he came in today for an elective bypass surgery. Surgery was done off pump and the patient had three-vessel bypass surgery involving MOJICA to LAD, radial artery to ramus intermedius and saphenous vein graft to posterior descending artery. The patient following that was brought into the intensive care unit. Initial chest x-ray showed no acute abnormalities. There was some increased pulmonary vessel markings and orotracheal tube was in good location. Chest is also good locat ion. The patient is a right pleural, left pleural and mediastinal chest tube and output is minimal. No evidence of any air leak. No evidence of any pneumothorax. The patient was seen and evaluated. He was on propofol. He was gradually wean off the propofol and FiO2 was gradually wean down. Following that, the patient was awake and alert and following commands. He has good weaning parameters with rapid shallow breathing index of 42. Tidal volume was 950. Minute ventilation was 13.5 L and then Nif was -47. The patient was given a blood gas that showed a pH of 7.32 with a pCO2 of 45 and a pO2 of 69. Following that, the patient was extubated the patient is currently on 60. Oxymizer nasal cannula. Currently, the patient is hemodynamically stable. He was given IV albumin and his blood pressure is holding well for now. Cardiac output is 6.8 with an index of 3.4. Pulmonary artery pressures of 42/20. Patient is on nitroglycerin drip at 10 mcg/m. The patient is also on insulin drip at 2.5 units an hour. He remains on low-dose Precedex at 0.3 mcg/kg/m. Awake and alert and arousable. No signs of any respiratory distress at this point in time. Cardiac rhythm is sinus. The patient is communicating. The patient is 104 extremities without any limitation. Lab work shows a WBC count of 5.8, hemoglobin is at 10.9, and a platelet count is 125. Producing adequate amount of urine output. On 08/30/2023, I'm seeing Marshall for a follow-up. Is doing extremely well. Shortly extubated and is currently on room air oxygen. Clinically stable. Hemodynamically stable. Postextubation, the patient required to go on Precedex and briefly on a BiPAP. Currently is off the BiPAP. His cardiac output is at 6 with an index of 3. His pulmonary artery pressure 36/17. Is producing adequate amount of urine output. He has pleural chest tubes on the right and the left and the total amount of output has been around 1 L since surgery. He also had a mediastinal chest tube the total amount of output has been in the order of 800 mL since surgery. No evidence of any air leak. The chest x-ray from today shows some cardiomegaly and mild pulmonary vessel congestion. Otherwise there is no evidence of any pneumothorax. Cardiac rhythm is sinus. He is on amiodarone for A. fib prophylaxis. Nitroglycerin drip has been discontinued. He remains on insulin drip at 4.5 units an hour. He is awake and alert and communicating. No issues with pain. The Rosston-Ponce catheter still in place. Blood work from today shows a hemoglobin of 12.2. The white cell cause of 9.2. Electrolytes are all within normal limits. BUN is at 60 with a creatinine of 0.7. Awake and alert and moving all 4 extremities without any limitation. On today's evaluation of 08/31/2023, the patient denies having any specific complaints. He is awake and alert. He is currently on 1 L of Oxymizer nasal cannula with pulse ox of 95%. Chest x-ray showing increased interstitial markings bilaterally. No evidence of any pneumothorax. Output from the chest is at a minimal and all of the chest tube will be removed today. The patient has a CVP of 5. Blood sugars are elevated and the patient remains on insulin drip and the rate is being titrated based on his maternal control. This morning he is on 6 units and the dose had to be increased following his oral fluid intake. Output from the chest tube has been noted.Mediastinal chest tubes drained 20 mL output in the last 8 hours and 100 mL output in the last 24 hours. Left pleural chest tube drained 120 mL output in the last 24 hours, and his r ight pleural chest tube drainage 40 mL output in the last 24 hours. Laboratory and chest x-ray results reviewed. He is ambulating. He is using the incentive spirometer. No focal neurological deficit and the patient will go for extremities without any limitations. Objective - Vital Signs Vital signs: Vital Signs Temp 98.8 F 08/31/23 08:00 Pulse 86 08/31/23 09:16 Resp 18 08/31/23 08:00 BP 110/63 08/31/23 08:00 Pulse Ox 98 08/31/23 09:19 FiO2 80 08/30/23 05:30 Intake & Output 08/30/23 08/31/23 08/31/23 18:59 06:59 18:59 Intake Total 1435.884 546.090 83.977 Output Total 902 673 100 Balance 533.884 -126.910 -16.023 Weight 90.1 kg 94 kg Intake: IV 447 416 72 CO/CI 30 Lactated Ringers 1,000 ml 340 350 60 @ 20 mls/hr IV .Q24H [facility] Rx#:[id number] Pressure 27 66 12 ceFAZolin 2 gm In Sodium 50 Chloride 0.9% 50 ml @ 100 mls/hr IVPB Q8HR [facility] Rx# :[id number] Intake, IV Titration 48.884 30.090 11.977 Amount Insulin Regular 100 unit 48.884 30.090 11.977 In Sodium Chloride 0.9% 100 ml @ Per Protocol IV .Q0M [facility] Rx#:[id number] Oral 940 100 Output: Chest Tube Drainage 297 143 0 Mediastinal 50 30 0 Pleural Catheter Left 20 10 0 Pleural Catheter Right 27 103 0 Right/Left Pleural 200 Urine 605 530 100 Other: Voiding Method Indwelling Catheter Indwelling Catheter ABP, PAP, CO, CI - Last Documented Arterial Blood Pressure 126/49 Pulmonary Artery Pressure 35/14 Cardiac Output 7.9 Cardiac Index 4 - Exam GENERAL EXAM: Alert, very pleasant 68-year-old male, on room air, resting comfortably in bed, in no apparent distress. The patient is currently on 1 L of oxygen by nasal cannula. HEAD: Normocephalic. EYES: Normal reaction of pupils, equal size. NOSE: Clear with pink turbinates. THROAT: No erythema or exudates. NECK: No masses, no JVD. The patient has a right IJ Rosston-Ponce catheter in place and a Cordis in a good location CHEST: No chest wall deformity. The patient is a right pleural, left total of the mediastinal chest tube. LUNGS: Equal air entry with no crackles, wheeze, rhonchi or dullness. CVS: S1 and S2 normal with no audible murmur, regular rhythm. Thoracotomy scar is dry clean and intact ABDOMEN: No hepatosplenomegaly, normal bowel sounds, no guarding or rigidity. SPINE: No scoliosis or deformity SKIN: No rashes CENTRAL NERVOUS SYSTEM: No focal deficits, tone is normal in all 4 extremities. Patient is awake and alert 3 and is communicating. EXTREMITIES: There is no peripheral edema. No clubbing, no cyanosis. Peripheral pulses are intact. - Labs CBC & Chem 7: 08/31/23 04:36 08/31/23 04:36 Labs: Abnormal Lab Results - Last 24 Hours (Table) 08/30/23 08/30/23 08/30/23 Range/Units 10:04 11:03 12:29 RBC (4.30-5.90) m/uL Hgb (13.0-17.5) gm/dL Hct (39.0-53.0) % Plt Count (150-450) k/uL Lymphocytes # (1.0-4.8) k/uL Chloride (98-107) mmol/L BUN (9-20) mg/dL Glucose (74-99) mg/dL POC Glucose (mg/dL) 152 H 138 H 195 H (70-110) mg/dL Calcium (8.4-10.2) mg/dL Total Protein (6.3-8.2) g/dL Albumin (3.5-5.0) g/dL 08/30/23 08/30/23 08/30/23 Range/Units 13:17 14:11 15:24 RBC (4.30-5.90) m/uL Hgb (13.0-17.5) gm/dL Hct (39.0-53.0) % Plt Count (150-450) k/uL Lymphocytes # (1.0-4.8) k/uL Chloride (98-107) mmol/L BUN (9-20) mg/dL Glucose (74-99) mg/dL POC Glucose (mg/dL) 222 H 175 H 127 H (70-110) mg/dL Calcium (8.4-10.2) mg/dL Total Protein (6.3-8.2) g/dL Albumin (3.5-5.0) g/dL 08/30/23 08/30/23 08/30/23 Range/Units 17:15 18:16 19:02 RBC (4.30-5.90) m/uL Hgb (13.0-17.5) gm/dL Hct (39.0-53.0) % Plt Count (150-450) k/uL Lymphocytes # (1.0-4.8) k/uL Chloride (98-107) mmol/L BUN (9-20) mg/dL Glucose (74-99) mg/dL POC Glucose (mg/dL) 220 H 183 H 153 H (70-110) mg/dL Calcium (8.4-10.2) mg/dL Total Protein (6.3-8.2) g/dL Albumin (3.5-5.0) g/dL 08/30/23 08/30/23 08/30/23 Range/Units 20:07 21:01 22:06 RBC (4.30-5.90) m/uL Hgb (13.0-17.5) gm/dL Hct (39.0-53.0) % Plt Count (150-450) k/uL Lymphocytes # (1.0-4.8) k/uL Chloride (98-107) mmol/L BUN (9-20) mg/dL Glucose (74-99) mg/dL POC Glucose (mg/dL) 118 H 132 H 153 H (70-110) mg/dL Calcium (8.4-10.2) mg/dL Total Protein (6.3-8.2) g/dL Albumin (3.5-5.0) g/dL 08/30/23 08/31/23 08/31/23 Range/Units 23:01 00:04 03:06 RBC (4.30-5.90) m/uL Hgb (13.0-17.5) gm/dL Hct (39.0-53.0) % Plt Count (150-450) k/uL Lymphocytes # (1.0-4.8) k/uL Chloride (98-107) mmol/L BUN (9-20) mg/dL Glucose (74-99) mg/dL POC Glucose (mg/dL) 120 H 137 H 126 H (70-110) mg/dL Calcium (8.4-10.2) mg/dL Total Protein (6.3-8.2) g/dL Albumin (3.5-5.0) g/dL 08/31/23 08/31/23 08/31/23 Range/Units 04:04 04:36 04:36 RBC 3.78 L (4.30-5.90) m/uL Hgb 10.3 L (13.0-17.5) gm/dL Hct 30.5 L (39.0-53.0) % Plt Count 131 L (150-450) k/uL Lymphocytes # 0.9 L (1.0-4.8) k/uL Chloride 110 H (98-107) mmol/L BUN 22 H (9-20) mg/dL Glucose 129 H (74-99) mg/dL POC Glucose (mg/dL) 130 H (70-110) mg/dL Calcium 7.9 L (8.4-10.2) mg/dL Total Protein 5.2 L (6.3-8.2) g/dL Albumin 2.9 L (3.5-5.0) g/dL 08/31/23 08/31/23 08/31/23 Range/Units 05:07 06:02 06:59 RBC (4.30-5.90) m/uL Hgb (13.0-17.5) gm/dL Hct (39.0-53.0) % Plt Count (150-450) k/uL Lymphocytes # (1.0-4.8) k/uL Chloride (98-107) mmol/L BUN (9-20) mg/dL Glucose (74-99) mg/dL POC Glucose (mg/dL) 131 H 144 H 134 H (70-110) mg/dL Calcium (8.4-10.2) mg/dL Total Protein (6.3-8.2) g/dL Albumin (3.5-5.0) g/dL 08/31/23 08/31/23 Range/Units 08:09 09:19 RBC (4.30-5.90) m/uL Hgb (13.0-17.5) gm/dL Hct (39.0-53.0) % Plt Count (150-450) k/uL Lymphocytes # (1.0-4.8) k/uL Chloride (98-107) mmol/L BUN (9-20) mg/dL Glucose (74-99) mg/dL POC Glucose (mg/dL) 205 H 192 H (70-110) mg/dL Calcium (8.4-10.2) mg/dL Total Protein (6.3-8.2) g/dL Albumin (3.5-5.0) g/dL Assessment and Plan Plan: Triple-vessel coronary artery disease, the patient underwent an off-pump 3 vessel bypass and the patient underwent MOJICA to LAD and radial 2 ramus intermedius and saphenous vein graft to PDA. Patient is currently postop day #2. Hemodynamically stable. Postthoracotomy, extubated without any major difficulties currently on 1 L oxygen oxygen by nasal cannula. All of the chest tubes are in place. Output has been noted Diabetes mellitus type 2, currently on insulin drip for blood sugar control at 6 units an hour Hypertension, hyperlipidemia Previous history of DVT, right sided Obstructive sleep apnea. Lost weight and the patient is currently off CPAP therapy. Osteoarthritis History of smoking. The patient FEV1 of 2.8 L which is 97% of predicted. Plan Titrate oxygen flow to maintain saturation above 90% Provide incentive spirometer Removed all chest tubes Insulin drip will be discontinued and the patient will be given Levemir insulin 15 units along with 4 units of NovoLog with meals and a sliding scale coverage Cardiac rhythm is sinus. Amiodarone for A. fib prophylaxis Monitor for blood sugar control Daily chest x-rays Increase mobility and the patient is sitting up on a chair. Blood work is stable. We'll continue to follow. We'll transfer out of the intensive care unit
[2023-08-31] MEDS: MAGNESIUM SULFATE-D5W PMX 1 GM in DEXTROSE/WATER 1 100ML.BAG IVPB SCH ×2 (13:54→15:30)
[2023-08-31 17:17] LABS: Glucose,Whole Blood 252 mg/dL (70-110)
--- NOTE | 2023-08-31 18:20 | P.PN ---
Subjective Progress Note Date: 08/31/23 progress note 08/31/2023 Patient is doing well from cardiovascular standpoint. There were no episodes of arrhythmias noticed on 24-hour monitoring of telemetry. Patient's right IJ catheter was removed and his chest tubes were removed today. Patient is doing well since. He was able to walk in the unit without any limitations. Denies any chest pain chest pressure shortness of breath. HISTORY OF PRESENTING ILLNESS 68-year-old male with PMH of CAD status post multiple PCI in past, diabetes, hypertension, PAD status post bypass and peripheral stenting, former smoker who presented to the hospital with chest pain on August 23. For his unstable angina he underwent a cardiac catheterization procedure with Dr. Grimes, 80% in- stent stenosis of proximal LAD stent, 70% distal RCA stenosis, 50% ostial ramus disease, 50% RCA disease. For this cardiology has a surgery was consulted. His echocardiogram showed an EF of 55%. There were no major valvular abnormality reported on the echo. Patient is status post day 1 of 3 vessel CABG surgery he received MOJICA to LAD, SVG to PDA, radial artery graft to ramus artery. Atriclip 35mm. Postop hemoglobin 12.2, creatinine 0.7, heart rate 74, sinus rhythm, no arrhythmias noticed on telemetry for overnight last 24 hours. BP 104/41 PA catheter pressures 33/13, CVP 5, REVIEW OF SYSTEMS 14 point review of system is negative except what is mentioned above in HPI. PHYSICAL EXAMINATION Vital signs reviewed. Head: Normocephalic. Eyes: Sclerae nonicteric. Neck: Brisk carotid upstroke, Lungs: Mild crackles in lungs reduced inspiratory effort. Heart: Regular rate and rhythm, no murmur or rub. Sternal surgical wound has dressing in place which is clear and dry Abdomen: Soft nontender, Extremities: No edema, intact distal pulses. Neuro: Alert, oritented, no focal deficits 1+ swelling in bilateral lower and upper extremity. ASSESSMENT multivessel CAD status post CABG 08/29/2023, MOJICA to LAD, SVG to PDA, radial to OM, Atriclip ligation Essential hypertension Type 2 diabetes on insulin therapy Previous smoker PAD status post prior bypass and stenting in LE Prior history of DVT not an anticoagulation PLAN This patient is doing well from cardiac vessel standpoint at this time. Continue aspirin, Plavix, atorvastatin, amiodarone as per cardiac thoracic surgery team protocol. Possible d/c sunday. Objective - Vital Signs Vital signs: Vital Signs Temp 98.1 F 08/31/23 13:00 Pulse 95 08/31/23 18:00 Resp 19 08/31/23 18:00 BP 163/69 08/31/23 18:00 Pulse Ox 94 L 08/31/23 18:00 FiO2 80 08/30/23 05:30 Intake & Output 08/30/23 08/31/23 08/31/23 18:59 06:59 18:59 Intake Total 1435.884 546.090 909.977 Output Total 902 673 385 Balance 533.884 -126.910 524.977 Weight 90.1 kg 94 kg Intake: IV 447 416 228 CO/CI 30 Lactated Ringers 1,000 ml 340 350 210 @ 20 mls/hr IV .Q24H [facility] Rx#:[id number] Pressure 27 66 18 ceFAZolin 2 gm In Sodium 50 Chloride 0.9% 50 ml @ 100 mls/hr IVPB Q8HR [facility] Rx# :[id number] Intake, IV Titration 48.884 30.090 211.977 Amount Insulin Regular 100 unit 48.884 30.090 11.977 In Sodium Chloride 0.9% 100 ml @ Per Protocol IV .Q0M [facility] Rx#:[id number] Magnesium Sulfate-D5w Pmx 200 1 gm In Dextrose/Water 1 100ml.bag @ 100 mls/hr IVPB Q1H [facility] Rx#: [id number] Oral 940 100 470 Output: Chest Tube Drainage 297 143 0 Mediastinal 50 30 0 Pleural Catheter Left 20 10 0 Pleural Catheter Right 27 103 0 Right/Left Pleural 200 Urine 605 530 385 Other: Voiding Method Indwelling Catheter Indwelling Catheter Indwelling Catheter # Voids 0 ABP, PAP, CO, CI - Last Documented Arterial Blood Pressure 127/51 Pulmonary Artery Pressure 35/14 Cardiac Output 7.9 Cardiac Index 4 - Labs CBC & Chem 7: 08/31/23 04:36 08/31/23 04:36 Labs: Abnormal Lab Results - Last 24 Hours (Table) 08/30/23 08/30/23 08/30/23 Range/Units 19:02 20:07 21:01 RBC (4.30-5.90) m/uL Hgb (13.0-17.5) gm/dL Hct (39.0-53.0) % Plt Count (150-450) k/uL Lymphocytes # (1.0-4.8) k/uL Chloride (98-107) mmol/L BUN (9-20) mg/dL Glucose (74-99) mg/dL POC Glucose (mg/dL) 153 H 118 H 132 H (70-110) mg/dL Calcium (8.4-10.2) mg/dL Total Protein (6.3-8.2) g/dL Albumin (3.5-5.0) g/dL 08/30/23 08/30/23 08/31/23 Range/Units 22:06 23:01 00:04 RBC (4.30-5.90) m/uL Hgb (13.0-17.5) gm/dL Hct (39.0-53.0) % Plt Count (150-450) k/uL Lymphocytes # (1.0-4.8) k/uL Chloride (98-107) mmol/L BUN (9-20) mg/dL Glucose (74-99) mg/dL POC Glucose (mg/dL) 153 H 120 H 137 H (70-110) mg/dL Calcium (8.4-10.2) mg/dL Total Protein (6.3-8.2) g/dL Albumin (3.5-5.0) g/dL 08/31/23 08/31/23 08/31/23 Range/Units 03:06 04:04 04:36 RBC 3.78 L (4.30-5.90) m/uL Hgb 10.3 L (13.0-17.5) gm/dL Hct 30.5 L (39.0-53.0) % Plt Count 131 L (150-450) k/uL Lymphocytes # 0.9 L (1.0-4.8) k/uL Chloride (98-107) mmol/L BUN (9-20) mg/dL Glucose (74-99) mg/dL POC Glucose (mg/dL) 126 H 130 H (70-110) mg/dL Calcium (8.4-10.2) mg/dL Total Protein (6.3-8.2) g/dL Albumin (3.5-5.0) g/dL 08/31/23 08/31/23 08/31/23 Range/Units 04:36 05:07 06:02 RBC (4.30-5.90) m/uL Hgb (13.0-17.5) gm/dL Hct (39.0-53.0) % Plt Count (150-450) k/uL Lymphocytes # (1.0-4.8) k/uL Chloride 110 H (98-107) mmol/L BUN 22 H (9-20) mg/dL Glucose 129 H (74-99) mg/dL POC Glucose (mg/dL) 131 H 144 H (70-110) mg/dL Calcium 7.9 L (8.4-10.2) mg/dL Total Protein 5.2 L (6.3-8.2) g/dL Albumin 2.9 L (3.5-5.0) g/dL 08/31/23 08/31/23 08/31/23 Range/Units 06:59 08:09 09:19 RBC (4.30-5.90) m/uL Hgb (13.0-17.5) gm/dL Hct (39.0-53.0) % Plt Count (150-450) k/uL Lymphocytes # (1.0-4.8) k/uL Chloride (98-107) mmol/L BUN (9-20) mg/dL Glucose (74-99) mg/dL POC Glucose (mg/dL) 134 H 205 H 192 H (70-110) mg/dL Calcium (8.4-10.2) mg/dL Total Protein (6.3-8.2) g/dL Albumin (3.5-5.0) g/dL 08/31/23 08/31/23 08/31/23 Range/Units 10:29 12:02 17:16 RBC (4.30-5.90) m/uL Hgb (13.0-17.5) gm/dL Hct (39.0-53.0) % Plt Count (150-450) k/uL Lymphocytes # (1.0-4.8) k/uL Chloride (98-107) mmol/L BUN (9-20) mg/dL Glucose (74-99) mg/dL POC Glucose (mg/dL) 181 H 168 H 252 H (70-110) mg/dL Calcium (8.4-10.2) mg/dL Total Protein (6.3-8.2) g/dL Albumin (3.5-5.0) g/dL
[2023-08-31 20:11] LABS: Glucose,Whole Blood 273 mg/dL (70-110)
[2023-08-31] MEDS: TAMSULOSIN 0.4 MG CAP.ER.24H PO SCH (21:03)
[2023-08-31] MEDS: SENNOSIDES-DOCUSATE SODIUM 1 EACH TAB PO SCH (21:03)
[2023-08-31] MEDS: MELATONIN 5 MG TABLET PO PRN (21:23)
[2023-08-31] MEDS: HYDROcodone/APAP 5-325MG 1 EACH TAB PO PRN (21:23)
[2023-09-01 03:16] LABS: Glucose,Whole Blood 191 mg/dL (70-110)
[2023-09-01] MEDS: HYDROcodone/APAP 5-325MG 1 EACH TAB PO PRN (03:40)
[2023-09-01 06:04] LABS: Glucose,Whole Blood 206 mg/dL (70-110)
[2023-09-01] MEDS: KETOROLAC 15 MG/ML 1 ML VIAL IVP SCH ×3 (06:38→18:29)
[2023-09-01] MEDS: INSULIN DETEMIR (LEVEMIR) 100 UNIT/ML SYR SQ SCH (06:38)
[2023-09-01] MEDS: INSULIN ASPART (NovoLOG) 100 UNIT/ML VIAL SQ SCH ×6 (06:38→17:02)
[2023-09-01] MEDS: PANTOPRAZOLE 40 MG TABLET PO SCH (06:39)
[2023-09-01 07:59] LABS: HGB 10.8 gm/dL (13.0-17.5); MCHC 33.6 g/dL (31.0-37.0); MCV 80.5 fL (80.0-100.0); Mean Platelet Volume 8.8; Platelet Count 136 k/uL (150-450); RBC 3.98 m/uL (4.30-5.90); RDW 14.1 % (11.5-15.5); WBC 6.8 k/uL (3.8-10.6)
[2023-09-01 08:25] LABS: ALT 15 U/L (4-49); AST 30 U/L (17-59); African American GFR (CKD) >90 (>60 ml/min/1.73 sqM); Albumin 3.4 g/dL (3.5-5.0); Alkaline Phosphatase 78 U/L (38-126); Anion Gap 11 mmol/L; Blood Urea Nitrogen 27 mg/dL (9-20); Calcium 8.3 mg/dL (8.4-10.2); Carbon Dioxide 20 mmol/L (22-30); Chloride 110 mmol/L (98-107); Glucose 187 mg/dL (74-99); Magnesium 2.4 mg/dL (1.6-2.3); Non-African American GFR(CKD) >90 (>60 ml/min/1.73 sqM); Potassium 4.2 mmol/L (3.5-5.1); Sodium 141 mmol/L (137-145); Total Bilirubin 0.8 mg/dL (0.2-1.3); Total Protein 5.9 g/dL (6.3-8.2)
[2023-09-01] MEDS: ASPIRIN 325 MG TAB PO SCH (08:40)
[2023-09-01] MEDS: CLOPIDOGREL 75 MG TAB PO SCH (08:40)
[2023-09-01] MEDS: AMIODARONE 200 MG TAB PO SCH ×2 (08:40→19:32)
[2023-09-01] MEDS: ACETAMINOPHEN TAB 500 MG TAB PO PRN ×2 (08:40→17:01)
[2023-09-01] MEDS: ATORVASTATIN 40 MG TAB PO SCH (08:40)
[2023-09-01] MEDS: amLODIPine 5 MG TAB PO SCH (08:41)
[2023-09-01] MEDS: METOPROLOL TARTRATE 50 MG TAB PO SCH ×2 (08:41→19:32)
--- NOTE | 2023-09-01 08:56 | XR ---
EXAMINATION TYPE: XR chest 2V DATE OF EXAM: 09/01/2023 COMPARISON: 08/28/2023 HISTORY: Postop CABG TECHNIQUE: Frontal and lateral views of the chest are obtained. FINDINGS: There is been interval development of CABG surgery. The heart is mildly prominent in size and there is mild diffuse pulmonary vascular congestion and mil d interstitial edema. There are small bilateral pleural effusions. There is no pneumothorax. The osseous structures are intact. IMPRESSION: 1. Postop CABG surgery. 2. Mild cardiomegaly, mild pulmonary vascular congestion, interstitial edema and small bilateral pleu ral effusions.
[2023-09-01] MEDS ORDERED: lisinopriL 10 MG TAB PO SCH (09:00)
[2023-09-01] MEDS: IPRATROPIUM-ALBUTEROL 3 ML NEB INHALATION SCH ×4 (09:09→20:40)
[2023-09-01] MEDS: HEPARIN SODIUM,PORCINE 5,000 UNIT/ML 1 ML VIAL SQ SCH ×2 (09:42→17:02)
[2023-09-01 11:54] LABS: Glucose,Whole Blood 185 mg/dL (70-110)
--- NOTE | 2023-09-01 12:39 | P.PN ---
Subjective Progress Note Date: 09/01/23 This is a 68-year-old male patient with multivessel coronary artery disease and the patient underwent a cardiac catheterization on 08/24/2013 and was found to have triple-vessel disease. The patient was discharged home and he came in today for an elective bypass surgery. Surgery was done off pump and the patient had three-vessel bypass surgery involving MOJICA to LAD, radial artery to ramus intermedius and saphenous vein graft to posterior descending artery. The patient following that was brought into the intensive care unit. Initial chest x-ray showed no acute abnormalities. There was some increased pulmonary vessel markings and orotracheal tube was in good location. Chest is also good locat ion. The patient is a right pleural, left pleural and mediastinal chest tube and output is minimal. No evidence of any air leak. No evidence of any pneumothorax. The patient was seen and evaluated. He was on propofol. He was gradually wean off the propofol and FiO2 was gradually wean down. Following that, the patient was awake and alert and following commands. He has good weaning parameters with rapid shallow breathing index of 42. Tidal volume was 950. Minute ventilation was 13.5 L and then Nif was -47. The patient was given a blood gas that showed a pH of 7.32 with a pCO2 of 45 and a pO2 of 69. Following that, the patient was extubated the patient is currently on 60. Oxymizer nasal cannula. Currently, the patient is hemodynamically stable. He was given IV albumin and his blood pressure is holding well for now. Cardiac output is 6.8 with an index of 3.4. Pulmonary artery pressures of 42/20. Patient is on nitroglycerin drip at 10 mcg/m. The patient is also on insulin drip at 2.5 units an hour. He remains on low-dose Precedex at 0.3 mcg/kg/m. Awake and alert and arousable. No signs of any respiratory distress at this point in time. Cardiac rhythm is sinus. The patient is communicating. The patient is 104 extremities without any limitation. Lab work shows a WBC count of 5.8, hemoglobin is at 10.9, and a platelet count is 125. Producing adequate amount of urine output. On 08/30/2023, I'm seeing Marshall for a follow-up. Is doing extremely well. Shortly extubated and is currently on room air oxygen. Clinically stable. Hemodynamically stable. Postextubation, the patient required to go on Precedex and briefly on a BiPAP. Currently is off the BiPAP. His cardiac output is at 6 with an index of 3. His pulmonary artery pressure 36/17. Is producing adequate amount of urine output. He has pleural chest tubes on the right and the left and the total amount of output has been around 1 L since surgery. He also had a mediastinal chest tube the total amount of output has been in the order of 800 mL since surgery. No evidence of any air leak. The chest x-ray from today shows some cardiomegaly and mild pulmonary vessel congestion. Otherwise there is no evidence of any pneumothorax. Cardiac rhythm is sinus. He is on amiodarone for A. fib prophylaxis. Nitroglycerin drip has been discontinued. He remains on insulin drip at 4.5 units an hour. He is awake and alert and communicating. No issues with pain. The Yale-Ponce catheter still in place. Blood work from today shows a hemoglobin of 12.2. The white cell cause of 9.2. Electrolytes are all within normal limits. BUN is at 60 with a creatinine of 0.7. Awake and alert and moving all 4 extremities without any limitation. On today's evaluation of 08/31/2023, the patient denies having any specific complaints. He is awake and alert. He is currently on 1 L of Oxymizer nasal cannula with pulse ox of 95%. Chest x-ray showing increased interstitial markings bilaterally. No evidence of any pneumothorax. Output from the chest is at a minimal and all of the chest tube will be removed today. The patient has a CVP of 5. Blood sugars are elevated and the patient remains on insulin drip and the rate is being titrated based on his maternal control. This morning he is on 6 units and the dose had to be increased following his oral fluid intake. Output from the chest tube has been noted.Mediastinal chest tubes drained 20 mL output in the last 8 hours and 100 mL output in the last 24 hours. Left pleural chest tube drained 120 mL output in the last 24 hours, and his r ight pleural chest tube drainage 40 mL output in the last 24 hours. Laboratory and chest x-ray results reviewed. He is ambulating. He is using the incentive spirometer. No focal neurological deficit and the patient will go for extremities without any limitations. On 09/01/2023, the patient is doing extremely well. The patient was transferred out of the intensive care unit yesterday. He is transitioning between room air oxygen at 2 L of Oxymizer nasal cannula to maintain a saturation above 90%. The patient otherwise is doing well. No chest pain. Sternum is stable. BUN is 27 with a Of 0.8 and a potassium level is at 4.2 and hemoglobin is at 10.8. His emulating. Is using the senna spirometer. The cardiac rhythm is sinus and a chest x-ray showing post-CABG changes with mild splenomegaly microvascular congestion. Objective - Vital Signs Vital signs: Vital Signs Temp 97.9 F 08/31/23 20:00 Pulse 88 09/01/23 09:19 Resp 16 09/01/23 08:38 BP 156/74 09/01/23 08:38 Pulse Ox 92 L 09/01/23 08:38 FiO2 80 08/30/23 05:30 Intake & Output 08/31/23 09/01/23 09/01/23 18:59 06:59 18:59 Intake Total 909.977 400 410 Output Total 385 200 350 Balance 524.977 200 60 Weight 92.8 kg Intake: IV 228 10 Invasive Line 1 10 Lactated Ringers 1,000 ml 210 @ 20 mls/hr IV .Q24H [facility] Rx#:[id number] Pressure 18 Intake, IV Titration 211.977 Amount Insulin Regular 100 unit 11.977 In Sodium Chloride 0.9% 100 ml @ Per Protocol IV .Q0M [facility] Rx#:[id number] Magnesium Sulfate-D5w Pmx 200 1 gm In Dextrose/Water 1 100ml.bag @ 100 mls/hr IVPB Q1H [facility] Rx#: [id number] Oral 470 400 400 Output: Chest Tube Drainage 0 Mediastinal 0 Pleural Catheter Left 0 Pleural Catheter Right 0 Urine 385 200 350 Other: Voiding Method Indwelling Catheter Indwelling Catheter # Voids 0 1 # Bowel Movements 1 ABP, PAP, CO, CI - Last Documented Arterial Blood Pressure 127/51 Pulmonary Artery Pressure 35/14 Cardiac Output 7.9 Cardiac Index 4 - Exam GENERAL EXAM: Alert, very pleasant 68-year-old male, on room air, resting comfortably in bed, in no apparent distress. The patient is currently on 1 L of oxygen by nasal cannula. HEAD: Normocephalic. EYES: Normal reaction of pupils, equal size. NOSE: Clear with pink turbinates. THROAT: No erythema or exudates. NECK: No masses, no JVD. The patient has a right IJ Yale-Ponce catheter in place and a Cordis in a good location CHEST: No chest wall deformity. The patient is a right pleural, left total of the mediastinal chest tube. LUNGS: Equal air entry with no crackles, wheeze, rhonchi or dullness. CVS: S1 and S2 normal with no audible murmur, regular rhythm. Thoracotomy scar is dry clean and intact ABDOMEN: No hepatosplenomegaly, normal bowel sounds, no guarding or rigidity. SPINE: No scoliosis or deformity SKIN: No rashes CENTRAL NERVOUS SYSTEM: No focal deficits, tone is normal in all 4 extremities. Patient is awake and alert 3 and is communicating. EXTREMITIES: There is no peripheral edema. No clubbing, no cyanosis. Peripheral pulses are intact. - Labs CBC & Chem 7: 09/01/23 07:43 09/01/23 07:43 Labs: Abnormal Lab Results - Last 24 Hours (Table) 08/31/23 08/31/23 09/01/23 Range/Units 17:16 20:09 03:15 RBC (4.30-5.90) m/uL Hgb (13.0-17.5) gm/dL Hct (39.0-53.0) % Plt Count (150-450) k/uL Chloride (98-107) mmol/L Carbon Dioxide (22-30) mmol/L BUN (9-20) mg/dL Glucose (74-99) mg/dL POC Glucose (mg/dL) 252 H 273 H 191 H (70-110) mg/dL Calcium (8.4-10.2) mg/dL Magnesium (1.6-2.3) mg/dL Total Protein (6.3-8.2) g/dL Albumin (3.5-5.0) g/dL 09/01/23 09/01/23 09/01/23 Range/Units 06:02 07:43 07:43 RBC 3.98 L (4.30-5.90) m/uL Hgb 10.8 L (13.0-17.5) gm/dL Hct 32.0 L (39.0-53.0) % Plt Count 136 L (150-450) k/uL Chloride 110 H (98-107) mmol/L Carbon Dioxide 20 L (22-30) mmol/L BUN 27 H (9-20) mg/dL Glucose 187 H (74-99) mg/dL POC Glucose (mg/dL) 206 H (70-110) mg/dL Calcium 8.3 L (8.4-10.2) mg/dL Magnesium 2.4 H (1.6-2.3) mg/dL Total Protein 5.9 L (6.3-8.2) g/dL Albumin 3.4 L (3.5-5.0) g/dL 09/01/23 Range/Units 11:53 RBC (4.30-5.90) m/uL Hgb (13.0-17.5) gm/dL Hct (39.0-53.0) % Plt Count (150-450) k/uL Chloride (98-107) mmol/L Carbon Dioxide (22-30) mmol/L BUN (9-20) mg/dL Glucose (74-99) mg/dL POC Glucose (mg/dL) 185 H (70-110) mg/dL Calcium (8.4-10.2) mg/dL Magnesium (1.6-2.3) mg/dL Total Protein (6.3-8.2) g/dL Albumin (3.5-5.0) g/dL Assessment and Plan Plan: Triple-vessel coronary artery disease, the patient underwent an off-pump 3 vessel bypass and the patient underwent MOJICA to LAD and radial 2 ramus intermedius and saphenous vein graft to PDA. Patient is currently postop day # 3. Hemodynamically stable. Postthoracotomy, extubated without any major difficulties currently on room air/2 L L oxygen oxygen by nasal cannula. All of the chest tubes were removed. Diabetes mellitus type 2, currently on Levemir insulin Hypertension, hyperlipidemia Previous history of DVT, right sided Obstructive sleep apnea. Lost weight and the patient is currently off CPAP therapy. Osteoarthritis History of smoking. The patient FEV1 of 2.8 L which is 97% of predicted. Plan Titrate oxygen flow to maintain saturation above 90%, currently transitioning between room air at 2 L of Oxymizer nasal cannula Provide incentive spirometer All chest tubes of her removed Continue Levemir insulin 15 units along with 4 units of NovoLog with meals and a sliding scale coverage Cardiac rhythm is sinus. Amiodarone for A. fib prophylaxis Monitor for blood sugar control Daily chest x-rays, chest x-ray from today was noted Increase mobility and the patient is sitting up on a chair. Blood work is stable. We'll continue to follow.
[2023-09-01 16:50] LABS: Glucose,Whole Blood 165 mg/dL (70-110)
--- NOTE | 2023-09-01 19:01 | P.PN ---
Subjective Progress Note Date: 09/01/23 progress note 09/01/2023 Patient is coming along well. Denies any active chest heaviness or shortness of breath. Patient examined sitting in the hallway. 08/31/2023 Patient is doing well from cardiovascular standpoint. There were no episodes of arrhythmias noticed on 24-hour monitoring of telemetry. Patient's right IJ catheter was removed and his chest tubes were removed today. Patient is doing well since. He was able to walk in the unit without any limitations. Denies any chest pain chest pressure shortness of breath. HISTORY OF PRESENTING ILLNESS 68-year-old male with PMH of CAD status post multiple PCI in past, diabetes, hypertension, PAD status post bypass and peripheral stenting, former smoker who presented to the hospital with chest pain on August 23. For his unstable angina he underwent a cardiac catheterization procedure with Dr. Grimes, 80% in- stent stenosis of proximal LAD stent, 70% distal RCA stenosis, 50% ostial ramus disease, 50% RCA disease. For this cardiology has a surgery was consulted. His echocardiogram showed an EF of 55%. There were no major valvular abnormality reported on the echo. Patient is status post day 1 of 3 vessel CABG surgery he received MOJICA to LAD, SVG to PDA, radial artery graft to ramus artery. Atriclip 35mm. Postop hemoglobin 12.2, creatinine 0.7, heart rate 74, sinus rhythm, no arrhythmias noticed on telemetry for overnight last 24 hours. BP 104/41 PA catheter pressures 33/13, CVP 5, REVIEW OF SYSTEMS 14 point review of system is negative except what is mentioned above in HPI. PHYSICAL EXAMINATION Vital signs reviewed. Head: Normocephalic. Eyes: Sclerae nonicteric. Neck: Brisk carotid upstroke, Lungs: Mild crackles in lungs reduced inspiratory effort. Heart: Regular rate and rhythm, no murmur or rub. Sternal surgical wound has dressing in place which is clear and dry Abdomen: Soft nontender, Extremities: No edema, intact distal pulses. Neuro: Alert, oritented, no focal deficits 1+ swelling in bilateral lower and upper extremity. ASSESSMENT multivessel CAD status post CABG 08/29/2023, MOJICA to LAD, SVG to PDA, radial to OM, Atriclip ligation Essential hypertension Type 2 diabetes on insulin therapy Previous smoker PAD status post prior bypass and stenting in LE Prior history of DVT not an anticoagulation PLAN This patient is doing well from cardiac vessel standpoint at this time. Continue aspirin, Plavix, atorvastatin, amiodarone as per cardiac thoracic surgery team protocol. Possible d/c sunday. Objective - Vital Signs Vital signs: Vital Signs Temp 97.9 F 08/31/23 20:00 Pulse 88 09/01/23 17:00 Resp 16 09/01/23 17:00 BP 163/81 09/01/23 17:00 Pulse Ox 92 L 09/01/23 17:00 FiO2 80 08/30/23 05:30 Intake & Output 09/01/23 09/01/23 09/02/23 06:59 18:59 06:59 Intake Total 400 1480 Output Total 200 350 Balance 200 1130 Weight 92.8 kg Intake: IV 20 Invasive Line 1 20 Oral 400 1460 Output: Urine 200 350 Other: Voiding Method Indwelling Catheter # Voids 1 # Bowel Movements 1 ABP, PAP, CO, CI - Last Documented Arterial Blood Pressure 127/51 Pulmonary Artery Pressure 35/14 Cardiac Output 7.9 Cardiac Index 4 - Labs CBC & Chem 7: 09/01/23 07:43 09/01/23 07:43 Labs: Abnormal Lab Results - Last 24 Hours (Table) 08/31/23 09/01/23 09/01/23 Range/Units 20:09 03:15 06:02 RBC (4.30-5.90) m/uL Hgb (13.0-17.5) gm/dL Hct (39.0-53.0) % Plt Count (150-450) k/uL Chloride (98-107) mmol/L Carbon Dioxide (22-30) mmol/L BUN (9-20) mg/dL Glucose (74-99) mg/dL POC Glucose (mg/dL) 273 H 191 H 206 H (70-110) mg/dL Calcium (8.4-10.2) mg/dL Magnesium (1.6-2.3) mg/dL Total Protein (6.3-8.2) g/dL Albumin (3.5-5.0) g/dL 09/01/23 09/01/23 09/01/23 Range/Units 07:43 07:43 11:53 RBC 3.98 L (4.30-5.90) m/uL Hgb 10.8 L (13.0-17.5) gm/dL Hct 32.0 L (39.0-53.0) % Plt Count 136 L (150-450) k/uL Chloride 110 H (98-107) mmol/L Carbon Dioxide 20 L (22-30) mmol/L BUN 27 H (9-20) mg/dL Glucose 187 H (74-99) mg/dL POC Glucose (mg/dL) 185 H (70-110) mg/dL Calcium 8.3 L (8.4-10.2) mg/dL Magnesium 2.4 H (1.6-2.3) mg/dL Total Protein 5.9 L (6.3-8.2) g/dL Albumin 3.4 L (3.5-5.0) g/dL 09/01/23 Range/Units 16:49 RBC (4.30-5.90) m/uL Hgb (13.0-17.5) gm/dL Hct (39.0-53.0) % Plt Count (150-450) k/uL Chloride (98-107) mmol/L Carbon Dioxide (22-30) mmol/L BUN (9-20) mg/dL Glucose (74-99) mg/dL POC Glucose (mg/dL) 165 H (70-110) mg/dL Calcium (8.4-10.2) mg/dL Magnesium (1.6-2.3) mg/dL Total Protein (6.3-8.2) g/dL Albumin (3.5-5.0) g/dL
[2023-09-01] MEDS: SENNOSIDES-DOCUSATE SODIUM 1 EACH TAB PO SCH (19:32)
[2023-09-01] MEDS: MELATONIN 5 MG TABLET PO PRN (19:33)
[2023-09-01] MEDS: TAMSULOSIN 0.4 MG CAP.ER.24H PO SCH (19:33)
[2023-09-01 20:24] LABS: Glucose,Whole Blood 170 mg/dL (70-110)
--- NOTE | 2023-09-01 23:51 | P.PN ---
Progress Note - Text Progress Note Date: 09/01/23 * 68-year-old patient with past medical history significant for diabetes mellitus, hyperlipidemia, hypertension, gastroesophageal reflux disease, obstructive sleep apnea, history of tobacco use, BPH, who had cardiac catheterization done on 08/24/23 and was noted to have triple-vessel disease. Patient was discharged home with planned for elective CABG which is scheduled for 08/29/23. Postprocedure patient has been transferred to medical ICU for comanagement by taxi cab driver, and cardiac surgery team. Patient was intubated status post extubation and was transitioned to 6 L of oxygen. Patient was weaned off Precedex drip. He was on nitroglycerin drip which was continued postprocedure patient was also placed on amiodarone drip managed by cardiac surgery * Blood work obtained showed WBC 9.2 hemoglobin 12.2 platelet count of 158. Serum chemistry sodium 137 potassium 4.1 and carbon dioxide 20 B UN 16 creatinine 0.74 * Serial blood glucose obtained 145, 170, 247, 196 * Patient was gradually weaned down to 2 L of oxygen, followed by cardiac surgery and pulmonary medicine * 08/31/2023: Patient seen and evaluated bedside during my evaluation patient is alert and oriented 4, chest tubes have been removed, patient states he had a better night, transition from insulin drip to subcu insulin. Antral transferred out of ICU 09/01/2023: Doing much better. Up in a recliner. Had a bowel movement. No chest pain. Some shortness of breath. at the bedside. Eating fair. Did walk in the hallway. Discussed with patient and Active Medications Acetaminophen (Acetaminophen Tab 500 Mg Tab) 1,000 mg PO Q6HR PRN PRN Reason: Fever and/ or Mild Pain Last Admin: 09/01/23 17:01 Dose: 1,000 mg Albuterol/Ipratropium (Ipratropium-Albuterol 3 Ml Neb) 3 ml INHALATION RT-Q2H PRN PRN Reason: Shortness Of Breath Or Wheezing Albuterol/Ipratropium (Ipratropium-Albuterol 3 Ml Neb) 3 ml INHALATION RT-QID [facility] Last Admin: 09/01/23 20:40 Dose: 3 ml Amiodarone HCl (Amiodarone 200 Mg Tab) 400 mg PO BID [facility] Last Admin: 09/01/23 19:32 Dose: 400 mg Amlodipine Besylate (Amlodipine 5 Mg Tab) 5 mg PO DAILY [facility] Last Admin: 09/01/23 08:41 Dose: 5 mg Aspirin (Aspirin 325 Mg Tab) 325 mg PO DAILY [facility] Last Admin: 09/01/23 08:40 Dose: 325 mg Atorvastatin Calcium (Atorvastatin 40 Mg Tab) 40 mg PO DAILY [facility] Last Admin: 09/01/23 08:40 Dose: 40 mg Bisacodyl (Bisacodyl 10 Mg Supp) 10 mg RECTAL DAILY PRN PRN Reason: Constipation Clopidogrel Bisulfate (Clopidogrel 75 Mg Tab) 75 mg PO DAILY [facility] Last Admin: 09/01/23 08:40 Dose: 75 mg Dextrose/Water (Dextrose 50% Syringe 50 Ml) 25 ml IVP PER PROTOCOL PRN; Protocol PRN Reason: Hypoglycemia Dextrose/Water (Dextrose 50% Syringe 50 Ml) 50 ml IVP PER PROTOCOL PRN; Protocol PRN Reason: Hypoglycemia Heparin Sodium (Porcine) (Heparin Sodium,Porcine 5,000 Unit/Ml 1 Ml Vial) 5,000 unit SQ Q8HR [facility] Last Admin: 09/01/23 17:02 Dose: 5,000 unit Amiodarone HCl 150 mg/ (Dextrose/Water) 103 mls @ 618 mls/hr IV .Q10M PRN PRN Reason: A.FIB/FLUTTER Insulin Aspart (Insulin Aspart (Novolog) 100 Unit/Ml Vial) 4 unit SQ AC-TID [facility] Last Admin: 09/01/23 17:02 Dose: 4 unit Insulin Aspart (Insulin Aspart (Novolog) 100 Unit/Ml Vial) 0 unit SQ AC-TID [facility]; Protocol Last Admin: 09/01/23 17:02 Dose: 2 unit Insulin Detemir (Insulin Detemir (Levemir) 100 Unit/Ml Syr) 15 unit SQ DAILY@0700 [facility] Last Admin: 09/01/23 06:38 Dose: 15 unit Ketorolac Tromethamine (Ketorolac 15 Mg/Ml 1 Ml Vial) 15 mg IVP Q6HR [facility] Stop: 09/03/23 15:10 Last Admin: 09/01/23 18:29 Dose: 15 mg Magnesium Hydroxide (Magnesium Hydroxide 2,400 Mg/30 Ml Cup) 2,400 mg PO BID PRN PRN Reason: Constipation Melatonin (Melatonin 5 Mg Tablet) 5 mg PO HS PRN PRN Reason: for sleep Last Admin: 09/01/23 19:33 Dose: 5 mg Metoclopramide HCl (Metoclopramide 5 Mg/Ml 2 Ml Vial) 10 mg IVP Q4H PRN PRN Reason: Nausea And Vomiting Metoprolol Tartrate (Metoprolol Tartrate 50 Mg Tab) 75 mg PO BID [facility] Last Admin: 09/01/23 19:32 Dose: 75 mg Miscellaneous Information (Potassium Replacement Protocol 1 Each Misc) 1 each MISCELLANE DAILY PRN; Protocol PRN Reason: Per Protocol Miscellaneous Information (Magnesium Replacement Protocol 1 Each Misc) 1 each MISCELLANE DAILY PRN; Protocol PRN Reason: Per Protocol Ondansetron HCl (Ondansetron 4 Mg/2 Ml Vial) 4 mg IVP Q6HR PRN PRN Reason: Nausea And Vomiting Pantoprazole Sodium (Pantoprazole 40 Mg Tablet) 40 mg PO AC-BRKFST [facility] Last Admin: 09/01/23 06:39 Dose: 40 mg Ropinirole HCl (Ropinirole Hcl 0.25 Mg Tab) 0.5 mg PO [facility] Last Admin: 09/01/23 19:33 Dose: 0.5 mg Senna/Docusate Sodium (Sennosides-Docusate Sodium 1 Each Tab) 2 each PO [facility] Last Admin: 09/01/23 19:32 Dose: 2 each Sodium Chloride (Sodium Chloride 0.9% Flush 10 Ml Syringe) 10 ml IV BID [facility] Last Admin: 09/01/23 19:42 Dose: 10 ml Tamsulosin HCl (Tamsulosin 0.4 Mg Cap.Er.24h) 0.4 mg PO [facility] Last Admin: 09/01/23 19:33 Dose: 0.4 mg On examination: VITAL SIGNS: []83, 16, 150/78, 92% room air GENERAL APPEARANCE: Up in a recliner HEENT: Normal external appearance of nose and ear. Oral cavity normal EYES: Pupils equal. Conjunctiva normal. NECK: JVD not raised. Mass not palpable. RESPIRATORY: Respiratory effort increase. Lungs-diminished breath sounds. CARDIOVASCULAR: First and second sounds normal. No edema. ABDOMEN: Soft. Liver and spleen not palpable. No tenderness. No mass palpable. PSYCHIATRY: Alert and oriented x3. Mood and affect normal. INVESTIGATIONS, reviewed in the clinical context: 09/01/2023: White count 6.8 hemoglobin 10.8 potassium 4.2 creatinine 0.81 Assessment and plan * Triple-vessel coronary artery disease status post bypass POD 2 >> MOJICA to LAD and radial 2 ramus intermedius and saphenous vein graft to PDA. * Diabetes mellitus type 2-follow Accu-Cheks with sliding scale. Levemir * Hypertension-amlodipine. Lopressor * Hyperlipidemia-Lipitor * Remote history of DVT * History of tobacco use * Obstructive sleep apnea not on CPAP -Coronary artery disease: Lipitor. Aspirin. Lopressor. -Restless legs syndrome. Requip -Acute postprocedure blood loss anemia expected from surgery. Oral ferrous sulfate -BPH: Flomax -Full code
[2023-09-02] MEDS: HEPARIN SODIUM,PORCINE 5,000 UNIT/ML 1 ML VIAL SQ SCH ×4 (01:02→23:55)
[2023-09-02] MEDS: KETOROLAC 15 MG/ML 1 ML VIAL IVP SCH ×5 (01:02→23:54)
[2023-09-02 02:25] LABS: Glucose,Whole Blood 185 mg/dL (70-110)
[2023-09-02] MEDS: ACETAMINOPHEN TAB 500 MG TAB PO PRN ×3 (04:12→21:23)
[2023-09-02 06:06] LABS: Glucose,Whole Blood 180 mg/dL (70-110)
[2023-09-02] MEDS: INSULIN DETEMIR (LEVEMIR) 100 UNIT/ML SYR SQ SCH (06:40)
[2023-09-02] MEDS: INSULIN ASPART (NovoLOG) 100 UNIT/ML VIAL SQ SCH ×6 (06:40→16:43)
[2023-09-02] MEDS: FERROUS SULFATE 325 MG TAB PO SCH ×2 (06:41→16:43)
[2023-09-02] MEDS: PANTOPRAZOLE 40 MG TABLET PO SCH (06:41)
--- NOTE | 2023-09-02 07:32 | XR ---
EXAMINATION TYPE: XR chest 2V DATE OF EXAM: 09/02/2023 COMPARISON: 09/01/2023 HISTORY: Postop CABG TECHNIQUE: Frontal and lateral views of the chest are obtained. FINDINGS: There are postsurgical changes of recent CABG surgery. There has been no change in the mild cardiomegaly and mild to moderate pulmonary vascular congestion and mild interstitial edema. There are small bilateral pleural effusions. There is no pneumothorax. IMPRESSION: Mild pulmonary vascular congestion and edema with no interval change.
--- NOTE | 2023-09-02 07:47 | P.PN ---
Subjective Progress Note Date: 09/01/23 Principal diagnosis: Coronary artery disease with previous myocardial infarction and stent placement, unstable angina. Past medical history significant for hypertension, hyperlipi demia, insulin dependent diabetes mellitus, obstructive sleep apnea without home CPAP use, heavy tobacco dependence with recent cessation 6 months ago, peripheral arterial disease with lower extremity bypass as well as stenting and thrombectomy, BPH, DVT on no active anticoagulation. POD #3 Off pump coronary artery bypass grafting x 3. Left internal thoracic artery (in-situ) to left anterior descending coronary artery. Radial artery from aorta to ramus intermedius and saphenous vein from aorta to posterior descending coronary artery, Endoscopic left radial and right greater saphenous vein maykel vest, Left atrial appendage ligation with #35mm AtriClip, Graft flow measurements using the [place]-Stim flow meter system, and intraoperative transesophageal echocardiogram performed by anesthesia. Postoperative acute blood loss anemia, expected likely secondary to hemodilution. The patient was seen and examined in follow-up today 09/01/2023 at his bedside on the third floor cardiac stepdown unit. Currently the patient is sitting up to the bedside chair, is awake, alert, oriented 3 and is in no acute distress. Denies any complaints of shortness of breath at this time and is reporting some surgical type pain, currently rating his pain 2 out of 10 on the pain scale. The patient states he has been up ambulating in the cardiac stepdown unit hallway already this morning and tolerating well. Oxygen saturations are 95% on room air and he is achieving 1500 mL on his incentive spirometry with encouragement. Remote telemetry is showing normal sinus rhythm heart rate 91 BPM. He remains hemodynamically stable and is currently on no inotropic or pressor support. His ventricular epicardial pacemaker wires, mediastinal, left and right pleural chest tubes were removed yesterday without incident. He has been afebrile the last 24 hours. Laboratory and chest x-ray results reviewed. Objective - Vital Signs Vital signs: Vital Signs Temp 97.9 F 08/31/23 20:00 Pulse 92 09/01/23 04:00 Resp 18 09/01/23 04:00 BP 158/78 09/01/23 04:00 Pulse Ox 95 09/01/23 04:00 FiO2 80 08/30/23 05:30 Intake & Output 08/31/23 09/01/23 09/01/23 18:59 06:59 18:59 Intake Total 909.977 400 400 Output Total 385 200 350 Balance 524.977 200 50 Weight 92.8 kg Intake: IV 228 Lactated Ringers 1,000 ml 210 @ 20 mls/hr IV .Q24H [facility] Rx#:[id number] Pressure 18 Intake, IV Titration 211.977 Amount Insulin Regular 100 unit 11.977 In Sodium Chloride 0.9% 100 ml @ Per Protocol IV .Q0M [facility] Rx#:[id number] Magnesium Sulfate-D5w Pmx 200 1 gm In Dextrose/Water 1 100ml.bag @ 100 mls/hr IVPB Q1H [facility] Rx#: [id number] Oral 470 400 400 Output: Chest Tube Drainage 0 Mediastinal 0 Pleural Catheter Left 0 Pleural Catheter Right 0 Urine 385 200 350 Other: Voiding Method Indwelling Catheter # Voids 0 1 # Bowel Movements 1 ABP, PAP, CO, CI - Last Documented Arterial Blood Pressure 127/51 Pulmonary Artery Pressure 35/14 Cardiac Output 7.9 Cardiac Index 4 - Exam CONSTITUTIONAL: Sitting up to the bedside chair on the third floor cardiac stepdown unit, appears comfortable, cooperative, no apparent acute distress. HEENT: Neck is supple, no JVD, no lymphadenopathy. RESPIRATORY: Lungs sounds essentially clear throughout, diminished to his bilateral bases, left greater than right. Respirations are symmetrical and nonlabored. Currently on room air with oxygen saturations 95%. Able to achieve 1500 mL on his incentive spirometry. Strong cough. CARDIOVASCULAR: Regular rhythm and rate. S1 and S2 present, negative for S3, gallop or murmur. Sternum is stable. Palpable peripheral pulses bilaterally, no edema to his bilateral lower extremities. No calf pain or tenderness noted. Heart hugger in place with patient demonstrating appropriate use. Knee-high GUDELIA hose and sequential compression devices in place to his bilateral lower extremities. GASTROINTESTINAL: Abdomen soft, nontender, nondistended. Active bowel sounds present 4 quadrants. Tolerating diet. Passing flatus. No guarding or rigidity. GENITOURINARY: Continues to void. 350 mL of urine output in the last 8 hours. INTEGUMENTARY: Skin is warm and dry with no evidence of clubbing or cyanosis. Midline sternal incision clean dry and well approximated, covered with dry inta ct dressing. Right lower extremity EVH site well approximated without redness or drainage. Left arm radial artery harvest sites clean, dry and approximated. No drainage or redness is present. NEUROLOGIC: Cranial nerves II through XII intact. No focal deficits. MUSKULOSKELETAL: Able to move all extremities, strength equal bilaterally. PSYCHIATRIC: Alert and oriented to person place and time, appropriate affect, intact judgment and insight. - Allied health notes Allied health notes reviewed: nursing - Labs CBC & Chem 7: 08/31/23 04:36 08/31/23 04:36 Labs: Abnormal Lab Results - Last 24 Hours (Table) 08/31/23 08/31/23 08/31/23 Range/Units 08:09 09:19 10:29 POC Glucose (mg/dL) 205 H 192 H 181 H (70-110) mg/dL 08/31/23 08/31/23 08/31/23 Range/Units 12:02 17:16 20:09 POC Glucose (mg/dL) 168 H 252 H 273 H (70-110) mg/dL 09/01/23 09/01/23 Range/Units 03:15 06:02 POC Glucose (mg/dL) 191 H 206 H (70-110) mg/dL - Imaging and Cardiology Chest x-ray: report reviewed, image reviewed Assessment and Plan Assessment: Multivessel coronary artery disease, status post off-pump coronary artery bypass grafting 3 Hypertension Hyperlipidemia treated, cholesterol 81, LDL 21, triglycerides 159 Peripheral arterial disease with lower extremity bypass as well as stenting and thrombectomy Insulin-dependent diabetes mellitus with a preoperative hemoglobin A1c of 8.5% Obstructive sleep apnea without home CPAP use Tobacco dependence with recent cessation, preoperative FEV1 97% of predicted value Benign prostatic hypertrophy, on Flomax as an outpatient History of DVT on no active anticoagulation as an outpatient Postoperative acute blood loss anemia, expected Plan: Continue to maximize medical therapy with aspirin, statin, Plavix, and beta estiven. Will increase metoprolol tartrate 75 mg by mouth twice a day. Continue amlodipine 2.5 mg by mouth daily with holding parameters for radial artery spasm prophylaxis. Continue amiodarone 400 mg by mouth twice a day for atrial fibrillation prophylaxis. The patient has not had any atrial fibrillation at this point and remains in normal sinus rhythm. Encourage incentive spirometry use 10 times every hour while awake. Bronchodilators per pulmonology. Will monitor daily labs and chest x-rays. Electrolyte replacement per protocol. Increase activity as tolerated, PT/OT/cardiac rehab following. GI/DVT prophylaxis. Pain control with current medication regimen. Insulin management per internal medicine. Needs tight blood sugar control to promote sternal wound healing. Preoperative hemoglobin A1c 8.5% Continue to record strict inaccurate I's and O's. Bladder scan every 6 hours and when necessary postvoid residuals. If greater than 300 mL of postvoid residual May straight cath. We will start lisinopril 10 mg by mouth daily for afterload reduction. Daily weights. Shower daily. Discharge planning is in place, anticipate discharge home with home health care in the next 48 hours. More recommendations to follow based on patient's clinical course. Time with Patient: Greater than 30
[2023-09-02] MEDS: ATORVASTATIN 40 MG TAB PO SCH (08:03)
[2023-09-02] MEDS: CLOPIDOGREL 75 MG TAB PO SCH (08:03)
[2023-09-02] MEDS: AMIODARONE 200 MG TAB PO SCH ×2 (08:03→21:22)
[2023-09-02] MEDS: ASPIRIN 325 MG TAB PO SCH (08:03)
[2023-09-02] MEDS: amLODIPine 5 MG TAB PO SCH (08:03)
[2023-09-02] MEDS: METOPROLOL TARTRATE 50 MG TAB PO SCH ×2 (08:03→21:22)
[2023-09-02] MEDS ORDERED: FUROSEMIDE 10 MG/ML 2 ML VIAL IV STA (08:22)
--- NOTE | 2023-09-02 08:24 | P.PN ---
Subjective Progress Note Date: 09/02/23 Principal diagnosis: Coronary artery disease with previous myocardial infarction and stent placement, unstable angina. Past medical history significant for hypertension, hyperlipi demia, insulin dependent diabetes mellitus, obstructive sleep apnea without home CPAP use, heavy tobacco dependence with recent cessation 6 months ago, peripheral arterial disease with lower extremity bypass as well as stenting and thrombectomy, BPH, DVT on no active anticoagulation. POD #4 Off pump coronary artery bypass grafting x 3. Left internal thoracic artery (in-situ) to left anterior descending coronary artery. Radial artery from aorta to ramus intermedius and saphenous vein from aorta to posterior descending coronary artery, Endoscopic left radial and right greater saphenous vein maykel vest, Left atrial appendage ligation with #35mm AtriClip, Graft flow measurements using the [employer]-Stim flow meter system, and intraoperative transesophageal echocardiogram performed by anesthesia. Postoperative acute blood loss anemia, expected likely secondary to hemodilution. The patient was seen and examined in follow-up today 09/02/2023 at his bedside on the third floor cardiac stepdown unit. He is currently sitting up to the bedside chair, is awake, alert, oriented 3 and is in no acute apparent distress. He reports he just got back from ambulating in the cardiac step down in the hallway with standby assistance from nursing staff. He said he tolerated the walk well with slight shortness of breath. Patient denies any complaints of pain at this time. Oxygen saturations are 96% on room air and he is achieving 1500 mL on his incentive spirometry with encouragement. Remote telemetry showing normal sinus rhythm heart rate 92 BPM. His blood pressure has been elevated in the last 8 hours and his most recent blood pressure was 175/76, lisinopril 20 mg by mouth daily has been initiated. He remains on metoprolol tartrate 75 mg by mouth twice a day and amlodipine 5 mg by mouth daily. He remains hemodynamically stable and is currently on no inotropic or pressor support. Discharge planning is in place. Laboratory results remain pending and his chest x-ray results were reviewed. Objective - Vital Signs Vital signs: Vital Signs Temp 98 F 09/02/23 04:00 Pulse 92 09/02/23 04:00 Resp 18 09/02/23 04:00 BP 175/76 09/02/23 04:00 Pulse Ox 96 09/02/23 04:00 FiO2 80 08/30/23 05:30 Intake & Output 09/01/23 09/02/23 09/02/23 18:59 06:59 18:59 Intake Total 1720 460 Output Total 900 800 Balance 820 -340 Weight 92 kg Intake: IV 20 20 Invasive Line 1 20 20 Oral 1700 440 Output: Urine 900 800 Other: Voiding Method Indwelling Catheter Urinal # Bowel Movements 1 ABP, PAP, CO, CI - Last Documented Arterial Blood Pressure 127/51 Pulmonary Artery Pressure 35/14 Cardiac Output 7.9 Cardiac Index 4 - Exam CONSTITUTIONAL: Sitting up to the bedside chair on the third floor cardiac stepdown unit, appears comfortable, cooperative, no apparent acute distress. HEENT: Neck is supple, no JVD, no lymphadenopathy. RESPIRATORY: Lungs sounds essentially clear throughout, diminished to his bilateral bases, left greater than right. Respirations are symmetrical and nonlabored. Currently on room air with oxygen saturations 96%. Able to achieve 1500 mL on his incentive spirometry. Strong cough. CARDIOVASCULAR: Regular rhythm and rate. S1 and S2 present, negative for S3, gallop or murmur. Remote telemetry showing normal sinus rhythm heart rate 92 B PM. Sternum is stable. Palpable peripheral pulses bilaterally, no edema to his bilateral lower extremities. No calf pain or tenderness noted. Heart hugger in place with patient demonstrating appropriate use. Knee-high GUDELIA hose and sequential compression devices in place to his bilateral lower extremities. GASTROINTESTINAL: Abdomen soft, nontender, nondistended. Active bowel sounds present 4 quadrants. Tolerating diet. Passing flatus. No guarding or rigidity. Bowel movement today 09/02/2023. GENITOURINARY: Continues to void. 800 mL of urine output in the last 8 hours. INTEGUMENTARY: Skin is warm and dry with no evidence of clubbing or cyanosis. Midline sternal incision clean dry and well approximated, covered with dry intact dressing. Right lower extremity EVH site well approximated without redness or drainage. Left arm radial artery harvest sites clean, dry and approximated. No drainage or redness is present. NEUROLOGIC: Cranial nerves II through XII intact. No focal deficits. MUSKULOSKELETAL: Able to move all extremities, strength equal bilaterally. PSYCHIATRIC: Alert and oriented to person place and time, appropriate affect, intact judgment and insight. - Allied health notes Allied health notes reviewed: nursing - Labs CBC & Chem 7: 09/01/23 07:43 09/01/23 07:43 Labs: Abnormal Lab Results - Last 24 Hours (Table) 09/01/23 09/01/23 09/01/23 Range/Units 07:43 07:43 11:53 RBC 3.98 L (4.30-5.90) m/uL Hgb 10.8 L (13.0-17.5) gm/dL Hct 32.0 L (39.0-53.0) % Plt Count 136 L (150-450) k/uL Chloride 110 H (98-107) mmol/L Carbon Dioxide 20 L (22-30) mmol/L BUN 27 H (9-20) mg/dL Glucose 187 H (74-99) mg/dL POC Glucose (mg/dL) 185 H (70-110) mg/dL Calcium 8.3 L (8.4-10.2) mg/dL Magnesium 2.4 H (1.6-2.3) mg/dL Total Protein 5.9 L (6.3-8.2) g/dL Albumin 3.4 L (3.5-5.0) g/dL 09/01/23 09/01/23 09/02/23 Range/Units 16:49 20:23 02:23 RBC (4.30-5.90) m/uL Hgb (13.0-17.5) gm/dL Hct (39.0-53.0) % Plt Count (150-450) k/uL Chloride (98-107) mmol/L Carbon Dioxide (22-30) mmol/L BUN (9-20) mg/dL Glucose (74-99) mg/dL POC Glucose (mg/dL) 165 H 170 H 185 H (70-110) mg/dL Calcium (8.4-10.2) mg/dL Magnesium (1.6-2.3) mg/dL Total Protein (6.3-8.2) g/dL Albumin (3.5-5.0) g/dL 09/02/23 Range/Units 06:04 RBC (4.30-5.90) m/uL Hgb (13.0-17.5) gm/dL Hct (39.0-53.0) % Plt Count (150-450) k/uL Chloride (98-107) mmol/L Carbon Dioxide (22-30) mmol/L BUN (9-20) mg/dL Glucose (74-99) mg/dL POC Glucose (mg/dL) 180 H (70-110) mg/dL Calcium (8.4-10.2) mg/dL Magnesium (1.6-2.3) mg/dL Total Protein (6.3-8.2) g/dL Albumin (3.5-5.0) g/dL - Imaging and Cardiology Chest x-ray: report reviewed, image reviewed Assessment and Plan Assessment: Multivessel coronary artery disease, status post off-pump coronary artery bypass grafting 3 Hypertension Hyperlipidemia treated, cholesterol 81, LDL 21, triglycerides 159 Peripheral arterial disease with lower extremity bypass as well as stenting and thrombectomy Insulin-dependent diabetes mellitus with a preoperative hemoglobin A1c of 8.5% Obstructive sleep apnea without home CPAP use Tobacco dependence with recent cessation, preoperative FEV1 97% of predicted value Benign prostatic hypertrophy, on Flomax as an outpatient History of DVT on no active anticoagulation as an outpatient Postoperative acute blood loss anemia, expected Plan: Continue to maximize medical therapy with aspirin, statin, Plavix, and beta estiven. Will increase metoprolol tartrate 100 mg by mouth twice a day, with hold parameters. Continue amlodipine 5 mg by mouth daily with hold parameters for radial artery spasm prophylaxis. Continue amiodarone 400 mg by mouth twice a day for atrial fibrillation prophylaxis. The patient has not had any atrial fibrillation at this point and remains in normal sinus rhythm. Encourage incentive spirometry use 10 times every hour while awake. Bronchodilators per pulmonology. Will monitor daily labs and chest x-rays. Electrolyte replacement per protocol. Increase activity as tolerated, PT/OT/cardiac rehab following. GI/DVT prophylaxis. Pain control with current medication regimen. Insulin management per internal medicine. Needs tight blood sugar control to promote sternal wound healing. Preoperative hemoglobin A1c 8.5% Continue to record strict inaccurate I's and O's. We will start lisinopril 20 mg by mouth daily for afterload reduction. Lasix 20 mg IV 1 now. Daily weights. Shower daily. Discharge planning is in place, anticipate discharge home with home health care in the next 24 hours. More recommendations to follow based on patient's clinical course. Time with Patient: Greater than 30
[2023-09-02] MEDS ORDERED: lisinopriL 20 MG TAB PO SCH (09:00)
[2023-09-02] MEDS: IPRATROPIUM-ALBUTEROL 3 ML NEB INHALATION SCH ×4 (09:01→21:25)
[2023-09-02 09:50] LABS: HCT 29.7 % (39.0-53.0); MCHC 33.7 g/dL (31.0-37.0); MCV 80.2 fL (80.0-100.0); Mean Platelet Volume 8.2; Platelet Count 159 k/uL (150-450); WBC 5.1 k/uL (3.8-10.6)
[2023-09-02 10:20] LABS: African American GFR (CKD) >90 (>60 ml/min/1.73 sqM); Anion Gap 10 mmol/L; Blood Urea Nitrogen 26 mg/dL (9-20); Calcium 8.3 mg/dL (8.4-10.2); Carbon Dioxide 21 mmol/L (22-30); Chloride 109 mmol/L (98-107); Glucose 197 mg/dL (74-99); Magnesium 2.1 mg/dL (1.6-2.3); Non-African American GFR(CKD) >90 (>60 ml/min/1.73 sqM); Potassium 4.1 mmol/L (3.5-5.1); Sodium 140 mmol/L (137-145)
[2023-09-02 11:47] LABS: Glucose,Whole Blood 204 mg/dL (70-110)
--- NOTE | 2023-09-02 13:52 | P.PN ---
Subjective Progress Note Date: 09/02/23 This is a 68-year-old male patient with multivessel coronary artery disease and the patient underwent a cardiac catheterization on 08/24/2013 and was found to have triple-vessel disease. The patient was discharged home and he came in today for an elective bypass surgery. Surgery was done off pump and the patient had three-vessel bypass surgery involving MOJICA to LAD, radial artery to ramus intermedius and saphenous vein graft to posterior descending artery. The patient following that was brought into the intensive care unit. Initial chest x-ray showed no acute abnormalities. There was some increased pulmonary vessel markings and orotracheal tube was in good location. Chest is also good locat ion. The patient is a right pleural, left pleural and mediastinal chest tube and output is minimal. No evidence of any air leak. No evidence of any pneumothorax. The patient was seen and evaluated. He was on propofol. He was gradually wean off the propofol and FiO2 was gradually wean down. Following that, the patient was awake and alert and following commands. He has good weaning parameters with rapid shallow breathing index of 42. Tidal volume was 950. Minute ventilation was 13.5 L and then Nif was -47. The patient was given a blood gas that showed a pH of 7.32 with a pCO2 of 45 and a pO2 of 69. Following that, the patient was extubated the patient is currently on 60. Oxymizer nasal cannula. Currently, the patient is hemodynamically stable. He was given IV albumin and his blood pressure is holding well for now. Cardiac output is 6.8 with an index of 3.4. Pulmonary artery pressures of 42/20. Patient is on nitroglycerin drip at 10 mcg/m. The patient is also on insulin drip at 2.5 units an hour. He remains on low-dose Precedex at 0.3 mcg/kg/m. Awake and alert and arousable. No signs of any respiratory distress at this point in time. Cardiac rhythm is sinus. The patient is communicating. The patient is 104 extremities without any limitation. Lab work shows a WBC count of 5.8, hemoglobin is at 10.9, and a platelet count is 125. Producing adequate amount of urine output. On 08/30/2023, I'm seeing Marshall for a follow-up. Is doing extremely well. Shortly extubated and is currently on room air oxygen. Clinically stable. Hemodynamically stable. Postextubation, the patient required to go on Precedex and briefly on a BiPAP. Currently is off the BiPAP. His cardiac output is at 6 with an index of 3. His pulmonary artery pressure 36/17. Is producing adequate amount of urine output. He has pleural chest tubes on the right and the left and the total amount of output has been around 1 L since surgery. He also had a mediastinal chest tube the total amount of output has been in the order of 800 mL since surgery. No evidence of any air leak. The chest x-ray from today shows some cardiomegaly and mild pulmonary vessel congestion. Otherwise there is no evidence of any pneumothorax. Cardiac rhythm is sinus. He is on amiodarone for A. fib prophylaxis. Nitroglycerin drip has been discontinued. He remains on insulin drip at 4.5 units an hour. He is awake and alert and communicating. No issues with pain. The [place] catheter still in place. Blood work from today shows a hemoglobin of 12.2. The white cell cause of 9.2. Electrolytes are all within normal limits. BUN is at 60 with a creatinine of 0.7. Awake and alert and moving all 4 extremities without any limitation. On today's evaluation of 08/31/2023, the patient denies having any specific complaints. He is awake and alert. He is currently on 1 L of Oxymizer nasal cannula with pulse ox of 95%. Chest x-ray showing increased interstitial markings bilaterally. No evidence of any pneumothorax. Output from the chest is at a minimal and all of the chest tube will be removed today. The patient has a CVP of 5. Blood sugars are elevated and the patient remains on insulin drip and the rate is being titrated based on his maternal control. This morning he is on 6 units and the dose had to be increased following his oral fluid intake. Output from the chest tube has been noted.Mediastinal chest tubes drained 20 mL output in the last 8 hours and 100 mL output in the last 24 hours. Left pleural chest tube drained 120 mL output in the last 24 hours, and his r ight pleural chest tube drainage 40 mL output in the last 24 hours. Laboratory and chest x-ray results reviewed. He is ambulating. He is using the incentive spirometer. No focal neurological deficit and the patient will go for extremities without any limitations. On 09/01/2023, the patient is doing extremely well. The patient was transferred out of the intensive care unit yesterday. He is transitioning between room air oxygen at 2 L of Oxymizer nasal cannula to maintain a saturation above 90%. The patient otherwise is doing well. No chest pain. Sternum is stable. BUN is 27 with a Of 0.8 and a potassium level is at 4.2 and hemoglobin is at 10.8. His emulating. Is using the senna spirometer. The cardiac rhythm is sinus and a chest x-ray showing post-CABG changes with mild splenomegaly microvascular congestion. 09/02/2023, the patient is on a stepdown cardiac unit. Doing well on room air oxygen. Using the incentive spirometer and pulling approximately 1005 100 mL. Cardiac rhythm remained sinus. Hemodynamically stable. Slightly hypertensive in his liver was also added to control the blood pressure more tachypneic and incentive the patient is taking metoprolol 75 mg by mouth twice a day and Norvasc 5 mg by mouth daily. No pressors. No cardiac arrhythmias. No other significant events over the past 24 hours. Labs from today showing WBC count of 5 and a hemoglobin of 10 and a BUN of 26 with a creatinine 0.8 and sodium levels is 140. Objective - Vital Signs Vital signs: Vital Signs Temp 98 F 09/02/23 04:00 Pulse 81 09/02/23 09:15 Resp 16 09/02/23 08:02 BP 153/77 09/02/23 08:02 Pulse Ox 97 09/02/23 08:02 FiO2 80 08/30/23 05:30 Intake & Output 09/01/23 09/02/23 09/02/23 18:59 06:59 18:59 Intake Total 1720 460 250 Output Total 900 800 200 Balance 820 -340 50 Weight 92 kg Intake: IV 20 20 10 Invasive Line 1 20 20 10 Oral 1700 440 240 Output: Urine 900 800 200 Other: Voiding Method Indwelling Catheter Urinal Urinal # Bowel Movements 1 ABP, PAP, CO, CI - Last Documented Arterial Blood Pressure 127/51 Pulmonary Artery Pressure 35/14 Cardiac Output 7.9 Cardiac Index 4 - Exam GENERAL EXAM: Alert, very pleasant 68-year-old male, on room air, resting comfortably in bed, in no apparent distress. The patient is currently on 1 L of oxygen by nasal cannula. HEAD: Normocephalic. EYES: Normal reaction of pupils, equal size. NOSE: Clear with pink turbinates. THROAT: No erythema or exudates. NECK: No masses, no JVD. The patient has a right IJ [place] catheter in place and a Cordis in a good location CHEST: No chest wall deformity. The patient is a right pleural, left total of the mediastinal chest tube. LUNGS: Equal air entry with no crackles, wheeze, rhonchi or dullness. CVS: S1 and S2 normal with no audible murmur, regular rhythm. Thoracotomy scar is dry clean and intact ABDOMEN: No hepatosplenomegaly, normal bowel sounds, no guarding or rigidity. SPINE: No scoliosis or deformity SKIN: No rashes CENTRAL NERVOUS SYSTEM: No focal deficits, tone is normal in all 4 extremities. Patient is awake and alert 3 and is communicating. EXTREMITIES: There is no peripheral edema. No clubbing, no cyanosis. Peripheral pulses are intact. - Labs CBC & Chem 7: 09/02/23 09:23 09/02/23 09:23 Labs: Abnormal Lab Results - Last 24 Hours (Table) 09/01/23 09/01/23 09/01/23 Range/Units 11:53 16:49 20:23 RBC (4.30-5.90) m/uL Hgb (13.0-17.5) gm/dL Hct (39.0-53.0) % POC Glucose (mg/dL) 185 H 165 H 170 H (70-110) mg/dL 09/02/23 09/02/23 09/02/23 Range/Units 02:23 06:04 09:23 RBC 3.70 L (4.30-5.90) m/uL Hgb 10.0 L (13.0-17.5) gm/dL Hct 29.7 L (39.0-53.0) % POC Glucose (mg/dL) 185 H 180 H (70-110) mg/dL Assessment and Plan Plan: Triple-vessel coronary artery disease, the patient underwent an off-pump 3 vessel bypass and the patient underwent MOJICA to LAD and radial 2 ramus intermedius and saphenous vein graft to PDA. Patient is currently postop day # 4. Hemodynamically stable. Postthoracotomy, extubated without any major difficulties currently on room air/2 L L oxygen oxygen by nasal cannula. All of the chest tubes were removed. Diabetes mellitus type 2, currently on Levemir insulin Hypertension, hyperlipidemia Previous history of DVT, right sided Obstructive sleep apnea. Lost weight and the patient is currently off CPAP therapy. Osteoarthritis History of smoking. The patient FEV1 of 2.8 L which is 97% of predicted. Plan Titrate oxygen flow to maintain saturation above 90%, currently on room air oxygen Labs are stable Provide incentive spirometer All chest tubes of her removed Continue Levemir insulin 15 units along with 4 units of NovoLog with meals and a sliding scale coverage Cardiac rhythm is sinus. Amiodarone for A. fib prophylaxis Monitor for blood sugar control Daily chest x-rays, chest x-ray from today was noted Increase mobility and the patient is sitting up on a chair. Blood work is stable. We'll continue to follow. Possible discharge home tomorrow
--- NOTE | 2023-09-02 15:34 | P.PN ---
Subjective Progress Note Date: 09/02/23 progress note 09/02 BP 98/58, heart rate 70s beats a minute. Sinus rhythm. No arrhythmias on telemetry monitoring Hemoglobin 10, creatinine 0.8 09/01/2023 Patient is coming along well. Denies any active chest heaviness or shortness of breath. Patient examined sitting in the hallway. 08/31/2023 Patient is doing well from cardiovascular standpoint. There were no episodes of arrhythmias noticed on 24-hour monitoring of telemetry. Patient's right IJ catheter was removed and his chest tubes were removed today. Patient is doing well since. He was able to walk in the unit without any limitations. Denies any chest pain chest pressure shortness of breath. HISTORY OF PRESENTING ILLNESS 68-year-old male with PMH of CAD status post multiple PCI in past, diabetes, hypertension, PAD status post bypass and peripheral stenting, former smoker who presented to the hospital with chest pain on August 23. For his unstable angina he underwent a cardiac catheterization procedure with Dr. Grimes, 80% in- stent stenosis of proximal LAD stent, 70% distal RCA stenosis, 50% ostial ramus disease, 50% RCA disease. For this cardiology has a surgery was consulted. His echocardiogram showed an EF of 55%. There were no major valvular abnormality reported on the echo. Patient is status post day 1 of 3 vessel CABG surgery he received MOJICA to LAD, SVG to PDA, radial artery graft to ramus artery. Atriclip 35mm. Postop hemoglobin 12.2, creatinine 0.7, heart rate 74, sinus rhythm, no arrhythmias noticed on telemetry for overnight last 24 hours. BP 104/41 PA catheter pressures 33/13, CVP 5, REVIEW OF SYSTEMS 14 point review of system is negative except what is mentioned above in HPI. PHYSICAL EXAMINATION Vital signs reviewed. Head: Normocephalic. Eyes: Sclerae nonicteric. Neck: Brisk carotid upstroke, Lungs: Mild crackles in lungs reduced inspiratory effort. Heart: Regular rate and rhythm, no murmur or rub. Sternal surgical wound has dressing in place which is clear and dry Abdomen: Soft nontender, Extremities: No edema, intact distal pulses. Neuro: Alert, oritented, no focal deficits 1+ swelling in bilateral lower and upper extremity. ASSESSMENT multivessel CAD status post CABG 08/29/2023, MOJICA to LAD, SVG to PDA, radial to OM, Atriclip ligation Essential hypertension Type 2 diabetes on insulin therapy Previous smoker PAD status post prior bypass and stenting in LE Prior history of DVT not an anticoagulation PLAN This patient is doing well from cardiac vessel standpoint at this time. Continue aspirin, Plavix, atorvastatin, amiodarone as per cardiac thoracic surgery team protocol. Possible d/c sunday. Objective - Vital Signs Vital signs: Vital Signs Temp 98 F 09/02/23 04:00 Pulse 96 09/02/23 11:48 Resp 16 09/02/23 11:48 BP 98/53 09/02/23 11:48 Pulse Ox 94 L 09/02/23 11:48 FiO2 80 08/30/23 05:30 Intake & Output 09/01/23 09/02/23 09/02/23 18:59 06:59 18:59 Intake Total 1720 460 500 Output Total 900 800 800 Balance 820 -340 -300 Weight 92 kg Intake: IV 20 20 20 Invasive Line 1 20 20 20 Oral 1700 440 480 Output: Urine 900 800 800 Other: Voiding Method Indwelling Catheter Urinal Urinal # Bowel Movements 1 ABP, PAP, CO, CI - Last Documented Arterial Blood Pressure 127/51 Pulmonary Artery Pressure 35/14 Cardiac Output 7.9 Cardiac Index 4 - Labs CBC & Chem 7: 09/02/23 09:23 09/02/23 09:23 Labs: Abnormal Lab Results - Last 24 Hours (Table) 09/01/23 09/01/23 09/02/23 Range/Units 16:49 20:23 02:23 RBC (4.30-5.90) m/uL Hgb (13.0-17.5) gm/dL Hct (39.0-53.0) % Chloride (98-107) mmol/L Carbon Dioxide (22-30) mmol/L BUN (9-20) mg/dL Glucose (74-99) mg/dL POC Glucose (mg/dL) 165 H 170 H 185 H (70-110) mg/dL Calcium (8.4-10.2) mg/dL 09/02/23 09/02/23 09/02/23 Range/Units 06:04 09:23 09:23 RBC 3.70 L (4.30-5.90) m/uL Hgb 10.0 L (13.0-17.5) gm/dL Hct 29.7 L (39.0-53.0) % Chloride 109 H (98-107) mmol/L Carbon Dioxide 21 L (22-30) mmol/L BUN 26 H (9-20) mg/dL Glucose 197 H (74-99) mg/dL POC Glucose (mg/dL) 180 H (70-110) mg/dL Calcium 8.3 L (8.4-10.2) mg/dL 09/02/23 Range/Units 11:45 RBC (4.30-5.90) m/uL Hgb (13.0-17.5) gm/dL Hct (39.0-53.0) % Chloride (98-107) mmol/L Carbon Dioxide (22-30) mmol/L BUN (9-20) mg/dL Glucose (74-99) mg/dL POC Glucose (mg/dL) 204 H (70-110) mg/dL Calcium (8.4-10.2) mg/dL
[2023-09-02 16:40] LABS: Glucose,Whole Blood 165 mg/dL (70-110)
[2023-09-02 20:34] LABS: Glucose,Whole Blood 232 mg/dL (70-110)
[2023-09-02] MEDS: TAMSULOSIN 0.4 MG CAP.ER.24H PO SCH (21:21)
[2023-09-02] MEDS: SENNOSIDES-DOCUSATE SODIUM 1 EACH TAB PO SCH (21:22)
--- NOTE | 2023-09-02 23:27 | P.PN ---
Progress Note - Text Progress Note Date: 09/02/23 * 68-year-old patient with past medical history significant for diabetes mellitus, hyperlipidemia, hypertension, gastroesophageal reflux disease, obstructive sleep apnea, history of tobacco use, BPH, who had cardiac catheterization done on 08/24/23 and was noted to have triple-vessel disease. Patient was discharged home with planned for elective CABG which is scheduled for 08/29/23. 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 Patient was intubated status post extubation and was transitioned to 6 L of oxygen. Patient was weaned off Precedex drip. He was on nitroglycerin drip which was continued postprocedure patient was also placed on amiodarone drip managed by cardiac surgery * Blood work obtained showed WBC 9.2 hemoglobin 12.2 platelet count of 158. Serum chemistry sodium 137 potassium 4.1 and carbon dioxide 20 B UN 16 creatinine 0.74 * Serial blood glucose obtained 145, 170, 247, 196 * Patient was gradually weaned down to 2 L of oxygen, followed by cardiac surgery and pulmonary medicine * 08/31/2023: Patient seen and evaluated bedside during my evaluation patient is alert and oriented 4, chest tubes have been removed, patient states he had a better night, transition from insulin drip to subcu insulin. Antral transferred out of ICU 09/01/2023: Doing much better. Up in a recliner. Had a bowel movement. No chest pain. Some shortness of breath. at the bedside. Eating fair. Did walk in the hallway. Discussed with patient and 09/02/2023: Eating up eating lunch. Doing well. Did ambulate in the hallway. Looking forward to go tomorrow. Increase Levemir to 22 units in the morning. Active Medications Acetaminophen (Acetaminophen Tab 500 Mg Tab) 1,000 mg PO Q6HR PRN PRN Reason: Fever and/ or Mild Pain Last Admin: 09/02/23 21:23 Dose: 1,000 mg Albuterol/Ipratropium (Ipratropium-Albuterol 3 Ml Neb) 3 ml INHALATION RT-Q2H PRN PRN Reason: Shortness Of Breath Or Wheezing Albuterol/Ipratropium (Ipratropium-Albuterol 3 Ml Neb) 3 ml INHALATION RT-QID KOLBY Last Admin: 09/02/23 21:25 Dose: 3 ml Amiodarone HCl (Amiodarone 200 Mg Tab) 400 mg PO BID [facility] Last Admin: 09/02/23 21:22 Dose: 400 mg Amlodipine Besylate (Amlodipine 5 Mg Tab) 5 mg PO DAILY [facility] Last Admin: 09/02/23 08:03 Dose: 5 mg Aspirin (Aspirin 325 Mg Tab) 325 mg PO DAILY [facility] Last Admin: 09/02/23 08:03 Dose: 325 mg Atorvastatin Calcium (Atorvastatin 40 Mg Tab) 40 mg PO DAILY [facility] Last Admin: 09/02/23 08:03 Dose: 40 mg Bisacodyl (Bisacodyl 10 Mg Supp) 10 mg RECTAL DAILY PRN PRN Reason: Constipation Clopidogrel Bisulfate (Clopidogrel 75 Mg Tab) 75 mg PO DAILY [facility] Last Admin: 09/02/23 08:03 Dose: 75 mg Dextrose/Water (Dextrose 50% Syringe 50 Ml) 25 ml IVP PER PROTOCOL PRN; Protocol PRN Reason: Hypoglycemia Dextrose/Water (Dextrose 50% Syringe 50 Ml) 50 ml IVP PER PROTOCOL PRN; Protocol PRN Reason: Hypoglycemia Ferrous Sulfate (Ferrous Sulfate 325 Mg Tab) 325 mg PO BID-W/MEALS [facility] Last Admin: 09/02/23 16:43 Dose: 325 mg Heparin Sodium (Porcine) (Heparin Sodium,Porcine 5,000 Unit/Ml 1 Ml Vial) 5,000 unit SQ Q8HR [facility] Last Admin: 09/02/23 16:43 Dose: 5,000 unit Amiodarone HCl 150 mg/ (Dextrose/Water) 103 mls @ 618 mls/hr IV .Q10M PRN PRN Reason: A.FIB/FLUTTER Insulin Aspart (Insulin Aspart (Novolog) 100 Unit/Ml Vial) 4 unit SQ AC-TID [facility] Last Admin: 09/02/23 16:43 Dose: 4 unit Insulin Aspart (Insulin Aspart (Novolog) 100 Unit/Ml Vial) 0 unit SQ AC-TID [facility]; Protocol Last Admin: 09/02/23 16:43 Dose: 2 unit Insulin Detemir (Insulin Detemir (Levemir) 100 Unit/Ml Syr) 15 unit SQ DAILY@0700 [facility] Last Admin: 09/02/23 06:40 Dose: 15 unit Ketorolac Tromethamine (Ketorolac 15 Mg/Ml 1 Ml Vial) 15 mg IVP Q6HR [facility] Stop: 09/03/23 15:10 Last Admin: 09/02/23 18:21 Dose: 15 mg Lisinopril (Lisinopril 20 Mg Tab) 20 mg PO DAILY [facility] Last Admin: 09/02/23 08:03 Dose: 20 mg Magnesium Hydroxide (Magnesium Hydroxide 2,400 Mg/30 Ml Cup) 2,400 mg PO BID PRN PRN Reason: Constipation Melatonin (Melatonin 5 Mg Tablet) 5 mg PO HS PRN PRN Reason: for sleep Last Admin: 09/01/23 19:33 Dose: 5 mg Metoclopramide HCl (Metoclopramide 5 Mg/Ml 2 Ml Vial) 10 mg IVP Q4H PRN PRN Reason: Nausea And Vomiting Metoprolol Tartrate (Metoprolol Tartrate 50 Mg Tab) 100 mg PO BID [facility] Last Admin: 09/02/23 21:22 Dose: 100 mg Miscellaneous Information (Potassium Replacement Protocol 1 Each Misc) 1 each MISCELLANE DAILY PRN; Protocol PRN Reason: Per Protocol Miscellaneous Information (Magnesium Replacement Protocol 1 Each Misc) 1 each MISCELLANE DAILY PRN; Protocol PRN Reason: Per Protocol Ondansetron HCl (Ondansetron 4 Mg/2 Ml Vial) 4 mg IVP Q6HR PRN PRN Reason: Nausea And Vomiting Pantoprazole Sodium (Pantoprazole 40 Mg Tablet) 40 mg PO AC-BRKFST [facility] Last Admin: 09/02/23 06:41 Dose: 40 mg Ropinirole HCl (Ropinirole Hcl 0.25 Mg Tab) 0.5 mg PO [facility] Last Admin: 09/02/23 21:22 Dose: 0.5 mg Senna/Docusate Sodium (Sennosides-Docusate Sodium 1 Each Tab) 2 each PO [facility] Last Admin: 09/02/23 21:22 Dose: Not Given Sodium Chloride (Sodium Chloride 0.9% Flush 10 Ml Syringe) 10 ml IV BID [facility] Last Admin: 09/02/23 21:23 Dose: 10 ml Tamsulosin HCl (Tamsulosin 0.4 Mg Cap.Er.24h) 0.4 mg PO [facility] Last Admin: 09/02/23 21:21 Dose: 0.4 mg On examination: VITAL SIGNS: 97.7, 86, 16, 140/65, 97% room air GENERAL APPEARANCE: Up in a recliner HEENT: Normal external appearance of nose and ear. Oral cavity normal EYES: Pupils equal. Conjunctiva normal. NECK: JVD not raised. Mass not palpable. RESPIRATORY: Respiratory effort increase. Lungs-diminished breath sounds. CARDIOVASCULAR: First and second sounds normal. No edema. ABDOMEN: Soft. Liver and spleen not palpable. No tenderness. No mass palpable. PSYCHIATRY: Alert and oriented x3. Mood and affect normal. INVESTIGATIONS, reviewed in the clinical context: 09/02/2023: White count 5.1 hemoglobin 10 potassium 4.1 creatinine 0.84 09/01/2023: White count 6.8 hemoglobin 10.8 potassium 4.2 creatinine 0.81 Assessment and plan * Triple-vessel coronary artery disease status post bypass POD 2 >> MOJICA to LAD and radial 2 ramus intermedius and saphenous vein graft to PDA. * Diabetes mellitus type 2-follow Accu-Cheks with sliding scale. Levemir dose to be increased * Hypertension-amlodipine. Lopressor * Hyperlipidemia-Lipitor * Remote history of DVT * History of tobacco use * Obstructive sleep apnea not on CPAP -Coronary artery disease: Lipitor. Aspirin. Lopressor. -Restless legs syndrome. Requip -Acute postprocedure blood loss anemia expected from surgery. Oral ferrous sulfate -BPH: Flomax -Full code Discussed with patient and .
[2023-09-03 02:14] LABS: Glucose,Whole Blood 196 mg/dL (70-110)
[2023-09-03] MEDS: KETOROLAC 15 MG/ML 1 ML VIAL IVP SCH ×2 (05:44→12:26)
[2023-09-03 06:17] LABS: Glucose,Whole Blood 212 mg/dL (70-110)
[2023-09-03 06:52] LABS: HCT 30.9 % (39.0-53.0); HGB 10.9 gm/dL (13.0-17.5); MCH 27.9 pg (25.0-35.0); MCHC 35.4 g/dL (31.0-37.0); MCV 78.7 fL (80.0-100.0); Mean Platelet Volume 8.2; Platelet Count 207 k/uL (150-450); Poikilocytosis Slight; RBC 3.93 m/uL (4.30-5.90); RDW 14.1 % (11.5-15.5); WBC 6.7 k/uL (3.8-10.6)
[2023-09-03] MEDS: PANTOPRAZOLE 40 MG TABLET PO SCH (06:52)
[2023-09-03] MEDS: INSULIN ASPART (NovoLOG) 100 UNIT/ML VIAL SQ SCH ×4 (06:52→12:25)
[2023-09-03] MEDS: FERROUS SULFATE 325 MG TAB PO SCH (06:52)
[2023-09-03] MEDS ORDERED: INSULIN DETEMIR (LEVEMIR) 100 UNIT/ML SYR SQ SCH (07:00)
[2023-09-03 07:10] LABS: African American GFR (CKD) >90 (>60 ml/min/1.73 sqM); Anion Gap 11 mmol/L; Blood Urea Nitrogen 26 mg/dL (9-20); Calcium 8.4 mg/dL (8.4-10.2); Carbon Dioxide 17 mmol/L (22-30); Chloride 112 mmol/L (98-107); Glucose 194 mg/dL (74-99); Non-African American GFR(CKD) >90 (>60 ml/min/1.73 sqM); Potassium 4.5 mmol/L (3.5-5.1); Sodium 140 mmol/L (137-145)
--- NOTE | 2023-09-03 07:45 | P.PN ---
Subjective Progress Note Date: 09/03/23 Principal diagnosis: Coronary artery disease with previous myocardial infarction and stent placement, unstable angina. Past medical history significant for hypertension, hyperlipi demia, insulin dependent diabetes mellitus, obstructive sleep apnea without home CPAP use, heavy tobacco dependence with recent cessation 6 months ago, peripheral arterial disease with lower extremity bypass as well as stenting and thrombectomy, BPH, DVT on no active anticoagulation. POD #5 Off pump coronary artery bypass grafting x 3. Left internal thoracic artery (in-situ) to left anterior descending coronary artery. Radial artery from aorta to ramus intermedius and saphenous vein from aorta to posterior descending coronary artery, Endoscopic left radial and right greater saphenous vein maykel vest, Left atrial appendage ligation with #35mm AtriClip, Graft flow measurements using the Hitlab-Stim flow meter system, and intraoperative transesophageal echocardiogram performed by anesthesia. Postoperative acute blood loss anemia, expected likely secondary to hemodilution. Patient was seen and examined in follow-up today 09/03/2023 at his bedside on the third floor cardiac stepdown unit. Currently sitting up to the bedside chair, is awake, alert, oriented 3 and is in no acute apparent distress. Denies any complaints of pain or shortness of breath at this time. He reports he has been up ambulating in the cardiac step down in the hallway independently and tolerating well. Oxygen saturations are 98% on room air and he is achieving around 1500 mL on his incentive spirometry with encouragement. Remote telemetry showing normal sinus rhythm heart rate 92 BPM. His blood pressure was 170/77 this a.m. and his lisinopril has been increased to 40 mg by mouth daily which is his home dose. Discharge planning is in place. Laboratory and chest x-ray results reviewed. Objective - Vital Signs Vital signs: Vital Signs Temp 97.7 F 09/03/23 04:44 Pulse 81 09/03/23 07:10 Resp 22 09/03/23 04:44 BP 184/83 09/03/23 07:17 Pulse Ox 98 09/03/23 04:44 FiO2 80 08/30/23 05:30 Intake & Output 09/02/23 09/03/23 09/03/23 18:59 06:59 18:59 Intake Total 1158 550 Output Total 800 450 Balance 358 100 Weight 92.2 kg Intake: IV 20 10 Invasive Line 1 20 Invasive Line 5 10 Oral 1138 540 Output: Urine 800 450 Other: Voiding Method Urinal Toilet Urinal # Voids 2 ABP, PAP, CO, CI - Last Documented Arterial Blood Pressure 127/51 Pulmonary Artery Pressure 35/14 Cardiac Output 7.9 Cardiac Index 4 - Exam CONSTITUTIONAL: Sitting up to the bedside chair on the third floor cardiac stepdown unit, appears comfortable, cooperative, no apparent acute distress. HEENT: Neck is supple, no JVD, no lymphadenopathy. RESPIRATORY: Lungs sounds essentially clear throughout, diminished to his bilateral bases, left greater than right. Respirations are symmetrical and nonlabored. Currently on room air with oxygen saturations 98%. Able to achieve 1500 mL on his incentive spirometry. Strong cough. CARDIOVASCULAR: Regular rhythm and rate. S1 and S2 present, negative for S3, gallop or murmur. Remote telemetry showing normal sinus rhythm heart rate 92 BPM. Sternum is stable. Palpable peripheral pulses bilaterally, no edema to his bilateral lower extremities. No calf pain or tenderness noted. Heart hugger in place with patient demonstrating appropriate use. Knee-high GUDELIA hose and sequential compression devices in place to his bilateral lower extremities. GASTROINTESTINAL: Abdomen soft, nontender, nondistended. Active bowel sounds present 4 quadrants. Tolerating diet. Passing flatus. No guarding or rigidity. Bowel movement yesterday 09/02/2023. GENITOURINARY: Continues to void. 300 mL of urine output in the last 8 hours. INTEGUMENTARY: Skin is warm and dry with no evidence of clubbing or cyanosis. Midline sternal incision clean dry and well approximated, covered with dry intact dressing. Right lower extremity EVH site well approximated without redness or drainage. Left arm radial artery harvest sites clean, dry and approximated. No drainage or redness is present. NEUROLOGIC: Cranial nerves II through XII intact. No focal deficits. MUSKULOSKELETAL: Able to move all extremities, strength equal bilaterally. PSYCHIATRIC: Alert and oriented to person place and time, appropriate affect, intact judgment and insight. - Allied health notes Allied health notes reviewed: nursing - Labs CBC & Chem 7: 09/03/23 06:32 09/03/23 06:32 Labs: Abnormal Lab Results - Last 24 Hours (Table) 09/02/23 09/02/23 09/02/23 Range/Units 09:23 09:23 11:45 RBC 3.70 L (4.30-5.90) m/uL Hgb 10.0 L (13.0-17.5) gm/dL Hct 29.7 L (39.0-53.0) % MCV (80.0-100.0) fL Chloride 109 H (98-107) mmol/L Carbon Dioxide 21 L (22-30) mmol/L BUN 26 H (9-20) mg/dL Glucose 197 H (74-99) mg/dL POC Glucose (mg/dL) 204 H (70-110) mg/dL Calcium 8.3 L (8.4-10.2) mg/dL 09/02/23 09/02/23 09/03/23 Range/Units 16:38 20:32 01:58 RBC (4.30-5.90) m/uL Hgb (13.0-17.5) gm/dL Hct (39.0-53.0) % MCV (80.0-100.0) fL Chloride (98-107) mmol/L Carbon Dioxide (22-30) mmol/L BUN (9-20) mg/dL Glucose (74-99) mg/dL POC Glucose (mg/dL) 165 H 232 H 196 H (70-110) mg/dL Calcium (8.4-10.2) mg/dL 09/03/23 09/03/23 09/03/23 Range/Units 06:15 06:32 06:32 RBC 3.93 L (4.30-5.90) m/uL Hgb 10.9 L (13.0-17.5) gm/dL Hct 30.9 L (39.0-53.0) % MCV 78.7 L (80.0-100.0) fL Chloride 112 H (98-107) mmol/L Carbon Dioxide 17 L (22-30) mmol/L BUN 26 H (9-20) mg/dL Glucose 194 H (74-99) mg/dL POC Glucose (mg/dL) 212 H (70-110) mg/dL Calcium (8.4-10.2) mg/dL - Imaging and Cardiology Chest x-ray: report reviewed, image reviewed Assessment and Plan Assessment: Multivessel coronary artery disease, status post off-pump coronary artery bypass grafting 3 Hypertension Hyperlipidemia treated, cholesterol 81, LDL 21, triglycerides 159 Peripheral arterial disease with lower extremity bypass as well as stenting and thrombectomy Insulin-dependent diabetes mellitus with a preoperative hemoglobin A1c of 8.5% Obstructive sleep apnea without home CPAP use Tobacco dependence with recent cessation, preoperative FEV1 97% of predicted value Benign prostatic hypertrophy, on Flomax as an outpatient History of DVT on no active anticoagulation as an outpatient Postoperative acute blood loss anemia, expected Plan: Continue to maximize medical therapy with aspirin, statin, Plavix, and beta estiven. Continue amlodipine 5 mg by mouth daily with hold parameters for radial artery spasm prophylaxis. Continue amiodarone 400 mg by mouth twice a day for atrial fibrillation prophylaxis. The patient has not had any atrial fibrillation at this point and remains in normal sinus rhythm. Encourage incentive spirometry use 10 times every hour while awake. Bronchodilators per pulmonology. Will monitor daily labs and chest x-rays. Electrolyte replacement per protocol. Increase activity as tolerated, PT/OT/cardiac rehab following. GI/DVT prophylaxis. Pain control with current medication regimen. Insulin management per internal medicine. Needs tight blood sugar control to promote sternal wound healing. Preoperative hemoglobin A1c 8.5%. Continue to record strict inaccurate I's and O's. Daily weights. Shower daily. Discharge planning is in place, anticipate discharge home with home health care in the next 24 hours. More recommendations to follow based on patient's clinical course. Time with Patient: Greater than 30
[2023-09-03] MEDS: IPRATROPIUM-ALBUTEROL 3 ML NEB INHALATION SCH ×3 (07:55→15:39)
--- NOTE | 2023-09-03 08:42 | XR ---
EXAMINATION TYPE: XR chest 1V portable DATE OF EXAM: 09/03/2023 6:55 AM CLINICAL INDICATION:Male, 68 years old with history of Post op CABG; H COMPARISON: Chest radiographs from TECHNIQUE: XR chest 1V portable Frontal view of the chest. FINDINGS: Lungs/Pleura: No evidence of focal consolidation or pneumothorax. Blunting of the costophrenic angles is present. Pulmonary vascularity: Unremarkable. Heart/mediastinum: Cardiomediastinal silhouette is enlarged and stable. Atherosclerotic calcificatio ns are seen in the aorta. Left atrial appendage occlusion device is present. Musculoskeletal: No acute osseous pathology. Midline sternotomy wires are noted. Other findings: None IMPRESSION: Cardiomegaly with trace pleural effusions.
[2023-09-03] MEDS: HEPARIN SODIUM,PORCINE 5,000 UNIT/ML 1 ML VIAL SQ SCH (08:44)
[2023-09-03] MEDS: ATORVASTATIN 40 MG TAB PO SCH (08:45)
[2023-09-03] MEDS: amLODIPine 5 MG TAB PO SCH (08:45)
[2023-09-03] MEDS: ASPIRIN 325 MG TAB PO SCH (08:45)
[2023-09-03] MEDS: ACETAMINOPHEN TAB 500 MG TAB PO PRN (08:45)
[2023-09-03] MEDS: AMIODARONE 200 MG TAB PO SCH (08:46)
[2023-09-03] MEDS: CLOPIDOGREL 75 MG TAB PO SCH (08:46)
[2023-09-03] MEDS: METOPROLOL TARTRATE 50 MG TAB PO SCH (08:48)
[2023-09-03] MEDS ORDERED: lisinopriL 20 MG TAB PO SCH (09:00)
[2023-09-03 12:04] LABS: Glucose,Whole Blood 197 mg/dL (70-110)
[2023-09-03 12:37] VITALS: RESP 16
--- NOTE | 2023-09-03 13:47 | P.PN ---
Subjective HISTORY OF PRESENT ILLNESS: Patient examined this morning. He is sitting up in the chair. Patient's is present. Patient denies any chest pain or pressure. He denies any shortness of breath. Telemetry reveals sinus mechanism. Patient has been up and bleeding in the hallways today without difficulty. He is using his incentive spirometer and pulling 2500 mL. Patient's blood pressures are elevated with a systolic in the 150s to 160s. His lisinopril has been resumed today. PHYSICAL EXAM: VITAL SIGNS: Reviewed. GENERAL: Well-developed in no acute distress. NECK: Supple. No JVD or thyromegaly LUNGS: Respirations even and unlabored. Lungs essentially clear to auscultation bilaterally. HEART: Regular rate and rhythm. S1 and S2 heard. EXTREMITIES: Normal range of motion. No clubbing or cyanosis. Peripheral pulses intact. No lower extremity edema ASSESSMENT: Coronary artery disease, status post CABG 3 Hypertension Hyperlipidemia Diabetes Peripheral arterial disease with lower extremity bypass as well as stenting and thrombectomy Obstructive sleep apnea Nicotine dependence with recent cessation History of DVT PLAN: Continue postoperative management per CT surgery Increase activity as tolerated Encourage use of incentive spirometer Patient resumed on lisinopril today. 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 Patient and will make a decision whether they want to follow with Dr. Lagunas post discharge or his previous offset proof press operator out of [place]. Further recommendations pending patient's course Nurse practitioner note has been reviewed by physician. Signing provider agrees with the documented findings, assessment, and plan of care. Objective - Vital Signs Vital signs: Vital Signs Temp 97.6 F 09/03/23 08:42 Pulse 82 09/03/23 12:29 Resp 16 09/03/23 12:29 BP 162/74 09/03/23 12:29 Pulse Ox 96 09/03/23 12:29 FiO2 80 08/30/23 05:30 Intake & Output 09/02/23 09/03/23 09/03/23 18:59 06:59 18:59 Intake Total 1158 550 790 Output Total 800 450 Balance 358 100 790 Weight 92.2 kg Intake: IV 20 10 10 Invasive Line 1 20 Invasive Line 5 10 10 Oral 1138 540 780 Output: Urine 800 450 Other: Voiding Method Urinal Toilet Toilet Urinal Urinal # Voids 2 ABP, PAP, CO, CI - Last Documented Arterial Blood Pressure 127/51 Pulmonary Artery Pressure 35/14 Cardiac Output 7.9 Cardiac Index 4 - Labs CBC & Chem 7: 09/03/23 06:32 09/03/23 06:32 Labs: Abnormal Lab Results - Last 24 Hours (Table) 09/02/23 09/02/23 09/03/23 Range/Units 16:38 20:32 01:58 RBC (4.30-5.90) m/uL Hgb (13.0-17.5) gm/dL Hct (39.0-53.0) % MCV (80.0-100.0) fL Chloride (98-107) mmol/L Carbon Dioxide (22-30) mmol/L BUN (9-20) mg/dL Glucose (74-99) mg/dL POC Glucose (mg/dL) 165 H 232 H 196 H (70-110) mg/dL 09/03/23 09/03/23 09/03/23 Range/Units 06:15 06:32 06:32 RBC 3.93 L (4.30-5.90) m/uL Hgb 10.9 L (13.0-17.5) gm/dL Hct 30.9 L (39.0-53.0) % MCV 78.7 L (80.0-100.0) fL Chloride 112 H (98-107) mmol/L Carbon Dioxide 17 L (22-30) mmol/L BUN 26 H (9-20) mg/dL Glucose 194 H (74-99) mg/dL POC Glucose (mg/dL) 212 H (70-110) mg/dL 09/03/23 Range/Units 12:02 RBC (4.30-5.90) m/uL Hgb (13.0-17.5) gm/dL Hct (39.0-53.0) % MCV (80.0-100.0) fL Chloride (98-107) mmol/L Carbon Dioxide (22-30) mmol/L BUN (9-20) mg/dL Glucose (74-99) mg/dL POC Glucose (mg/dL) 197 H (70-110) mg/dL
--- NOTE | 2023-09-03 15:40 | P.DS ---
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 Consult: post cardiac surgery;[place] pt Do you want consulting provider notified?: Yes Consult Physician Routine Consulting Provider: Ollie Tracy Consult Reason/Comments: med mgmt; [facility] patient Do you want consulting provider notified?: Yes Primary care physician: [facility] Course: FINAL DIAGNOSIS: Multivessel coronary artery disease, status post off-pump coronary artery bypass grafting 3 Hypertension Hyperlipidemia treated, cholesterol 81, LDL 21, triglycerides 159 Peripheral arterial disease with lower extremity bypass as well as stenting and thrombectomy Insulin-dependent diabetes mellitus with a preoperative hemoglobin A1c of 8.5% Obstructive sleep apnea without home CPAP use Tobacco dependence with recent cessation, preoperative FEV1 97% of predicted value Benign prostatic hypertrophy, on Flomax as an outpatient History of DVT on no active anticoagulation as an outpatient Postoperative acute blood loss anemia, expected PRINCIPAL PROCEDURE: 1. Off pump coronary artery bypass grafting x 3. Left internal thoracic artery (in-situ) to left anterior descending coronary artery. Radial artery from aorta to ramus intermedius and saphenous vein from aorta to posterior descending coronary artery. 2. Endoscopic left radial and right greater saphenous vein harvest 3. Left atrial appendage ligation with #35mm AtriClip 4. Graft flow measurements using the Medi-Stim flow meter system 5. Transesophageal echo HISTORY OF PRESENT ILLNESS: This is a 68-year-old gentleman who follows in our outpatient basis with Dr. Obed wright primary care and Dr. Davila for his cardiology care. He presented to the emergency department here at [facility] on 08/23/2023 with complaints of chest pain with radiation across his chest at rest associated with lower extremity weakness. He reports his chest pain had been going on intermittently over a six-month period. A 12-lead EKG was completed in the emergency room at that time which showed sinus rhythm. His chest x-ray showed no acute process and his laboratory results showed troponins were negative 3. Subsequent, due to the patient's presenting symptoms he underwent a cardiac catheterization which was completed by Dr. Damian Lagunas from cardiology, and the cardiac catheterization revealed triple-vessel coronary artery disease with recent in-stent stenosis of the LAD 70-80%, a distal LAD stenosis of 70%, a 50% stenosis to his ramus coronary artery, and a focal 50% stenosis to his right coronary artery. Subsequently, due to the findings on the patient's cardiac catheterization a consult was placed to Dr. Gera Greer from cardiothoracic surgery for further evaluation and treatment recommendations including myocardial revascularization surgery. Dr. Greer met with the patient in the patient's , reviewed the findings on the cardiac catheterization films, treatment options were discussed including myocardial revascularization surgery. Risks and benefits of surgery including the STS risk score were discussed with the patient and knowing and understanding the risks he wished to proceed with the surgical option. HOSPITAL COURSE: The patient was brought to the on 08/29/2023, taken to the preoperative area, prepared in the usual fashion and subsequently taken to the operating room where Dr. Greer performed an off-pump coronary artery bypass grafting 3, with left internal thoracic artery (in-situ) to the left anterior descending coronary artery, radial artery from the aorta to the ramus intermedius and a reverse greater saphenous vein from the aorta to the posterior descending coronary artery. Upon completion of the surgery the patient was transferred to the cardiovascular intensive care unit where he was recovered and monitored hemodynamically. He was extubated, all lines, tubes and supportive drips were discontinued when appropriate and he was transferred to the third floor cardiac stepdown unit for further monitoring and rehabilitation. His oxygen was titrated down, he continued to work with physical and occupational therapy, he was tolerating an oral diet, his pain was well controlled and he was ready to be discharged home with [facility] on postoperative day #5. He has received written and verbal instructions regarding his medications, activity restrictions, signs and symptoms requiring physician notification and his follow-up appointments. Plan - Discharge Summary Discharge Rx Participant: Yes New Discharge Prescriptions: New Metoprolol Tartrate [Lopressor] 100 mg PO BID #60 tablet amLODIPine [Norvasc] 10 mg PO DAILY #30 tablet Sennosides-Docusate Sodium [Senokot-S] 2 each PO HS #14 tab Acetaminophen Tab [Tylenol] 1,000 mg PO Q6HR PRN tab PRN Reason: Fever and/ or Mild Pain Aspirin 325 mg PO DAILY #30 tab Continue Rosuvastatin Calcium [Crestor] 20 mg PO DAILY [place]-3 Acid Ethyl Esters [Lovaza] 2 gm PO BID Omeprazole 20 mg PO BID rOPINIRole HCL [Requip] 0.5 mg PO HS Insulin Glargine,Hum.rec.anlog [Lantus Solostar Pen] 40 unit SQ QAM lisinopriL 40 mg PO DAILY Clopidogrel [Plavix] 75 mg PO DAILY metFORMIN HCL ER [Glucophage XR] 500 mg PO BID Tamsulosin [Flomax] 0.4 mg PO DAILY Canagliflozin [Invokana] 300 mg PO DAILY Changed Insulin Aspart [NovoLOG Flexpen] 8 units SQ AC-TID #0 Discontinued Metoprolol Succinate [Toprol XL] 50 mg PO DAILY Isosorbide Mononitrate ER [Imdur] 30 mg PO DAILY #30 tab Nitroglycerin Sl Tabs [Nitrostat] 0.4 mg SUBLINGUAL Q5M PRN #25 tab PRN Reason: Chest Pain Aspirin 81 mg PO DAILY tab Discharge Medication List [place]-3 Acid Ethyl Esters [Lovaza] 2 gm PO BID 05/06/14 [History] Rosuvastatin Calcium [Crestor] 20 mg PO DAILY 05/06/14 [History] Omeprazole 20 mg PO BID 07/29/18 [History] rOPINIRole HCL [Requip] 0.5 mg PO HS 07/29/18 [History] Insulin Glargine,Hum.rec.anlog [Lantus Solostar Pen] 40 unit SQ QAM 10/12/19 [History] Tamsulosin [Flomax] 0.4 mg PO DAILY 08/23/23 [History] lisinopriL 40 mg PO DAILY 08/23/23 [History] metFORMIN HCL ER [Glucophage XR] 500 mg PO BID 08/23/23 [History] Canagliflozin [Invokana] 300 mg PO DAILY 08/27/23 [History] Clopidogrel [Plavix] 75 mg PO DAILY 08/27/23 [History] Acetaminophen Tab [Tylenol] 1,000 mg PO Q6HR PRN tab 09/03/23 [Rx] Aspirin 325 mg PO DAILY #30 tab 09/03/23 [Rx] Insulin Aspart [NovoLOG Flexpen] 8 units SQ AC-TID #0 09/03/23 [Rx] Metoprolol Tartrate [Lopressor] 100 mg PO BID #60 tablet 09/03/23 [Rx] Sennosides-Docusate Sodium [Senokot-S] 2 each PO HS #14 tab 09/03/23 [Rx] amLODIPine [Norvasc] 10 mg PO DAILY #30 tablet 09/03/23 [Rx] Follow up Appointment(s)/Referral(s): Alessandra Reardon NPC [Nurse Practitioner] - 09/10/23 10:30 am (Please follow-up at [address] [place] [address] [address], [facility], [address] Office number is [phone]) Rehab Thuy CARIAS,Cardiac [NON-STAFF] - 4 Weeks Oliverio Clay DO [Primary Care Provider] - 09/05/23 9:40 am [facility] - 1 Week ([facility] will call you to arrange a visit) Ryan Zacarias MD [REFERRING] - 09/06/23 3:00 pm (Follow up at: [address] [place] [address], [address], [place], [address], Near [facility]) Gera Greer MD [STAFF PHYSICIAN] - 09/27/23 10:00 am Landry Lagunas MD [STAFF PHYSICIAN] - 1 Week (Spoke with Rosas at Dr. Lagunas's office and they will contact you with follow-up appointment) Lona Mckenzie MD [STAFF PHYSICIAN] - 09/24/23 2:30 pm Ambulatory/Diagnostic Orders: Complete Blood Count w/diff [LAB.AMB] Time Frame: 09/06/23, Facility: [facility], Location: Laboratory Main [facility] Comprehensive Metabolic Panel [LAB.AMB] Time Frame: 09/06/23, Facility: [facility], Location: Laboratory Main [facility] Activity/Diet/Wound Care/Special Instructions: DISCHARGE INSTRUCTIONS: 1. No driving for 4 weeks, or until physician gives their ok. 2. The patient should sleep in their own bed, no medical bed needed. 3. Stairs are not an issue. If the bedroom is upstairs, it is advised that the patient go up at night and down in the morning for the first week. Go slowly, using handrail and take 1 step at a time. 4. GUDELIA hose are to be worn for 30 days post surgery or until physician discontinues. 5. Heart hugger is to be worn 100% of the time until physician discontinues.(except when showering) 6. No lifting, pushing, or pulling more than 10 pounds for 12 weeks. The physician will advise of any restriction changes. 7. The patient is expected to continue the prescribed walking program. 8. Continue pain control per as needed orders. 9. Continue with incentive spirometry and splinting/heart hugger until otherwise directed by the physician. 10. Must shower daily using liquid antibacterial soap 11. Routine sternal incision care. No powders, lotions, ointments on incisions. No dressings are necessary on incisions unless they are draining. Dermabond tape is to remain on sternal incision until surgeon follow-up. 12. Please call surgeon/RISK OFFICER for temp greater than 101 F or purulent drainage from incisions. 13. You should weigh yourself daily, record and bring log with you to follow up appointments. 14. All prescriptions given by surgeon for 30 days. Refills need to be filled through viticulturist/primary care physician. 15. A Red armband has been placed on the patient. It should be worn for 30 days post discharge from surgery and will be removed by the cardiac surgeons. If an ER visit is necessary, please make sure the number on the Red armband is called before going to ER. 16. You have been referred to and are expected to begin Cardiac Rehab in approximately 4-6 weeks. 17. Quitting smoking is the most important step you can take to improve your health. For additional information and assistance to quit smoking, please call the [place] tobacco quit line (5-330-SRDX-NOW/ ) or online: https://www.[place].gov/[facility]/hnkw-ex-fturicy/chronicdiseases/tobacco/how-to-qu it-tobacco 18. Please check your blood sugars before meals and at bedtime, make a record of her blood sugars and take the record to her follow-up appointments with your primary care physician and with Dr. Zacarias. HOME HEALTH SERVICES TO PROVIDE: RN SKILLED HOME CARE SERVICES FOR POST-OP SURGICAL PATIENTS WITH THE FOLLOWING: Coronary Artery Bypass Surgery (CABG), Mitral Valve Replacement/Repair ( MVR), Aortic Valve Replacement/Repair (AVR) RN TO CONTINUE EDUCATION FROM ``ROAD TO A HEALTH HEART PATIENT EDUCATION MANUAL (GIVEN TO PATIENT IN THE HOSPITAL) MEDICATION RECONCILIATION WITH EDUCATION NEEDED ON FIRST HOME VISIT EMPHASIZE IMPORTANCE OF WEARING BREAST SUPPORT/HEART HUGGER ENCOURAGE USE OF INCENTIVE SPIROMETER 10 X EVERY HOUR WHILE AWAKE ENCOURAGE UTILIZATION OF LOWER EXTREMITY COMPRESSION STOCKINGS/GUDELIA HOSE and ELEVATE LEGS ABOVE LEVEL OF HEART WHILE AT REST. ENCOURAGE AMBULATION 3-5x/day INCREASING TOLERATES, WHILE AVOIDING EXTREMES IN TEMPERATURE FREQUENCY: RN TO OPEN THE PATIENT WITHIN 24 HOURS OF DISCHARGE FROM THE HOSPITAL WITH [place]HE[place] [facility] [place]IT 2-3 X A WEEK FOR 4 WEEKS ESTABLISHED BY PATIENT NEEDS. LABORATORY: CBC, CMP TO BE DRAWN ON THE THIRD DAY HOME, (RAN STAT) FAX RESULTS TO [phone]. TELEHEALTH PARAMETERS: WEIGHT: NOTIFY MD OF WEIGHT GAIN OF 2 LBS IN 24 HOURS OR 5 LBS IN ONE WEEK HR: NOTIFY MD OF HR <55 BPM OR HR>100 BPM BP: NOTIFY MD IF BP <90/55 OR BP>140/100 O2 SAT: NOTIFY MD IF PO2<93% ON ROOM AIR SEND TELEHEALTH REPORT TO ELECTRICIAN UNDERGROUND AND CARDIOVASCULAR SURGEON THE FIRST WEEK OF CARE AND THEN BI-WEEKLY. PLEASE ADDITIONALLY COMMUNICATE ANY ABNORMALS AND NEW FINDINGS TO THE SURGEONS OFFICE. Discharge Disposition: HOME WITH HOME HEALTH SERVICES
--- NOTE | 2023-09-03 15:57 | P.PN ---
Progress Note - Text Progress Note Date: 09/03/23 68-year-old patient with past medical history significant for diabetes mellitus, hyperlipidemia, hypertension, gastroesophageal reflux disease, obstructive sleep apnea, history of tobacco use, BPH, who had cardiac catheterization done on 08/24/23 and was noted to have triple-vessel disease. Patient was discharged home with planned for elective CABG which is scheduled for 08/29/23. Postprocedure patient has been transferred to medical ICU for comanagement by instructor watch assembly, and cardiac surgery team. Patient was intubated status post extubation and was transitioned to 6 L of oxygen. Patient was weaned off Precedex drip. He was on nitroglycerin drip which was continued postprocedure patient was also placed on amiodarone drip managed by cardiac surgery * Blood work obtained showed WBC 9.2 hemoglobin 12.2 platelet count of 158. Serum chemistry sodium 137 potassium 4.1 and carbon dioxide 20 B UN 16 creatinine 0.74 * Serial blood glucose obtained 145, 170, 247, 196 * Patient was gradually weaned down to 2 L of oxygen, followed by cardiac surgery and pulmonary medicine * 08/31/2023: Patient seen and evaluated bedside during my evaluation patient is alert and oriented 4, chest tubes have been removed, patient states he had a better night, transition from insulin drip to subcu insulin. Antral transferred out of ICU 09/01/2023: Doing much better. Up in a recliner. Had a bowel movement. No chest pain. Some shortness of breath. at the bedside. Eating fair. Did walk in the hallway. Discussed with patient and 09/02/2023: Eating up eating lunch. Doing well. Did ambulate in the hallway. Looking forward to go tomorrow. Increase Levemir to 22 units in the morning. 09/03/2023: Sitting at the edge of the bed. Anxious to go home:. Manual blood pressure in the 150s. Discussed with the patient and . Diabetes discussed detail. Increase Lantus to 30 units. NovoLog increased to 8 units with meals. Several other questions answered. Blood pressure medications being adjusted. Patient to follow-up with his PCP Dr. Clay and automobile upholstery trim installer Dr. spencer Medications reviewed On examination: VITAL SIGNS: He 7.6, 82, 16, 150 systolic manual, 96% room air GENERAL APPEARANCE sitting at the edge of the bed, comfortable HEENT: Normal external appearance of nose and ear. Oral cavity normal EYES: Pupils equal. Conjunctiva normal. NECK: JVD not raised. Mass not palpable. RESPIRATORY: Respiratory effort increase. Lungs-diminished breath sounds. CARDIOVASCULAR: First and second sounds normal. No edema. ABDOMEN: Soft. Liver and spleen not palpable. No tenderness. No mass palpable. PSYCHIATRY: Alert and oriented x3. Mood and affect normal. INVESTIGATIONS, reviewed in the clinical context: 09/03/2023: White count 6.70 globin 10.9 potassium 4.5 creatinine 0.71 09/02/2023: White count 5.1 hemoglobin 10 potassium 4.1 creatinine 0.84 09/01/2023: White count 6.8 hemoglobin 10.8 potassium 4.2 creatinine 0.81 Assessment and plan * Triple-vessel coronary artery disease status post bypass POD 2 >> [place] to LAD and radial 2 ramus intermedius and saphenous vein graft to PDA. * Diabetes mellitus type 2-follow Accu-Cheks with sliding scale. Levemir 30 units subcu daily. Overload 18 units before meals 3 times a day. * Hypertension-amlodipine. Lopressor. Lisinopril * Hyperlipidemia-Lipitor * Remote history of DVT * History of tobacco use * Obstructive sleep apnea not on CPAP -Coronary artery disease: Lipitor. Aspirin. Lopressor. -Restless legs syndrome. Requip -Acute postprocedure blood loss anemia expected from surgery. Oral ferrous sulfate -BPH: Flomax -Full code Discussed with patient and . Patient to follow-up with Dr. Clay and Dr. Spencer
[2023-09-03 16:44] VITALS: BP 153/74; PULSE 84; TEMP 97.9
== END 2023-09-03 16:36 | disposition home health service (06) | DRG 236 ==
LOC: 2ORMAIN 05:49 → 2SICU 13:44 → 3SCARD 08-31 20:56
PROVIDERS: ADMIT Thoracic Surgery (Cardiothoracic Vascular Surgery); ATTEND Thoracic Surgery (Cardiothoracic Vascular Surgery)
PROC: 05BA4ZZ Excision of Left Brachial Vein, Percutaneous Endoscopic Approach (ICD-10-PCS; 2023-08-29)
PROC: 02L70CK Occlusion of Left Atrial Appendage with Extraluminal Device, Open Approach (ICD-10-PCS; 2023-08-29)
PROC: B24BZZ4 Ultrasonography of Heart with Aorta, Transesophageal (ICD-10-PCS; 2023-08-29)
PROC: 4A0305C Measurement of Arterial Flow, Coronary, Open Approach (ICD-10-PCS; 2023-08-29)
PROC: 02100Z3 Bypass Coronary Artery, One Artery from Coronary Artery, Open Approach (ICD-10-PCS; principal; 2023-08-29 09:00)
PROC: 02100AW Bypass Coronary Artery, One Artery from Aorta with Autologous Arterial Tissue, Open Approach (ICD-10-PCS; 2023-08-29 09:00)
PROC: 06BP4ZZ Excision of Right Saphenous Vein, Percutaneous Endoscopic Approach (ICD-10-PCS; 2023-08-29 09:00)
PROC: 021009W Bypass Coronary Artery, One Artery from Aorta with Autologous Venous Tissue, Open Approach (ICD-10-PCS; 2023-08-29 09:00)
DX: T82.855A Stenosis of coronary artery stent, initial encounter (principal); D62 Acute posthemorrhagic anemia; I25.110 Atherosclerotic heart disease of native coronary artery with unstable angina pectoris; I11.9 Hypertensive heart disease without heart failure; E11.51 Type 2 diabetes mellitus with diabetic peripheral angiopathy without gangrene; I70.209 Unspecified atherosclerosis of native arteries of extremities, unspecified extremity; E11.65 Type 2 diabetes mellitus with hyperglycemia; G25.81 Restless legs syndrome; N40.0 Benign prostatic hyperplasia without lower urinary tract symptoms; E78.5 Hyperlipidemia, unspecified; G47.33 Obstructive sleep apnea (adult) (pediatric); M19.90 Unspecified osteoarthritis, unspecified site; H91.90 Unspecified hearing loss, unspecified ear; R16.1 Splenomegaly, not elsewhere classified; K21.9 Gastro-esophageal reflux disease without esophagitis; Y71.1 Therapeutic (nonsurgical) and rehabilitative cardiovascular devices associated with adverse incidents; Z79.4 Long term (current) use of insulin; Z95.820 Peripheral vascular angioplasty status with implants and grafts; Z87.891 Personal history of nicotine dependence; Z86.718 Personal history of other venous thrombosis and embolism; I25.2 Old myocardial infarction; Z79.899 Other long term (current) drug therapy; Z79.84 Long term (current) use of oral hypoglycemic drugs; Z79.02 Long term (current) use of antithrombotics/antiplatelets; Z79.82 Long term (current) use of aspirin
CPT/HCPCS: 71045; 71046; 80048; 80053; 82330; 82805; 83735; 85025; 85027; 85610; 85730; 86850; 86891; 86900; 86901; 86920; 94002; 94640; 94660; 94760

== ENCOUNTER 2023-11-16 21:40 | Emergency (ER) | payer MEDICARE ==
[2023-11-16 21:56] LABS: Glucose,Whole Blood 130 mg/dL (70-110)
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
[2023-11-16] MEDS ORDERED: VANCOMYCIN IV PER PHARMACY 1 EACH MISC MISCELLANE PRN (22:06)
--- NOTE | 2023-11-16 22:29 | XR ---
EXAMINATION TYPE: XR chest 2V DATE OF EXAM: 11/16/2023 COMPARISON: Chest x-ray July 04, 2024 HISTORY: Fever TECHNIQUE: Frontal and lateral views of the chest are obtained. FINDINGS: Overlying sternal wires and mediastinal clips along with left atrial appendage clip are re demonstrated. Chronic parenchymal changes bilaterally again seen. There is no focal air space opacity , pleural effusion, or pneumothorax seen. The cardiac silhouette size is mildly enlarged with athero sclerotic aorta. The osseous structures are intact. IMPRESSION: Mild cardiomegaly and chronic parenchymal changes without acute pulmonary process.
[2023-11-16] MEDS: SODIUM CHLORIDE 0.9% 500 ML 500 ML IV SCH (22:47)
[2023-11-16] MEDS: ACETAMINOPHEN TAB 325 MG TAB PO STA (22:55)
[2023-11-16] MEDS: SODIUM CHLORIDE 0.9% 1,000 ML IV SCH (22:55)
[2023-11-16 23:22] LABS: ALT 20 U/L (4-49); AST 23 U/L (17-59); African American GFR (CKD) >90 (>60 ml/min/1.73 sqM); Alkaline Phosphatase 79 U/L (38-126); Anion Gap 12 mmol/L; Blood Urea Nitrogen 20 mg/dL (9-20); Calcium 9.2 mg/dL (8.4-10.2); Carbon Dioxide 17 mmol/L (22-30); Chloride 107 mmol/L (98-107); Glucose 117 mg/dL (74-99); Non-African American GFR(CKD) >90 (>60 ml/min/1.73 sqM); Potassium 4.1 mmol/L (3.5-5.1); Sodium 136 mmol/L (137-145); Total Bilirubin 0.5 mg/dL (0.2-1.3); Total Protein 7.2 g/dL (6.3-8.2)
[2023-11-16 23:32] LABS: Anisocytosis Slight; Basophils % (A) 0 %; Eosinophils # (A) 0.1 k/uL (0-0.7); Eosinophils % (A) 0 %; HCT 38.3 % (39.0-53.0); HGB 12.5 gm/dL (13.0-17.5); Hypochromasia Slight; Lymphocytes # (A) 0.5 k/uL (1.0-4.8); Lymphocytes % (A) 3 %; MCH 23.9 pg (25.0-35.0); MCHC 32.6 g/dL (31.0-37.0); MCV 73.4 fL (80.0-100.0); Mean Platelet Volume 8.6; Microcytosis Slight; Monocytes # (A) 0.9 k/uL (0-1.0); Monocytes % (A) 6 %; Neutrophils % (A) 90 %; Platelet Count 181 k/uL (150-450); Poikilocytosis Slight; RBC 5.23 m/uL (4.30-5.90); WBC 14.6 k/uL (3.8-10.6)
[2023-11-16] MEDS: VANCOMYCIN 1,500 MG in SODIUM CHLORIDE 0.9% 500 ML 500 ML IVPB ONE (23:43)
[2023-11-17 01:21] VITALS: TEMP 98.4
[2023-11-17 02:02] VITALS: BP 105/52; PULSE 92; RESP 16
[2023-11-17] MEDS: MORPHINE SULFATE 4 MG/ML SYRINGE IVP STA (02:20)
[2023-11-17] MEDS ORDERED: VANCOMYCIN 1,500 MG in SODIUM CHLORIDE 0.9% 500 ML 500 ML IVPB SCH (08:00)
== END 2023-11-17 02:24 | disposition other institution (70) ==
LOC: EC 21:40
DX: T81.44XA Sepsis following a procedure, initial encounter (principal); A41.9 Sepsis, unspecified organism; R07.89 Other chest pain; Z87.891 Personal history of nicotine dependence; Z95.1 Presence of aortocoronary bypass graft; Z95.5 Presence of coronary angioplasty implant and graft; Z11.52 Encounter for screening for COVID-19
CPT/HCPCS: 99291; 96365; 96367; 96366 ×2; 96375; 36415 ×2; 93005; 80053; 83605; 84484 ×2; 85025; 85610; 85730; 87040; 87636; 71046; J3370; J2270; J0696

== ENCOUNTER → 2023-12-13 | Outpatient (CLI) | payer MEDICARE ==
--- NOTE | 2023-12-13 10:05 | XR ---
EXAMINATION TYPE: XR chest 2V DATE OF EXAM: 12/13/2023 9:58 AM CLINICAL INDICATION:Male, 68 years old with history of Z95.818 Sternal wires; COMPARISON: Chest radiographs from 11/16/2023. TECHNIQUE: XR chest 2V Frontal and lateral views of the chest. FINDINGS: Lungs/Pleura: There is no evidence of pleural effusion, focal consolidation, or pneumothorax. Pulmonary vascularity: Unremarkable. Heart/mediastinum: Cardiomediastinal silhouette is enlarged and stable. Left atrial appendage occlu martinez device is present. Musculoskeletal: No acute osseous pathology. Midline sternotomy wires are noted. Sternal wires appear intact. IMPRESSION: 1. Stable exam, with 4 sternal wires which appear intact. 2. Low lung volumes with a generalized hazy appearance which could represent atelectasis versus pulm onary edema correlate with serum BNP.
== END | disposition home or self-care (01) ==
LOC: RADXRMAIN 09:35
PROVIDERS: ATTEND Plastic Surgery
DX: R91.8 Other nonspecific abnormal finding of lung field (principal); Z95.818 Presence of other cardiac implants and grafts
CPT/HCPCS: 71046

== ENCOUNTER → 2023-12-28 | Day surgery (SDC) | payer MEDICARE, OTHER ==
[2023-12-25 18:14] VITALS: BMI 30.7
[~2023-12-28] MED LIST changes: -ALBUMIN HUMAN 25% 50 ML IV ONE; -ALBUMIN HUMAN 5% 500 ML IVPB ONE; -ASPIRIN 325 MG TAB PO ONE; -ATORVASTATIN 10 MG TAB PO ONE; -CALCIUM CHLORIDE 100 MG/ML 10 ML SYRINGE IV ONE; -CHLORHEXIDINE GLUCONATE 15 ML CUP MUCOUS MEM ONE; -CLEVIDIPINE BUTYRATE 25 MG in EMPTY BAG 1 BAG IV ONE; -DILTIAZEM 125 MG in SODIUM CHLORIDE 0.9% 100 ML IV ONE; -ELECTROLYTE-A SOLUTION 1,000 ML with POTASSIUM CHLORIDE 100 MEQ, MAGNESIUM SULFATE 16 M... IV ONE; -ELECTROLYTE-A SOLUTION 1,000 ML with POTASSIUM CHLORIDE 40 MEQ, MAGNESIUM SULFATE 16 ME... IV ONE; +GLYCOPYRROLATE 0.2 MG/ML 2 ML VIAL ONE; -HEPARIN SODIUM 1,000 UN/ML (10ML VL) IV ONE; -HEPARIN SODIUM,PORCINE (1 ML) 5,000 UNIT in SODIUM CHLORIDE 0.9% 500 ML 500 ML IV ONE; +HYDROmorphone 0.5 MG/0.5 ML SYRINGE IVP PRN; -INSULIN REGULAR 100 UNIT in SODIUM CHLORIDE 0.9% 100 ML IV ONE; -LACTATED RINGERS 1,000 ML IV ONE; -MAGNESIUM SULFATE 16.24 MEQ in EMPTY SYRINGE 1 SYR IV ONE; -MANNITOL 25% 12.5 GM/50 ML VIAL IV ONE; -METOPROLOL TARTRATE 12.5 MG TAB PO ONE; +MIDAZOLAM 2 MG/2 ML VIAL ONE; -NITROGLYCERIN SL TABS 0.4 MG TAB SUBLINGUAL ONE; -NITROGLYCERIN-D5W PMX 25 MG/250 ML BTL IV ONE; -NITROGLYCERIN-D5W PMX 50 MG in DEXTROSE/WATER 1 250ML.BAG IV ONE; -NOREPINEPHRINE 4 MG in SODIUM CHLORIDE 0.9% 250 ML IV ONE; -PAPAVERINE 360 MG in SODIUM CHLORIDE 0.9% 90 ML IV ONE; -PHENYLEPHRINE 10 MG/ML VIAL IV ONE; +PHENYLEPHRINE 10 MG/ML VIAL ONE; -PHENYLEPHRINE 40 MG in SODIUM CHLORIDE 0.9% 250 ML IV ONE; +PROPOFOL 10 MG/ML 20 ML VIAL IV ONE; -PROTAMINE SULFATE 10 MG/ML 25 ML VIAL IV ONE; -PROTAMINE SULFATE 250 MG in EMPTY BAG 1 BAG IV ONE; -SODIUM BICARB 8.4% 50 ML SYR (1 MEQ/ML) IV ONE; -SODIUM CHLORIDE 0.9% 1,000 ML IV ONE; +SUCCINYLCHOLINE CHLORIDE 200 MG/10 ML VIAL IV ONE; -TRANEXAMIC ACID 2,000 MG in SODIUM CHLORIDE 0.9% 80 ML IV ONE; -ceFAZolin 1,000 MG in SODIUM CHLORIDE 0.9% IRRIGATIO 1,000 ML IRRIGATION ONE; +ePHEDrine 50 MG/ML 1 ML VIAL ONE; +fentaNYL (PF) 50 MCG/ML 2 ML AMP ONE; -propofoL 1,000 MG/100 ML VIAL IV ONE
[2023-12-28] MEDS: LACTATED RINGERS 1,000 ML IV SCH (06:53)
[2023-12-28 07:05] LABS: Glucose,Whole Blood 134 mg/dL (70-110)
[2023-12-28] MEDS: ONDANSETRON 4 MG/2 ML VIAL IVP ONE (07:08)
[2023-12-28] MEDS: DEXAMETHASONE SOD PHOSPHATE 4 MG/ML 1 ML VIAL IV ONE (07:08)
--- NOTE | 2023-12-28 08:39 | P.OP ---
Date of Procedure: 12/28/23 Preoperative Diagnosis: Sternal skin dehiscence Postoperative Diagnosis: Same Procedure(s) Performed: Removal of sternal wires with primary closure of wound Implants: None Anesthesia: MACY Surgeon: Gera Greer Estimated Blood Loss (ml): 10 Pathology: none sent Condition: stable Disposition: PACU Indications for Procedure: This patient is a 68 year-old M with a hx of CAD s/p CABG 4 months ago who developed sternal skin dehiscence. He was previously brought back to the operating room for washout and removal of one sternal cable which was near the open portion of the wound. Despite conservative management with wound vac and antibiotics, the patient did not completely heal with secondary intention. He is brought back to the operating room for complete removal of wires, washout and primary closure. Operative Findings: No evidence on on-going infection in bone or soft tissue. Bone healed nicely. Deep dermis and muscle viable but not of great quality. Description of Procedure: The patient was brought back to the operating room and placed in the supine position. He was intubated and underwent general anesthesia. Antibiotics were given and his chest was prepped in the usual sterile fashion with betadine. The two open wounds were connected with a knife and this was carried down to bone using electrocautery. The remaining 4 cables were moved and the wound was irrigated with 1L normal saline. Hemostasis was achieved and the wound was closed in layers of interrupted #1PDS, running 2-0 vicryl and 4-0 monocryl. Glue and sterile dressing was applied.
[2023-12-28 08:58] LABS: Glucose,Whole Blood 162 mg/dL (70-110)
[2023-12-28] MEDS: HYDROmorphone 0.5 MG/0.5 ML SYRINGE IVP ONE ×2 (09:07)
[2023-12-28] MEDS: LACTATED RINGERS 1,000 ML IV ONE (09:18)
--- NOTE | 2023-12-28 09:19 | XR ---
EXAMINATION TYPE: XR chest 1V portable DATE OF EXAM: 12/28/2023 9:08 AM CLINICAL INDICATION:Male, 68 years old with history of post sternal wire removal; [facility] COMPARISON: Chest radiographs from 12/13/2023 TECHNIQUE: XR chest 1V portable Frontal view of the chest. FINDINGS: Lungs/Pleura: There is no evidence of pleural effusion, focal consolidation, or pneumothorax. Pulmonary vascularity: Unremarkable. Heart/mediastinum: Cardiomediastinal silhouette is unremarkable. Left atrial appendage occlusion coral ce is present. Musculoskeletal: No acute osseous pathology. IMPRESSION: No acute cardiopulmonary disease/process.
[2023-12-28 09:32] VITALS: TEMP 97
[2023-12-28 10:30] LABS: Glucose,Whole Blood 175 mg/dL (70-110)
[2023-12-28 11:27] VITALS: BP 160/81; PULSE 81; RESP 16
== END | disposition home or self-care (01) ==
LOC: OR 06:28
PROVIDERS: ATTEND Thoracic Surgery (Cardiothoracic Vascular Surgery)
DX: T81.32XA Disruption of internal operation (surgical) wound, not elsewhere classified, initial encounter (principal); I25.10 Atherosclerotic heart disease of native coronary artery without angina pectoris; Z95.1 Presence of aortocoronary bypass graft; Y83.8 Other surgical procedures as the cause of abnormal reaction of the patient, or of later complication, without mention of misadventure at the time of the procedure
CPT/HCPCS: 71045; J2250; J0330; J1100; J0690; J2405; J3010; J2704; J1170; J2371

== ENCOUNTER 2024-05-04 02:14 | Emergency (ER) | payer MEDICARE ==
[2024-05-04] MEDS: diphenhydrAMINE 25 MG CAP PO STA (03:10)
[2024-05-04] MEDS: HYDROCORTISONE 1% CREAM 30 GM TUBE TOPICAL STA (03:11)
[2024-05-04 03:16] VITALS: BP 159/93; PULSE 62; RESP 17; TEMP 97.6
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
== END 2024-05-04 03:22 | disposition home or self-care (01) ==
LOC: EC 02:14
CPT/HCPCS: 99282

== ENCOUNTER → 2024-08-20 | Outpatient (CLI) | payer MEDICARE ==
--- NOTE | 2024-08-20 11:05 | US ---
EXAMINATION TYPE: US bladder DATE OF EXAM: 08/20/2024 COMPARISON: NONE CLINICAL INDICATION: Male, 69 years old with history of R35.0 frequency of micturition; frequent urin ation at night TECHNIQUE: Grayscale and color doppler imaging of the bilateral kidneys and urinary bladder. FINDINGS: EXAM MEASUREMENTS: Post Void Residual Volume: 191.9 mL HOSPITALIST NOTES: bladder appears sonolucent Color Doppler performed to assess ureteral jets. Bilateral Jets seen: yes Normal Post Void Residual (less than 50ml): No IMPRESSION: Excessive residual bladder volume after voiding, nearly 200 mL. Findings indicate urinary retention. [facility], Workstation: [facility], 08/20/2024 11:02 AM
== END | disposition home or self-care (01) ==
LOC: RADUSWWP 09:03
PROVIDERS: ATTEND Family Medicine
DX: R35.0 Frequency of micturition (principal); R33.9 Retention of urine, unspecified
CPT/HCPCS: 76857

== ENCOUNTER 2024-10-22 19:36 | Outpatient (CLI) | payer MEDICARE ==
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
== END 2024-10-23 04:20 | disposition home or self-care (01) ==
LOC: 3 N SLEEP 19:36
PROVIDERS: ATTEND Internal Medicine Critical Care Medicine
DX: G47.33 Obstructive sleep apnea (adult) (pediatric) (principal); G47.10 Hypersomnia, unspecified; E78.5 Hyperlipidemia, unspecified; E11.9 Type 2 diabetes mellitus without complications; N40.0 Benign prostatic hyperplasia without lower urinary tract symptoms; E66.9 Obesity, unspecified; Z68.30 Body mass index [BMI] 30.0-30.9, adult; Z99.89 Dependence on other enabling machines and devices; Z87.891 Personal history of nicotine dependence
CPT/HCPCS: 95810

== ENCOUNTER 2024-11-04 06:23 | Day surgery (SDC) | payer MEDICARE ==
[2024-11-04 07:00] VITALS: TEMP 97.2
[2024-11-04] MEDS ORDERED: HYDROmorphone 0.5 MG/0.5 ML SYRINGE IVP PRN (07:00)
[2024-11-04 07:04] LABS: Glucose,Whole Blood 119 mg/dL (70-110)
[2024-11-04] MEDS: IV FLUID CONTINUATION 1,000 ML IV ONE (07:05)
[2024-11-04] MEDS: DEXAMETHASONE SOD PHOSPHATE 4 MG/ML 1 ML VIAL IV ONE (07:07)
[2024-11-04] MEDS: ONDANSETRON 4 MG/2 ML VIAL IVP ONE (07:07)
[2024-11-04] MEDS: LACTATED RINGERS 1,000 ML IV SCH (07:07)
[2024-11-04] MEDS ORDERED: PHENYLEPHRINE 10 MG/ML VIAL ONE (07:26)
[2024-11-04] MEDS ORDERED: MIDAZOLAM 2 MG/2 ML VIAL ONE (07:26)
[2024-11-04] MEDS ORDERED: GLYCOPYRROLATE 0.2 MG/ML 2 ML VIAL ONE (07:26)
[2024-11-04] MEDS ORDERED: ePHEDrine 50 MG/ML 1 ML VIAL ONE (07:26)
[2024-11-04] MEDS ORDERED: LIDOCAINE 1% INJ 10MG/ML (20 ML MDV) ONE (07:26)
[2024-11-04] MEDS ORDERED: NEOSTIGMINE 1 MG/ML 10 ML VIAL ONE (07:26)
[2024-11-04] MEDS ORDERED: ROCURONIUM 10 MG/ML (5 ML VIAL) IV ONE (07:26)
[2024-11-04] MEDS ORDERED: SUCCINYLCHOLINE CHLORIDE 200 MG/10 ML VIAL IV ONE (07:26)
[2024-11-04] MEDS ORDERED: PROPOFOL 10 MG/ML 20 ML VIAL IV ONE (07:26)
[2024-11-04] MEDS ORDERED: fentaNYL (PF) 50 MCG/ML 2 ML AMP ONE (07:26)
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
[2024-11-04] MEDS: GENTAMICIN 120 MG in SODIUM CHLORIDE 0.9% 100 ML IVPB PRN (07:29)
[2024-11-04] MEDS: VANCOMYCIN 750 MG in SODIUM CHLORIDE 0.9% 250 ML IVPB PRN (07:29)
[2024-11-04 09:29] VITALS: RESP 16
--- NOTE | 2024-11-04 09:44 | P.OP ---
Date of Procedure: 11/04/24 Preoperative Diagnosis: Erectile dysfunction, malfunctioning IPP Postoperative Diagnosis: Same Procedure(s) Performed: Removal and replacement of a new IPP Implants: [employer] inflatable penile prosthesis Anesthesia: BRODIEA Surgeon: Theodore Johnson Salvager #1: Adair Valle Estimated Blood Loss (ml): 25 Pathology: none sent Condition: stable Disposition: PACU Indications for Procedure: This is a 69-year-old male with history of erectile dysfunction he had an inflatable penile prosthesis placed by Dr. Ambriz, patient indicated he has been unable to inflate the pump. Attempt to inflate the pump were unsuccessful. Dis cussed with him given the malfunctioning option of removal and reinsertion of a new IPP. Discussed the risk which include but not limited to bleeding, infection, potential of problem reoccurring down the line. Discussed also given his history of previous infection he is at a higher risk of complications. Risk of anesthesia was also discussed with him in details. He understood all the risk and agreed to proceed Description of Procedure: Patient brought to the operating room, general anesthesia was induced. He was prepped and draped in sterile fashion placed in a supine position. Next a incision was made along the infrapubic region. Subcutaneous tissue was divided using electrocautery. At this time dissection was carried down all the way down to the corporal bodies. Next using 3-0 PDS 2 stay sutures were placed on each corpora. Using a scalpel incision was made in the corporal bodies. At this point both cylinders were identified and removed intact. At this point the cylinders were disconnected from the pump. Attention was then carried to the pump dissection was performed by following the tubing all the way down to the pump, next the pump was excised and removed. It was disconnected from the tubing going to the reservoir. The tubing was followed all the way down to the retropubic space where the pump was located. Small incision was made along the tube and the reservoir was drained and removed intact. Next antibiotic irrigation was used to irrigate all the surgical field. Next the new reservoir was placed in the retropubic space and was filled with a syringe up to 100 mL. Next both corpora's were measured and each measured 17 cm. Next a 15 cm cylinders were placed in each corpora with a 2 cm rear-tip extenders. Next the pump was placed in the previous right hemiscrotum space, this point all tubing was connected and the penile prosthesis was cycled without any difficulties and there was a straight erection. Next the space around the pump was closed using 2-0 Vicryl, the corpora were closed using 3-0 PDS. The subcutaneous tissue was closed with 3-0 Vicryl, skin was closed with 4-0 Monocryl, skin glue was applied to the incision. The penile prosthesis was recycled without any difficulties. Patient tolerated the procedure well was taken to recovery in stable condition
[2024-11-04 10:46] VITALS: BP 127/72; PULSE 60
== END 2024-11-04 11:25 | disposition home or self-care (01) ==
LOC: OR 06:23
PROVIDERS: ATTEND Urology
DX: N52.9 Male erectile dysfunction, unspecified (principal); I25.10 Atherosclerotic heart disease of native coronary artery without angina pectoris; I25.2 Old myocardial infarction; I73.9 Peripheral vascular disease, unspecified; K21.9 Gastro-esophageal reflux disease without esophagitis; E11.51 Type 2 diabetes mellitus with diabetic peripheral angiopathy without gangrene; E78.5 Hyperlipidemia, unspecified; I10 Essential (primary) hypertension; G47.33 Obstructive sleep apnea (adult) (pediatric); M19.90 Unspecified osteoarthritis, unspecified site; Z86.718 Personal history of other venous thrombosis and embolism; Z95.1 Presence of aortocoronary bypass graft; Z95.5 Presence of coronary angioplasty implant and graft; Z87.891 Personal history of nicotine dependence; Z79.84 Long term (current) use of oral hypoglycemic drugs; Z79.02 Long term (current) use of antithrombotics/antiplatelets; Z79.4 Long term (current) use of insulin; Z79.899 Other long term (current) drug therapy
CPT/HCPCS: 54405; C1813; J2250; J3370; J0330; J1100; J2710; J2405; J2003; J3010; J1580; J2704; J2371; J1596

== ENCOUNTER 2024-12-18 19:32 | Outpatient (CLI) | payer MEDICARE ==
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
== END 2024-12-19 04:40 | disposition home or self-care (01) ==
LOC: 3 N SLEEP 19:32
PROVIDERS: ATTEND Internal Medicine Critical Care Medicine
DX: G47.33 Obstructive sleep apnea (adult) (pediatric) (principal); E66.9 Obesity, unspecified; E78.5 Hyperlipidemia, unspecified; E11.51 Type 2 diabetes mellitus with diabetic peripheral angiopathy without gangrene; N40.0 Benign prostatic hyperplasia without lower urinary tract symptoms; T81.41XA Infection following a procedure, superficial incisional surgical site, initial encounter; Z95.1 Presence of aortocoronary bypass graft; Z68.30 Body mass index [BMI] 30.0-30.9, adult; Z87.891 Personal history of nicotine dependence; Z99.89 Dependence on other enabling machines and devices
CPT/HCPCS: 95811